=== PATIENT | male | born 1975 | race Caucasian/White ===

== ENCOUNTER → 2022-02-22 | Outpatient (CLI) | payer MEDICARE, MEDICAID, SELFPAY ==
--- NOTE | 2022-02-22 13:41 | CT_ITS ---
STUDY: CT RIGHT ANKLE WITHOUT CONTRAST REASON FOR EXAM: Male, 46 years old. SPRAIN OF OTHER LIGAMENT OF RIGHT ANKLE, INITIAL ENCOUNTER RADIATION DOSAGE (If Supplied By Facility): CTDIvol = ( 15.35 ) mGy, DLP = ( 561.00 ) mGycm TECHNIQUE: Thin section transaxial imaging of the ankle was obtained, with sagittal and coronal reconstructed images. Individualized dose optimization techniques were used for this CT. COMPARISON: None. FINDINGS: Normal visualized distal tibia and fibula. Normal tibiotalar articulation and talar dome. Normal talus, navicular and cuboid tarsal bones. Normal subtalar, talonavicular and calcaneocuboid articulations. A spur is seen at the insertion of the Achilles tendon. Normal navicular-cuneiform, cuneiform tarsal bones and intercuneiform articulations. Normal tarsometatarsal articulations and visualized metatarsi. The soft tissue structures are grossly normal. CT/Extremity Lower without Contra IMPRESSION: Normal CT examination of the ankle. Electronically Signed: Ric Reid MD at 14:27 EDT ,
== END | disposition home or self-care (01) ==
LOC: CT 13:40
PROVIDERS: PCP Family Medicine; Visit Provider Physician Assistant
DX: S93.491A Sprain of other ligament of right ankle, initial encounter (principal)
CPT/HCPCS: 73700

== ENCOUNTER → 2024-01-18 | Outpatient (CLI) | payer MEDICARE, MEDICAID, SELFPAY ==
[2024-01-18 11:03] LABS: Absolute Neutrophil Count 2.6 X10^3/uL (2.0-7.7); Basophil# 0.03 X10^3/uL; Basophil% 0.6 % (0-1); Eosinophil# 0.09 X10^3/uL; Eosinophils% 1.9 % (0-5); Hematocrit 45.6 % (40-54); Hemoglobin 14.9 g/dL (13.0-16.5); Lymphocyte % 35.6 % (19-41); Mean Corp Hgb Conc 32.7 g/dL (32-36); Mean Corpuscular Volume 91.9 fL (80-94); Mean Platelet Vol. 9.9 fl (6.2-12.0); Monocyte% 6.3 % (0-10); NRBC Flagged by Analyzer 0 % (0-5); Neutrophil # 2.64 X10^3/uL (2.7-7.7); Neutrophil % 55.4 % (47-70); Platelet Count 286 K/mm3 (150-450); RBC Distribution Width SD 43.8 fl (35.1-43.9); Red Blood Count 4.96 M/mm3 (4.6-6.2); White Blood Count 4.8 K/mm3 (4.4-11.0)
[2024-01-18 11:39] LABS: Hemoglobin A1c 5.3 % (3.8-5.6)
[2024-01-18 11:59] LABS: ALB/GLOB Ratio 0.9 RATIO (0.9-2.4); AST(SGOT) 15 U/L (15-37); Alanine Aminotransfer ALT/SGPT 23 U/L (16-61); Albumin, Serum 3.7 g/dL (3.2-5.0); Alkaline Phosphatase 65 U/L (45-117); Anion Gap 5 (5-15); BUN 5 mg/dL (7-18); BUN/Creat Ratio 7.1 RATIO (10-20); Calcium,Total 8.7 mg/dL (8.5-10.1); Chloride 103 mmol/L (98-107); Creatinine, Serum 0.71 mg/dL (0.70-1.30); EST Glomerular Filtration Rate 127 mL/min (>60); Est Glom Filt Rate - Afr Amer 154 mL/min (>60); Glucose 97 mg/dL (74-106); Potassium 4.4 mmol/L (3.5-5.1); Protein, Total 7.7 g/dL (6.4-8.2); Sodium Level 137 mmol/L (136-145); T4 Free Direct 0.55 ng/dL (0.76-1.46); Thyroid Stim Hormone (TSH) 1.19 uIU/mL (0.358-3.74)
== END | disposition home or self-care (01) ==
LOC: LAB 10:12
PROVIDERS: PCP Family Medicine; Referring Provider Student in an Organized Health Care Education/Training Program; Visit Provider Student in an Organized Health Care Education/Training Program
DX: R47.81 Slurred speech (principal); F42.9 Obsessive-compulsive disorder, unspecified; F79 Unspecified intellectual disabilities; Z51.81 Encounter for therapeutic drug level monitoring
CPT/HCPCS: 36415; 80053; 83036; 84439; 84443; 85025

== ENCOUNTER 2024-08-10 19:56 | Outpatient (CLI) | payer MEDICARE, MEDICAID, SELFPAY | END 2024-08-10 23:59 | disposition home or self-care (01) | LOC: SL 19:56 | PROVIDERS: PCP Family Medicine; Referring Provider Nurse Practitioner Family; Visit Provider Nurse Practitioner Family | DX: R06.83 Snoring (principal); Z92.89 Personal history of other medical treatment; R40.0 Somnolence | CPT/HCPCS: 95810 ==

== ENCOUNTER → 2024-08-15 | Outpatient (CLI) | payer MEDICARE, MEDICAID, SELFPAY | END | disposition home or self-care (01) | PROVIDERS: PCP Family Medicine; Referring Provider Student in an Organized Health Care Education/Training Program; Visit Provider Student in an Organized Health Care Education/Training Program | DX: F42.9 Obsessive-compulsive disorder, unspecified (principal); F79 Unspecified intellectual disabilities; Z51.81 Encounter for therapeutic drug level monitoring | CPT/HCPCS: 36415; 82140 ==

== ENCOUNTER 2025-05-13 20:20 | Inpatient (IN) | payer MEDICARE, MEDICAID, SELFPAY ==
[2025-05-13 20:21] VITALS: BP 98/64; PULSE 94; RESP 16; TEMP 37; O2SAT 97
[2025-05-13 20:44] VITALS: BMI 25.2
--- OUTSIDE RECORDS SUMMARY | 2025-05-13 21:08 | XMS RPT_ITS | CCD ---
Author Organization [facility]iniSynd Care Team Providers Care Server Software Engineer Name Role Phone Becca Draper MD Primary Care Provider ROSANA RODNEY Referring Unavailable BECCA DRAPER Primary Care Unavailable Becca Draper MD Primary Care Provider Becca Draper MD Primary Care Provider Rashaun PROCESS DESCRIPTION WRITER.Rosana GARRIDO Unavailable Cole PROCESS DESCRIPTION WRITER.Mac GARRIDO Unavailable BECCA DRAPER Primary Care Unavailable JENISE HOLT Referring Unavailable BECCA DRAPER Primary Care Unavailable JENISE HOLT Referring Unavailable MAYRA GERARDO Attending Unavailable BECCA DRAPER Primary Care Unavailable MAYRA GERARDO Referring Unavailable BECCA DRAPER Primary Care Unavailable MAYRA GERARDO Referring Unavailable BECCA DRAPER Primary Care Unavailable SALIMA PARDO Attending Unavailable BECCA DRAPER Primary Care Unavailable FROYLAN ERWIN Attending Unavailable BECCA DRAPER Primary Care Unavailable ROSANA RODNEY Attending Unavailabl e SELF Referring Unavailable BECCA DRAPER Primary Care Unavailable ROSANA RODNEY Referring Unavailabl BECCA Johnson Primary Care Unavailable ROSANA RODNEY Referring Unavailabl e BECCA DRAPER Primary Care Unavailable ROSANA RODNEY Attending Unavailabl e BECCA DRAPER Referring Unavailable BECCA DRAPER Primary Care Unavailable COLEDAGOE Referring Unavailable BECCA DRAPER Primary Care Unavailable ARABELLA SLAUGHTER Attending Unavailable BECCA DRAPER Primary Care Unavailable JENISE HOLT Attending Unavailable BECCA DRAPER Primary Care Unavailable BETHANIE HOLTANDA LATRICIA Referring Unavailable BECCA DRAPER Primary Care Unavailable Reji George Referring Unavailable Becca Draper Primary Care Unavailable Reji George Attending Unavailable Becca Draper Primary Care Unavailable Reji George Attending Unavailable Becca Draper Primary Care Unavailable SeeReji villeda Attending Unavailable Becca Draper Primary Care Unavailable Reji George Attending Unavailable Reji George Attending Unavailable Becca Draper [facility] Rosana Rodney Attending Unavailable Rosana Rodney Referring Unavailable Allergies Allergy Classification Reported Allergen(s) Allergy Type Date of Onset Reaction(s) Facility (20 sources) OLANZapine; Translations: [OLANZAPINE] Drug Allergy 08-11-2007 Intolerance [facility] Work Phone: (20 sources) PARoxetine; Translations: [PAROXETINE HCL] Drug Allergy 08-11-2007 Intolerance [facility] Work Phone: (20 sources) venlafaxine; Translations: [VENLAFAXINE HCL] Drug Allergy 08-11-2007 Intolerance [facility] Work Phone: (1 source) venlafaxine Drug Allergy 05-02-2025 [facility] Repository Medications Current Medications Medication Drug Class(es) Dates Sig (Normalized) Sig (Original) [id number] 200 actuat albuterol 0.09 mg/actuat metered dose inhaler (20 sources) beta2-Adrenergic Agonist Start: 02-06-2025 take 2 puff(s) by inhalation every four hours as needed for cough albuterol HFA (PROVENTIL HFA, VENTOLIN HFA) 90 mcg/actuation inhaler Inhale 2 puffs as instructed every 4 hours as needed for wheezing/shortnes s of breath (cough). 1 each 1 02/06/2025 Active Start: 10-25-2023 take 2 puff(s) by in halation every four hours as needed for wheezing albuterol HFA (PROVENTIL HFA, VENTOLIN HFA) 90 mcg/actuation inhaler Indications: Rhonchi at both lung bases , URI, acute , Subacute cough Inhale 2 Puffs as instructed every 4 hours as needed for wheezing/shortness of breath. 1 Each 10/25/2023 Active Comment on above: Inhale 2 Puffs as in structed every 4 hours as needed for wheezing/shortness of breath. amoxicillin 875 mg / clavulanate 125 mg oral tablet (6 sources) Penicillin-class Antibacterial Start: 02-07-20 End: 02-12-20 take 1 tablet by mouth twice daily amoxicillin-clavu lanate potassium (AUGMENTIN) 875-125 mg per tablet Indications: Bacterial pneumonia Take 1 tablet by mouth two times a day for 5 days. 10 tablet 02/06/2025 02/11/2025 Active Start: 01-21-2025 End: 01-31-2025 take 1 tablet by mouth every twelve hours amoxicillin-clavulanate potassium (AUGMENTIN) 875-125 mg per tablet Take 1 tablet by mouth every 12 hours for 10 days. 20 tablet 01/21/2025 01/31/2025 Active Start: 04-08-2024 End: 04-15-2024 take 1 tablet by mouth twice daily amoxicillin-clavulanate potassium (AUGMENTIN) 875-125 mg per tablet Take 1 tablet by mouth two times a day for 7 days. 14 tablet 0 04/08/2024 04/15/2024 Active benzonatate 100 mg oral capsule (20 sources) Non-narcotic Antitussive Start: 02-06-2025 take 1 capsule by mouth three times daily as needed benzonatate (TESSALON PERLE) 100 mg capsule Indications: Acute cough , Bronchitis Take 1-2 capsules by mouth three times a day as needed. 40 capsule 1 02/06/2025 Active Start: 12-15-2023 take 1 capsule by mo uth three times daily as needed for cough benzonatate (TESSALON PERLE) 100 mg capsule Indications: Acute cough , Hx of viral pneumonia Take 1 capsule by mouth three times a day as needed for cough. 30 capsule 12/15/2023 Active Comment on above: Take 1 capsule by mo uth three times a day as needed for cough. carBAMazepine 200 mg oral tablet (20 sources) Mood Stabilizer Start: 06-10-20 End: 06-06-20 take 2 tablets by mouth twice daily carBAMazepine (EPITOL) 200 mg tablet Indications: Nonintractable epilepsy without status epilepticus, unspecified epilepsy type (HCC) Take 2 tablets by mouth two times a day. 120 tablet 11 06/07/2024 Active Start: 03-22-2015 take 400 mg by mouth twice daily at mealtime Carbamazepine Active 400 MG PO TWICE DAILY WITH MEALS March 22, 2015 7:39am Comment on above: Take [address] [facility] twice daily. Take [address] [facility] twice daily Take [address] [facility] two times a day. cetirizine hydrochloride 10 mg oral tablet (20 sources) Histamine-1 Receptor Antagonist Start: End: 5 take 1 tablet by mouth once daily cetirizine (ZYRTEC) 10 mg tablet Take 1 tablet by mouth once daily. 30 tablet 11 09/27/2024 Active Start: 12-17-2021 End: 07-02-2022 take 1 tablet by mouth once daily cetirizine (ZYRTEC) 10 mg tablet Take 1 tablet by mouth once daily. 30 tablet 5 12/17/2021 07/02/2022 Discontinued Comment on above: Take 1 tablet by [facility] once daily. doxycycline hyclate 100 mg oral tablet (7 sources) Tetracycline-cla ss Drug Start: 02-06-2025 End: 02-16-2025 take 1 tablet by mouth twice daily doxycycline (VIBRA-TABS) 100 mg tablet Indications: Acute cough Take 1 tablet by mouth two times a day for 10 days. 20 tablet 02/06/2025 02/16/2025 Active Start: 12-12-2023 End: 12-17-2023 take 1 capsule by mouth twice daily doxycycline monohydrate (MONODOX) 100 mg capsule Indications: Bacterial pneumonia Take 1 capsule by mouth two times a day for 5 days. 10 capsule 0 12/12/2023 12/17/2023 Active Comment on above: Take [address] [facility] two times a day for 5 days. Food Supplemt, Lactose-Reduced (Boost High Protein) 237 ML Liquid (1 source) Start: 03-25-20 15 take 1 mL by mouth four times daily as needed Food Supplemt, Lactose-Reduced (Boost High Protein) 237 ML Liquid Active 237 ML PO 4 TIMES DAILY NEEDED 72 March 25, 2015 5:37pm ketoconazole 20 mg/ml medicated shampoo (20 sources) Azole Antifungal Start: 08-13-20 14 ketoconazole (NIZORAL) 2 % shampoo Lather into hair, leave 5 minutes, then rinse out. Use on face, ears, chest, and back as body wash. Repeat 3 times per week or as directed. 125 mL 6 08/13/2014 Active Comment on above: Lather into hair, le ave 5 minutes, then rinse out. Use on face, ears, chest, and back as body wash. Repeat 3 times per week or as directed. metoclopramide 5 mg oral tablet (1 source) Dopamine-2 Receptor Antagonist Start: 03-25-20 15 take 1 tablet by mouth three times daily Metoclopramide Hcl (Reglan) 5 MG tablet Active 5 MG PO THREE TIMES A DAY March 25, 2015 5:25pm omeprazole 20 mg delayed release oral capsule (5 sources) Proton Pump Inhibitor Start: 02-27-20 25 take 1 capsule by mouth once daily omeprazole (PRILOSEC) 20 mg capsule Take 1 capsule by mouth once daily. 30 capsule 2 02/26/2025 Active 24 hr oxybutynin chloride 5 mg extended release oral tablet (20 sources) Cholinergic Muscarinic Antagonist Start: 12-21-19 take 1 tablet by mouth every twenty-four hours at bedtime oxybutynin XL (DITROPAN XL) 5 mg 24 hr tablet Indications: Urinary urgency TAKE 1 TABLET BY MOUTH AT BEDTIME 28 tablet 11 12/20/2024 Active Start: 02-14-2024 End: 12-20-2024 take 1 tablet by mouth once daily at bedtime oxybutynin XL (DITROPAN XL) 5 mg 24 hr tablet Indications: Urinary urgency Take 1 tablet by mouth daily at bedtime. 28 tablet 11 02/14/2024 12/20/2024 Discontinued Start: 11-24-2023 End: 02-14-2024 take 1 tablet by mouth every twenty-four hours at bedtime oxybutynin XL (DITROPAN XL) 5 mg 24 hr tablet Indications: Urinary urgency take 1 tablet by mouth at bedtime 28 tablet 11/24/2023 01/24/2024 Discontinued Start: 01-04-2023 End: 11-24-2023 take 1 tablet by mouth once daily oxybutynin XL (DITROPAN XL) 5 mg 24 hr tablet Indications: Urinary urgency Take 1 tablet by mouth once daily. 90 tablet 3 01/04/2023 11/24/2023 Discontinued Start: 12-17-2022 take 1 tablet by isabela th once daily at bedtime oxybutynin (DITROPAN) 5 mg tablet Indications: Urinary frequency , Urinary urgency Take 1 tablet by mouth daily at bedtime. 90 tablet 3 12/17/2022 Active Start: 10-01-2022 End: 12-16-2022 take 1 tablet by mouth three times daily oxybutynin (DITROPAN) 5 mg tablet Take 1 tablet by mouth three times daily. 90 tablet 3 10/01/2022 12/16/2022 Discontinued (Dosage adjustment) Comment on above: Take 1 tablet by isabela th three times daily. Take 1 tablet by isabela th daily at bedtime. Take 1 tablet by isabela th once daily. take 1 tablet by isabela th at bedtime polymyxin b [id number] unt/ml / trimethoprim 1 mg/ml ophthalmic solution (1 source) Dihydrofolate Reductase Inhibitor Antibacterial, Polymyxin-class Antibacterial Start: 11-04-19 End: 11-11-19 take 1 drop(s) into the eye(s) four times daily trimethoprim-polymyxi n (POLYTRIM) 10,000 unit- 1 mg/mL ophthalmic solution Use 1 Drop in the left eye four times daily for 7 days. 10 mL 0 11/04/2023 11/11/2023 Active Comment on above: Use 1 Drop in the le ft eye four times daily for 7 days. predniSONE 10 mg oral tablet (8 sources) Start: 01-29-20 End: 02-10-20 take 4 tablets by mouth once daily, then take 3 tablets by mouth once daily, then take 2 tablets by mouth once daily, then take 1 tablet by mouth once daily predniSONE (DELTASONE) 10 mg tablet Indications: Acute cough , Oropharyngeal dysphagia Take 4 tablets by mouth once daily for 3 days, THEN 3 tablets once daily for 3 days, THEN 2 tablets once daily for 3 days, THEN 1 tablet once daily for 3 days. 30 tablet 01/28/2025 02/09/2025 Active Start: 12-15-2023 End: 12-24-2023 predniSONE (DELTASONE) 10 mg tablet Take 4 tabs daily for 3 days, then 2 tabs daily for 3 days, then 1 tab daily for 3 days with food. 21 tablet 0 12/15/2023 12/24/2023 Active Comment on above: Take 4 tabs daily fo r 3 days, then 2 tabs daily for 3 days, then 1 tab daily for 3 days with food. Proteins (1 source) Start: 03-25-2015 take 454 g by mouth four times daily as needed Protein Active 454 GM PO 4 TIMES DAILY NEEDED March 25, 2015 5:35pm divalproex sodium 500 mg delayed release oral tablet (20 sources) Mood Stabilizer, Anti-epileptic Agent Start: 07-05-2022 End: 07-06-2024 take 1 tablet by mouth twice daily divalproex DR (DEPAKOTE) 500 mg EC tablet Indications: Nonintractable epilepsy without status epilepticus, unspecified epilepsy type (HCC) Take 1 tablet by mouth two times a day. 60 tablet 11 07/06/2024 Active Start: 03-22-2015 End: 07-03-2022 take 1 tablet by mouth twice daily divalproex DR (DEPAKOTE) 500 mg EC tablet Take 1 tablet by mouth twice daily. 60 tablet 11 06/10/2021 06/08/2022 Discontinued Comment on above: Take 1 tablet by isabela th twice daily. Take 1 tablet by isabela th twice daily Take 1 tablet by isabela th two times a day. Completed/Discontinued Medications Medication Drug Class(es) Dates Sig (Normalized) Sig (Original) busPIRone hydrochloride 10 mg oral tablet (18 sources) Start: 12-17-2021 End: 09-14-2022 take 1 tablet by mouth twice daily busPIRone (BUSPAR) 10 mg tablet Take 1 tablet by mouth twice daily. 60 tablet 2 12/17/2021 09/14/2022 Discontinued (Course of therapy completed) Comment on above: Take 1 tablet by isabela th twice daily. cholecalciferol 1.25 mg oral capsule (9 sources) Vitamin D Start: 07-06-2024 End: 07-06-2025 take 1 capsule by mouth every week cholecalciferol, Vitamin D3, (VITAMIN D3) 1,250 mcg (50,000 unit) cap capsule Indications: Vitamin D deficiency Take 1 capsule by mouth one time a week. 12 capsule 3 07/06/2024 01/28/2025 Discontinued (Discontinued by Patient) clomiPRAMINE hydrochloride 25 mg oral capsule (20 sources) Tricyclic Antidepressant Start: 07-29-2023 End: 01-28-2025 take 1 capsule by mouth once daily clomiPRAMINE (ANAFRANIL) 25 mg capsule Take 1 capsule by mouth once daily. 07/29/2023 01/28/2025 Discontinued (Discontinued by Patient) Comment on above: Take 1 capsule by mo [facility] once daily. FLUoxetine 10 mg oral capsule (18 sources) Serotonin Reuptake Inhibitor Start: 10-28-2021 End: 09-14-2022 take 1 capsule by mouth once daily FLUoxetine (PROZAC) 10 mg capsule Take 1 capsule by mouth once daily. 30 capsule 5 10/28/2021 09/14/2022 Discontinued (Course of therapy completed) Comment on above: Take 1 capsule by mo [facility] once daily. hydrocortisone 10 mg/ml topical cream (20 sources) Corticosteroid Start: 08-14-2021 End: 01-28-2025 hydrocortisone (ALA-EFREN) 1 % cream Indications: Eczema Apply 1 application to affected area twice daily. 30 g 3 08/14/2021 01/28/2025 Discontinued (Course of therapy completed) Comment on above: Apply 1 application to affected area twice daily. Inhalational Spacing Device (1 source) Start: 10-25-2023 End: 10-25-2023 Inhalational Spacing Device 1 Device one time only for 1 dose. 1 Each 0 10/25/2023 10/25/2023 Comment on above: 1 Device one time on ly for 1 dose. sertraline 25 mg oral tablet (20 sources) Serotonin Reuptake Inhibitor Start: 09-29-2022 End: 01-28-2025 sertraline (ZOLOFT) 25 mg tablet once daily. 09/29/2022 01/28/2025 Discontinued Comment on above: once daily. Problems Active Problems Problem Classification Problem Date Documented Da te Episodic/Chronic Anxiety disorders (20 sources) Generalized anxiety disorder; Translations: [Generalized anxiety disorder] Onset: 07-27-2005 Chronic Chronic obstructive pulmonary disease and bronchiectasis (3 sources) Bronchitis; Translations: [Bronchitis, not specified as acute or chronic] Onset: 02-06-2025 02-06-2025 Episodic Developmental disorders (20 sources) Intellectual disability; Translations: [Unspecified intellectual disabilities] Onset: 07-27-2005 Chronic Epilepsy; convulsions (20 sources) Epilepsy; Translations: [Epilepsy, unspecified, not intractable, without status epilepticus] Onset: 09-01-2006 07-11-2017 Chronic Fracture of lower limb (1 source) Closed fracture of calcaneus; Translations: [Nondisplaced fracture of anterior process of right calcaneus, initial encounter for closed fracture] Episodic Genitourinary symptoms and ill-defined conditions (15 sources) Increased frequency of urination; Translations: [Frequency of micturition] Onset: 04-30-2025 Episodic Inflammation; infection of eye (except that caused by tuberculosis or sexually transmitteddisease) (1 source) Acute conjunctivitis of left eye; Translations: [Unspecified acute conjunctivitis, left eye] 11-04-2023 Episodic Noninfectious gastroenteritis (3 sources) Chronic diarrhea; Translations: [Noninfective gastroenteritis and colitis, unspecified] Onset: 04-29-2025 04-29-2025 Episodic Nutritional deficiencies (3 sources) Vitamin D deficiency; Translations: [Vitamin D deficiency, unspecified] Onset: 08-24-2024 07-06-2024 Chronic Other circulatory disease (1 source) Wheeze - rhonchi; Translations: [Other specified symptoms and signs involving the circulatory and respiratory systems] 10-25-2023 Episodic Other ear and sense organ disorders (1 source) Impacted cerumen in left ear; Translations: [Impacted cerumen, left ear] Episodic Other ear and sense organ disorders (1 source) Impacted cerumen of bilateral ears; Translations: [Impacted cerumen, bilateral] 01-28-2025 Episodic Other gastrointestinal disorders (7 sources) Oropharyngeal dysphagia; Translations: [Dysphagia, oropharyngeal phase] 01-28-2025 Episodic Other gastrointestinal disorders (3 sources) Dysphagia; Translations: [Other dysphagia] 02-08-2025 Episodic Other gastrointestinal disorders (1 source) Oral phase dysphagia; Translations: [Dysphagia, oral phase] 02-08-2025 Episodic Other gastrointestinal disorders (1 source) Dysphagia, unspecified; Translations: [Dysphagia, unspecified type] Onset: 04-29-2025 Episodic Other lower respiratory disease (2 sources) Chronic cough; Translations: [Chronic cough] 12-12-2023 Episodic Other lower respiratory disease (1 source) H/O: pneumonia; Translations: [Personal history of pneumonia (recurrent)] 12-15-2023 Episodic Other lower respiratory disease (4 sources) Snoring; Translations: [Snoring] 07-04-2024 Episodic Other lower respiratory disease (5 sources) Cough; Translations: [Acute cough] 01-28-2025 Episodic Other nervous system disorders (1 source) Slurred speech; Translations: [Slurred speech] Episodic Other non-traumatic joint disorders (2 sources) Acute ankle pain; Translations: [Pain in right ankle and joints of right foot] Episodic Other screening for suspected conditions (not mental disorders or infectious disease) (9 sources) Patient encounter status; Translations: [Encounter for screening for malignant neoplasm of colon] Onset: 08-24-2024 Episodic Other upper respiratory disease (4 sources) Seasonal allergy; Translations: [Other seasonal allergic rhinitis] Chronic Other upper respiratory disease (1 source) Other seasonal allergic rhinitis; Translations: [Seasonal allergies] Onset: 07-04-2024 Chronic Other upper respiratory disease (1 source) Nasal discharge; Translations: [Other specified disorders of nose and nasal sinuses] Episodic Other upper respiratory infections (1 source) Bacterial sinusitis; Translations: [Chronic sinusitis, unspecified] 04-08-2024 Chronic Other upper respiratory infections (2 sources) Sore throat symptom; Translations: [Acute pharyngitis, unspecified] Episodic Pneumonia (except that caused by tuberculosis or sexually transmitted disease) (4 sources) Bacterial pneumonia; Translations: [Unspecified bacterial pneumonia] Onset: 02-28-2025 12-12-2023 Episodic Residual codes; unclassified (2 sources) Past history of procedure; Translations: [Personal history of other medical treatment] 07-20-2024 Episodic Residual codes; unclassified (2 sources) Family history of cancer of colon; Translations: [Family history of malignant neoplasm of digestive organs] 04-29-2025 Episodic Residual codes; unclassified (1 source) Family history of malignant neoplasm of digestive organs; Translations: [Family history of colon cancer] Onset: 04-29-2025 Episodic Unclassified (1 source) Poor oral intake Unclassified (2 sources) Acute cough; Translations: [Acute cough] Onset: 02-06-2025 Unclassified (1 source) Other cough; Translations: [Other cough] Onset: 04-29-2025 Past or Other Problems Problem Classification Problem Date Documented Da te Episodic/Chronic Biliary tract disease (20 sources) Calculus of gallbladder with acute cholecystitis; Translations: [Calculus of gallbladder with acute cholecystitis] Onset: 08-20-2005 Resolved: 09-01-2006 09-01-2006 Episodic Coma; stupor; and brain damage (5 sources) Daytime somnolence; Translations: [Somnolence] Onset: 07-04-2024 07-04-2024 Episodic Immunizations and screening for infectious disease (1 source) Encounter for immunization; Translations: [Encounter for immunization] Onset: 07-04-2024 Episodic Malaise and fatigue (3 sources) Fatigue; Translations: [Other fatigue] Onset: 07-04-2024 07-04-2024 Episodic Other aftercare (1 source) Encounter for therapeutic drug level monitoring; Translations: [Encounter for therapeutic drug level monitoring] Onset: 07-31-2024 Episodic Other ear and sense organ disorders (1 source) Impacted cerumen, bilateral; Translations: [Bilateral impacted cerumen] Onset: 01-28-2025 Episodic Other gastrointestinal disorders (2 sources) Dysphagia, oropharyngeal phase; Translations: [Oropharyngeal dysphagia] Onset: 01-28-2025 Episodic Other lower respiratory disease (7 sources) Cough; Translations: [Subacute cough] Onset: 01-21-2025 10-25-2023 Episodic Other lower respiratory disease (2 sources) Snoring; Translations: [Snoring] Onset: 07-04-2024 Episodic Other nutritional; endocrine; and metabolic disorders (20 sources) Abnormal weight loss; Translations: [Abnormal weight loss] Onset: 04-03-2015 04-03-2015 Episodic Residual codes; unclassified (1 source) Personal history of other medical treatment; Translations: [History of sleep study] Onset: 08-24-2024 Episodic Screening and history of mental health and substance abuse codes (1 source) Encounter for screening for depression; Translations: [Screening for depression] Onset: 07-04-2024 Episodic Unclassified (2 sources) Acute cough 01-28-2025 Results Test Name Value Interpretation Reference Range Facility [facility] 05-02-2025 MR/[facility]MS.[facility] [address], [address] [place] [address] OFFICE VISIT Date of Service: 05/02/25 MR#: [id number] Acct: [id number] Name: OCTAVIANO QUINN Rep #: [id number] : 1975 Provider: Dr. Reji Zepeda se, DO Age/Sex: 49/M Location: [facility] [place] Status: Signed Intake Vital Signs 01/30/25 10:08 05/02/25 10:36 Height 5 ft 11 in 5 ft 11 in Weight: 203 lb 198 lb BMI 28.3 27.6 BP 109/74 118/78 Blood Pressure Location Lt brachial Rt brachial Position Sitting Sitting Respiration 16 16 Pulse 68 64 Pulse Source Monitor Monitor BP Intake Visit Reasons: 3 M FU Accompanied by: family Allergies venlafaxine HCl (From Effexor) Adverse Reaction (Verified 05/02/25 10:38) AGITATION AND SLEEPY Medications ???Medication ???Instructions ???Recorded ???Confirmed ???Type carbamazepine 200 mg tablet 400 mg PO BIDCM 03/22/15 05/02/25 History cetirizine 10 mg tablet 10 mg PO DAILY 09/29/22 05/02/25 H istory divalproex 500 mg tablet,delayed 500 mg PO BID #30 tabs 11/11/22 Rx release (Depakote) oxybutynin chloride 5 mg tablet tablet PO 11/11/22 05/02/25 Histor y hydroxyzine HCl 10 mg tablet 5 - 10 mg (0.5 - 1 x 10 mg) PO BID 05/02/25 05/02/25 Rx PRN anxiety #60 tabs omeprazole 20 mg capsule,delayed 20 mg PO QDAY 05/02/25 05/02/25 Hi story release PFSH Medical History (Updated 07/31/24 @ 10:[address] Reji George DO) Medication monitoring encounter OCD (obsessive compulsive disorder) Intellectual disability Cholecystectomy planned Seizures Irritable bowel syndrome Gallstones Allergies Family History Other Anxiety Asthma Depression Diabetes Hypertension Parkinson disease Seizures Social History Smoking Status: Never smoker alcohol intake: never substance use type: does not use HPI History of Present Illness History provided by: patient HPI: Octaviano Quinn is a 49 year old male who presents today for follow up evaluation. Presents today with his sister. Patient reports to doing good. Did go to [facility] in March. Did have another bout of pneumonia in the Spring. Did have a swallow study and they thought it was acid reflux. Since being on an acid reflux med feels like things are marginally better. Will be having an EGD and colonoscopy. Played the first [employer] in [employer] last night. Has been in good moods, but has been somewhat more active when experiencing change. Has been much more motivated in recent past. Denies SI/HI or AVH. Review of Systems Constitutional Denies: fever(s), chills, change in weight or fatigue Eyes Denies: change in vision or blurry vision Ears, Nose, Mouth, Throat Denies: throat pain, neck pain or change in hearing Cardiovascular Denies: chest pain, palpitations or dyspnea Respiratory Denies: dyspnea, cough or wheezing Gastrointestinal Denies: abdominal pain, nausea, vomiting, diarrhea or constipation Genitourinary Denies: dysuria or urinary frequency Musculoskeletal Denies: back pain, neck pain, joint pain or muscle weakness Integumentary/Breast Denies: rash or new lesions Neurological Denies: headache(s), dizziness or confusion Endocrine Denies: fatigue or excessive sweating Hematologic/Lymphatic Denies: easy bruising or easy bleeding Allergic/Immunologic Denies: wheezing Exam Mental Status Exam - Psych Appearance casually dressed and no apparent distress Attitude calm Activity/Motor Behavior intense eye contact Speech regular rate and loud Mood OK Affect full range Thought Process other (difficult to assess) Thought Content no delusions and no hallucinations Suicidal Ideation none Homicidal Ideation none Attention intact (fair) Concentration intact Sensorium/Orientation awake, alert and oriented x3 Memory/Cognition impaired (below expected for age) Insight limited Judgement questionable Assessment Plan Assessment Plan (1) OCD (obsessive compulsive disorder): Qualifiers: Obsessive-compulsive disorder type: unspecified Qualified Code(s): F42.9 - Obsessive- compulsive disorder, unspecified Plan: - Sister (guardian) voices that patient has been doing largely well off of medication at this time -Will trial hydroxyzine as needed for anxiety but could consider something like lorazepam if needed in the future Longitudinal care of this patient requires consistent and continuous treatment over an extended period of time. (2) Intellectual disability: Plan: - Likely underlying autism spectrum disorder, stable Medications: New hydroxyzine HCl 5 - 10 mg (0.5 - 1 x 10 mg) PO BID PRN 60 tabs 2RF anxiety F42.9 - Obsessive- compulsive disorder, unspecified (more content not included)... Normal [facility] CNOVon 04-30-2025 CNOV Office Visit (UROLWS ) OCTAVIANO QUINN ([id number]) 1975 M Date Time Provider Department 04/30/25 2:15 PM FROYLAN ERWIN UROLWS During your visit today, we recorded the following information about you: Temperature 98.2 degrees Vero RasconOBI 04/30/2025 2:47 PM Signed Verified name and date of . CC Post Void Residual HPI: Octaviano Quinn is a 49 year old male. The patient is here now for an appointment with SARA Alatorre MT, PA-COV. Procedure: Explained procedure to patient and verbalizes understanding. Performed a PVR. Patient urinated and instructed to empty bladder as much as possible just prior to having PVR done using bladder ultrasound scanner. Results of scan: 0 mL The patient tolerated the procedure well. Plan: Appointment with Froylan Villar PA-C 04/30/2025 2:47 PM Signed [facility] PATIENT CLINIC NOTE (M) Some elements copied from his previous note, which have been updated where appropriate, and all reflect current medical decision making from date of this visit. Note was generated by [employer] and edited as appropriate SERVICE DATE: April 30, 2025 NAME: Octaviano Quinn GENDER: male CHIEF COMPLAINT: The patient is a 49-year-old male with a history of neurogenic bladder, accompanied by his caregiver, presenting for a follow-up visit. HISTORY OF PRESENT ILLNESS: The patient is a 49-year-old male with a history of neurogenic bladder, accompanied by his caregiver, presenting for a follow-up visit. Neurogenic Bladder: - Managed with Ditropan. - Medication refills are current through December of next year. - Recent urinalysis showed trace protein and elevated specific gravity. > We discussed the common causes of urinary frequency and urgency, and restricting water intake In hopes to mitigate the need to urinate, we discussed how this behavior more often worsen the problem not improving it, > We discussed increasing daily water intake to 64-84 oz 7a -7p and try to reduce bladder irritants, caffeine, alcohol and acid foods and drink. > Bladder irritants handout available to patient. LABS: No results found for: PSA Creatinine Date Value Ref Range Status 07/04/2024 0.74 0.73 - 1.22 mg/dL Final 08/16/2023 0.73 0.73 - 1.22 mg/dL Final 08/16/2022 0.88 0.73 - 1.22 mg/dL Final No results found for: TESTOST Hematocrit (%) Date Value 07/04/2024 47.8 08/16/2023 49.1 08/16/2022 46.7 08/14/2021 48.2 07/09/2020 46.6 07/04/2019 48.0 No results found for: PSA MEDICATIONS: omeprazole (PRILOSEC) 20 mg capsule Take 1 capsule by mouth once daily. albuterol HFA (PROVENTIL HFA, VENTOLIN HFA) 90 mcg/actuation inhaler Inhale 2 puffs as instructed every 4 hours as needed for wheezing/shortness of breath (cough). oxybutynin XL (DITROPAN XL) 5 mg 24 hr tablet TAKE 1 TABLET BY MOUTH AT BEDTIME cetirizine (ZYRTEC) 10 mg tablet Take 1 tablet by mouth once daily. divalproex DR (DEPAKOTE) 500 mg EC tablet Take 1 tablet by mouth two times a day. carBAMazepine (EPITOL) 200 mg tablet Take 2 tablets by mouth two times a day. ketoconazole (NIZORAL) 2 % shampoo Lather into hair, leave 5 minutes, then rinse out. Use on face, ears, chest, and back as body wash. Repeat 3 times per week or as directed. benzonatate (TESSALON PERLE) 100 mg capsule Take 1-2 capsules by mouth three times a day as needed. PAST MEDICAL HISTORY: PAST MEDICAL HISTORY Diagnosis Date Unspecified epilepsy without mention of intractable epilepsy (HCC) Unspecified intellectual disabilities REVIEW OF SYSTEMS: PHYSICAL EXAMINATION: General: Alert AND oriented, no acute distress Skin: Normal HEENT: Pupils equal, round. Oral cavity, oropharynx clear Neck: Supple, no mass Breast: Deferred Respiratory: Clear to auscultation, bilaterally Cardiovascular: Regular rate and rhythm, no murmurs, rubs, or gallops Abdomen: Soft, non-tender, non-distended, no masses palpable, no hepatosplenomegaly, normal bowel sounds Genitourinary: Deferred MSK: Back is non-tender Extremities: No clubbing, cyanosis, or edema PROBLEM LIST REVIEW: Yes LABS: Results for orders placed or performed in visit on 04/30/25 UA DIP, URINE (POC) Result Value Ref Range GLUCOSE UA (POCT) Negative Negative mg/dL BILIRUBIN UA (POCT) Negative Negative KETONE UA (POCT) Negative Negative mg/dL SPECIFIC GRAVITY UA (POCT) 1.025 1.005 - 1.030 HEMOGLOBIN/BLOOD UA (POCT) Negative Negative PH UA (POCT) 6.5 4.5 - 8.0 PROTEIN UA (POCT) Trace (A) Negative mg/dL UROBILINOGEN UA (POCT) 0.2 Normal E.U./dL NITRITE UA (POCT) Negative Negative LEUKOCYTES UA (POCT) Negative Negative COLOR UA (POCT) Dark yellow CLARITY UA (POCT) Clear PROCEDURES: PVR - 0 ml ASSESSMENT/PLAN: 1. Urinary frequency (R35. (more content not included)... Normal [facility] UA DIP, URINE (POC)on 2024 BILIRUBIN UA (POCT) Negative Negative [facility] CLARITY UA (POCT) Clear [facility] COLOR UA (POCT) Dark yellow [facility] GLUCOSE UA (POCT) Negative Negative mg/dL [facility] Hemoglobin Ql (U) Negative Negative [facility] Interpretation and review of laboratory results Abnormal [facility] KETONE UA (POCT) Negative Negative mg/dL [facility] LEUKOCYTES UA (POCT) Negative Negative [facility] NITRITE UA (POCT) Negative Negative [facility] PH UA (POCT) 6.5 4.5 - 8.0 [facility] Protein Ql (U) Trace Abnormal Negative mg/dL [facility] SPECIFIC GRAVITY UA (POCT) 1.025 1.005 - 1.030 [facility] UROBILINOGEN UA (POCT) 0.2 Maggi l E.U./dL [facility] Location:[facility], [address], [place], [address] [facility] POINT OF CARE [facility] CNOVon 04-29-2025 CNOV Office Visit (GSTNOR ) KRISHNAOCTAVIANO Lovelace ([id number]) 1975 M Date Time Provider Department 04/29/25 10:30 AM SALIMA PARDO GSTNOR During your visit today, we recorded the following information about you: Pulse Blood pressure Weight Height 70/minute 122/70 87.5 kg 1.88 m Salima Pardo PA-C 04/29/2025 10:41 AM Signed CHIEF COMPLAINT: Patient presents with: Dysphagia: Barium swallow 06/11/25 This consult was requested by No ref. provider found for an opinion regarding dysphagia. My final recommendations will be communicated to the requesting health care provider by way of the shared medical record for internal providers or letter via the [employer] Postal Service for external providers. HPI: Octaviano Quinn is a 49 year old male who presents for Dysphagia (Barium swallow 06/11/25). PMHx of epilepsy, intellectual disability Patient with dysphagia to solids, liquids. Notes that he is coughing with eating/drinking. This has decreased since starting Omeprazole 20 mg daily. Patient does feel like things are sticking in his throat. There is a concern for reflux symptoms. Does have chronic diarrhea, suspect IBS. Does seem to be affected increased sugar intake. No rectal bleeding or black stools. Brother passed from colon cancer. MBSS 02/08/2025: Impression: Patient presents with mild pharyngeal dysphagia and high concern for esophageal dysphagia, likely chronic in the setting of observed esophageal retention and retro-flow and impulsivity with intake. Patient appears safe to continue an oral diet at this time. Patient appears to be at an increased risk for developing pulmonary complications related to the following factors: increased dependence on caregivers for oral hygiene and feeding, reduced cognitive status, impaired pulmonary status, and silent aspiration. Sister's concern are that patient was noted to have increased coughing episodes and persistent pneumonia (1.5-2months). Silent aspiration was observed in trace amount on one occasion. Throughout MBSS patient had coughing spells, during which fluoroscopy was turned on. There were occasions of retroflow below and at times through PES; however there was never aspiration observed during these occasions. 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 It does not appear to affect bolus flow through PES. Due to significant coughing episodes and observed esophageal dysphagia, recommend consult to exhibit builder for further workup. 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 Compensatory strategies attempted, patient unable to complete. No further BLUEPRINT DUPLICATOR services are indicated. Literature provided to caregiver and patient for compensatory strategies to assist with reflux. Caregiver verbalizes understanding. Record Review: [facility] / Outside records reviewed. PAST MEDICAL HISTORY Diagnosis Date Unspecified epilepsy without mention of intractable epilepsy (HCC) Unspecified intellectual disabilities PAST SURGICAL HISTORY Procedure Laterality Date CHOLECYSTECTOMY 2009? Cholecystectomy EGD TRANSORAL BIOPSY SINGLE/MULTIPLE 03/24/15 dysphagia, normal Allergies: ALLERGIES Allergen Reactions Effexor [Venlafaxin* Intolerance aggressive behavior Paxil [Paroxetine H* Intolerance Weight gain Zyprexa [Olanzapine] Intolerance sedation Medications: omeprazole (PRILOSEC) 20 mg capsule Take 1 capsule by mouth once daily. benzonatate (TESSALON PERLE) 100 mg capsule Take 1-2 capsules by mouth three times a day as needed. albuterol HFA (PROVENTIL HFA, VENTOLIN HFA) 90 mcg/actuation inhaler Inhale 2 puffs as instructed every 4 hours as needed for wheezing/shortness of breath (cough). oxybutynin XL (DITROPAN XL) 5 mg 24 hr tablet TAKE 1 TABLET BY MOUTH AT BEDTIME cetirizine (ZYRTEC) 10 mg tablet Take 1 tablet by mouth once daily. divalproex DR (DEPAKOTE) 500 mg EC tablet Take 1 tablet by mouth two times a day. carBAMazepine (EPITOL) 200 mg tablet Take 2 tablets by mouth two times a day. ketoconazole (NIZORAL) 2 % shampoo Lather into hair, leave 5 minutes, then rinse out. Use on face, ears, chest, and back as body wash. Repeat 3 times per week or as directed. FAMILY HISTORY Problem Relation Age of Onset Colon Cancer Brother 42 Cancer Maternal Grandmother Coronary Artery Disease Maternal Grandfather Cancer Paternal Grandfather Melanoma to Lung Employer And Job Title: None on file Years Of Education Completed: Not specified Marital Status: Single with no children SOCIAL HISTORY[1] Review of Systems: Review of Systems Constitutional: Positive for fatigue. Respiratory: Positive for cough and choking. Gastrointestinal: Positive for diarrhea. Heartburn All other systems reviewed a (more content not included)... Normal [facility] XR CHEST 2V FRONTAL/LATon XR CHEST 2V FRONTAL/LAT * * *Final Report* * * DATE OF EXAM: Feb 28 2025 9:39AM WOX [id number] - XR CHEST 2V FRONTAL/LAT / PROCEDURE REASON: Bacterial pneumonia * * * * Physician Interpretation * * * * EXAMINATION: CHEST RADIOGRAPH (2 VIEW FRONTAL and LATERAL) CLINICAL HISTORY: Bacterial pneumonia MQ: XC2_6 EXAM DATE/TIME: 02/28/2025 9:39 AM COMPARISON: Chest x-ray on 02/06/2025 RESULT: Lines, tubes, and devices: None. Lungs and pleura: No consolidation. No lung mass. No pleural effusion. No pneumothorax. Cardiomediastinal silhouette: Normal cardiomediastinal silhouette. Bones and soft tissues: Unremarkable. IMPRESSION: No acute radiographic abnormality. Wardrobe Specialty Worker: CRUZ Transcribe Date/Time: Feb 28 2025 3:32P Dictated by : ARIANA TIJERINA MD This examination was interpreted and the report reviewed and electronically signed by: ARIANA TIJERINA MD on Feb 28 2025 3:32PM EST [id number] Normal [facility] XR Chest PA and Lateralon IMPRESSION: No acute radiographic abnormality. Wardrobe Specialty Worker: CRUZ Transcribe Date/Time: Feb 28 2025 3:32P Dictated by : ARIANA TIJERINA MD This examination was interpreted and the report reviewed and electronically signed by: ARIANA TIJERINA MD on Feb 28 2025 3:32PM EST DIVISION OF RADIOLOGY * * *Final Report* * * DATE OF EXAM: Feb 28 2025 9:39AM WOX [id number] - XR CHEST 2V FRONTAL/LAT / PROCEDURE REASON: Bacterial pneumonia * * * * Physician Interpretation * * * * EXAMINATION: CHEST RADIOGRAPH (2 VIEW FRONTAL & LATERAL) CLINICAL HISTORY: Bacterial pneumonia MQ: XC2_6 EXAM DATE/TIME: 02/28/2025 9:39 AM COMPARISON: Chest x-ray on 02/06/2025 RESULT: Lines, tubes, and devices: None. Lungs and pleura: No consolidation. No lung mass. No pleural effusion. No pneumothorax. Cardiomediastinal silhouette: Normal cardiomediastinal silhouette. Bones and soft tissues: Unremarkable. DIVISION OF RADIOLOGY Provider, [facility] - 02/28/2025 * * *Final Report* * * DATE OF EXAM: Feb 28 2025 9:39AM WOX 5291 - XR CHEST 2V FRONTAL/LAT / PROCEDURE REASON: Bacterial pneumonia * * * * Physician Interpretation * * * * EXAMINATION: CHEST RADIOGRAPH (2 VIEW FRONTAL & LATERAL) CLINICAL HISTORY: Bacterial pneumonia MQ: XC2_6 EXAM DATE/TIME: 02/28/2025 9:39 AM COMPARISON: Chest x-ray on 02/06/2025 RESULT: Lines, tubes, and devices: None. Lungs and pleura: No consolidation. No lung mass. No pleural effusion. No pneumothorax. Cardiomediastinal silhouette: Normal cardiomediastinal silhouette. Bones and soft tissues: Unremarkable. IMPRESSION IMPRESSION: No acute radiographic abnormality. Wardrobe Specialty Worker: PSCB Transcribe Date/Time: Feb 28 2025 3:32P Dictated by : ARIANA TIJERINA MD This examination was interpreted and the report reviewed and electronically signed by: ARIANA TIJERINA MD on Feb 28 2025 3:32PM EST [facility] Radiology Study observation (narrative) [facility] XR Chest PA and LateralOrder ed By: [facility] Provider on 02-28-2025 [facility] 02-25-2025 CNPN Telephone (FAMPWS) OCTAVIANO QUINN ([id number]) 1975 M Date Time Provider Department 02/25/25 BECCA DRAPER During your visit today, we recorded the following information about you: Forrest Chappell RN 02/25/2025 12:39 PM Signed Sister AND guardian, Renee, reports the ST informed her that pt has acid reflux and also 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 Reports pt's appt with GI is not until April 29 in [place]. Asking if provider can order a medication for pt's acid reflux. [facility]. Please advise and phone Renee with reply. Mayra Gerardo APRN.TEXTILE 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 02/25/2025 8:19 PM Signed (Sent a message to GI that he is scheduled with -- awaiting response). Mayra Gerardo APRN.Mayra Patel APRN.TEXTILE 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 02/26/2025 8:51 AM Signed Yes, I went ahead and sent a prescription to omeprazole to the pharmacy. This should be taken on an empty stomach 30-60 minutes prior to eating to be most effective. Please let us know if there are any questions. Thanks, Forrest Albarran RN 02/26/2025 9:16 AM Signed Left vm for Renee to return call to nurse for provider's message. Salima Monterroso RN 02/26/2025 9:38 AM Signed Patient's sister notified of providers message. Voices understanding. Salima Monterroso RN Allergies As of Date: 02/25/2025 Noted Allergy Reaction EFFEXOR (VENLAFAXINE HCL) 08/11/2007 5 - Intolerance Comments: aggressive behavior PAXIL (PAROXETINE HCL) 08/11/2007 5 - Intolerance Comments: Weight gain ZYPREXA (OLANZAPINE) 08/11/2007 5 - Intolerance Comments: sedation Date Reviewed: 02/06/2025 Reviewed by: Mowrer, Paul, HOUSEKEEPING AIDE - Fully Assessed Reason for Visit: Patient Question [8567] Order(s):omeprazole (PRILOSEC) 20 mg capsuleTake 1 capsule by mouth once daily.Disp: 30 capsuleRfl: 2 Prescriptions as of 02/26/2025 - omeprazole (PRILOSEC) 20 mg capsule Take 1 capsule by mouth once daily. - benzonatate (TESSALON PERLE) 100 mg capsule Take 1-2 capsules by mouth three times a day as needed. - albuterol HFA (PROVENTIL HFA, VENTOLIN HFA) 90 mcg/actuation inhaler Inhale 2 puffs as instructed every 4 hours as needed for wheezing/shortness of breath (cough). - oxybutynin XL (DITROPAN XL) 5 mg 24 hr tablet TAKE 1 TABLET BY MOUTH AT BEDTIME - cetirizine (ZYRTEC) 10 mg tablet Take 1 tablet by mouth once daily. - divalproex DR (DEPAKOTE) 500 mg EC tablet Take 1 tablet by mouth two times a day. - carBAMazepine (EPITOL) 200 mg tablet Take 2 tablets by mouth two times a day. - ketoconazole (NIZORAL) 2 % shampoo Lather into hair, leave 5 minutes, then rinse out. Use on face, ears, chest, and back as body wash. Repeat 3 times per week or as directed. Problem List As Of Date 02/25/2025 Noted Resolved Anxiety state [F41.1] 07/27/2005 Intellectual disability [F79] 07/27/2005 CHOLELITH W ACUTE GB DIS [574.0] 08/20/2005 09/01/2006 Epilepsy (HCC) [G40.909] 09/01/2006 Abnormal weight loss [R63.4] 04/03/2015 Prescriptions ordered this encounter Disp Refills Start End OMEPRAZOLE 20 MG CAPSULE,DELAYED REL* 30 c* 2 02/26/2025 Route: PO Sig: Take 1 capsule by mouth once daily. Encounter Status:Closed by SALIMA MONTERROSO on 02/26/25 [facility] CNTHERAPYon 02-08-2025 CNTHERAPY OT/PT/Speech Visit (SPMBFV) OCTAVIANO QUINN ([id number]) 1975 M Date Time Provider Department 02/08/25 9:10 AM VIOLET ARROYO [facility] Date Time Provider Department Center 02/08/2025 9:10 AM [id number], KELLY [facility] Reason for Visit: Speech Instrumental Swallow Eval [3660] Speech Discharge [3488] Primary Visit Diagnosis:Other dysphagia [R13.19] Other Visit Diagnosis:Oral phase dysphagia [R13.11] Allergies As of Date: 02/08/2025 Noted Allergy Reaction EFFEXOR (VENLAFAXINE HCL) 08/11/2007 5 - Intolerance Comments: aggressive behavior PAXIL (PAROXETINE HCL) 08/11/2007 5 - Intolerance Comments: Weight gain ZYPREXA (OLANZAPINE) 08/11/2007 5 - Intolerance Comments: sedation Date Reviewed: 02/06/2025 Reviewed by: Paul Parker LPN - Fully Assessed Prescriptions as of 02/08/2025 - doxycycline (VIBRA-TABS) 100 mg tablet Take 1 tablet by mouth two times a day for 10 days. - benzonatate (TESSALON PERLE) 100 mg capsule Take 1-2 capsules by mouth three times a day as needed. - albuterol HFA (PROVENTIL HFA, VENTOLIN HFA) 90 mcg/actuation inhaler Inhale 2 puffs as instructed every 4 hours as needed for wheezing/shortness of breath (cough). - amoxicillin-clavulanat e potassium (AUGMENTIN) 875-125 mg per tablet Take 1 tablet by mouth two times a day for 5 days. - predniSONE (DELTASONE) 10 mg tablet Take 4 tablets by mouth once daily for 3 days, THEN 3 tablets once daily for 3 days, THEN 2 tablets once daily for 3 days, THEN 1 tablet once daily for 3 days. - oxybutynin XL (DITROPAN XL) 5 mg 24 hr tablet TAKE 1 TABLET BY MOUTH AT BEDTIME - cetirizine (ZYRTEC) 10 mg tablet Take 1 tablet by mouth once daily. - divalproex DR (DEPAKOTE) 500 mg EC tablet Take 1 tablet by mouth two times a day. - carBAMazepine (EPITOL) 200 mg tablet Take 2 tablets by mouth two times a day. - ketoconazole (NIZORAL) 2 % shampoo Lather into hair, leave 5 minutes, then rinse out. Use on face, ears, chest, and back as body wash. Repeat 3 times per week or as directed. Normal [facility] RF videography Hypopharynx a nd Esophagus Views W liquid and paste contrast PO during swallowingon 02-08-2025 * * *Final Report* * * DATE OF EXAM: Feb 08 2025 9:59AM FVX [id number] - XR MOD BARIUM SWALLOW W SPEECH / PROCEDURE REASON: multiple diagnoses * * * * Physician Interpretation * * * * MODIFIED BARIUM SWALLOW CLINICAL DATA: Pneumonia. Dysphagia. TECHNIQUE: The examination was performed by the speech pathologist. Fluoroscopic guidance was provided. Fluoroscopic Radiation Summary: Plane A, Air Kerma: 175.8 mGy Plane B, Air Kerma: Dose Area Product (DAP): Fluoro time: 4:09 min:sec RESULT: ... (See speech pathologist's report.) Wardrobe Specialty Worker: CRUZ Transcribe Date/Time: Feb 08 2025 11:29A Dictated by : FRANCISCO DAVIS MD This examination was interpreted and the report reviewed and electronically signed by: FRANCISCO DAVIS MD on Feb 08 2025 11:30AM [facility] RADIOLOGY Provider, [facility] - 02/08/2025 * * *Final Report* * * DATE OF EXAM: Feb 08 2025 9:59AM FVX [id number] - XR MOD BARIUM SWALLOW W SPEECH / PROCEDURE REASON: multiple diagnoses * * * * Physician Interpretation * * * * MODIFIED BARIUM SWALLOW CLINICAL DATA: Pneumonia. Dysphagia. TECHNIQUE: The examination was performed by the speech pathologist. Fluoroscopic guidance was provided. Fluoroscopic Radiation Summary: Plane A, Air Kerma: 175.8 mGy Plane B, Air Kerma: Dose Area Product (DAP): Fluoro time: 4:09 min:sec RESULT: ... (See speech pathologist's report.) Wardrobe Specialty Worker: CRUZ Transcribe Date/Time: Feb 08 2025 11:29A Dictated by : FRANCISCO DAVIS MD This examination was interpreted and the report reviewed and electronically signed by: FRANCISCO DAVIS MD on Feb 08 2025 11:30AM EST [facility] Radiology Study observation (narrative) [facility] RF videography Hypopharynx a nd Esophagus Views W liquid and paste contrast PO during swallowingOrdered By: [facility] Provider on 02-08-2025 [facility] XR MOD BARIUM SWALLOW W SPEE Annamarie 02-08-2025 XR MOD BARIUM SWALLOW W SPEECH * * *Final Report* * * DATE OF EXAM: Feb 08 2025 9:59AM FVX [id number] - XR MOD BARIUM SWALLOW W SPEECH / PROCEDURE REASON: multiple diagnoses * * * * Physician Interpretation * * * * MODIFIED BARIUM SWALLOW CLINICAL DATA: Pneumonia. Dysphagia. TECHNIQUE: The examination was performed by the speech pathologist. Fluoroscopic guidance was provided. Fluoroscopic Radiation Summary: Plane A, Air Kerma: 175.8 mGy Plane B, Air Kerma: Dose Area Product (DAP): Fluoro time: 4:09 min:sec RESULT: ... (See speech pathologist's report.) Wardrobe Specialty Worker: CRUZ Transcribe Date/Time: Feb 08 2025 11:29A Dictated by : FRANCISCO DAVIS MD This examination was interpreted and the report reviewed and electronically signed by: FRANCISCO DAVIS MD on Feb 08 2025 11:30AM EST [id number] [facility] CNOVon 02-06-2025 CNOV Office Visit (FAMPWS ) OCTAVIANO QUINN ([id number]) 1975 M Date Time Provider Department 02/06/25 10:00 AM [facility] During your visit today, we recorded the following information about you: Pulse Respiration Blood pressure Weight 92/minute 16/minute 108/76 91.2 kg Mayra Gerardo APRN.RADHIKA 02/06/2025 10:39 AM Signed - Take doxycycline 1 tablet by mouth twice daily for 10 days; prescription sent to [facility]. - Use Tessalon Perles cough suppressant: start with 1 capsule by mouth; if needed, you may increase to 2 capsules. Prescription sent to [facility]. 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 - Continue daily vitamin D and vitamin C, but separate these from your antibiotic doses to ensure proper absorption. - A stat chest x-ray was ordered; results should be available in about an hour. Check MyChart for a negative report. If it shows pneumonia, we will call you to add a second antibiotic. - If no better/worsening, let us know. Mayra Gerardo APRN.CNP 02/06/2025 5:26 PM Signed This is a 49 year old male who presents today with: Octaviano is a 49-year-old male with a history of autism, accompanied by his sister who is providing history on his behalf, presenting for evaluation of a persistent cough and congestion. HISTORY OF PRESENT ILLNESS: Cough and Congestion: - Persistent cough and congestion x1.5-2 months. - Initially attributed to allergies; treated with antibiotics and a 10-12 day prednisone taper with no improvement. - Cough is non-productive; denies hemoptysis. - Associated with nasal congestion and rhinorrhea - Denies odynophagia, otalgia, or cephalgia. - Nocturnal cough; sleep quality unknown. - Denies known GERD. - Recent weight loss from 204 lbs to 197 lbs; decreased appetite. - Denies fevers, chills, nausea, emesis, or diarrhea. - Family history of asthma; Octaviano has not been diagnosed. - History of allergies; taking Zyrtec daily. - History of two previous episodes of pneumonia; currently using an inhaler with spacer. - Recent antibiotic use led to diarrhea for 2 days, now resolved. - Taking vitamin C and vitamin D supplements. - Scheduled for a swallow study on Tuesday. - Cough impacting social activities and attendance at the workshop. PAST MEDICAL HISTORY: PAST MEDICAL HISTORY Diagnosis Date Unspecified epilepsy without mention of intractable epilepsy (HCC) Unspecified intellectual disabilities PAST SURGICAL HISTORY Procedure Laterality Date CHOLECYSTECTOMY 2009? Cholecystectomy EGD TRANSORAL BIOPSY SINGLE/MULTIPLE 03/24/15 dysphagia, normal ALLERGIES Effexor [Venlafaxine Hcl], Paxil [Paroxetine Hcl], and Zyprexa [Olanzapine] MEDICATIONS Current Outpatient Medications Medication Sig doxycycline (VIBRA-TABS) 100 mg tablet Take 1 tablet by mouth two times a day for 10 days. benzonatate (TESSALON PERLE) 100 mg capsule Take 1-2 capsules by mouth three times a day as needed. albuterol HFA (PROVENTIL HFA, VENTOLIN HFA) 90 mcg/actuation inhaler Inhale 2 puffs as instructed every 4 hours as needed for wheezing/shortness of breath (cough). amoxicillin-clavulanat e potassium (AUGMENTIN) 875-125 mg per tablet Take 1 tablet by mouth two times a day for 5 days. predniSONE (DELTASONE) 10 mg tablet Take 4 tablets by mouth once daily for 3 days, THEN 3 tablets once daily for 3 days, THEN 2 tablets once daily for 3 days, THEN 1 tablet once daily for 3 days. oxybutynin XL (DITROPAN XL) 5 mg 24 hr tablet TAKE 1 TABLET BY MOUTH AT BEDTIME cetirizine (ZYRTEC) 10 mg tablet Take 1 tablet by mouth once daily. divalproex DR (DEPAKOTE) 500 mg EC tablet Take 1 tablet by mouth two times a day. carBAMazepine (EPITOL) 200 mg tablet Take 2 tablets by mouth two times a day. ketoconazole (NIZORAL) 2 % shampoo Lather into hair, leave 5 minutes, then rinse out. Use on face, ears, chest, and back as body wash. Repeat 3 times per week or as directed. No current facility-administered medications for this visit. FAMILY HISTORY Problem Relation Age of Onset Colon Cancer Brother 42 Cancer Maternal Grandmother Coronary Artery Disease Maternal Grandfather Cancer Paternal Grandfather Melanoma to Lung Social History Tobacco Use Smoking status: Never Smokeless tobacco: Never Vaping Use Vaping status: Never Used Substance Use Topics Alcohol use: No Drug use: No REVIEW OF SYSTEMS Constitutional: (-) fever, (-) chills, (+) sleep disturbance (sleeping more), (+) decreased appetite, (+) weight loss Head: (-) head pain Ears/Nose/Mouth/Throat : (+) nasal congestion, (+) epistaxis, (-) ear pain, (-) sore throat Neck: (-) neck pain Respiratory: (+) cough Gastrointestinal: (-) nausea, (-) vomiting, (-) diarrhea, (+) decreased appetite EXAM: BP 108/76 Pulse 92 Resp 16 Wt 91.2 kg (201 lb) SpO2 99% BMI 25.81 kg/m? PHYSICAL EXAM: Gener (more content not included)... Normal [facility] XR CHEST 2V FRONTAL/LATon XR CHEST 2V FRONTAL/LAT * * *Final Report* * * DATE OF EXAM: Feb 06 2025 10:51AM [id number] - XR CHEST 2V FRONTAL/LAT / PROCEDURE REASON: multiple diagnoses * * * * Physician Interpretation * * * * EXAMINATION: CHEST RADIOGRAPH (2 VIEW FRONTAL and LATERAL) CLINICAL HISTORY: Acute cough Bronchitis MQ: XC2_6 EXAM DATE/TIME: 02/06/2025 10:51 AM COMPARISON: 01/28/2025 RESULT: Lines, tubes, and devices: None. Lungs and pleura: Haziness in the basal left lower lobe could be mild or early infiltrate due to pneumonitis. Cardiomediastinal silhouette: Normal cardiomediastinal silhouette. Bones and soft tissues: Unremarkable. IMPRESSION: Suspect left lower lobe infiltrate Wardrobe Specialty Worker: CRUZ Transcribe Date/Time: Feb 06 2025 10:53A Dictated by : HOLLEY PADILLA MD This examination was interpreted and the report reviewed and electronically signed by: HOLLEY PADILLA MD on Feb 06 2025 10:54AM EST [id number] Normal [facility] XR Chest PA and Lateralon IMPRESSION: Suspect left lower lobe infiltrate Wardrobe Specialty Worker: PSCB Transcribe Date/Time: Feb 06 2025 10:53A Dictated by : HOLLEY PADILLA MD This examination was interpreted and the report reviewed and electronically signed by: HOLLEY PADILLA MD on Feb 06 2025 10:54AM EST DIVISION OF RADIOLOGY * * *Final Report* * * DATE OF EXAM: Feb 06 2025 10:51AM [id number] - XR CHEST 2V FRONTAL/LAT / PROCEDURE REASON: multiple diagnoses * * * * Physician Interpretation * * * * EXAMINATION: CHEST RADIOGRAPH (2 VIEW FRONTAL & LATERAL) CLINICAL HISTORY: Acute cough Bronchitis MQ: XC2_6 EXAM DATE/TIME: 02/06/2025 10:51 AM COMPARISON: 01/28/2025 RESULT: Lines, tubes, and devices: None. Lungs and pleura: Haziness in the basal left lower lobe could be mild or early infiltrate due to pneumonitis. Cardiomediastinal silhouette: Normal cardiomediastinal silhouette. Bones and soft tissues: Unremarkable. DIVISION OF RADIOLOGY Provider, [facility] - 02/06/2025 * * *Final Report* * * DATE OF EXAM: Feb 06 2025 10:51AM WOX [id number] - XR CHEST 2V FRONTAL/LAT / PROCEDURE REASON: multiple diagnoses * * * * Physician Interpretation * * * * EXAMINATION: CHEST RADIOGRAPH (2 VIEW FRONTAL & LATERAL) CLINICAL HISTORY: Acute cough Bronchitis MQ: XC2_6 EXAM DATE/TIME: 02/06/2025 10:51 AM COMPARISON: 01/28/2025 RESULT: Lines, tubes, and devices: None. Lungs and pleura: Haziness in the basal left lower lobe could be mild or early infiltrate due to pneumonitis. Cardiomediastinal silhouette: Normal cardiomediastinal silhouette. Bones and soft tissues: Unremarkable. IMPRESSION IMPRESSION: Suspect left lower lobe infiltrate Wardrobe Specialty Worker: CRUZ Transcribe Date/Time: Feb 06 2025 10:53A Dictated by : HOLLEY PADILLA MD This examination was interpreted and the report reviewed and electronically signed by: HOLLEY PADILLA MD on Feb 06 2025 10:54AM EST [facility] Radiology Study observation (narrative) [facility] XR Chest PA and LateralOrder ed By: [facility] Provider on 02-06-2025 [facility] MR/BMS.BPon 01-30-2025 MR/BMS.BP [address], [address] [place] [address] OFFICE VISIT Date of Service: 01/30/25 MR#: [id number] Acct: [id number] Name: OCTAVIANO QUINN Rep #: [id number] : 1975 Provider: Dr. Reji Zepeda se, DO Age/Sex: 49/M Location: [facility] Status: Signed Intake Vital Signs 10/31/24 10:14 01/30/25 10:08 Height 5 ft 11 in 5 ft 11 in Weight: 203 lb BMI 28.3 BP 125/81 H 109/74 Blood Pressure Location Lt brachial Lt brachial Position Sitting Sitting Respiration 16 16 Pulse 76 68 Pulse Source Monitor Monitor BP Intake Visit Reasons: 3 M FU Accompanied by: family Allergies venlafaxine HCl (From Effexor) Adverse Reaction (Verified 01/30/25 10:10) AGITATION AND SLEEPY Medications ???Medication ???Instructions ???Recorded ???Confirmed ???Type carbamazepine 200 mg tablet 400 mg PO BIDCM 03/22/15 01/30/25 History cetirizine 10 mg tablet 10 mg PO DAILY 09/29/22 01/30/25 H istory divalproex 500 mg tablet,delayed 500 mg PO BID #30 tabs 11/11/22 Rx release (Depakote) oxybutynin chloride 5 mg tablet tablet PO 11/11/22 01/30/25 Histor y [facility] Medical History (Updated 07/31/24 @ 10:[address] Reji George, DO) Medication monitoring encounter OCD (obsessive compulsive disorder) Intellectual disability Cholecystectomy planned Seizures Irritable bowel syndrome Gallstones Allergies Family History Other Anxiety Asthma Depression Diabetes Hypertension Parkinson disease Seizures Social History Smoking Status: Never smoker alcohol intake: never substance use type: does not use HPI History of Present Illness History provided by: patient HPI: Octaviano Quinn is a 49 year old male who presents today for follow up evaluation. Patient reports that he has been good. Sister states that he has been sick for nearly the last week and has been having difficulty eating and losing weight. Will be going back to work today after having taken some time off. Will be doing swallow study in near future. Feels like he has calmed back down since stopping fluvoxamine. Had been frequently asking questions and overly aggressive/defiant. Sleep has been fair. Has not had follow up sleep study. Patient's brother a few months ago from colon cancer. Patient will be having colonoscopy in the near future because of this. Denies SI/HI or AVH. Review of Systems Constitutional Denies: fever(s), chills, change in weight or fatigue Eyes Denies: change in vision or blurry vision Ears, Nose, Mouth, Throat Denies: throat pain, neck pain or change in hearing Cardiovascular Denies: chest pain, palpitations or dyspnea Respiratory Denies: dyspnea, cough or wheezing Gastrointestinal Denies: abdominal pain, nausea, vomiting, diarrhea or constipation Genitourinary Denies: dysuria or urinary frequency Musculoskeletal Denies: back pain, neck pain, joint pain or muscle weakness Integumentary/Breast Denies: rash or new lesions Neurological Denies: headache(s), dizziness or confusion Endocrine Denies: fatigue or excessive sweating Hematologic/Lymphatic Denies: easy bruising or easy bleeding Allergic/Immunologic Denies: wheezing Exam Mental Status Exam - Psych Appearance casually dressed and no apparent distress Attitude calm Activity/Motor Behavior intense eye contact Speech regular rate Mood euythmic Affect full range Thought Process other (difficult to assess) Thought Content no delusions and no hallucinations Suicidal Ideation none Homicidal Ideation none Attention intact (fair) Concentration intact Sensorium/Orientation awake, alert and oriented x3 Memory/Cognition impaired (below expected for age) Insight limited Judgement questionable Exam Constitutional Documenting provider has reviewed patient's vital signs: yes Common normals: no acute distress, patient oriented x3 and alert General appearance: well developed Neuro Common normals: patient oriented x3 Sensorium/orientation: alert Gait (neuro): normal gait Assessment Plan Assessment Plan (1) OCD (obsessive compulsive disorder): Qualifiers: Obsessive-compulsive disorder type: unspecified Qualified Code(s): F42.9 - Obsessive- compulsive disorder, unspecified Plan: - Has discontinued Luvox secondary to worsening irritability. Discussed with guardian will continue off of medication at this time and could consider alternatives in the future Longitudinal care of this patient requires consistent and continuous treatment over an extended period of time. (2) Intellectual disability: Plan: - Likely underlying autism spectrum disorder, stable Medications: Discontinued (more content not included)... [facility] ) OCTAVIANO QUINN ([id number]) 1975 M Date Time Provider Department 01/28/25 10:00 AM JENISE HOLT During your visit today, we recorded the following information about you: Temperature Pulse Respiration Blood pressure 97.5 degrees 69/minute 14/minute 120/82 Weight 89.4 kg Jenise Holt APRN.TEXTILE 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 01/28/2025 4:52 PM Signed This is a 49 year old male who presents today with: Octaviano is a 49-year-old male with a history of recurrent pneumonia, accompanied by his sister who is providing history on his behalf, presenting for evaluation of a persistent cough. HISTORY OF PRESENT ILLNESS: Last seen on 01/21 for cough and congestion, harsh cough. History of pneumonia twice last year. Was started on Augmentin for sinusitis at that time. - Harsh, deep cough, exacerbated by eating and drinking. - Coughing episodes are infrequent but severe when they occur. - Nocturnal cough noted, particularly when falling asleep and upon waking. - No associated fevers or sputum production. - delsym , minimal relief - History of recurrent pneumonia, with two episodes approximately one year ago. - Family history of asthma; mother is affected. They ordered an inhaler for him a while ago and they've used it but hasn't improved the cough - Sister reports decreased appetite and weight loss over the past week. (Down 7# since 01/21 visit) - Currently on Augmentin, almost complete, but has caused diarrhea - Taking Zyrtec daily. - History of swallowing difficulties PAST MEDICAL HISTORY: PAST MEDICAL HISTORY Diagnosis Date Unspecified epilepsy without mention of intractable epilepsy (HCC) Unspecified intellectual disabilities PAST SURGICAL HISTORY Procedure Laterality Date CHOLECYSTECTOMY 2009? Cholecystectomy EGD TRANSORAL BIOPSY SINGLE/MULTIPLE 03/24/15 dysphagia, normal ALLERGIES Effexor [Venlafaxine Hcl], Paxil [Paroxetine Hcl], and Zyprexa [Olanzapine] MEDICATIONS Current Outpatient Medications Medication Sig amoxicillin-clavulanat e potassium (AUGMENTIN) 875-125 mg per tablet Take 1 tablet by mouth every 12 hours for 10 days. oxybutynin XL (DITROPAN XL) 5 mg 24 hr tablet TAKE 1 TABLET BY MOUTH AT BEDTIME cetirizine (ZYRTEC) 10 mg tablet Take 1 tablet by mouth once daily. divalproex DR (DEPAKOTE) 500 mg EC tablet Take 1 tablet by mouth two times a day. carBAMazepine (EPITOL) 200 mg tablet Take 2 tablets by mouth two times a day. ketoconazole (NIZORAL) 2 % shampoo Lather into hair, leave 5 minutes, then rinse out. Use on face, ears, chest, and back as body wash. Repeat 3 times per week or as directed. cholecalciferol, Vitamin D3, (VITAMIN D3) 1,250 mcg (50,000 unit) cap capsule Take 1 capsule by mouth one time a week. (Patient not taking: Reported on 01/28/2025) No current facility-administered medications for this visit. FAMILY HISTORY Problem Relation Age of Onset Colon Cancer Brother 42 Cancer Maternal Grandmother Coronary Artery Disease Maternal Grandfather Cancer Paternal Grandfather Melanoma to Lung Social History Tobacco Use Smoking status: Never Smokeless tobacco: Never Vaping Use Vaping status: Never Used Substance Use Topics Alcohol use: No Drug use: No REVIEW OF SYSTEMS See HPI EXAM: BP 120/82 Pulse 69 Temp 36.4 ?C (97.5 ?F) Resp 14 Wt 89.4 kg (197 lb 3.2 oz) SpO2 97% BMI 25.32 kg/m? PHYSICAL EXAM: General Appearance: Well appearing, alert, in no acute distress, well-hydrated, well nourished.. Eyes: anicteric, no signs of conjuctivitis . Ears: Positive findings: cerumen bilaterally, amount Moderate. Rechecked post-cerumen removal and no erythema or effusion Oropharynx: Lips, mucosa normal, tongue is dry with light white coating, teeth and gums normal, oropharynx normal. Neck: Supple, no adenopathy; thyroid symmetric, normal size, no bruits. Lungs: Lungs clear to auscultation. No wheezing, rhonchi, rales.. Heart: RRR without murmur, gallop, or rubs. No ectopy. ASSESSMENT/PLAN 1. Acute cough (R05.1) - Persistent, harsh cough, exacerbated by eating and drinking; no fevers reported. - Lungs auscultated clear, no crackles or signs of fluid accumulation. - Ordered chest X-ray to rule out pneumonia. - Initiated prednisone taper: 40 mg for 3 days, 30 mg for 3 days, 20 mg for 3 days, 10 mg for 3 days. Advised to take early in the day with food to minimize gastrointestinal upset and potential insomnia. - Continue current antibiotic regimen; no changes made. - Continue using inhaler as previously prescribed. 2. Oropharyngeal dysphagia (R13.12) - History of swallowing difficulties and previous swallow studies. - Ordered updated swallow study to assess current swallowing function and rule out aspiration as a cause of cough. 3. Bilateral impacted cerumen (H61.23) - Noted significant cerumen impaction b (more content not included)... Normal [facility] XR CHEST 2V FRONTAL/LATon XR CHEST 2V FRONTAL/LAT * * *Final Report* * * DATE OF EXAM: Jan 28 2025 11:21AM WOX [id number] - XR CHEST 2V FRONTAL/LAT / PROCEDURE REASON: multiple diagnoses * * * * Physician Interpretation * * * * EXAMINATION: CHEST RADIOGRAPH (2 VIEW FRONTAL and LATERAL) CLINICAL HISTORY: Acute cough Oropharyngeal dysphagia MQ: XC2_6 EXAM DATE/TIME: 01/28/2025 11:21 AM COMPARISON: Chest x-ray dated 12/12/2023 RESULT: Lines, tubes, and devices: None. Lungs and pleura: No consolidation. No lung mass. No pleural effusion. No pneumothorax. Cardiomediastinal silhouette: Normal cardiomediastinal silhouette. Bones and soft tissues: Dextrocurvature. IMPRESSION: No acute radiographic abnormality. Wardrobe Specialty Worker: CRUZ Transcribe Date/Time: Jan 28 2025 2:20P Dictated by : CECILIA DAMIAN MD This examination was interpreted and the report reviewed and electronically signed by: CECILIA DAMIAN MD on Jan 28 2025 2:21PM EST [id number] Normal [facility] XR Chest PA and Lateralon IMPRESSION: No acute radiographic abnormality. Wardrobe Specialty Worker: CRUZ Transcribe Date/Time: Jan 28 2025 2:20P Dictated by : CECILIA DAMIAN MD This examination was interpreted and the report reviewed and electronically signed by: CECILIA DAMIAN MD on Jan 28 2025 2:21PM [facility] DIVISION OF RADIOLOGY * * *Final Report* * * DATE OF EXAM: Jan 28 2025 11:21AM WOX [id number] - XR CHEST 2V FRONTAL/LAT / PROCEDURE REASON: multiple diagnoses * * * * Physician Interpretation * * * * EXAMINATION: CHEST RADIOGRAPH (2 VIEW FRONTAL & LATERAL) CLINICAL HISTORY: Acute cough Oropharyngeal dysphagia MQ: XC2_6 EXAM DATE/TIME: 01/28/2025 11:21 AM COMPARISON: Chest x-ray dated 12/12/2023 RESULT: Lines, tubes, and devices: None. Lungs and pleura: No consolidation. No lung mass. No pleural effusion. No pneumothorax. Cardiomediastinal silhouette: Normal cardiomediastinal silhouette. Bones and soft tissues: Dextrocurvature. DIVISION OF RADIOLOGY Provider, [facility] - 01/28/2025 * * *Final Report* * * DATE OF EXAM: Jan 28 2025 11:21AM WOX [id number] - XR CHEST 2V FRONTAL/LAT / PROCEDURE REASON: multiple diagnoses * * * * Physician Interpretation * * * * EXAMINATION: CHEST RADIOGRAPH (2 VIEW FRONTAL & LATERAL) CLINICAL HISTORY: Acute cough Oropharyngeal dysphagia MQ: XC2_6 EXAM DATE/TIME: 01/28/2025 11:21 AM COMPARISON: Chest x-ray dated 12/12/2023 RESULT: Lines, tubes, and devices: None. Lungs and pleura: No consolidation. No lung mass. No pleural effusion. No pneumothorax. Cardiomediastinal silhouette: Normal cardiomediastinal silhouette. Bones and soft tissues: Dextrocurvature. IMPRESSION IMPRESSION: No acute radiographic abnormality. Wardrobe Specialty Worker: PSCB Transcribe Date/Time: Jan 28 2025 2:20P Dictated by : CECILIA DAMIAN MD This examination was interpreted and the report reviewed and electronically signed by: CECILIA DAMIAN MD on Jan 28 2025 2:21PM [facility] Radiology Study observation (narrative) [facility] XR Chest PA and LateralOrder ed By: [facility] Provider on 01-28-2025 [facility] CNOVon 01-21-2025 CNOV Office Visit (FAMPWS ) OCTAVIANO QUINN ([id number]) 1975 M Date Time Provider Department 01/21/25 9:40 AM ARABELLA SLAUGHTER During your visit today, we recorded the following information about you: Temperature Pulse Respiration Blood pressure 97.1 degrees 77/minute 18/minute 110/80 Weight 92.5 kg Arabella Slaughter PA-C 01/21/2025 10:07 AM Signed Chief Complaint Patient presents with: Cough: And nasal congestion x 2 weeks HPI Octaviano Quinn is a 49 year old male who presents here today for Above Complaints.. Cough and Congestion: - Cough and congestion x2 weeks. - Initially thought to be allergies, but cough has become more progressive and deep. - Mother reports cough is infrequent but sounds horrible when it occurs. - Denies fever, otalgia, or recent exposure to illness. - Mild sore throat. - History of pneumonia twice last year. Past medical history, appointments, medications, allergies reviewed. Previous Medical History PAST MEDICAL HISTORY Diagnosis Date Unspecified epilepsy without mention of intractable epilepsy (HCC) Unspecified intellectual disabilities Previous Surgical History PAST SURGICAL HISTORY Procedure Laterality Date CHOLECYSTECTOMY 2009? Cholecystectomy EGD TRANSORAL BIOPSY SINGLE/MULTIPLE 03/24/15 dysphagia, normal Family History FAMILY HISTORY Problem Relation Age of Onset Colon Cancer Brother 42 Cancer Maternal Grandmother Coronary Artery Disease Maternal Grandfather Cancer Paternal Grandfather Melanoma to Lung Patient Allergies ALLERGIES Allergen Reactions Effexor [Venlafaxin* Intolerance aggressive behavior Paxil [Paroxetine H* Intolerance Weight gain Zyprexa [Olanzapine] Intolerance sedation Current Medications Current Outpatient Medications on File Prior to Visit Medication Sig oxybutynin XL (DITROPAN XL) 5 mg 24 hr tablet TAKE 1 TABLET BY MOUTH AT BEDTIME cetirizine (ZYRTEC) 10 mg tablet Take 1 tablet by mouth once daily. cholecalciferol, Vitamin D3, (VITAMIN D3) 1,250 mcg (50,000 unit) cap capsule Take 1 capsule by mouth one time a week. divalproex DR (DEPAKOTE) 500 mg EC tablet Take 1 tablet by mouth two times a day. carBAMazepine (EPITOL) 200 mg tablet Take 2 tablets by mouth two times a day. ketoconazole (NIZORAL) 2 % shampoo Lather into hair, leave 5 minutes, then rinse out. Use on face, ears, chest, and back as body wash. Repeat 3 times per week or as directed. benzonatate (TESSALON PERLE) 100 mg capsule Take 1 capsule by mouth three times a day as needed for cough. (Patient not taking: Reported on 02/14/2024) albuterol HFA (PROVENTIL HFA, VENTOLIN HFA) 90 mcg/actuation inhaler Inhale 2 Puffs as instructed every 4 hours as needed for wheezing/shortness of breath. (Patient not taking: Reported on 02/14/2024) clomiPRAMINE (ANAFRANIL) 25 mg capsule Take 1 capsule by mouth once daily. (Patient not taking: Reported on 01/21/2025) sertraline (ZOLOFT) 25 mg tablet once daily. (Patient not taking: Reported on 02/14/2024) hydrocortisone (ALA-EFREN) 1 % cream Apply 1 application to affected area twice daily. (Patient not taking: Reported on 01/21/2025) No current facility-administered medications on file prior to visit. Social History Social History Tobacco Use Smoking status: Never Smokeless tobacco: Never Vaping Use Vaping status: Never Used Substance Use Topics Alcohol use: No Drug use: No Review of Symptoms REVIEW OF SYSTEMS SEE HPI EXAM: BP 110/80 (BP Site: Right Arm, BP Position: Sitting, BP Cuff Size: Large Adult) Pulse 77 Temp 36.2 ?C (97.1 ?F) Resp 18 Wt 92.5 kg (204 lb) SpO2 96% BMI 26.19 kg/m? GENERAL: NAD, alert and oriented SKIN: unremarkable, no rash or skin lesions. HEAD: normocephalic EYES: PERRLA, EOMI, conjunctiva clear EARS: external ears normal, canals clear, TM's normal. NOSE/SINUSES: Nares normal. Septum midline. OROPHARYNX: lips, mucosa, and tongue normal, good dentition. No oral lesions noted. Pharyngeal erythema noted. NECK: Supple, no lymphadenopathy, normal thyroid, no carotid bruits. LUNGS: Clear to auscultation bilaterally, no wheezes/rhonchi/rales. HEART: Regular rate and rhythm, no murmurs. No ectopy. EXTREMITIES: Normal, No deformities, No skin discoloration, No edema. NEURO: Awake, alert and oriented x3, cranial nerves II-XII grossly intact, normal gait, no involuntary motions Health Maintenance List Hepatitis B Vaccine(1 of 3 - 19+ 3-dose series) Never done Hepatitis C Screening due on 07/04/2025 HIV Screening due on 07/04/2025 Covid-19 Vaccine( season) due on 08/24/2025 Depression Screening due on 07/04/2025 Colorectal Cancer Screening due on 08/27/2025 Diabetes Screening due on 07/04/2027 Lipid Screening due on 08/16/2028 DTaP,Tdap,Td Vaccine(3 - Td or Tdap) due on 08/24/2034 Influenza Vaccine Completed (more content not included)... Normal [facility] MR/BMS.BPon 10-31-2024 MR/BMS.BP [address], [address] [place] [address] OFFICE VISIT Date of Service: 10/31/24 MR#: [id number] Acct: [id number] Name: OCTAVIANO QUINN Rep #: [id number] : 1975 Provider: Dr. Reji Zepeda se, DO Age/Sex: 49/M Location: [facility] Status: Signed Intake Vital Signs 07/31/24 10:07 10/31/24 10:14 Height 5 ft 11 in 5 ft 11 in Weight: 206 lb BMI 28.7 BP 123/83 H 125/81 H Blood Pressure Location Rt brachial Lt brachial Position Sitting Sitting Respiration 18 16 Pulse 67 76 Pulse Source Monitor Monitor BP Intake Visit Reasons: 3 M FU Accompanied by: family Allergies venlafaxine HCl (From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 today, we recorded the following information about you: Rosana Rodney APRN.[facility] 07/06/2024 12:15 PM Signed Can you please call the patient's Sister Renee, please let her know that I reviewed Octaviano's lab results. Thyroid and B12 were normal. No signs of anemia. Carbamazepine and Depakote levels were normal. Vitamin D was low. This could be causing his fatigue. I would recommend starting a once weekly supplement. We can recheck labs in 3 months. I still would recommend that he complete the sleep study. If they are agreeable to start the vitamin D, please verify pharmacy. Prescription and lab order are pended. TOMAS Lainez Rilee, [place] 07/06/2024 1:25 PM Signed Call to Sister, Renee. Notified her of results and recommendations below from Provider. Agreeable to start medication, requesting Rx to go to [place]. Agreeable to sleep study. TEETEE Noguera Jesse, APRN.CNP 07/06/2024 1:30 PM Signed Vitamin D sent. Sleep study ordered. TOMAS [place] R[place], [place] 07/06/2024 1:59 PM Signed Mac a Sleep Study was already ordered by Rosana, can you remove yours please. Can close encounter once removed. TEETEE Noguera Jesse, APRN.CNP 07/06/2024 2:08 PM Signed Mattie Galvan APRN.CNP Allergies As of Date: 07/06/2024 Noted Allergy Reaction EFFEXOR (VENLAFAXINE HCL) 08/11/2007 5 - Intolerance Comments: aggressive behavior PAXIL (PAROXETINE HCL) 08/11/2007 5 - Intolerance Comments: Weight gain ZYPREXA (OLANZAPINE) 08/11/2007 5 - Intolerance Comments: sedation Date Reviewed: 07/04/2024 Reviewed by: Mane Lucas LPN - Fully Assessed Reason for Visit: Results [95] Cmt: Labs. Primary Visit Diagnosis:Vitamin D deficiency [E55.9] Other Visit Diagnoses:Fatigue, unspecified type [R53.83] Snoring [R06.83] Daytime sleepiness [R40.0] Order(s):cholecalcifer ol, Vitamin D3, (VITAMIN D3) 1,250 mcg (50,000 unit) cap capsuleTake 1 capsule by mouth one time a week.Disp: 12 capsuleRfl: 3 VITAMIN D 25 HYDROXY [SQVITD] Order #: [id number] FUTURE Prescriptions as of 07/06/2024 - cholecalciferol, Vitamin D3, (VITAMIN D3) 1,250 mcg (50,000 unit) cap capsule Take 1 capsule by mouth one time a week. - carBAMazepine (EPITOL) 200 mg tablet Take 2 tablets by mouth two times a day. - oxybutynin XL (DITROPAN XL) 5 mg 24 hr tablet Take 1 tablet by mouth daily at bedtime. - benzonatate (TESSALON PERLE) 100 mg capsule Take 1 capsule by mouth three times a day as needed for cough. - cetirizine (ZYRTEC) 10 mg tablet Take 1 tablet by mouth once daily. - albuterol HFA (PROVENTIL HFA, VENTOLIN HFA) 90 mcg/actuation inhaler Inhale 2 Puffs as instructed every 4 hours as needed for wheezing/shortness of breath. - clomiPRAMINE (ANAFRANIL) 25 mg capsule Take 1 capsule by mouth once daily. - divalproex DR (DEPAKOTE) 500 mg EC tablet Take 1 tablet by mouth two times a day. - sertraline (ZOLOFT) 25 mg tablet once daily. - hydrocortisone (ALA-EFREN) 1 % cream Apply 1 application to affected area twice daily. - ketoconazole (NIZORAL) 2 % shampoo Lather into hair, leave 5 minutes, then rinse out. Use on face, ears, chest, and back as body wash. Repeat 3 times per week or as directed. Problem List As Of Date 07/06/2024 Noted Resolved Anxiety state [F41.1] 07/27/2005 Intellectual disability [F79] 07/27/2005 CHOLELITH W ACUTE GB DIS [574.0] 08/20/2005 09/01/2006 Epilepsy (HCC) [G40.909] 09/01/2006 Abnormal weight loss [R63.4] 04/03/2015 Prescriptions ordered this encounter Disp Refills Start End CHOLECALCIFEROL (VITAMIN D3) 1,250 M* 12 c* 3 07/06/2024 07/06/2025 Route: ORAL Sig: Take 1 capsule by mouth one time a week. Encounter Status:Closed by MAC GALVAN on 07/06/24 [facility] 25([facility])D3 [facility] 25-hydroxyvitamin D3 [Mass/Vol] 19.0 ng/mL Low 31.0-80.0 [facility] Comment on above: Order Comment: Speci men Type: BLOOD SPECIMENOrdering Facility: [facility] Address: [address] [place] [address] Result Comment: Clas sification of 25 [place] Vitamin D status: Deficiency/Insufficiency: < or = 30 ng/ml. Sufficiency/Optimal Levels: 31-80 ng/mL Toxicity: > 100 ng/mL. Test performed by chemiluminescent immunoassay. Performed By: #### 1 989-3 ####[facility] LABCLIA [id number] [place] [address] [place] 25-hydroxyvitamin D3 [Mass/V ol]on 07-04-2024 Interpretation and review of laboratory results Abnormal [facility] The reference range interval was based on an analysis of samples from healthy adults and may not pertain to children from 0-18 years old. [facility] CARBAMAZEPINE/TEGRETOLon carBAMazepine [Mass/Vol] 8.4 ug/mL 4.0 - 12.0 ug/mL [facility] Comment on above: Reference ranges and high/low indicator flags are provided as general guidelines only. The treating physician must determine appropriate target levels/dosing based on the specific clinical situation. CBC W Auto Differential pane l (Bld)on 07-04-2024 Basophils (Bld) [#/Vol] 0.05 10*3/uL [facility] Basophils/100 WBC (Bld) 0.9 % [facility] Differential cell count method Nom (Bld) Auto [facility] Eosinophils (Bld) [#/Vol] 0.15 10*3/uL [facility] Eosinophils/100 WBC (Bld) 2.8 % [facility] Erythrocyte distribution width (RBC) [Ratio] 12.8 % 11.5 - 15.0 % [facility] Hematocrit (Bld) [Volume fraction] 47.8 % 39.0 - 51.0 % [facility] Hemoglobin (Bld) [Mass/Vol] 15.8 g/dL 13.0 - 17.0 g/dL [facility] Immature granulocytes (Bld) [#/Vol] 0.03 10*3/uL [facility] Immature granulocytes/100 WBC (Bld) 0.6 % [facility] Lymphocytes (Bld) [#/Vol] 2.10 10*3/uL [facility] Lymphocytes/100 WBC (Bld) 39.0 % [facility] MCH (RBC) [Entitic mass] 30.4 pg 26.0 - 34.0 pg [facility] MCHC (RBC) [Mass/Vol] 33.1 g/dL 30.5 - 36.0 g/dL [facility] MCV (RBC) [Entitic vol] 92.1 fL 80.0 - 100.0 fL [facility] Monocytes (Bld) [#/Vol] 0.37 10*3/uL [facility] Monocytes/100 WBC (Bld) 6.9 % [facility] Neutrophils (Bld) [#/Vol] 2.68 10*3/uL [facility] Neutrophils/100 WBC (Bld) 49.8 % [facility] Nucleated RBC (Bld) [#/Vol] [facility] Nucleated RBC/100 WBC (Bld) [Ratio] 0.0 % /100 WBC [facility] Platelet mean volume (Bld) [Entitic vol] 10.2 fL 9.0 - 12.7 fL [facility] Platelets (Bld) [#/Vol] 315 10*3/uL [facility] RBC (Bld) [#/Vol] 5.19 10*6/uL 4.20 - 6.0 0 m/uL [facility] WBC (Bld) [#/Vol] 5.38 10*3/uL [facility] Basophils (Bld) [#/Vol] 0.05 10*3/uL Normal <0.11 [facility] Comment on above: Order Comment: Speci men Type: BLOOD SPECIMENOrdering Facility: [facility] Address: [address] [place] [address] Performed By: #### 5 7021-8 ####[facility] LABCLIA [id number] [place] [address] [place] Basophils/100 WBC (Bld) 0.9 % Normal [facility] Comment on above: Order Comment: Speci men Type: BLOOD SPECIMENOrdering Facility: [facility] Address: [address] [place] [address] Performed By: #### 5 7021-8 ####[facility] LABCLIA [id number] [place] [address] [place] Differential cell count method Nom (Bld) Auto Normal [facility] Comment on above: Order Comment: Speci men Type: BLOOD SPECIMENOrdering Facility: [facility] Address: [address] [place] [address] Performed By: #### 5 7021-8 ####[facility] LABCLIA [id number] [place] [address] [place] Eosinophils (Bld) [#/Vol] 0.15 10*3/uL Normal <0.46 [facility] Comment on above: Order Comment: Speci men Type: BLOOD SPECIMENOrdering Facility: [facility] Address: [address] [place] [address] Performed By: #### 5 7021-8 ####[facility] LABCLIA [id number] [place] [address] [place] Eosinophils/100 WBC (Bld) 2.8 % Normal [facility] Comment on above: Order Comment: Speci men Type: BLOOD SPECIMENOrdering Facility: [facility] Address: [address] [place] [address] Performed By: #### 5 7021-8 ####[facility] LABCLIA [id number] [place] [address] [place] Erythrocyte distribution width (RBC) [Ratio] 12.8 % Normal 11.5-15.0 [facility] Comment on above: Order Comment: Speci men Type: BLOOD SPECIMENOrdering Facility: [facility] Address: [address] [place] [address] Performed By: #### 5 7021-8 ####[facility] LABCLIA [id number] [place] [address] [place] Hematocrit (Bld) [Volume fraction] 47.8 % Normal 39.0-51.0 [facility] Comment on above: Order Comment: Speci men Type: BLOOD SPECIMENOrdering Facility: [facility] Address: [address] [place] [address] Performed By: #### 5 7021-8 ####[facility] LABCLIA [id number] [place] [address] [place] Hemoglobin (Bld) [Mass/Vol] 15.8 g/dL Normal 13.0-17.0 [facility] Comment on above: Order Comment: Speci men Type: BLOOD SPECIMENOrdering Facility: [facility] Address: [address] [place] [address] Performed By: #### 5 7021-8 ####[facility] LABCLIA [id number] [place] [address] [place] Immature granulocytes (Bld) [#/Vol] 0.03 10*3/uL Normal <0.10 [facility] Comment on above: Order Comment: Speci men Type: BLOOD SPECIMENOrdering Facility: [facility] Address: [address] [place] [address] Performed By: #### 5 7021-8 ####[facility] LABCLIA [id number] [place] [address] [place] Immature granulocytes/100 WBC (Bld) 0.6 % Normal [facility] Comment on above: Order Comment: Speci men Type: BLOOD SPECIMENOrdering Facility: [facility] Address: [address] [place] [address] Performed By: #### 5 7021-8 ####[facility] LABCLIA [id number] [place] [address] [place] Lymphocytes (Bld) [#/Vol] 2.10 10*3/uL Normal 1.00-4.00 [facility] Comment on above: Order Comment: Speci men Type: BLOOD SPECIMENOrdering Facility: [facility] Address: [address] [place] [address] Performed By: #### 5 7021-8 ####[facility] LABIA [id number] [place] [address] [place] Lymphocytes/100 WBC (Bld) 39.0 % Normal [facility] Comment on above: Order Comment: Speci men Type: BLOOD SPECIMENOrdering Facility: [facility] Address: [address] [place] [address] Performed By: #### 5 7021-8 ####[facility] [id number] [place] [address] [place] MCH (RBC) [Entitic mass] 30.4 pg Normal 26.0-34.0 [facility] Comment on above: Order Comment: Speci men Type: BLOOD SPECIMENOrdering Facility: [facility] Address: [address] [place] [address] Performed By: #### 5 7021-8 ####[facility] LABIA [id number] [place] [address] [place] MCHC (RBC) [Mass/Vol] 33.1 g/dL Normal 30.5-36.0 [facility] Comment on above: Order Comment: Speci men Type: BLOOD SPECIMENOrdering Facility: [facility] Address: [address] [place] [address] Performed By: #### 5 7021-8 ####[facility] LABIA [id number] [place] [address] [place] MCV (RBC) [Entitic vol] 92.1 fL Normal 80.0-100.0 [facility] Comment on above: Order Comment: Speci men Type: BLOOD SPECIMENOrdering Facility: [facility] Address: [address] [place] [address] Performed By: #### 5 7021-8 ####[facility] LABCLIA [id number] [place] [address] [place] Monocytes (Bld) [#/Vol] 0.37 10*3/uL Normal <0.87 [facility] Comment on above: Order Comment: Speci men Type: BLOOD SPECIMENOrdering Facility: [facility] Address: [address] [place] [address] Performed By: #### 5 7021-8 ####[facility] LABCLIA [id number] [place] [address] [place] Monocytes/100 WBC (Bld) 6.9 % Normal [facility] Comment on above: Order Comment: Speci men Type: BLOOD SPECIMENOrdering Facility: [facility] Address: [address] [place] [address] Performed By: #### 5 7021-8 ####[facility] LABCLIA [id number] [place] [address] [place] Neutrophils (Bld) [#/Vol] 2.68 10*3/uL Normal 1.45-7.50 [facility] Comment on above: Order Comment: Speci men Type: BLOOD SPECIMENOrdering Facility: [facility] Address: [address] [place] [address] Performed By: #### 5 7021-8 ####[facility] LABCLIA [id number] [place] [address] [place] Neutrophils/100 WBC (Bld) 49.8 % Normal [facility] Comment on above: Order Comment: Speci men Type: BLOOD SPECIMENOrdering Facility: [facility] Address: [address] [place] [address] Performed By: #### 5 7021-8 ####[facility] LABCLIA [id number] [place] [address] [place] Nucleated RBC (Bld) [#/Vol] 10*3/uL Normal <0.01 [facility] Comment on above: Order Comment: Speci men Type: BLOOD SPECIMENOrdering Facility: [facility] Address: [address] [place] [address] Performed By: #### 5 7021-8 ####[facility] LABIA [id number] [place] [address] [place] Nucleated RBC/100 WBC (Bld) [Ratio] 0.0 /100 WBC Normal [facility] Comment on above: Order Comment: Speci men Type: BLOOD SPECIMENOrdering Facility: [facility] Address: [address] [place] [address] Performed By: #### 5 7021-8 ####[facility] LABIA [id number] [place] [address] [place] Platelet mean volume (Bld) [Entitic vol] 10.2 fL Normal 9.0-12.7 [facility] Comment on above: Order Comment: Speci men Type: BLOOD SPECIMENOrdering Facility: [facility] Address: [address] [place] [address] Performed By: #### 5 7021-8 ####[facility] LABIA [id number] [place] [address] [place] Platelets (Bld) [#/Vol] 315 10*3/uL Normal 150-400 [facility] Comment on above: Order Comment: Speci men Type: BLOOD SPECIMENOrdering Facility: [facility] Address: [address] [place] [address] Performed By: #### 5 7021-8 ####[facility] LABIA [id number] [place] [address] [place] RBC (Bld) [#/Vol] 5.19 10*6/uL Normal 4.20-6.00 [facility] Comment on above: Order Comment: Speci men Type: BLOOD SPECIMENOrdering Facility: [facility] Address: [address] [place] [address] Performed By: #### 5 7021-8 ####[facility] LABCLIA [id number] [address] [address] [place] WBC (Bld) [#/Vol] 5.38 10*3/uL Normal 3.70-11.00 [facility] Comment on above: Order Comment: Speci men Type: BLOOD SPECIMENOrdering Facility: [facility] Address: [address] [place] [id number] Performed By: #### 5 7021-8 ####[facility] LABCLIA [id number] [place] [id number] [place] CNOVon 07-04-2024 CNOV Office Visit (FAMWS ) KRISHNAOCTAVIANO Lovelace Francisco ([id number]) 1975 M Date Time Provider Department 07/04/24 9:40 AM ROSANA RODNEY During your visit today, we recorded the following information about you: Pulse Respiration Blood pressure Weight 92/minute 16/minute 120/88 94.8 kg Rosana Rodney APRN.CNP 07/04/2024 3:36 PM Signed This is a 48 year old male who presents today with: Patient presents with: Acute Visit: Fatigue, irritable HISTORY OF PRESENT ILLNESS: Octaviano Quinn is a 48 year old male. Patient presents with: Acute Visit: Fatigue, irritable Sister here in the office with patient. Has intellectual disabilities, works at [employer]. Here in the office for fatigue and irritability. Psychiatry recommended a work up. Increased sleepiness. Wanting to nap after work and falling asleep during the day. Some snoring. Younger brother dx with Colon cancer at age 42. Was started on Ditropan XL 5 mg once daily for urinary urgency. Also referred to Urology, BASHIR Nieto. Epilepsy - Stable on current regimen of Depakote 500 mg 1 tab po bid and Tegretol 200 mg 2 tabs po bid. No longer following with Neurology, managed through Primary Care. Allergies - Season, stable with use of Zyrtec 10 mg once daily. Anxiety/OCD - Hx of anxiety, has previously used Prozac 10 mg and Zoloft, but no longer taking. Following with Dr. Cueto every 3 months Vaccines: Would like flu vaccine today. PAST MEDICAL HISTORY: PAST MEDICAL HISTORY Diagnosis Date Unspecified epilepsy without mention of intractable epilepsy (HCC) Unspecified intellectual disabilities PAST SURGICAL HISTORY Procedure Laterality Date CHOLECYSTECTOMY 2009? Cholecystectomy EGD TRANSORAL BIOPSY SINGLE/MULTIPLE 03/24/15 dysphagia, normal ALLERGIES Effexor [Venlafaxine Hcl], Paxil [Paroxetine Hcl], and Zyprexa [Olanzapine] MEDICATIONS Current Outpatient Medications Medication Sig carBAMazepine (EPITOL) 200 mg tablet Take 2 tablets by mouth two times a day. oxybutynin XL (DITROPAN XL) 5 mg 24 hr tablet Take 1 tablet by mouth daily at bedtime. benzonatate (TESSALON PERLE) 100 mg capsule Take 1 capsule by mouth three times a day as needed for cough. (Patient not taking: Reported on 02/14/2024) cetirizine (ZYRTEC) 10 mg tablet Take 1 tablet by mouth once daily. albuterol HFA (PROVENTIL HFA, VENTOLIN HFA) 90 mcg/actuation inhaler Inhale 2 Puffs as instructed every 4 hours as needed for wheezing/shortness of breath. (Patient not taking: Reported on 02/14/2024) clomiPRAMINE (ANAFRANIL) 25 mg capsule Take 1 capsule by mouth once daily. divalproex DR (DEPAKOTE) 500 mg EC tablet Take 1 tablet by mouth two times a day. sertraline (ZOLOFT) 25 mg tablet once daily. (Patient not taking: Reported on 02/14/2024) hydrocortisone (ALA-EFREN) 1 % cream Apply 1 application to affected area twice daily. ketoconazole (NIZORAL) 2 % shampoo Lather into hair, leave 5 minutes, then rinse out. Use on face, ears, chest, and back as body wash. Repeat 3 times per week or as directed. No current facility-administered medications for this visit. FAMILY HISTORY Problem Relation Age of Onset Colon Cancer Brother 42 Cancer Maternal Grandmother Coronary Artery Disease Maternal Grandfather Cancer Paternal Grandfather Melanoma to Lung Social History Tobacco Use Smoking status: Never Smokeless tobacco: Never Vaping Use Vaping status: Never Used Substance Use Topics Alcohol use: No Drug use: No REVIEW OF SYSTEMS GENERAL: + Fatigue, snoring HEENT: Negative for frequent or significant headaches, No changes in hearing or vision. NECK: Negative for lumps, goiter, pain and significant neck swelling RESPIRATORY: Negative for cough, hemoptysis, wheezing, dyspnea or shortness of breath CARDIOVASCULAR: Negative for chest pain, leg swelling, orthopnea, or palpitations GI: No nausea, vomiting, or diarrhea/constipation. No hematochezia/melena. No heartburn or reflux symptoms. : No history of dysuria, frequency or incontinence MUSCULOSKELETAL: Negative for joint pain or swelling. SKIN: Negative for lesions, rash, and itching ENDOCRINE: Negative for cold or heat intolerance, polyuria, polydipsia and goiter NEURO: No history of headaches, syncope, paralysis, seizures or tremors MOOD: + Irritable EXAM: BP 120/88 Pulse 92 Resp 16 Wt 94.8 kg (209 lb) SpO2 99% BMI 28.35 kg/m? PHYSICAL EXAM: General Appearance: Well appearing, alert, in no acute distress, well-hydrated, well nourished. Skin: Skin color, texture, turgor normal, no suspicious rashes or lesions. Head: Normocephalic, no masses, lesions, tenderness or abnormalities. Eyes: Anicteric sclera. Extraocular movements are intact. Neck: Supple, no adenopathy; thyroid symmetric, normal size, no bruits. Lungs: Lungs clear to auscultation. No wheezing, rhonchi (more content not included)... Normal [facility] Comprehensive metabolic 2000 panelon 07-04-2024 Albumin [Mass/Vol] 4.6 g/dL 3.9 - 4.9 g/dL [facility] ALP [Catalytic activity/Vol] 69 U/L 38 - 113 U/L [facility] ALT [Catalytic activity/Vol] 23 U/L 10 - 54 U/L [facility] Anion gap [Moles/Vol] 11 mmol/L 8 - 15 mmol/L [facility] AST [Catalytic activity/Vol] 26 U/L 14 - 40 U/L [facility] Bilirubin [Mass/Vol] 0.3 mg/dL 0.2 - 1 .3 mg/dL [facility] Calcium [Mass/Vol] 9.1 mg/dL 8.5 - 10. 2 mg/dL [facility] Chloride [Moles/Vol] 101 mmol/L 98 - 10 7 mmol/L [facility] CO2 [Moles/Vol] 28 mmol/L 22 - 30 mmol/L [facility] Creatinine [Mass/Vol] 0.74 mg/dL 0.73 - 1.22 mg/dL [facility] GFR/1.73 sq M.predicted among non-blacks MDRD (S/P/Bld) [Vol rate/Area] 113 mL/min/{1.73_m2} - PINF [facility] Comment on above: Estimated Glomerular Filtration Rate (eGFR) is calculated using the 2020 CKD-EPI creatinine equation. This equation utilizes serum creatinine, sex, and age as parameters. The creatinine assay has traceable calibration to isotope dilution-mass spectrometry. Refer to KDIGO guidelines for clinical interpretation. In patients with unstable renal function, e.g. those with acute kidney injury, the eGFR may not accurately reflect actual GFR. Glucose [Mass/Vol] 117 mg/dL High 74 - 99 mg/dL [facility] Comment on above: The [place] [employer] Association (ADA) provides guidance for cutoff values for fasting glucose and random glucose. The ADA defines fasting as no caloric intake for at least 8 hours. Fasting plasma glucose results between 100 to 125 mg/dL indicate increased risk for diabetes (prediabetes). Fasting plasma glucose results greater than or equal to 126 mg/dL meet the criteria for diagnosis of diabetes. In the absence of unequivocal hyperglycemia, results should be confirmed by repeat testing. In a patient with classic symptoms of hyperglycemia or hyperglycemic crisis, random plasma glucose results greater than or equal to 200 mg/dL meet the criteria for diagnosis of diabetes. Reference: Standards of Medical Care in Diabetes 2016, [employer]. Diabetes Care. 2016.39(Suppl 1). Interpretation and review of laboratory results Abnormal [facility] Potassium [Moles/Vol] 4.5 mmol/L 3.7 - 5.1 mmol/L [facility] Protein [Mass/Vol] 7.6 g/dL 6.3 - 8.0 g/dL [facility] Sodium [Moles/Vol] 140 mmol/L 136 - 144 mmol/L [facility] Urea nitrogen [Mass/Vol] 5 mg/dL Low 9 - 24 mg/dL [facility] Albumin [Mass/Vol] 4.6 g/dL Normal 3.9-4.9 [facility] Comment on above: Order Comment: Speci men Type: BLOOD SPECIMENOrdering Facility: [facility] Address: [address] [place] [address] Performed By: #### 3 016-3, 06916-6, 2132-05, 7 ####[facility] [id number] [place] [address] [place] ALP [Catalytic activity/Vol] 69 U/L Normal 38-113 [facility] Comment on above: Order Comment: Speci men Type: BLOOD SPECIMENOrdering Facility: [facility] Address: [address] [place] [address] Performed By: #### 3 016-3, 79265-3, 2132-05, 7 ####[facility] [id number] [place] [address] [place] ALT [Catalytic activity/Vol] 23 U/L Normal 10-54 [facility] Comment on above: Order Comment: Speci men Type: BLOOD SPECIMENOrdering Facility: [facility] Address: [address] [place] [address] Performed By: #### 3 016-3, 19762-7, 2132-05, 7 ####[facility] [id number] [address] [address] [place] Anion gap [Moles/Vol] 11 mmol/L Normal 8-15 [facility] Comment on above: Order Comment: Speci men Type: BLOOD SPECIMENOrdering Facility: [facility] Address: [address] [place] [address] Performed By: #### 3 016-3, 84672-2, 2132-05, 3023-7 ####[facility] [id number] [address] [address] [place] AST [Catalytic activity/Vol] 26 U/L Normal 14-40 [facility] Comment on above: Order Comment: Speci men Type: BLOOD SPECIMENOrdering Facility: [facility] Address: [address] [place] [address] Performed By: #### 3 016-3, 12566-9, 2132-05, 7 ####[facility] [id number] [address] [address] [place] Bilirubin [Mass/Vol] 0.3 mg/dL Normal 0.2-1.3 [facility] Comment on above: Order Comment: Speci men Type: BLOOD SPECIMENOrdering Facility: [facility] Address: [address] [place] [address] Performed By: #### 3 016-3, 62688-0, 2132-05, 7 ####[facility] [id number] [address] [address] [place] Calcium [Mass/Vol] 9.1 mg/dL Normal 8.5-10.2 [facility] Comment on above: Order Comment: Speci men Type: BLOOD SPECIMENOrdering Facility: [facility] Address: [address] [place] [address] Performed By: #### 3 016-3, 73028-3, 2132-05, 7 ####[facility] [id number] [address] [address] [place] Chloride [Moles/Vol] 101 mmol/L Normal 98-107 [facility] Comment on above: Order Comment: Speci men Type: BLOOD SPECIMENOrdering Facility: [facility] Address: [address] [place] [address] Performed By: #### 3 016-3, 93695-3, 2132-05, 7 ####[facility] [id number] [address] [address] [place] CO2 [Moles/Vol] 28 mmol/L Normal 22-30 [facility] Comment on above: Order Comment: Speci men Type: BLOOD SPECIMENOrdering Facility: [facility] Address: [address] [place] [address] Performed By: #### 3 016-3, 89455-9, 2132-05, 3024-03 ####[facility] [id number] [address] [address] [place] Creatinine [Mass/Vol] 0.74 mg/dL Normal 0.73-1.22 [facility] Comment on above: Order Comment: Speci men Type: BLOOD SPECIMENOrdering Facility: [facility] Address: [address] [place] [address] Performed By: #### 3 016-3, 56287-3, 2132-05, 3024-03 ####[facility] [id number] [place] [address] [place] [facility] Creatinine and Glomerular filtration rate.predicted panel (S/P/Bld) 113 mL/min/1.73m??? Normal >=60 [facility] Comment on above: Order Comment: Speci men Type: BLOOD SPECIMENOrdering Facility: [facility] Address: [address] [place] [address] Result Comment: Marce mated Glomerular Filtration Rate (eGFR) is calculated using the 2020 CKD-EPI creatinine equation. This equation utilizes serum creatinine, sex, and age as parameters. The creatinine assay has traceable calibration to isotope dilution-mass spectrometry. Refer to KDIGO guidelines for clinical interpretation. In patients with unstable renal function, e.g. those with acute kidney injury, the eGFR may not accurately reflect actual GFR. Performed By: #### 3 016-3, 01221-0, 9, 3024-03 ####[facility] [id number] [address] [address] [place] Glucose [Mass/Vol] 117 mg/dL High 74-99 [facility] Comment on above: Order Comment: Speci men Type: BLOOD SPECIMENOrdering Facility: [facility] Address: [address] [place] [address] Result Comment: The [place] Diabetes Association (ADA) provides guidance for cutoff values for fasting glucose and random glucose. The ADA defines fasting as no caloric intake for at least 8 hours. Fasting plasma glucose results between 100 to 125 mg/dL indicate increased risk for diabetes (prediabetes). Fasting plasma glucose results greater than or equal to 126 mg/dL meet the criteria for diagnosis of diabetes. In the absence of unequivocal hyperglycemia, results should be confirmed by repeat testing. In a patient with classic symptoms of hyperglycemia or hyperglycemic crisis, random plasma glucose results greater than or equal to 200 mg/dL meet the criteria for diagnosis of diabetes. Reference: Standards of Medical Care in Diabetes 2016, [employer]. Diabetes Care. 2016.39(Suppl 1). Performed By: #### 3 016-3, 10116-0, 2132-05, 3024-03 ####[facility] [id number] [place] [address] [place] Potassium [Moles/Vol] 4.5 mmol/L Normal 3.7-5.1 [facility] Comment on above: Order Comment: Speci men Type: BLOOD SPECIMENOrdering Facility: [facility] Address: [address] [place] [address] Performed By: #### 3 016-3, 09026-4, 2132-05, 3024-03 ####[facility] [id number] [place] [address] [place] Protein [Mass/Vol] 7.6 g/dL Normal 6.3-8.0 [facility] Comment on above: Order Comment: Speci men Type: BLOOD SPECIMENOrdering Facility: [facility] Address: [address] [place] [address] Performed By: #### 3 016-3, 50605-7, 2132-05, 7 ####[facility] [id number] [address] [address] [place] Sodium [Moles/Vol] 140 mmol/L Normal 136-144 [facility] Comment on above: Order Comment: Speci men Type: BLOOD SPECIMENOrdering Facility: [facility] Address: [address] [place] [address] Performed By: #### 3 016-3, 05691-0, 2132-05, 3024-03 ####[facility] [id number] [address] [address] [place] Urea nitrogen [Mass/Vol] 5 mg/dL Low 9-24 [facility] Comment on above: Order Comment: Speci men Type: BLOOD SPECIMENOrdering Facility: [facility] Address: [address] [place] [address] Performed By: #### 3 016-3, 15289-6, 2132-05, 3024-03 ####[facility] [id number] [place] [id number] [place] Free T4 [Mass/Vol]on Interpretation and review of laboratory results Abnormal [facility] No Panel Informationon 07-04 Interpretation and review of laboratory results Normal [facility] Interpretation and review of laboratory results Normal [facility] T4 FREE/FREE THYROXINEon Free T4 [Mass/Vol] 0.8 ng/dL Low 0.9 - 1.7 ng/dL [facility] T4 Free SerPl-mCncon Free T4 [Mass/Vol] 0.8 ng/dL Low 0.9-1.7 [facility] Comment on above: Order Comment: Speci men Type: BLOOD SPECIMENOrdering Facility: [facility] Address: [address] [place], [place] [address] Performed By: #### 3 016-3, 94151-9, 2132-05, 3024-03 ####[facility] [id number] [place] [id number] [place] THYROID STIMULATING HORMONEo n 07-04-2024 TSH Qn 0.755 m[IU]/L [facility] TSH SerPl-aCncon 07-04-2024 TSH Qn 0.755 m[IU]/L Normal 0.270-4.200 [facility] Comment on above: Order Comment: Speci men Type: BLOOD SPECIMENOrdering Facility: [facility] Address: [address] [place] [address] Performed By: #### 3 016-3, 35225-3, 2132-9, 3024-7 ####[facility] [id number] [place] [address] [place] VALPROIC ACID / DEPAKENEon 1 Valproate [Mass/Vol] 67.2 ug/mL 50.0 - 100.0 ug/mL [facility] Comment on above: Reference ranges and high/low indicator flags are provided as general guidelines only. The treating physician must determine appropriate target levels/dosing based on the specific clinical situation. VITAMIN B12on 07-04-2024 Cobalamin (Vitamin B12) [Mass/Vol] 410 pg/mL 232 - 1245 pg/mL [facility] VITAMIN D 25 HYDROXYon 07-04 25-hydroxyvitamin D3 [Mass/Vol] 19.0 ng/mL Low 31.0 - 80.0 ng/mL [facility] Comment on above: Classification of 25 [place] Vitamin D status: Deficiency/Insufficiency: < or = 30 ng/ml. Sufficiency/Optimal Levels: 31-80 ng/mL Toxicity: > 100 ng/mL. Test performed by chemiluminescent immunoassay. Valproate SerPl-mCncon 07-04 Valproate [Mass/Vol] 67.2 ug/mL Normal 50.0-100.0 [facility] Comment on above: Order Comment: Speci men Type: BLOOD SPECIMENOrdering Facility: [facility] Address: [address] [place] [address] Result Comment: Refe rence ranges and high/low indicator flags are provided as general guidelines only. The treating physician must determine appropriate target levels/dosing based on the specific clinical situation. Performed By: #### 4 086-5 ####[facility] [id number] [place] [address] [place] Vit B12 SerPl-mCncon 07-04-2 024 Cobalamin (Vitamin B12) [Mass/Vol] 410 pg/mL Normal 232-1245 [facility] Comment on above: Order Comment: Speci men Type: BLOOD SPECIMENOrdering Facility: [facility] Address: [address] [place] [address] Performed By: #### 3 016-3, 97391-1, 2132-9, 3024-7 ####[facility] [id number] [place] [address] [place] [facility]AMazepine [facility] carBAMazepine [Mass/Vol] 8.4 ug/mL Normal 4.0-12.0 [facility] Comment on above: Order Comment: Speci men Type: BLOOD SPECIMENOrdering Facility: [facility] Address: [address] [place] [address] Result Comment: Refe rence ranges and high/low indicator flags are provided as general guidelines only. The treating physician must determine appropriate target levels/dosing based on the specific clinical situation. Performed By: #### 3 432-2 ####[facility] [id number] [place] [address] [place] UA DIP, URINE (POC)on 2023 BILIRUBIN UA (POCT) Negative Negative [facility] CLARITY UA (POCT) Slightly Cloudy Cl [facility] COLOR UA (POCT) Light yellow [facility] GLUCOSE UA (POCT) Negative Negative mg/dL [facility] Hemoglobin Ql (U) Negative Negative [facility] Interpretation and review of laboratory results Abnormal [facility] KETONE UA (POCT) Negative Negative mg/dL [facility] LEUKOCYTES UA (POCT) Negative Negative [facility] NIT[facility] ([facility]CT) Negative Negative [facility] PH UA (POCT) 8.5 Abnormal 4.5 - 8.0 [facility] Protein Ql (U) Negative Negative mg/dL [facility] SPECIFIC GRAVITY UA (POCT) 1.020 1.005 - 1.030 [facility] UROBILINOGEN UA (POCT) 0.2 Maggi l E.U./dL [facility] Location:[facility], [address] , [place], [address] [facility] POINT OF CARE [facility] XR Chest PA and Lateralon IMPRESSION: Lung volumes mildly diminished. Mild bibasilar opacities, atelectasis and/or pneumonia in the appropriate clinical setting. Wardrobe Specialty Worker: PSCB Transcribe Date/Time: Dec 12 2023 11:01A Dictated by : CECILIA DAMIAN MD This examination was interpreted and the report reviewed and electronically signed by: CECILIA DAMIAN MD on Dec 12 2023 11:02AM [facility] DIVISION OF RADIOLOGY * * *Final Report* * * DATE OF EXAM: Dec 12 2023 10:56AM WOX [id number] - XR CHEST 2V FRONTAL/LAT / PROCEDURE REASON: Chronic cough * * * * Physician Interpretation * * * * EXAMINATION: CHEST RADIOGRAPH (2 VIEW FRONTAL & LATERAL) CLINICAL HISTORY: Chronic cough MQ: XC2_6 EXAM DATE/TIME: 12/12/2023 10:56 AM COMPARISON: Chest x-ray dated October 25, 2023 RESULT: Lines, tubes, and devices: None. Lungs and pleura: Lung volumes slightly diminished. Mild bibasilar opacities. No pleural effusion or pneumothorax. Cardiomediastinal silhouette: Normal cardiomediastinal silhouette. Bones and soft tissues: Unremarkable. DIVISION OF RADIOLOGY Provider, [facility] - 12/12/2023 * * *Final Report* * * DATE OF EXAM: Dec 12 2023 10:56AM WOX [id number] - XR CHEST 2V FRONTAL/LAT / PROCEDURE REASON: Chronic cough * * * * Physician Interpretation * * * * EXAMINATION: CHEST RADIOGRAPH (2 VIEW FRONTAL & LATERAL) CLINICAL HISTORY: Chronic cough MQ: XC2_6 EXAM DATE/TIME: 12/12/2023 10:56 AM COMPARISON: Chest x-ray dated October 25, 2023 RESULT: Lines, tubes, and devices: None. Lungs and pleura: Lung volumes slightly diminished. Mild bibasilar opacities. No pleural effusion or pneumothorax. Cardiomediastinal silhouette: Normal cardiomediastinal silhouette. Bones and soft tissues: Unremarkable. IMPRESSION IMPRESSION: Lung volumes mildly diminished. Mild bibasilar opacities, atelectasis and/or pneumonia in the appropriate clinical setting. Wardrobe Specialty Worker: CRUZ Transcribe Date/Time: Dec 12 2023 11:01A Dictated by : CECILIA DAMIAN MD This examination was interpreted and the report reviewed and electronically signed by: CECILIA DAMIAN MD on Dec 12 2023 11:02AM EST [facility] Radiology Study observation (narrative) [facility] XR Chest PA and LateralOrder ed By: Ccf Provider on 12-12-2023 [facility] XR Chest 2 Viewson [facility] XR Chest PA and Lateralon IMPRESSION: No acute findings radiographically [facility] Specialty [facility] Transcribe Date/Time: Oct 25 2023 7:45P Dictated by : DON FUNG MD This examination was interpreted and the report reviewed and electronically signed by: DON FUNG MD on Oct 25 2023 7:47PM [facility] DIVISION OF RADIOLOGY * * *Final Report* * * DATE OF EXAM: Oct 25 2023 7:28PM WOX [id number] - XR CHEST 2V FRONTAL/LAT / PROCEDURE REASON: Rhonchi at both lung bases * * * * Physician Interpretation * * * * EXAMINATION: CHEST RADIOGRAPH (2 VIEW FRONTAL & LATERAL) CLINICAL HISTORY: Rhonchi at both lung bases MQ: XC2_6 EXAM DATE/TIME: 10/25/2023 7:28 PM COMPARISON: 09/26/2023 RESULT: Lines, tubes, and devices: None. Lungs and pleura: No confluent infiltrate, pneumothorax, or pleural effusion. Cardiomediastinal silhouette: Normal cardiomediastinal silhouette. Bones and soft tissues: Unremarkable. DIVISION OF RADIOLOGY Provider, Eliazar Portillo [facility] - 10/25/2023 * * *Final Report* * * DATE OF EXAM: Oct 25 2023 7:28PM WOX 5291 - XR CHEST 2V FRONTAL/LAT / PROCEDURE REASON: Rhonchi at both lung bases * * * * Physician Interpretation * * * * EXAMINATION: CHEST RADIOGRAPH (2 VIEW FRONTAL & LATERAL) CLINICAL HISTORY: Rhonchi at both lung bases MQ: XC2_6 EXAM DATE/TIME: 10/25/2023 7:28 PM COMPARISON: 09/26/2023 RESULT: Lines, tubes, and devices: None. Lungs and pleura: No confluent infiltrate, pneumothorax, or pleural effusion. Cardiomediastinal silhouette: Normal cardiomediastinal silhouette. Bones and soft tissues: Unremarkable. IMPRESSION IMPRESSION: No acute findings radiographically Wardrobe Specialty Worker: [facility] Transcribe Date/Time: Oct 25 2023 7:45P Dictated by : DON FUNG MD This examination was interpreted and the report reviewed and electronically signed by: DON FUNG MD on Oct 25 2023 7:47PM EST [facility] Radiology Study observation (narrative) [facility] XR Chest PA and LateralOrder ed By: Ccf Provider on 10-25-2023 [facility] XR Chest PA and Lateralon IMPRESSION: Possible left lower lobe pneumonia Wardrobe Specialty Worker: PSC Transcribe Date/Time: Sep 26 2023 7:33P Dictated by : EZRA DAWKINS MD This examination was interpreted and the report reviewed and electronically signed by: EZRA DAWKINS MD on Sep 26 2023 7:34PM EST DIVISION OF RADIOLOGY * * *Final Report* * * DATE OF EXAM: Sep 26 2023 7:32PM WOX 5291 - XR CHEST 2V FRONTAL/LAT / PROCEDURE REASON: Acute cough * * * * Physician Interpretation * * * * EXAMINATION: CHEST RADIOGRAPH (2 VIEW FRONTAL & LATERAL) CLINICAL HISTORY: Acute cough MQ: XC2_6 EXAM DATE/TIME: 09/26/2023 7:32 PM COMPARISON: No relevant prior studies available. RESULT: Lines, tubes, and devices: None. Lungs and pleura: Mild increased attenuation left lower lobe, possibly infectious or inflammatory. No pleural effusion or pneumothorax. Cardiomediastinal silhouette: Normal cardiomediastinal silhouette. Bones and soft tissues: Unremarkable. DIVISION OF RADIOLOGY Provider, Eliazar [facility] - 09/26/2023 * * *Final Report* * * DATE OF EXAM: Sep 26 2023 7:32PM WOX 5291 - XR CHEST 2V FRONTAL/LAT / PROCEDURE REASON: Acute cough * * * * Physician Interpretation * * * * EXAMINATION: CHEST RADIOGRAPH (2 VIEW FRONTAL & LATERAL) CLINICAL HISTORY: Acute cough MQ: XC2_6 EXAM DATE/TIME: 09/26/2023 7:32 PM COMPARISON: No relevant prior studies available. RESULT: Lines, tubes, and devices: None. Lungs and pleura: Mild increased attenuation left lower lobe, possibly infectious or inflammatory. No pleural effusion or pneumothorax. Cardiomediastinal silhouette: Normal cardiomediastinal silhouette. Bones and soft tissues: Unremarkable. IMPRESSION IMPRESSION: Possible left lower lobe pneumonia Wardrobe Specialty Worker: CRUZ Transcribe Date/Time: Sep 26 2023 7:33P Dictated by : EZRA DAWKINS MD This examination was interpreted and the report reviewed and electronically signed by: EZRA DAWKINS MD on Sep 26 2023 7:34PM EST [facility] Radiology Study observation (narrative) [facility] XR Chest PA and LateralOrder ed By: Ccf Provider on 09-26-2023 [facility] UA DIP, URINE (POC)on 2022 BILIRUBIN UA (POCT) Negative Negative [facility] CLARITY UA (POCT) Clear [facility] COLOR UA (POCT) Yellow [facility] GLUCOSE UA (POCT) Negative Negative mg/dL [facility] HEMOGLOBIN/BLOOD UA (POCT) Negative Negative [facility] KETONE UA (POCT) Negative Negative mg/dL [facility] LEUKOCYTES UA (POCT) Negative Negative [facility] NITRITE UA (POCT) Negative Negative [facility] PH UA (POCT) 6.0 4.5 - 8.0 [facility] Protein Ql (U) Negative Negative mg/dL [facility] SPECIFIC GRAVITY UA (POCT) 1.020 1.005 - 1.030 [facility] UROBILINOGEN UA (POCT) 0.2 E.U./dL Maggi l E.U./dL [facility] carBAMazepine SerPl-mCncon 1 10-29-2021 carBAMazepine [Mass/Vol] 7.7 ug/mL Normal 4.0-12.0 [facility] Comment on above: Order Comment: Speci men Type: BLOOD SPECIMEN Ordering Facility: [facility] Address: [address] [place] [address] Result Comment: Refe rence ranges and high/low indicator flags are provided as general guidelines only. The treating physician must determine appropriate target levels/dosing based on the specific clinical situation. Performed By: #### [phone] #### [facility] CLIA [id number] [facility] DESK [id number] [place] CARBAM/TEGRETOL Js 08-16-20 carBAMazepine free [Mass/Vol] 2.5 ug/mL High 0.8 - 2.4 ug/mL [facility] CBC W Auto Differential pane l (Bld)on 08-16-2022 Basophils (Bld) [#/Vol] 0.05 10*3/uL <0.11 k/uL [facility] Basophils/100 WBC (Bld) 0.9 % [facility] Differential cell count method Nom (Bld) Auto [facility] Eosinophils (Bld) [#/Vol] 0.12 10*3/uL <0.46 k/uL [facility] Eosinophils/100 WBC (Bld) 2.3 % [facility] Erythrocyte distribution width (RBC) [Ratio] 12.8 % 11.5 - 15.0 % [facility] Hematocrit (Bld) [Volume fraction] 46.7 % 39.0 - 51.0 % [facility] Hemoglobin (Bld) [Mass/Vol] 15.5 g/dL 13.0 - 17.0 g/dL [facility] Immature granulocytes (Bld) [#/Vol] <0.10 k/uL [facility] Immature granulocytes/100 WBC (Bld) 0.4 % [facility] Lymphocytes (Bld) [#/Vol] 2.14 10*3/uL 1.00 - 4.00 k/uL [facility] Lymphocytes/100 WBC (Bld) 40.4 % [facility] MCH (RBC) [Entitic mass] 30.1 pg 26.0 - 34.0 pg [facility] MCHC (RBC) [Mass/Vol] 33.2 g/dL 30.5 - 36.0 g/dL [facility] MCV (RBC) [Entitic vol] 90.7 fL 80.0 - 100.0 fL [facility] Monocytes (Bld) [#/Vol] 0.35 10*3/uL <0.87 k/uL [facility] Monocytes/100 WBC (Bld) 6.6 % [facility] Neutrophils (Bld) [#/Vol] 2.62 10*3/uL 1.45 - 7.50 k/uL [facility] Neutrophils/100 WBC (Bld) 49.4 % [facility] Nucleated RBC (Bld) [#/Vol] <0.01 k/uL [facility] Nucleated RBC/100 WBC (Bld) [Ratio] 0.0 /100 WBC [facility] Platelet mean volume (Bld) [Entitic vol] 10.8 fL 9.0 - 12.7 fL [facility] Platelets (Bld) [#/Vol] 257 10*3/uL 150 - 400 k/uL [facility] RBC (Bld) [#/Vol] 5.15 10*6/uL 4.20 - 6.0 0 m/uL [facility] WBC (Bld) [#/Vol] 5.30 10*3/uL 3.70 - 11. 00 k/uL [facility] VALPROIC A/DEPAKENEon 2021 Valproate [Mass/Vol] 74.3 ug/mL 50.0 - 100.0 ug/mL [facility] XR ANKLE GENERAL 3V AP/LAT/O BL RIGHTon 02-01-2022 [facility] XR Ankle - right AP and Late ral and obliqueon 02-01-2022 IMPRESSION: Possible anterior calcaneal process fracture Wardrobe Specialty Worker: [facility] Transcribe Date/Time: Feb 01 2022 10:33A Dictated by : EZRA DAWKINS MD This examination was interpreted and the report reviewed and electronically signed by: EZRA DAWKINS MD on Feb 01 2022 10:34AM EST [facility]_DO_NOT_US E_DIVISION OF RADIOLOGY * * *Final Report* * * DATE OF EXAM: Feb 01 2022 10:31AM WOX [id number] - XR ANKLE 3V AP/LAT/OBL RT / PROCEDURE REASON: Acute right ankle pain * * * * Physician Interpretation * * * * PROCEDURE: Right ankle INDICATION: Acute right ankle pain .stepped in hole couple of days ago pain lateral right ankle TECHNIQUE: XR ANKLE 3V AP/LAT/OBL RT COMPARISON: None FINDINGS: Questionable fracture of the anterior calcaneal process. Ankle mortise is symmetric. Mild diffuse soft tissue swelling. Achilles enthesophyte. [facility]_DO_NOT_US E_DIVISION OF RADIOLOGY Provider, Eliazar beaulieu [place] - 02/01/2022 * * *Final Report* * * DATE OF EXAM: Feb 01 2022 10:31AM WOX [id number] - XR ANKLE 3V AP/LAT/OBL RT / PROCEDURE REASON: Acute right ankle pain * * * * Physician Interpretation * * * * PROCEDURE: Right ankle INDICATION: Acute right ankle pain .stepped in hole couple of days ago pain lateral right ankle TECHNIQUE: XR ANKLE 3V AP/LAT/OBL RT COMPARISON: None FINDINGS: Questionable fracture of the anterior calcaneal process. Ankle mortise is symmetric. Mild diffuse soft tissue swelling. Achilles enthesophyte. IMPRESSION IMPRESSION: Possible anterior calcaneal process fracture Wardrobe Specialty Worker: [facility] Transcribe Date/Time: Feb 01 2022 10:33A Dictated by : EZRA DAWKINS MD This examination was interpreted and the report reviewed and electronically signed by: EZRA DAWKINS MD on Feb 01 2022 10:34AM EST [facility] Radiology Study observation (narrative) [facility] XR Ankle - right AP and Late ral and obliqueOrdered By: [facility] Provider on 02-01-2022 [facility] Vital Signs Date Time Vital Sign Value Performing Clinician Elle berkowitz 04-30-2025 14:16-0400 Body temperature 98.2 [degF] Froylan CAMEJO-C Work Phone: [facility] 04-29-2025 10:040 Body height 188 cm Salima Pardo PA-C Work Phone: [facility] 04-29-2025 10:21040 Body mass index (BMI) [Ratio] 24.78 kg/m2 Salima Pardo PA-C Work Phone: [facility] 04-29-2025 10:21040 Body weight 87.54 kg Salima Pardo PA-C Work Phone: [facility] 04-29-2025 10:21-0400 Diastolic blood pressure 70 mm[Hg] Salima Pardo PA-C Work Phone: [facility] 04-29-2025 10:21-0400 Heart rate 70 /min Salima Pardo PA-C Work Phone: [facility] 04-29-2025 10:21-0400 SaO2% (BldA) [Mass fraction] 97 % Salima Pardo PA-C Work Phone: [facility] 04-29-2025 10:21-0400 Systolic blood pressure 122 mm[Hg] Salima Pardo PA-C Work Phone: [facility] 02-06-2025 10:04-0400 Body mass index (BMI) [Ratio] 25.81 kg/m2 Mayra Haedin PROCESS DESCRIPTION WRITER.TEXTILE 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 Work Phone: [facility] 02-06-2025 10:04-0400 Body weight 91.17 kg Mayra Haedin PROCESS DESCRIPTION WRITER.TEXTILE 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 Work Phone: [facility] 02-06-2025 10:04-0400 Diastolic blood pressure 76 mm[Hg] Myara Haagen PROCESS DESCRIPTION WRITER.TEXTILE 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 Work Phone: [facility] 02-06-2025 10:04-0400 Heart rate 92 /min Mayra Haagen PROCESS DESCRIPTION WRITER.TEXTILE 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 Work Phone: [facility] 02-06-2025 10:04-0400 Respiratory rate 16 /min Mayra Haagen PROCESS DESCRIPTION WRITER.TEXTILE 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 Work Phone: [facility] 02-06-2025 10:04-0400 SaO2% (BldA) [Mass fraction] 99 % Mayra Gerardo PROCESS DESCRIPTION WRITER.TEXTILE 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 Work Phone: [facility] 02-06-2025 10:04-0400 Systolic blood pressure 108 mm[Hg] Mayra Haagen PROCESS DESCRIPTION WRITER.TEXTILE 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 Work Phone: [facility] 01-28-2025 10:12-0400 Body mass index (BMI) [Ratio] 25.32 kg/m2 Jenise Samantha PROCESS DESCRIPTION WRITER.TEXTILE 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 Work Phone: [facility] 01-28-2025 10:12-0400 Body temperature 97.5 [degF] Jenise Samantha PROCESS DESCRIPTION WRITER.TEXTILE 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 Work Phone: [facility] 01-28-2025 10:12-0400 Body weight 89.45 kg Jenise Samantha PROCESS DESCRIPTION WRITER.TEXTILE 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 Work Phone: [facility] 01-28-2025 10:12-0400 Diastolic blood pressure 82 mm[Hg] Jenise Samantha PROCESS DESCRIPTION WRITER.TEXTILE 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 Work Phone: [facility] 01-28-2025 10:12-0400 Heart rate 69 /min Jenise Samantha PROCESS DESCRIPTION WRITER.TEXTILE 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 Work Phone: [facility] 01-28-2025 10:12-0400 Respiratory rate 14 /min Jenise Smaantha PROCESS DESCRIPTION WRITER.TEXTILE 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 Work Phone: [facility] 01-28-2025 10:12-0400 SaO2% (BldA) [Mass fraction] 97 % Jenise Samantha PROCESS DESCRIPTION WRITER.TEXTILE 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 Work Phone: [facility] 01-28-2025 10:12-0400 Systolic blood pressure 120 mm[Hg] Jenise Samantha PROCESS DESCRIPTION WRITER.TEXTILE 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 Work Phone: [facility] 08-24-2024 09:33-0500 Body height 188 cm Rosana Rodney PROCESS DESCRIPTION WRITER.TEXTILE 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 Work Phone: [facility] 08-24-2024 09:33-0500 Body mass index (BMI) [Ratio] 25.87 kg/m2 Rosana Rodney PROCESS DESCRIPTION WRITER.TEXTILE 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 Work Phone: [facility] 08-24-2024 09:33-0500 Body weight 91.4 kg Rosana Rodney PROCESS DESCRIPTION WRITER.TEXTILE 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 Work Phone: [facility] 08-24-2024 09:33-0500 Diastolic blood pressure 86 mm[Hg] Rosana Rodney PROCESS DESCRIPTION WRITER.TEXTILE 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 Work Phone: [facility] 08-24-2024 09:33-0500 Heart rate 84 /min Rosana Tannhof PROCESS DESCRIPTION WRITER.TEXTILE 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 Work Phone: [facility] 08-24-2024 09:33-0500 Respiratory rate 16 /min Rosana Tannhof PROCESS DESCRIPTION WRITER.TEXTILE 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 Work Phone: [facility] 08-24-2024 09:33-0500 SaO2% (BldA) [Mass fraction] 98 % Rosana Tannhof PROCESS DESCRIPTION WRITER.TEXTILE 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 Work Phone: [facility] 08-24-2024 09:33-0500 Systolic blood pressure 110 mm[Hg] Rosana Tannhof PROCESS DESCRIPTION WRITER.TEXTILE 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 Work Phone: [facility] 07-04-2024 09:30-0400 Body mass index (BMI) [Ratio] 28.35 kg/m2 Rosana Tannhof PROCESS DESCRIPTION WRITER.TEXTILE 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 Work Phone: [facility] 07-04-2024 09:30-0400 Body weight 94.8 kg Rosana Tannhof PROCESS DESCRIPTION WRITER.TEXTILE 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 Work Phone: [facility] 07-04-2024 09:30-0400 Diastolic blood pressure 88 mm[Hg] Rosana Tannhof PROCESS DESCRIPTION WRITER.TEXTILE 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 Work Phone: [facility] 07-04-2024 09:30-0400 Heart rate 92 /min Rosaan Tannhof PROCESS DESCRIPTION WRITER.TEXTILE 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 Work Phone: [facility] 07-04-2024 09:30-0400 Respiratory rate 16 /min Rosana Tannhof PROCESS DESCRIPTION WRITER.TEXTILE 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 Work Phone: [facility] 07-04-2024 09:30-0400 SaO2% (BldA) [Mass fraction] 99 % Rosana Tannhof PROCESS DESCRIPTION WRITER.TEXTILE 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 Work Phone: [facility] 07-04-2024 09:30-0400 Systolic blood pressure 120 mm[Hg] Rosana Tannhof PROCESS DESCRIPTION WRITER.TEXTILE 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 Work Phone: [facility] 04-08-2024 12:23-0400 Body mass index (BMI) [Ratio] 27.6 kg/m2 Mamie Aberegg PA Work Phone: [facility] 04-08-2024 12:23-0400 Body temperature 97.3 [degF] Krislyn Aberegg PA Work Phone: [facility] 04-08-2024 12:23-0400 Body weight 92.3 kg Krislyn Aberegg PA Work Phone: [facility] 04-08-2024 12:23-0400 Diastolic blood pressure 82 mm[Hg] Krislyn Aberegg PA Work Phone: [facility] 04-08-2024 12:23-0400 Heart rate 86 /min Krislyn Aberegg PA Work Phone: [facility] 04-08-2024 12:23-0400 Respiratory rate 18 /min Krislyn Aberegg PA Work Phone: [facility] 04-08-2024 12:23-0400 SaO2% (BldA) [Mass fraction] 100 % Krislyn Aberegg PA Work Phone: [facility] 04-08-2024 12:23-0400 Systolic blood pressure 128 mm[Hg] Krislyn Aberegg PA Work Phone: [facility] 02-14-2024 09:44-0400 Body height 182.9 cm Froylan Erwin PA-C Work Phone: [facility] 02-14-2024 09:44-0400 Body mass index (BMI) [Ratio] 27.53 kg/m2 Froylan Erwin PA-C Work Phone: [facility] 02-14-2024 09:44-0400 Body weight 92.08 kg Froylan Erwin PA-C Work Phone: [facility] 02-14-2024 09:44-0400 Heart rate 88 /min Froylan Erwin PA-C Work Phone: [facility] 02-14-2024 09:44-0400 SaO2% (BldA) [Mass fraction] 100 % Froylan Erwin PA-C Work Phone: [facility] 12-15-2023 10:17-0400 Body height 182.9 cm Becca Draper MD Work Phone: [facility] 12-15-2023 10:17-0400 Body temperature 97 [degF] Becca Draper MD Work Phone: [facility] 12-15-2023 10:17-0400 Body weight 91.63 kg Becca Draper MD Work Phone: [facility] 12-15-2023 10:17-0400 Diastolic blood pressure 80 mm[Hg] Becca Draper MD Work Phone: [facility] 12-15-2023 10:17-0400 Heart rate 89 /min Becca Draper MD Work Phone: [facility] 12-15-2023 10:17-0400 SaO2% (BldA) [Mass fraction] 98 % Becca Draper MD Work Phone: [facility] 12-15-2023 10:17-0400 Systolic blood pressure 118 mm[Hg] Becca Draper MD Work Phone: [facility] 12-12-2023 09:54-0400 Body temperature 97.2 [degF] Avtar Moomaw PROCESS DESCRIPTION WRITER.TEXTILE 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 Work Phone: [facility] 12-12-2023 09:54-0400 Body weight 89.7 kg Avtar Moomaw PROCESS DESCRIPTION WRITER.TEXTILE 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 Work Phone: [facility] 12-12-2023 09:54-0400 Diastolic blood pressure 74 mm[Hg] Avtar Moomaw PROCESS DESCRIPTION WRITER.TEXTILE 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 Work Phone: [facility] 12-12-2023 09:54-0400 Heart rate 94 /min Avtar Moomaw PROCESS DESCRIPTION WRITER.TEXTILE 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 Work Phone: [facility] 12-12-2023 09:54-0400 Respiratory rate 21 /min Avtar Moomaw PROCESS DESCRIPTION WRITER.TEXTILE 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 Work Phone: [facility] 12-12-2023 09:54-0400 SaO2% (BldA) [Mass fraction] 98 % Avtar Nateomazaki PROCESS DESCRIPTION WRITER.TEXTILE 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 Work Phone: [facility] 12-12-2023 09:54-0400 Systolic blood pressure 114 mm[Hg] Avtar Brooks PROCESS DESCRIPTION WRITER.TEXTILE 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 Work Phone: [facility] 11-04-2023 09:19-0500 Body temperature 96.91 [degF] Krislyn Aberegg PA Work Phone: [facility] 11-04-2023 09:19-0500 Body weight 90.72 kg Krislyn Aberegg PA Work Phone: [facility] 11-04-2023 09:19-0500 Diastolic blood pressure 86 mm[Hg] Krislyn Aberegg PA Work Phone: [facility] 11-04-2023 09:19-0500 Heart rate 96 /min Krislyn Aberegg PA Work Phone: [facility] 11-04-2023 09:19-0500 Respiratory rate 16 /min Krislyn Aberegg PA Work Phone: [facility] 11-04-2023 09:19-0500 SaO2% (BldA) [Mass fraction] 97 % Krislyn Aberegg PA Work Phone: [facility] 11-04-2023 09:19-0500 Systolic blood pressure 128 mm[Hg] Krislyn Aberegg PA Work Phone: [facility] 10-29-2023 09:22-0500 Body weight 92.08 kg Becca Draper MD Work Phone: [facility] 10-29-2023 09:22-0500 Diastolic blood pressure 80 mm[Hg] Becca Darper MD Work Phone: [facility] 10-29-2023 09:22-0500 Heart rate 87 /min Becca Draper MD Work Phone: [facility] 10-29-2023 09:22-0500 Respiratory rate 16 /min Becca Draper MD Work Phone: [facility] 10-29-2023 09:22-0500 SaO2% (BldA) [Mass fraction] 97 % Becca Draper MD Work Phone: [facility] 10-29-2023 09:22-0500 Systolic blood pressure 122 mm[Hg] Becca Draper MD Work Phone: [facility] 10-25-2023 19:07-0500 Body temperature 97 [degF] Galileo Jonny PROCESS DESCRIPTION WRITER.TEXTILE 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 Work Phone: [facility] 10-25-2023 19:07-0500 Body weight 92.9 kg Galileo Jonny PROCESS DESCRIPTION WRITER.TEXTILE 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 Work Phone: [facility] 10-25-2023 19:07-0500 Diastolic blood pressure 82 mm[Hg] Galileo Jonny PROCESS DESCRIPTION WRITER.TEXTILE 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 Work Phone: [facility] 10-25-2023 19:07-0500 Heart rate 81 /min Galileo Jonny PROCESS DESCRIPTION WRITER.TEXTILE 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 Work Phone: [facility] 10-25-2023 19:07-0500 Respiratory rate 16 /min Galileo Jonny PROCESS DESCRIPTION WRITER.TEXTILE 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 Work Phone: [facility] 10-25-2023 19:07-0500 SaO2% (BldA) [Mass fraction] 100 % Galileo Jonny PROCESS DESCRIPTION WRITER.TEXTILE 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 Work Phone: [facility] 10-25-2023 19:07-0500 Systolic blood pressure 130 mm[Hg] Galileo Jonny PROCESS DESCRIPTION WRITER.TEXTILE 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 Work Phone: [facility] 10-01-2022 14:20-0500 Body weight 92.53 kg Froylan Erwin PA-C Work Phone: [facility] 10-01-2022 14:20-0500 Diastolic blood pressure 86 mm[Hg] Froylan Erwin PA-C Work Phone: [facility] 10-01-2022 14:20-0500 Heart rate 87 /min Froylan Erwin PA-C Work Phone: [facility] 10-01-2022 14:20-0500 SaO2% (BldA) [Mass fraction] 100 % Froylan Erwin PA-C Work Phone: [facility] 10-01-2022 14:20-0500 Systolic blood pressure 158 mm[Hg] Froylan Erwin PA-C Work Phone: [facility] 08-16-2022 10:04-0500 Body height 178 cm Rosana Tannhof PROCESS DESCRIPTION WRITER.TEXTILE 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 Work Phone: [facility] 08-16-2022 10:04-0500 Body weight 91.63 kg Rosana Tannhof PROCESS DESCRIPTION WRITER.TEXTILE 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 Work Phone: [facility] 08-16-2022 10:04-0500 Diastolic blood pressure 82 mm[Hg] Rosana Tannhof PROCESS DESCRIPTION WRITER.TEXTILE 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 Work Phone: [facility] 08-16-2022 10:04-0500 Heart rate 77 /min Rsoana Tannhof PROCESS DESCRIPTION WRITER.TEXTILE 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 Work Phone: [facility] 08-16-2022 10:04-0500 Respiratory rate 16 /min Rosana Tannhof PROCESS DESCRIPTION WRITER.TEXTILE 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 Work Phone: [facility] 08-16-2022 10:04-0500 SaO2% (BldA) [Mass fraction] 99 % Rosana Tannhof PROCESS DESCRIPTION WRITER.TEXTILE 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 Work Phone: [facility] 08-16-2022 10:04-0500 Systolic blood pressure 120 mm[Hg] Rosana Tannhof PROCESS DESCRIPTION WRITER.TEXTILE 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 Work Phone: [facility] 04-05-2022 19:05-0400 Body temperature 96.69 [degF] Teresa Praful PROCESS DESCRIPTION WRITER.TEXTILE 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 Work Phone: [facility] 04-05-2022 19:05-0400 Body weight 94.8 kg Teresa Praful PROCESS DESCRIPTION WRITER.TEXTILE 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 Work Phone: [facility] 04-05-2022 19:05-0400 Diastolic blood pressure 80 mm[Hg] Teresa Praful PROCESS DESCRIPTION WRITER.TEXTILE 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 Work Phone: [facility] 04-05-2022 19:05-0400 Heart rate 81 /min Teresa Praful PROCESS DESCRIPTION WRITER.TEXTILE 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 Work Phone: [facility] 04-05-2022 19:05-0400 Respiratory rate 20 /min Teresa Praful PROCESS DESCRIPTION WRITER.TEXTILE 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 Work Phone: [facility] 04-05-2022 19:05-0400 SaO2% (BldA) [Mass fraction] 98 % Teresa Praful PROCESS DESCRIPTION WRITER.TEXTILE 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 Work Phone: [facility] 04-05-2022 19:05-0400 Systolic blood pressure 124 mm[Hg] Teresa Praful PROCESS DESCRIPTION WRITER.TEXTILE 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 Work Phone: [facility] 02-01-2022 09:40-0400 Body temperature 97.81 [degF] Adithya Camacho MD Work Phone: [facility] 02-01-2022 09:40-0400 Body weight 94.89 kg Adithya Camacho MD Work Phone: [facility] 02-01-2022 09:40-0400 Diastolic blood pressure 94 mm[Hg] Adithya Camacho MD Work Phone: [facility] 02-01-2022 09:40-0400 Heart rate 86 /min Adithya Camacho MD Work Phone: [facility] 02-01-2022 09:40-0400 Respiratory rate 20 /min Adithya Camacho MD Work Phone: [facility] 02-01-2022 09:40-0400 SaO2% (BldA) [Mass fraction] 98 % Adithya Camacho MD Work Phone: [facility] 02-01-2022 09:40-0400 Systolic blood pressure 122 mm[Hg] Adithya Camacho MD Work Phone: [facility] 12-17-2021 15:31-0400 Body weight 92.26 kg Becca Draper MD Work Phone: [facility] 12-17-2021 15:31-0400 Diastolic blood pressure 80 mm[Hg] Becca Draper MD Work Phone: [facility] [place] 12-17-2021 15:31-0400 Heart rate 80 /min Becca Draper MD Work Phone: [facility] [place] 12-17-2021 15:31-0400 Respiratory rate 16 /min Becca Draper MD Work Phone: [facility] [place] 12-17-2021 15:31-0400 Systolic blood pressure 118 mm[Hg] Becca Draper MD Work Phone: [facility] [place] Encounters Encounter Date Encounter Type Care Provider Facility Start: 05-02-2025 End: 05-02-2025 ambulatory Becca Draper Facility:[facility] Start: 04-30-2025 End: 04-30-2025 Patient encounter procedure Froylan Erwin PA-C Work Phone: Urology Comment on above: Urinary frequency (P rimary Dx); Urinary urgency; Screening for genitourinary condition Start: 04-30-2025 End: 04-30-2025 ambulatory FROYLAN ERWIN Facility:[facility] Start: 04-29-2025 End: 04-29-2025 Patient encounter procedure Salima Pardo PA-C Work Phone: [facility] [place] Comment on above: Dysphagia, unspecifi ed type (Primary Dx); Other cough; Chronic diarrhea; Family history of colon cancer Start: 04-29-2025 End: 04-29-2025 ambulatory SALIMA PARDO Facility:[facility] Start: 02-28-2025 End: 04-30-2025 Follow-up encounter Grant Clayton MD Work Phone: [facility] [place] Start: 02-28-2025 ambulatory MAYRA GERARDO Facility :[facility] Start: 02-28-2025 End: 02-28-2025 Subsequent hospital visit by physician Xr [facility] [place] Work Phone: Radiology Comment on above: Bacterial pneumonia [J15.9] Start: 02-25-2025 End: 02-26-2025 Telephone encounter Becca Draper MD Work Phone: [facility] [place] Comment on above: Patient Question Start: 02-08-2025 End: 02-08-2025 ambulatory Violet Arroyo CCC-BLUEPRINT DUPLICATOR Work Phone: [facility] Start: 02-08-2025 End: 02-08-2025 Patient encounter procedure Violet Arroyo CCC-BLUEPRINT DUPLICATOR Work Phone: [facility] Comment on above: Other dysphagia (Aaliyah mariaa Dx); Oral phase dysphagia Start: 02-08-2025 End: 02-08-2025 Subsequent hospital visit by physician Gi/Gu 2 [facility] Work Phone: Radiology Comment on above: Acute cough [R05.1] Start: 02-06-2025 End: 02-06-2025 Follow-up encounter Mayra Gerardo APRN.TEXTILE 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 Work Phone: [facility] [place] Start: 02-06-2025 End: 02-06-2025 Subsequent hospital visit by physician Xr [facility] [place] Work Phone: Radiology Comment on above: Acute cough [R05.1] Start: 02-06-2025 End: 02-06-2025 Office outpatient visit 25 minutes Mayra Gerardo APRN.TEXTILE 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 Work Phone: [facility] [place] Comment on above: Bronchitis (Primary Dx); Acute cough Start: 02-06-2025 End: 02-06-2025 ambulatory MAYRA GERARDO Facility:[facility] Start: 01-30-2025 End: 01-30-2025 ambulatory Becca Draper Facility:[facility] Start: 01-28-2025 End: 02-11-2025 Follow-up encounter Jenise Holt APRN.TEXTILE 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 Work Phone: [facility] [place] Start: 01-28-2025 End: 01-28-2025 Subsequent hospital visit by physician Xr [facility] [place] Work Phone: Radiology Comment on above: Acute cough [R05.1] Start: 01-28-2025 End: 01-28-2025 ambulatory JENISE HOLT Facility:[facility] Start: 01-28-2025 End: 01-28-2025 Office outpatient visit 25 minutes Jenise Holt APRN.CNP Work Phone: [facility] [place] Comment on above: Acute cough (Primary Dx); Oropharyngeal dysphagia; Bilateral impacted cerumen Start: 01-21-2025 End: 01-21-2025 ambulatory ARABELLA SLAUGHTER Facility:[facility] Start: 12-20-2024 End: 12-20-2024 Refill Froylan Erwin PA-C Work Phone: Urology Comment on above: Refill Request Start: 10-31-2024 End: 10-31-2024 ambulatory Becca Draper Facility:[facility] Start: 10-15-2024 End: 10-15-2024 Telephone encounter Mac Galvan APRN.TEXTILE 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 Work Phone: [facility] [place] Comment on above: Results Start: 10-13-2024 End: 10-13-2024 ambulatory MAC GALVAN Facility:[facility] Start: 09-26-2024 End: 09-27-2024 Refill Becca Draper MD Work Phone: [facility] [place] Comment on above: Refill Request Start: 08-24-2024 End: 08-24-2024 Patient encounter procedure Rosana Rodney APRN.CNP Work Phone: [facility] [place] Comment on above: Wellness examination (Primary Dx); Intellectual disability; Urinary frequency; Nonintractable epilepsy without status epilepticus, unspecified epilepsy type (HCC); CAROL (generalized anxiety disorder); Obsessive-compulsive disorder, unspecified type; Seasonal allergies; Vitamin D deficiency; History of sleep study; Snoring; Daytime sleepiness; Encounter for immunization; Screening for colon cancer Start: 08-24-2024 End: 08-24-2024 Patient encounter status Rosana Rodney APRN.CNP Work Phone: [facility] Work Phone: Start: 08-24-2024 End: 08-24-2024 ambulatory ROSANA RODNEY Facility:[facility] Start: 08-24-2024 Encounter for genera l adult medical examination without abnormal findings ROSANA SANTANAWILD [facility] Start: 08-15-2024 End: 08-15-2024 ambulatory Reji George Facility:[facility] Start: 08-10-2024 End: 08-10-2024 [facility] Start: 07-31-2024 End: 07-31-2024 ambulatory Reji George Facility:[facility] Start: 07-19-2024 End: 07-24-2024 Telephone encounter Rosana Rodney APRN.TEXTILE 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 Work Phone: [facility] [place] Comment on above: Results (Sleep Study ) Start: 07-10-2024 End: 07-11-2024 ambulatory [facility] Facility:[facility] Start: 07-06-2024 End: 07-06-2024 Refill Becca Draper MD Work Phone: [facility] [place] Comment on above: Refill Request Results (Labs.) Start: 07-05-2024 End: 07-13-2024 Chart [facility] Work Phone: Neurology Start: 07-04-2024 End: 07-04-2024 Patient encounter procedure Rosana Rodney APRN.TEXTILE 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 Work Phone: [facility] [place] Comment on above: Fatigue, unspecified type (Primary Dx); Snoring; Daytime sleepiness; Nonintractable epilepsy without status epilepticus, unspecified epilepsy type (HCC); Seasonal allergies; Urinary frequency; CAROL (generalized anxiety disorder); Intellectual disability; Encounter for immunization; Screening for depression Start: 07-04-2024 End: 07-04-2024 ambulatory [facility] Facility:[facility] Start: 06-06-2024 End: 06-07-2024 Refill Becca Draper MD Work Phone: [facility] [place] Comment on above: Refill Request Start: 04-08-2024 End: 04-08-2024 Patient encounter procedure Mamie CAMEJO Work Phone: [facility] Comment on above: Bacterial sinusitis (Primary Dx) Start: 02-14-2024 End: 02-14-2024 Orders Only Froylanlibby Erwin PA-C Work Phone: Urology Comment on above: Urinary urgency (Aaliyah mariaa Dx) Urinary urgency (Aaliyah mariaa Dx); Urinary frequency Start: 01-19-2024 Refill Froylanlibby Erwin PA-C Work Phone: Urology Comment on above: Refill Request Start: 12-15-2023 End: 12-15-2023 Patient encounter procedure Becca Draper MD Work Phone: [facility] Comment on above: Acute cough (Primary Dx); Hx of viral pneumonia Start: 12-12-2023 End: 12-12-2023 Subsequent hospital visit by physician Stacia [facility] [place] Work Phone: Radiology Comment on above: Chronic cough [R05.3 ] Start: 12-12-2023 End: 12-12-2023 Patient encounter procedure Avtar Brooks APRN.CNP Work Phone: [facility] Comment on above: Chronic cough (Prima ry Dx); Bacterial pneumonia Start: 11-04-2023 End: 11-04-2023 Patient encounter procedure Mamie CAMEJO Work Phone: [facility] Comment on above: Acute conjunctivitis of left eye, unspecified acute conjunctivitis type (Primary Dx) Start: 11-02-2023 Refill Becca powell MD Work Phone: [facility] Comment on above: Refill Request Start: 10-29-2023 End: 10-29-2023 Patient encounter procedure Becca Draper MD Work Phone: [facility] Comment on above: Acute cough (Primary Dx) Start: 10-26-2023 Telephone encounter Mamie CAMEJO Work Phone: [facility] Comment on above: Results Start: 10-25-2023 End: 10-25-2023 Subsequent hospital visit by physician Stacia [facility] [place] Work Phone: Radiology Comment on above: Rhonchi at both lung bases [R09.89] Start: 10-25-2023 End: 10-25-2023 Patient encounter procedure Galileo Fuller GIANCARLO.TEXTILE 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 Work Phone: [facility] Comment on above: URI, acute (Primary Dx); Rhonchi at both lung bases; Subacute cough Start: 09-26-2023 End: 09-26-2023 Subsequent hospital visit by physician Stacia [facility] [place] Work Phone: Radiology Comment on above: Acute cough [R05.1] Start: 08-22-2023 Telephone encounter Becca avila MD Work Phone: [facility] [place] Comment on above: Results Start: 08-02-2023 Telephone encounter Becca avila MD Work Phone: [facility] [place] Comment on above: Forms (Guardianship paperwork for [address]) Start: 07-16-2023 End: 07-16-2023 ambulatory [facility] [place] Work Phone: [facility] [place] Comment on above: Arrived Start: 07-07-2023 Refill Becca powell MD Work Phone: [facility] [place] Comment on above: Refill Request Start: 12-16-2022 Refill Becca powell MD Work Phone: [facility] Comment on above: Refill Request Patient Update Start: 10-01-2022 End: 10-01-2022 Patient encounter procedure Froylan Erwin PA-C Work Phone: Urology Comment on above: Urinary frequency; Urinary urgency Start: 09-15-2022 Telephone encounter Maryellen seo APRN.TEXTILE 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 Work Phone: [facility] [place] Comment on above: Results (Urine cultu re/) Start: 09-02-2022 Telephone encounter Rosana maldonado PROCESS DESCRIPTION WRITER.TEXTILE 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 Work Phone: Family [facility] [place] Comment on above: Results Start: 08-28-2022 End: 08-29-2022 ambulatory [facility] Facility[facility] Start: 08-19-2022 Telephone encounter Rosana maldonado PROCESS DESCRIPTION WRITER.TEXTILE 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 Work Phone: [facility] Comment on above: Results (Labs ) Start: 08-16-2022 End: 08-16-2022 Patient encounter procedure Rosana Rodney PROCESS DESCRIPTION WRITER.TEXTILE 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 Work Phone: [facility] Comment on above: Wellness examination (Primary Dx); Intellectual disability; Nonintractable epilepsy without status epilepticus, unspecified epilepsy type (HCC); Seasonal allergies; Impacted cerumen of left ear; Screening for colon cancer; Screening cholesterol level Start: 08-16-2022 End: 08-16-2022 Patient encounter status Rosana Rodney PROCESS DESCRIPTION WRITER.TEXTILE 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 Work Phone: [facility] Start: 08-10-2022 Refill Mac HUIZAR RN.TEXTILE 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 Work Phone: [facility] Comment on above: Refill Request Start: 07-04-2022 Nurse Triage Vivian Florez RN NURSE EDUCATION AND TRAINING MANAGER Comment on above: Refill Request Start: 07-02-2022 Refill Mac HUIZAR RN.TEXTILE 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 Work Phone: [facility] Comment on above: Refill Request Start: 06-28-2022 Telephone encounter Becca avila MD Work Phone: [facility] Comment on above: Forms Start: 06-07-2022 Refill Rosana Rodney PROCESS DESCRIPTION WRITER.TEXTILE 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 Work Phone: [facility] Comment on above: Refill Request Start: 04-06-2022 Telephone encounter Julieth lovelace PA-C Work Phone: [facility] Comment on above: Results Start: 04-05-2022 End: 04-05-2022 Patient encounter procedure Teresa Basilio PROCESS DESCRIPTION WRITER.TEXTILE 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 Work Phone: [facility] Comment on above: Rhinorrhea (Primary Dx); Sore throat Start: 02-22-2022 End: 02-22-2022 Patient encounter procedure [facility] Start: 02-05-2022 Telephone encounter Adithya Sam MD Work Phone: [facility] Comment on above: Question Start: 02-01-2022 End: 02-01-2022 Patient encounter procedure Adithya Camacho MD Work Phone: [facility] Comment on above: Closed nondisplaced fracture of anterior process of right calcaneus, initial encounter (Primary Dx); Acute right ankle pain Start: 02-01-2022 End: 02-01-2022 Subsequent hospital visit by physician Xr [facility] [place] Work Phone: Radiology Comment on above: Acute right ankle pa in [M25.571] Start: 12-22-2021 Telephone encounter Yadira meyers [employer] Work Phone: Psychology Comment on above: Patient Outreach ([facility]) Medication Problem Start: 12-18-2021 Telephone encounter Yadira Meyers luigi [employer] Work Phone: Psychology Comment on above: Abstract Start: 12-17-2021 End: 12-17-2021 Patient encounter procedure Becca Draper MD Work Phone: Family [facility] Comment on above: CAROL (generalized anx iety disorder) (Primary Dx); Intellectual disability; Seasonal allergies Procedures Date Procedure Procedure Detail Performing Clinician Start: 04-30-2025 Urnls dip stick/tabl et rgnt auto w/o microscopy Froylan Erwin PA-C Work Phone: Start: 02-28-2025 Radiologic exam ches t 2 views Mayra Gerardo APRN.TEXTILE 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 Work Phone: Start: 02-08-2025 Radiologic exam swal low function contrast study Jenise Holt PROCESS DESCRIPTION WRITER.TEXTILE 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 Work Phone: Start: 02-06-2025 Radiologic exam ches t 2 views Mayar Gerardo APRN.TEXTILE 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 Work Phone: Start: 01-28-2025 Radiologic exam ches t 2 views Jenise Holt PROCESS DESCRIPTION WRITER.TEXTILE 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 Work Phone: Start: 07-04-2024 Adult depression scr eening assessment Rosana Rodney PROCESS DESCRIPTION WRITER.TEXTILE 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 Work Phone: Start: 02-14-2024 Urnls dip stick/tabl et rgnt auto w/o microscopy Froylan Erwin PA-C Work Phone: Start: 12-12-2023 Radiologic exam ches t 2 views Avtar Brooks PROCESS DESCRIPTION WRITER.TEXTILE 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 Work Phone: Start: 10-25-2023 Radiologic exam ches t 2 views Galileo Fuller PROCESS DESCRIPTION WRITER.TEXTILE 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 Work Phone: Start: 09-26-2023 Radiologic exam ches t 2 views Mamie Shane PA Work Phone: Start: 08-16-2023 Lipid 1996 panel - S coco or Plasma Becca Draper MD Work Phone: Start: 07-16-2023 INFLUENZA VACCINE, A GE 6 MO - 64 YR, QUADRIVALENT (AFLURIA, FLULAVAL, FLUZONE) Israel Norton MD Work Phone: Start: 10-01-2022 Urnls dip stick/tabl et rgnt auto w/o microscopy Froylan Erwin PA-C Work Phone: Start: 08-16-2022 Lipid 1996 panel - S coco or Plasma Becca Draper MD Work Phone: Start: 02-22-2022 MRI of lower extremity Start: 02-01-2022 Radex ankle complete minimum 3 views Adithya Camacho MD Work Phone: Start: 10-28-2021 Adult depression scr eening assessment Becca Draper MD Work Phone: Plan of Treatment Date Care Activity Detail Author Start: 08-24-2034 Urine microalbumin profile DTaP,Tdap,Td Vaccine (3 - Td or Tdap) [facility] Start: 08-16-2028 Lipid panel Lipid Screening [facility] Start: 08-16-2027 Lipid 1996 panel - Serum or Plasma Lipid Screening [facility] Start: 08-16-2027 LIPID SCREEN LIPID SCREEN [facility] Start: 07-04-2027 Diabetes Screening Diabetes Screening [facility] Start: 08-16-2026 Diabetes Screening Diabetes Screening [facility] Start: 04-29-2026 End: 04-29-2026 Patient encounter procedure 04/29/2026 2:15 PM EDT Office Visit Urology [address] [place] [address] Froylan Erwin PA-C [address] [place] [address] 3 yr Urology Comment on above: 3 yr Start: 09-14-2025 DIABETES SCREEN DIABETES SCREEN [facility] Start: 09-14-2025 Diabetes Screening Diabetes Screening [facility] Start: 08-27-2025 COLOGUARD (FIT-DNA) COLOGUARD (FIT-DNA) [facility] Start: 08-27-2025 COLORECTAL CANCER SCREENING COLORECTAL CANCER SCREENING [facility] Start: 08-27-2025 Screening for malignant neoplasm of colon [facility] Start: 08-24-2025 Covid-19 Vaccine () Covid-19 Vaccine () [facility] Comment on above: Postponed from 05/13/2024 (Declined at t his time) Start: 08-16-2025 DIABETES SCREEN DIABETES SCREEN [facility] Start: 07-04-2025 Depression Screening Depression Screening [facility] Start: 07-04-2025 Hepatitis C screening Hepatitis C Screening [facility] Comment on above: Postponed from 1995 (Declined at t his time) Start: 07-04-2025 HIV screening HIV Screening [facility] Comment on above: Postponed from 1995 (Declined at t his time) Start: 06-26-2025 End: 06-26-2025 Patient encounter procedure 06/26/2025 10:00 AM EDT Appointment Ambulatory Surgery [address] [address] Chapo Brady MD [address] [place], [place] [phone] Dx: Dysphagia, unspecified type [R13.10]; Other cough [R05.8] Ambulatory Surgery Comment on above: Dx: Dysphagia, unspecified type [R13.10] ; Other cough [R05.8] Start: 05-13-2025 Influenza vaccination Influenza Vaccine (#1) [facility] S[facility]i [facility] Start: 04-30-2025 End: 04-30-2025 Patient encounter procedure 04/30/2025 2:15 PM EDT Office Visit Urology [address] [place] [address] Froylan Erwin PA-C [address] [place], [place] [phone] YEARLY: Urinary urgency Urology Comment on above: YEARLY: Urinary urgency Start: 04-29-2025 End: 04-29-2025 Patient encounter procedure 04/29/2025 10:30 AM EDT Office Visit [facility] [place] [address] [place] [id number] Salima Pardo PA-C [address] [place] [address] New patient [facility] [place] Comment on above: New patient Start: 03-12-2025 End: 03-12-2025 Patient encounter procedure 03/12/2025 11:30 AM EDT Office Visit Urology [address] [place] [address] Froylan Erwin PA-C [address] [place], [place] [phone] 1 year f/u Urology Comment on above: 1 year f/u Start: 02-20-2025 End: 03-08-2026 XR Chest PA and Lateral XR CHEST 2V FRONTAL/LAT Radiology Routine Bacterial pneumonia Expected: 02/20/2025, Expires: 03/08/2026 [facility] Work Phone: Comment on above: Expected: 02/20/2025, Expires: Start: 02-19-2025 End: 02-19-2025 Patient encounter procedure 02/19/2025 9:30 AM EDT Office Visit Urology [address] [place] [address] Froylan Erwin PA-C [address] [place] [address] 1 year f/u Urology Comment on above: 1 year f/u Start: 02-08-2025 End: 02-08-2025 ambulatory 02/08/2025 9:10 AM EDT OT/PT/Speech Visit [facility] [address] [place] [address] Hosp, Speech [facility] [address] [place] [address] Acute cough [R05.1]; Oropharyngeal dysphagia [R13.12] [facility] Comment on above: Acute cough [R05.1]; Oropharyngeal dysph agia [R13.12] Start: 02-08-2025 End: 02-08-2025 Patient encounter procedure 02/08/2025 9:10 AM EDT Appointment Radiology [address] [place] [address] Acute cough [R05.1]; Oropharyngeal dysphagia [R13.12] Radiology Comment on above: Acute cough [R05.1]; Oropharyngeal dysph agia [R13.12] Start: 10-06-2024 End: 01-05-2025 25-hydroxyvitamin D3 [Mass/volume] in Serum or Plasma VITAMIN D 25 HYDROXY Lab Routine Vitamin D deficiency Expected: 10/06/2024, Expires: 01/05/2025 [facility] Work Phone: Comment on above: Expected: 10/06/2024, Expires: Start: 09-12-2024 Medicare Advantage Annual Wellness Visit Medicare Advantage Annual Wellness Visit [facility] Start: 08-16-2024 Covid-19 Vaccine () Covid-19 Vaccine () [facility] Comment on above: Postponed from 05/13/2023 (Declined at t his time) Start: 08-16-2024 End: 08-16-2024 Patient encounter procedure 08/16/2024 9:20 AM EST Office Visit [facility] [place] [address] [place] [address] Becca Draper MD [address] [place] [address] annual exam [facility] [place] Comment on above: annual exam Start: 08-14-2024 DIABETES SCREEN DIABETES SCREEN [facility] Start: 07-25-2024 Urine microalbumin profile [facility] Comment on above: Postponed from 07/26/2014 (Postponed To Appropriate Date) Start: 07-11-2024 End: 07-11-2024 Patient encounter procedure 07/11/2024 10:00 AM EDT Office Visit Neurology [address] [place] [address] hsat Neurology Comment on above: hsat Start: 07-04-2024 LIPID SCREEN LIPID SCREEN [facility] Start: 05-13-2024 Covid-19 Vaccine ( season) Covid-19 Vaccine ( season) [facility] Start: 05-13-2024 Covid-19 Vaccine ( season) Covid-19 Vaccine ( season) [facility] Start: 05-13-2024 Influenza vaccination Influenza Vaccine (#1) [facility] Start: 01-31-2024 End: 01-31-2024 Patient encounter procedure 01/31/2024 4:30 PM EDT Office Visit Urology [address] [place] [address] Froylan Erwin PA-C [address] [place] [address] 1 yr follow up Urology Comment on above: 1 yr follow up Start: 09-12-2023 Behavioral Health Screening Behavioral Health Screening [facility] Start: 09-12-2023 Depression Assessment Depression Assessment [facility] Start: 08-16-2023 HEPATITIS B (1 of 3 - 3-dose series) HEPATITIS B (1 of 3 - 3-dose series) [facility] Comment on above: Postponed from 1977 (Declined at t his time) Start: 08-16-2023 Hepatitis B Vaccine (1 of 3 - 3-dose series) Hepatitis B Vaccine (1 of 3 - 3-dose series) [facility] Comment on above: Postponed from 1977 (Declined at t his time) Start: 08-16-2023 HEPATITIS C SCREENING HEPATITIS C SCREENING [facility] Comment on above: Postponed from 1995 (Declined at t his time) Start: 08-16-2023 HIV SCREENING HIV SCREENING [facility] Comment on above: Postponed from 1995 (Declined at t his time) Start: 05-13-2023 Covid-19 Vaccine () Covid-19 Vaccine () [facility] Start: 05-13-2023 Influenza vaccination Influenza Vaccine (#1) [facility] Start: 10-28-2022 Adult depression screening assessment DEPRESSION SCREENING [facility] Start: 09-12-2022 DEPRESSION ASSESSMENT DEPRESSION ASSESSMENT [facility] Start: 09-02-2022 End: 11-02-2022 carBAMazepine [Mass/volume] in Serum or Plasma CARBAMAZEPI/TEGRETOL Lab Routine Nonintractable epilepsy without status epilepticus, unspecified epilepsy type (HCC) Expected: 09/02/2022, Expires: 11/02/2022 [facility] Work Phone: Comment on above: Expected: 09/02/2022, Expires: 3 Start: 08-16-2022 End: 10-16-2022 Comprehensive metabolic 2000 panel - Serum or Plasma [facility] Work Phone: Comment on above: Expected: 08/16/2022, Expires: 3 Start: 08-16-2022 End: 10-16-2022 LIPID PANEL, NONFASTING [facility] Work Phone: Comment on above: Expected: 08/16/2022, Expires: 3 Start: 08-14-2022 HEPATITIS C SCREENING HEPATITIS C SCREENING [facility] Comment on above: Postponed from 1995 (Declined at t his time) Start: 08-14-2022 HIV SCREENING HIV SCREENING [facility] Comment on above: Postponed from 1995 (Declined at t his time) Start: 2022 COLOGUARD (FIT-DNA) COLOGUARD (FIT-DNA) [facility] Start: 2022 Colonoscopy COLONOSCOPY [facility] Start: 2022 COLORECTAL CANCER SCREENING COLORECTAL CANCER SCREENING [facility] Start: [address] COLONOGRAPHY [facility] Start: 2022 FECAL OCCULT BLOOD FECAL OCCULT BLOOD [facility] Start: 2022 Screening for malignant neoplasm of colon [facility] Start: 2022 SIGMOIDOSCOPY SIGMOIDOSCOPY [facility] Start: 05-13-2022 Influenza vaccination INFLUENZA (#1) [facility] Start: 04-05-2022 End: 04-19-2022 SARS-CoV-2 (COVID-19) RNA [Presence] in Respiratory specimen by VIDHYA with probe detection 2019 CORONAVIRUS Microbiology Routine Rhinorrhea Sore throat Expected: 04/05/2022, Expires: 04/19/2022 [facility] Work Phone: Comment on above: Expected: 04/05/2022, Expires: Start: 12-12-2021 COVID-19 VACCINE (4 - Booster for Moderna series) COVID-19 VACCINE (4 - Booster for Moderna series) [facility] Start: 09-12-2021 DEPRESSION ASSESSMENT DEPRESSION ASSESSMENT [facility] Start: 1996 Hepatitis B Vaccine (1 of 3 - 19+ 3-dose series) Hepatitis B Vaccine (1 of 3 - 19+ 3-dose series) [facility] Start: 1995 Depression Screening Depression Screening [facility] Start: 1995 Hepatitis C screening Hepatitis C Screening [facility] Start: 1995 HIV screening HIV Screening [facility] Start: 1977 HEPATITIS B (1 of 3 - 3-dose series) HEPATITIS B (1 of 3 - 3-dose series) [facility] Start: 1977 Hepatitis B Vaccine (1 of 3 - 3-dose series) Hepatitis B Vaccine (1 of 3 - 3-dose series) [facility] COLOGUARD COLOGUARD Lab Ro utine Screening for colon cancer Ordered: 08/16/2022 [facility] Work Phone: Comment on above: Ordered: 08/16/2022 COVID & INFLUENZA A/ B & RSV NAAT, ROUTINE COVID & INFLUENZA A/B & RSV NAAT, ROUTINE Microbiology Routine URI, acute Ordered: 10/25/2023 [facility] Work Phone: Comment on above: Ordered: 10/25/2023 End: 04-29-2026 EGD DIAGNOSTIC EGD DIAGNOSTIC Endoscopy Routine Dysphagia, unspecified type Other cough 1 Occurrences starting 04/29/2025 until 04/29/2026 [facility] Work Phone: Comment on above: 1 Occurrences starting 04/29/2025 until 04/29/2026 End: 04-29-2026 Flexible sigmoidoscopy study COLONOSCOPY DIAGNOSTIC Endoscopy Routine Chronic diarrhea Family history of colon cancer 1 Occurrences starting 04/29/2025 until 04/29/2026 [facility] Comment on above: 1 Occurrences starting 04/29/2025 until 04/29/2026 End: 07-04-2025 HOME SLEEP APNEA TEST (HSAT) HOME SLEEP APNEA TEST (HSAT) Procedures Routine Snoring Daytime sleepiness 1 Occurrences starting 07/04/2024 until 07/04/2025 [facility] Work Phone: Comment on above: 1 Occurrences starting 07/04/2024 until 07/04/2025 Sophia post-voiding residual urine&/bladder cap US MSR POST-VOID RESID URINE Procedures Routine Urinary frequency Urinary urgency Ordered: 10/01/2022 [facility] Work Phone: Comment on above: Ordered: 10/01/2022 End: 07-20-2025 Polysomnogram POLYSOMNOGRAM (PSG) Procedures Routine History of sleep study Snoring Daytime sleepiness 1 Occurrences starting 07/20/2024 until 07/20/2025 [facility] Work Phone: Comment on above: 1 Occurrences starting 07/20/2024 until 07/20/2025 POST VOID RESIDUAL POST VOID RES IDUAL Procedures Routine Urinary frequency Screening for genitourinary condition Ordered: 04/30/2025 [facility] Work Phone: Comment on above: Ordered: 04/30/2025 Removal impacted cerumen irrigation/lvg unilat AMBULATORY EAR LAVAGE/IRRIGATION Procedures Routine Bilateral impacted cerumen Ordered: 01/28/2025 [facility] Work Phone: Comment on above: Ordered: 01/28/2025 End: 02-27-2026 RF videography Hypopharynx and Esophagus Views W liquid and paste contrast PO during swallowing XR MODIFIED BARIUM SWALLOW W SPEECH THERAPY Radiology Routine Acute cough Oropharyngeal dysphagia 1 Occurrences starting 01/28/2025 until 02/27/2026 [facility] Comment on above: 1 Occurrences starting 01/28/2025 until 02/27/2026 UA DIP, URINE (POC) UA DIP, URIN E (POC) Lab Routine Urinary urgency Ordered: 02/14/2024 [facility] Work Phone: Comment on above: Ordered: 02/14/2024 [facility] Immunizations Immunization Date Immunization Notes Care Provider [facility] 08-24-2024 tetanus toxoid, reduced diphtheria toxoid, and acellular pertussis vaccine, adsorbed Rosana Tannhof PROCESS DESCRIPTION 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.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 Work Phone: [facility] 07-04-2024 influenza, seasonal, injectable Rosana Tannhof PROCESS DESCRIPTION WRITER.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 Work Phone: [facility] 07-04-2024 influenza virus vaccine, unspecified formulation Salima Pardo PA-C Work Phone: [facility] 07-16-2023 influenza, injectabl e, quadrivalent, contains preservative Immunization [place] Work Phone: [facility] 07-16-2023 influenza virus vaccine, unspecified formulation Immunization [place] Work Phone: [facility] 07-09-2022 influenza, injectabl e, quadrivalent, contains preservative Mac Cole PROCESS DESCRIPTION WRITER.TEXTILE 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 Work Phone: [facility] Work Phone: 07-09-2022 influenza virus vaccine, unspecified formulation Becca Draper MD Work Phone: [facility] 08-14-2021 influenza, injectabl e, quadrivalent, contains preservative Becca Draper MD Work Phone: [facility] 07-05-2020 influenza, injectabl e, quadrivalent, contains preservative Becca Draper MD Work Phone: [facility] 07-04-2019 influenza, injectabl e, quadrivalent, contains preservative Becca Draper MD Work Phone: [facility] 07-15-2018 influenza, injectabl e, quadrivalent, contains preservative Becca Draper MD Work Phone: [facility] 07-11-2017 influenza, injectabl e, quadrivalent, contains preservative Becca Draper MD Work Phone: [facility] 05-31-2016 influenza, injectabl e, quadrivalent, contains preservative Becca Draper MD Work Phone: [facility] 07-17-2015 influenza, injectabl e, quadrivalent, contains preservative Becca Draper MD Work Phone: [facility] Work Phone: 08-05-2014 Influenza virus vaccine [facility] Work Phone: 07-25-2014 tetanus and diphther ia toxoids, adsorbed, preservative free, for adult use (5 Lf of tetanus toxoid and 2 Lf of diphtheria toxoid) Becca Draper MD Work Phone: [facility] Work Phone: 07-25-2014 tetanus toxoid, reduced diphtheria toxoid, and acellular pertussis vaccine, adsorbed Becca Draper MD Work Phone: [facility] 07-10-2014 influenza, seasonal, injectable Becca Draper MD Work Phone: [facility] 08-15-2013 influenza virus vaccine, unspecified formulation Becca Draper MD Work Phone: [facility] Work Phone: 06-03-2012 influenza virus vaccine, unspecified formulation Becca Draper MD Work Phone: [facility] Work Phone: 07-03-2011 influenza virus vaccine, unspecified formulation Becca Draper MD Work Phone: [facility] Work Phone: 07-16-2010 influenza virus vaccine, unspecified formulation Becca Draper MD Work Phone: [facility] Work Phone: 08-19-2009 influenza virus vaccine, unspecified formulation Becca Draper MD Work Phone: [facility] 08-11-2007 influenza virus vaccine, unspecified formulation Becca Draper MD Work Phone: [facility] Work Phone: 09-01-2006 influenza virus vaccine, unspecified formulation Becca Draper MD Work Phone: [facility] Work Phone: 07-27-2005 influenza virus vaccine, whole virus Becca Draper MD Work Phone: [facility] Work Phone: 07-13-2004 tetanus and diphther ia toxoids, adsorbed, preservative free, for adult use (2 Lf of tetanus toxoid and 2 Lf of diphtheria toxoid) Becca Draper MD Work Phone: [facility] Work Phone: Payers Date Payer Category Payer Self-pay [id number] 2023 Medicare (Managed Care) [id number] 2018 Medicare UHC MEDICARE [facility] DUAL COMPLETE HMO SNP [id number] 2018-Present [phone] [address] [place] [address] Medicare [id number] 2018 Medicare [id number] 2018 Unknown [id number] 2016 Medicaid MEDICAID [facility] MEDICAID [id number] 2016-Present [phone] [address] [place] [address] Medicaid [id number] 2016 Medicaid [id number] 2014 Medicaid [id number] Medicare UHC MCRDUAL COMP HMO [id number] Unknown [id number] 62 Unknown [id number] 62 Unknown [id number] 62 Unknown [id number] 62 Unknown [id number] 62 Unknown [id number] 62 Social History Date Type Detail Facility Start: 05-31-2016 Tobacco smoking stat us [facility] Never smoked tobacco [facility] Start: 12-17-2021 End: 02-06-2025 Alcohol intake Current non-drinker of alcohol (finding) [facility] Start: 1975 Sex Assigned At Not on file [facility] Start: 12-07-2021 End: 08-16-2022 Exposure to SARS-CoV-2 (event) Not sure [facility] Start: 03-22-2015 [facility] Work Phone: Start: 03-22-2015 [facility] Start: 03-22-2015 With Family [facility] Work Phone: Start: 03-22-2015 Non-smoker [facility] Work Phone: Start: 1975 Sex Assigned At Male [facility] Work Phone: Start: 05-31-2016 Tobacco use and exposure Smokeless tobacco non-user [facility] Start: 01-04-2023 End: 07-16-2023 History of Social function [facility] Work Phone: Start: 01-04-2023 End: 07-16-2023 Tobacco use panel [facility] Work Phone: Start: 08-13-2012 Adult Depression Screening Assessment 0 [facility] Work Phone: Start: 04-29-2025 End: 04-30-2025 Alcoholic beverage intake Lifetime non-drinker (finding) [facility] How often to you hav e a drink containing alcohol? Never [facility] Functional Status Date Assessment Result Facility 04-02-2015 Are you deaf, or do you have serious difficulty hearing No 04/02/2015 9:15 AM Salima SainzRn)(Hist), RN No [facility] 04-02-2015 Are you blind, or do you have serious difficulty seeing, even when wearing glasses No 04/02/2015 9:15 AM Salima SainzRn)(Hist), RN No [facility] 04-02-2015 Do you have serious difficulty walking or climbing stairs No 04/02/2015 9:15 AM Salima SainzRn)(Hist), RN No [facility] 04-02-2015 Do you have difficul ty dressing or bathing Yes 04/02/2015 9:15 AM Salima SainzRn)(Hist), RN Yes [facility] 04-02-2015 Because of a physica l, mental, or emotional condition, do you have difficulty doing errands alone such as visiting a physician's office or shopping Yes 04/02/2015 9:15 AM EDT Salima Wesley (Rn)(Hist), RN Yes [facility] Mental Status Date Assessment Result Facility 04-02-2015 Because of a physica l, mental, or emotional condition, do you have serious difficulty concentrating, remembering, or making decisions Yes 04/02/2015 9:15 AM EDT Salima WesleyRn)(Hist), RN Yes [facility] Clinical Notes 08-20-2005 to 04-30-2025 Patient InstructionsFroylan Erwin PA-C - 04/30/2025 2:40 PM EDTCVero kerr LPN - 04/30/2025 2:09 PM EDSalima Robles PA-C - 04/29/2025 10:20 AM EDTPatient InstructionsPatient Instructions Note Date & Type Note Facility 04-30-2025 Instructions Froylan Erwin PA-C - 04/30/2025 2:45 PM EDT - Continue taking Ditropim as prescribed; your refills cover you through December next year. - Continue taking Gentamone as prescribed; your refills cover you through December next year. - Your urinalysis showed a trace of protein and elevated specific gravity, likely from mild dehydration; no further action is needed at this time. - Bladder emptying remains normal. - Let us know in December (four months before your annual visit) so we can arrange any needed refills and plan your next check-in. - Schedule your next annual follow-up in one year. documented in this encounter [facility] 04-30-2025 Note HNO ID: [id number] Author: FROYLAN ERWIN PA-C Service: ? Author Type: Physician Rotary Swaging Machine Operator Type: Progress Notes Filed: 04/30/2025 14:47 Note Text: [facility] EST PATIENT CLINIC NOTE (M) Some elements copied from his previous note, which have been updated where appropriate, and all reflect current medical decision making from date of this visit. Note was generated by [employer] and edited as appropriate SERVICE DATE: April 30, 2025 NAME: Octaviano Quinn GENDER: male CHIEF COMPLAINT: The patient is a 49-year-old male with a history of neurogenic bladder, accompanied by his caregiver, presenting for a follow-up visit. HISTORY OF PRESENT ILLNESS: The patient is a 49-year-old male with a history of neurogenic bladder, accompanied by his caregiver, presenting for a follow-up visit. Neurogenic Bladder: - Managed with Ditropan. - Medication refills are current through December of next year. - Recent urinalysis showed trace protein and elevated specific gravity. > We discussed the common causes of urinary frequency and urgency, and restricting water intake In hopes to mitigate the need to urinate, we discussed how this behavior more often worsen the problem not improving it, > We discussed increasing daily water intake to 64-84 oz 7a -7p and try to reduce bladder irritants, caffeine, alcohol and acid foods and drink. > Bladder irritants handout available to patient. LABS: No results found for: PSA Creatinine Date Value Ref Range Status 07/04/2024 0.74 0.73 - 1.22 mg/dL Final 08/16/2023 0.73 0.73 - 1.22 mg/dL Final 08/16/2022 0.88 0.73 - 1.22 mg/dL Final No results found for: TESTOST Hematocrit (%) Date Value 07/04/2024 47.8 08/16/2023 49.1 08/16/2022 46.7 08/14/2021 48.2 07/09/2020 46.6 07/04/2019 48.0 No results found for: PSA MEDICATIONS: omeprazole (PRILOSEC) 20 mg capsule Take 1 capsule by mouth once daily. albuterol HFA (PROVENTIL HFA, VENTOLIN HFA) 90 mcg/actuation inhaler Inhale 2 puffs as instructed every 4 hours as needed for wheezing/shortness of breath (cough). oxybutynin XL (DITROPAN XL) 5 mg 24 hr tablet TAKE 1 TABLET BY MOUTH AT BEDTIME cetirizine (ZYRTEC) 10 mg tablet Take 1 tablet by mouth once daily. divalproex DR (DEPAKOTE) 500 mg EC tablet Take 1 tablet by mouth two times a day. carBAMazepine (EPITOL) 200 mg tablet Take 2 tablets by mouth two times a day. ketoconazole (NIZORAL) 2 % shampoo Lather into hair, leave 5 minutes, then rinse out. Use on face, ears, chest, and back as body wash. Repeat 3 times per week or as directed. benzonatate (TESSALON PERLE) 100 mg capsule Take 1-2 capsules by mouth three times a day as needed. PAST MEDICAL HISTORY: PAST MEDICAL HISTORY Diagnosis Date Unspecified epilepsy without mention of intractable epilepsy (HCC) Unspecified intellectual disabilities REVIEW OF SYSTEMS: PHYSICAL EXAMINATION: General: Alert AND oriented, no acute distress Skin: Normal HEENT: Pupils equal, round. Oral cavity, oropharynx clear Neck: Supple, no mass Breast: Deferred Respiratory: Clear to auscultation, bilaterally Cardiovascular: Regular rate and rhythm, no murmurs, rubs, or gallops Abdomen: Soft, non-tender, non-distended, no masses palpable, no hepatosplenomegaly, normal bowel sounds Genitourinary: Deferred MSK: Back is non-tender Extremities: No clubbing, cyanosis, or edema PROBLEM LIST REVIEW: Yes LABS: Results for orders placed or performed in visit on 04/30/25 UA DIP, URINE (POC) Result Value Ref Range GLUCOSE UA (POCT) Negative Negative mg/dL BILIRUBIN UA (POCT) Negative Negative KETONE UA (POCT) Negative Negative mg/dL SPECIFIC GRAVITY UA (POCT) 1.025 1.005 - 1.030 HEMOGLOBIN/BLOOD UA (POCT) Negative Negative PH UA (POCT) 6.5 4.5 - 8.0 PROTEIN UA (POCT) Trace (A) Negative mg/dL UROBILINOGEN UA (POCT) 0.2 Normal E.U./dL NITRITE UA (POCT) Negative Negative LEUKOCYTES UA (POCT) Negative Negative COLOR UA (POCT) Dark yellow CLARITY UA (POCT) Clear PROCEDURES: PVR - 0 ml ASSESSMENT/PLAN: 1. Urinary frequency (R35.0) 2. Urinary urgency (R39.15) - Stable on Ditropan; refills available through December of next year. Urinalysis shows trace proteinuria and elevated specific gravity, likely due to mild dehydration. No concerns with bladder emptying. 3. Screening for genitourinary condition (Z13.89) - Urinalysis performed; results indicate trace proteinuria and elevated specific gravity, consistent with mild dehydration. No further abnormalities detected. New Diagnosis of unknown prognosis testing to follow > 1 year Appt w/ B. SARA Erwin, ALICIA, PAChau for annual follow-up and refills. Patient Instructions (AVS) - printed for patient - Continue taking Ditropim as prescribed; your refills cover you through December year. - Continue taking Gentamone as prescribed; your refills (more content not included)... [facility] 04-30-2025 History of Present illness Narrative Images from the original note were not included. [facility] PATIENT CLINIC NOTE (M) Some elements copied from his previous note, which have been updated where appropriate, and all reflect current medical decision making from date of this visit. Note was generated by [employer] and edited as appropriate SERVICE DATE: April 30, 2025 NAME: Octaviano Quinn GENDER: male CHIEF COMPLAINT: The patient is a 49-year-old male with a history of neurogenic bladder, accompanied by his caregiver, presenting for a follow-up visit. HISTORY OF PRESENT ILLNESS: The patient is a 49-year-old male with a history of neurogenic bladder, accompanied by his caregiver, presenting for a follow-up visit. Neurogenic Bladder: - Managed with Ditropan. - Medication refills are current through December of next year. - Recent urinalysis showed trace protein and elevated specific gravity. > We discussed the common causes of urinary frequency and urgency, and restricting water intake In hopes to mitigate the need to urinate, we discussed how this behavior more often worsen the problem not improving it, > We discussed increasing daily water intake to 64-84 oz 7a -7p and try to reduce bladder irritants, caffeine, alcohol and acid foods and drink. > Bladder irritants handout available to patient. LABS: No results found for: PSA Creatinine Date Value Ref Range Status 07/04/2024 0.74 0.73 - 1.22 mg/dL Final 08/16/2023 0.73 0.73 - 1.22 mg/dL Final 08/16/2022 0.88 0.73 - 1.22 mg/dL Final No results found for: TESTOST Hematocrit (%) Date Value 07/04/2024 47.8 08/16/2023 49.1 08/16/2022 46.7 08/14/2021 48.2 07/09/2020 46.6 07/04/2019 48.0 No results found for: PSA MEDICATIONS: omeprazole (PRILOSEC) 20 mg capsule Take 1 capsule by mouth once daily. albuterol HFA (PROVENTIL HFA, VENTOLIN HFA) 90 mcg/actuation inhaler Inhale 2 puffs as instructed every 4 hours as needed for wheezing/shortness of breath (cough). oxybutynin XL (DITROPAN XL) 5 mg 24 hr tablet TAKE 1 TABLET BY MOUTH AT BEDTIME cetirizine (ZYRTEC) 10 mg tablet Take 1 tablet by mouth once daily. divalproex DR (DEPAKOTE) 500 mg EC tablet Take 1 tablet by mouth two times a day. carBAMazepine (EPITOL) 200 mg tablet Take 2 tablets by mouth two times a day. ketoconazole (NIZORAL) 2 % shampoo Lather into hair, leave 5 minutes, then rinse out. Use on face, ears, chest, and back as body wash. Repeat 3 times per week or as directed. benzonatate (TESSALON PERLE) 100 mg capsule Take 1-2 capsules by mouth three times a day as needed. PAST MEDICAL HISTORY: PAST MEDICAL HISTORY Diagnosis Date Unspecified epilepsy without mention of intractable epilepsy (HCC) Unspecified intellectual disabilities REVIEW OF SYSTEMS: PHYSICAL EXAMINATION: General: Alert & oriented, no acute distress Skin: Normal HEENT: Pupils equal, round. Oral cavity, oropharynx clear Neck: Supple, no mass Breast: Deferred Respiratory: Clear to auscultation, bilaterally Cardiovascular: Regular rate and rhythm, no murmurs, rubs, or gallops Abdomen: Soft, non-tender, non-distended, no masses palpable, no hepatosplenomegaly, normal bowel sounds Genitourinary: Deferred MSK: Back is non-tender Extremities: No clubbing, cyanosis, or edema PROBLEM LIST REVIEW: Yes LABS: Results for orders placed or performed in visit on 04/30/25 UA DIP, URINE (POC) Result Value Ref Range GLUCOSE UA (POCT) Negative Negative mg/dL BILIRUBIN UA (POCT) Negative Negative KETONE UA (POCT) Negative Negative mg/dL SPECIFIC GRAVITY UA (POCT) 1.025 1.005 - 1.030 HEMOGLOBIN/BLOOD UA (POCT) Negative Negative PH UA (POCT) 6.5 4.5 - 8.0 PROTEIN UA (POCT) Trace (A) Negative mg/dL UROBILINOGEN UA (POCT) 0.2 Normal E.U./dL NITRITE UA (POCT) Negative Negative LEUKOCYTES UA (POCT) Negative Negative COLOR UA (POCT) Dark yellow CLARITY UA (POCT) Clear PROCEDURES: PVR - 0 ml ASSESSMENT/PLAN: 1. Urinary frequency (R35.0) 2. Urinary urgency (R39.15) - Stable on Ditropan; refills available through December of next year. Urinalysis shows trace proteinuria and elevated specific gravity, likely due to mild dehydration. No concerns with bladder emptying. 3. Screening for genitourinary condition (Z13.89) - Urinalysis performed; results indicate trace proteinuria and elevated specific gravity, consistent with mild dehydration. No further abnormalities detected. New Diagnosis of unknown prognosis testing to follow > 1 year Appt w/ B. SARA Erwin MT, PA-C for annual follow-up and refills. Patient Instructions (AVS) - printed for patient - Continue taking Ditropim as prescribed; your refills cover you through December next year. - Continue taking Gentamone as prescribed; your refills cover you through December next year. - Your urinalysis showed a trace of protein and elevated specific gravity, likely from mild dehydration; no further action is needed at this time. - Bladder emptying remains normal. - Let us know in December (four months before your annual visit) so we can arrange any needed refills and plan your next check-in. - Schedule your next annual follow-up in one year. SARA Alatorre MT, PA-C Verified name and date of . CC Post Void Residual HPI: Octaviano Quinn is a 49 year old male. The patient is here now for an appointment with SARA Alatorre MT, ROBERTO. Procedure: Explained procedure to patient and verbalizes understanding. Performed a PVR. Patient urinated and instructed to empty bladder as much as possible just prior to having PVR done using bladder ultrasound scanner. Results of scan: 0 mL The patient tolerated the procedure well. Plan: Appointment with Froylan. documented in this encounter [facility] 04-30-2025 Note HNO ID: [id number] Author: VERO RASCON LPN Service: ? Author Type: Licensed Nurse Type: Progress Notes Filed: 04/30/2025 14:47 Note Text: Verified name and date of . CC Post Void Residual HPI: Octaviano Quinn is a 49 year old male. The patient is here now for an appointment with SARA Alatorre MT, ROBERTO. Procedure: Explained procedure to patient and verbalizes understanding. Performed a PVR. Patient urinated and instructed to empty bladder as much as possible just prior to having PVR done using bladder ultrasound scanner. Results of scan: 0 mL The patient tolerated the procedure well. Plan: Appointment with Froylan. [facility] 04-29-2025 Note HNO ID: [id number] Author: SALIMA PARDO PA-C Service: ? Author Type: Physician Rotary Swaging Machine Operator Type: Progress Notes Filed: 04/29/2025 10:41 Note Text: CHIEF COMPLAINT: Patient presents with: Dysphagia: Barium swallow 06/11/25 This consult was requested by No ref. provider found for an opinion regarding dysphagia. My final recommendations will be communicated to the requesting health care provider by way of the shared medical record for internal providers or letter via the [employer] Postal Service for external providers. HPI: Octaviano Quinn is a 49 year old male who presents for Dysphagia (Barium swallow 06/11/25). PMHx of epilepsy, intellectual disability Patient with dysphagia to solids, liquids. Notes that he is coughing with eating/drinking. This has decreased since starting Omeprazole 20 mg daily. Patient does feel like things are sticking in his throat. There is a concern for reflux symptoms. Does have chronic diarrhea, suspect IBS. Does seem to be affected increased sugar intake. No rectal bleeding or black stools. Brother passed from colon cancer. MBSS 02/08/2025: Impression: Patient presents with mild pharyngeal dysphagia and high concern for esophageal dysphagia, likely chronic in the setting of observed esophageal retention and retro-flow and impulsivity with intake. Patient appears safe to continue an oral diet at this time. Patient appears to be at an increased risk for developing pulmonary complications related to the following factors: increased dependence on caregivers for oral hygiene and feeding, reduced cognitive status, impaired pulmonary status, and silent aspiration. Sister's concern are that patient was noted to have increased coughing episodes and persistent pneumonia (1.5-2months). Silent aspiration was observed in trace amount on one occasion. Throughout MBSS patient had coughing spells, during which fluoroscopy was turned on. There were occasions of retroflow below and at times through PES; however there was never aspiration observed during these occasions. 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 It does not appear to affect bolus flow through PES. Due to significant coughing episodes and observed esophageal dysphagia, recommend consult to exhibit builder for further workup. 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 Compensatory strategies attempted, patient unable to complete. No further BLUEPRINT DUPLICATOR services are indicated. Literature provided to caregiver and patient for compensatory strategies to assist with reflux. Caregiver verbalizes understanding. Record Review: [facility] / Outside records reviewed. PAST MEDICAL HISTORY Diagnosis Date Unspecified epilepsy without mention of intractable epilepsy (HCC) Unspecified intellectual disabilities PAST SURGICAL HISTORY Procedure Laterality Date CHOLECYSTECTOMY 2009? Cholecystectomy EGD TRANSORAL BIOPSY SINGLE/MULTIPLE 03/24/15 dysphagia, normal Allergies: ALLERGIES Allergen Reactions Effexor [Venlafaxin* Intolerance aggressive behavior Paxil [Paroxetine H* Intolerance Weight gain Zyprexa [Olanzapine] Intolerance sedation Medications: omeprazole (PRILOSEC) 20 mg capsule Take 1 capsule by mouth once daily. benzonatate (TESSALON PERLE) 100 mg capsule Take 1-2 capsules by mouth three times a day as needed. albuterol HFA (PROVENTIL HFA, VENTOLIN HFA) 90 mcg/actuation inhaler Inhale 2 puffs as instructed every 4 hours as needed for wheezing/shortness of breath (cough). oxybutynin XL (DITROPAN XL) 5 mg 24 hr tablet TAKE 1 TABLET BY MOUTH AT BEDTIME cetirizine (ZYRTEC) 10 mg tablet Take 1 tablet by mouth once daily. divalproex DR (DEPAKOTE) 500 mg EC tablet Take 1 tablet by mouth two times a day. carBAMazepine (EPITOL) 200 mg tablet Take 2 tablets by mouth two times a day. ketoconazole (NIZORAL) 2 % shampoo Lather into hair, leave 5 minutes, then rinse out. Use on face, ears, chest, and back as body wash. Repeat 3 times per week or as directed. FAMILY HISTORY Problem Relation Age of Onset Colon Cancer Brother 42 Cancer Maternal Grandmother Coronary Artery Disease Maternal Grandfather Cancer Paternal Grandfather Melanoma to Lung Employer And Job Title: None on file Years Of Education Completed: Not specified Marital Status: Single with no children SOCIAL HISTORY[1] Review of Systems: Review of Systems Constitutional: Positive for fatigue. Respiratory: Positive for cough and choking. Gastrointestinal: Positive for diarrhea. Heartburn All other systems reviewed and are negative. Are you taking any blood thinners? No Physical Examination: BP 122/70 Pulse 70 Ht 6' 2 (1.88m) Wt 193 lb (87.5kg) SpO2 97% BMI 24.77 kg/(m2). Physical Exam Constitutional: Appearance: Normal appearance. He is normal we (more content not included)... [facility] 04-29-2025 History of Present illness Narrative CHIEF COMPLAINT: Patient presents with: Dysphagia: Barium swallow 06/11/25 This consult was requested by No ref. provider found for an opinion regarding dysphagia. My final recommendations will be communicated to the requesting health care provider by way of the shared medical record for internal providers or letter via the [employer] Postal Service for external providers. HPI: Octaviano Quinn is a 49 year old male who presents for Dysphagia (Barium swallow 06/11/25). PMHx of epilepsy, intellectual disability Patient with dysphagia to solids, liquids. Notes that he is coughing with eating/drinking. This has decreased since starting Omeprazole 20 mg daily. Patient does feel like things are sticking in his throat. There is a concern for reflux symptoms. Does have chronic diarrhea, suspect IBS. Does seem to be affected increased sugar intake. No rectal bleeding or black stools. Brother passed from colon cancer. MBSS 02/08/2025: Impression: Patient presents with mild pharyngeal dysphagia and high concern for esophageal dysphagia, likely chronic in the setting of observed esophageal retention and retro-flow and impulsivity with intake. Patient appears safe to continue an oral diet at this time. Patient appears to be at an increased risk for developing pulmonary complications related to the following factors: increased dependence on caregivers for oral hygiene and feeding, reduced cognitive status, impaired pulmonary status, and silent aspiration. Sister's concern are that patient was noted to have increased coughing episodes and persistent pneumonia (1.5-2months). Silent aspiration was observed in trace amount on one occasion. Throughout MBSS patient had coughing spells, during which fluoroscopy was turned on. There were occasions of retroflow below and at times through PES; however there was never aspiration observed during these occasions. 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 It does not appear to affect bolus flow through PES. Due to significant coughing episodes and observed esophageal dysphagia, recommend consult to exhibit builder for further workup. 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 Compensatory strategies attempted, patient unable to complete. No further BLUEPRINT DUPLICATOR services are indicated. Literature provided to caregiver and patient for compensatory strategies to assist with reflux. Caregiver verbalizes understanding. Record Review: [facility] / Outside records reviewed. PAST MEDICAL HISTORY Diagnosis Date Unspecified epilepsy without mention of intractable epilepsy (HCC) Unspecified intellectual disabilities PAST SURGICAL HISTORY Procedure Laterality Date CHOLECYSTECTOMY 2009? Cholecystectomy EGD TRANSORAL BIOPSY SINGLE/MULTIPLE 03/24/15 dysphagia, normal Allergies: ALLERGIES Allergen Reactions Effexor [Venlafaxin* Intolerance aggressive behavior Paxil [Paroxetine H* Intolerance Weight gain Zyprexa [Olanzapine] Intolerance sedation Medications: omeprazole (PRILOSEC) 20 mg capsule Take 1 capsule by mouth once daily. benzonatate (TESSALON PERLE) 100 mg capsule Take 1-2 capsules by mouth three times a day as needed. albuterol HFA (PROVENTIL HFA, VENTOLIN HFA) 90 mcg/actuation inhaler Inhale 2 puffs as instructed every 4 hours as needed for wheezing/shortness of breath (cough). oxybutynin XL (DITROPAN XL) 5 mg 24 hr tablet TAKE 1 TABLET BY MOUTH AT BEDTIME cetirizine (ZYRTEC) 10 mg tablet Take 1 tablet by mouth once daily. divalproex DR (DEPAKOTE) 500 mg EC tablet Take 1 tablet by mouth two times a day. carBAMazepine (EPITOL) 200 mg tablet Take 2 tablets by mouth two times a day. ketoconazole (NIZORAL) 2 % shampoo Lather into hair, leave 5 minutes, then rinse out. Use on face, ears, chest, and back as body wash. Repeat 3 times per week or as directed. FAMILY HISTORY Problem Relation Age of Onset Colon Cancer Brother 42 Cancer Maternal Grandmother Coronary Artery Disease Maternal Grandfather Cancer Paternal Grandfather Melanoma to Lung Employer And Job Title: None on file Years Of Education Completed: Not specified Marital Status: Single with no children SOCIAL HISTORY[1] Review of Systems: Review of Systems Constitutional: Positive for fatigue. Respiratory: Positive for cough and choking. Gastrointestinal: Positive for diarrhea. Heartburn All other systems reviewed and are negative. Are you taking any blood thinners? No Physical Examination: BP 122/70 Pulse 70 Ht 6' 2 (1.88m) Wt 193 lb (87.5kg) SpO2 97% BMI 24.77 kg/(m^2). Physical Exam Constitutional: Appearance: Normal appearance. He is normal weight. HENT: Head: Normocephalic and atraumatic. Eyes: General: No scleral icterus. Extraocular Movements: Extraocular movements intact. Conjunctiva/sclera: Conjunctivae normal. Pupils: Pupils are equal, round, and reactive to light. Cardiovascular: Rate and Rhythm: Normal rate and regular rhythm. Pulses: Normal pulses. Heart sounds: Normal heart sounds. Pulmonary: Effort: Pulmonary effort is normal. Breath sounds: Normal breath sounds. Abdominal: General: Abdomen is flat. Bowel sounds are normal. Palpations: Abdomen is soft. Tenderness: There is no abdominal tenderness. Musculoskeletal: General: Normal range of motion. Cervical back: Normal range of motion and neck supple. Skin: General: Skin is warm and dry. Coloration: Skin is not jaundiced. Neurological: General: No focal deficit present. Mental Status: He is alert and oriented to person, place, and time. Psychiatric: Mood and Affect: Mood normal. Behavior: Behavior normal. Thought Content: Thought content normal. Judgment: Judgment normal. Assessment/Plan (R13.10) Dysphagia, unspecified type (primary encounter diagnosis) (R05.8) Other cough (K52.9) Chronic diarrhea (Z80.0) Family history of colon cancer 1. Dysphagia, unspecified type (Primary) -- Patient with dysphagia to solids/liquids with coughing with eating. Seeing mild improvement with starting Omeprazole 20 mg daily. -- Had MBS that was unremarkable, concern for esophageal impairment -- Plan for EGD for further evaluation - EGD DIAGNOSTIC; Future 2. Other cough -- Patient with dysphagia to solids/liquids with coughing with eating. Seeing mild improvement with starting Omeprazole 20 mg daily. -- Had MBS that was unremarkable, concern for esophageal impairment -- Plan for EGD for further evaluation - EGD DIAGNOSTIC; Future 3. Chronic diarrhea -- Patient with chronic diarrhea, moving bowels 1-2x per day. Worse with over consumption of sugar -- Plan for colonoscopy for further evaluation - COLONOSCOPY DIAGNOSTIC; Future - [facility] AND [facility]ATOR[facility] INSTRUCTIONS 4. Family history of colon cancer -- Brother passed from colon cancer - COLONOSCOPY DIAGNOSTIC; Future - [facility] AND [employer]ATOR[employer] INSTRUCTIONS Follow up in office PRN. Recommended to please call office/go to ER if fever, chills, chest pain, SOB, diarrhea, nausea, emesis, worsening abdominal pain, dehydration occurs I spent a total of 20 minutes on the date of the service which included preparing to see the patient, [id number] patient care, completing clinical documentation, obtaining and/or reviewing separately obtained history, performing a medically appropriate examination, counseling and educating the patient/family/caregiver, and ordering medications, tests, or procedures. Salima Pardo PA-C April 29, 2025 10:37 AM [1] Social History Tobacco Use Smoking status: Never Smokeless tobacco: Never Vaping Use Vaping status: Never Used Substance Use Topics Alcohol use: Never Drug use: No documented in this encounter [facility] 02-28-2025 History of Present illness Narrative Radiology Service Progress Note PATIENT NAME: Octaviano Quinn DATE OF SERVICE: February 28, 2025 TIME: 9:32 AM PATIENT IDENTITY VERIFICATION COMPLETED USING TWO (2) IDENTIFIERS: Name and Date of confirmed by patient verbally. FALL SCREENING: Has the patient had 2 falls in the last year or 1 fall with injury or currently using an Ambulatory Assistive Device (Walker, Cane, Wheelchair, Crutches, etc.)? No PATIENT GENDER DATA: Assigned male at PATIENT RELEVANT IMPLANT DATA REVIEWED: Not Applicable PATIENT PRESENTS WITH AN IMPLANTABLE OR ATTACHED FLOOR FRAMER: No RADIOLOGY DEPARTMENT: General X-ray: Exam(s) Completed: Chest X-Ray PERIPHERAL IV DATA: Not applicable SIGNED BY: RT Sanford(R) February 28, 2025 9:32 AM documented in this encounter [facility] 02-28-2025 Note HNO ID: [id number] Author: AMALIA ZAMUDIO RT(R) Service: Radiology Author Type: Technologist Type: Progress Notes Filed: 02/28/2025 09:39 Note Text: Radiology Service Progress Note PATIENT NAME: Octaviano Quinn DATE OF SERVICE: February 28, 2025 TIME: 9:32 AM PATIENT IDENTITY VERIFICATION COMPLETED USING TWO (2) IDENTIFIERS: Name and Date of confirmed by patient verbally. FALL SCREENING: Has the patient had 2 falls in the last year or 1 fall with injury or currently using an Ambulatory Assistive Device (Walker, Cane, Wheelchair, Crutches, etc.)? No PATIENT GENDER DATA: Assigned male at PATIENT RELEVANT IMPLANT DATA REVIEWED: Not Applicable PATIENT PRESENTS WITH AN IMPLANTABLE OR ATTACHED FLOOR FRAMER: No RADIOLOGY DEPARTMENT: General X-ray: Exam(s) Completed: Chest X-Ray PERIPHERAL IV DATA: Not applicable SIGNED BY: RT Sanford(R) February 28, 2025 9:32 AM [facility] 02-26-2025 Telephone encounter Note Patient's sister notified of providers message. Voices understanding. Salima Monterroso RN [facility] 02-26-2025 Miscellaneous Notes Patient's sister notified of providers message. Voices understanding. Salima Monterroso RN Left vm for Renee to return call to nurse for provider's message. Yes, I went ahead and sent a prescription to omeprazole to the pharmacy. This should be taken on an empty stomach 30-60 minutes prior to eating to be most effective. Please let us know if there are any questions. Mayra Zelaya (Sent a message to GI that he is scheduled with -- awaiting response). 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 Reports pt's appt with GI is not until April 29 in [place]. Asking if provider can order a medication for pt's acid reflux. [facility]. Please advise and phone Renee with reply. documented in this encounter [facility] 02-26-2025 Telephone encounter Note Left vm for Renee to return call to nurse for provider's message. [facility] 02-26-2025 Telephone encounter Note Yes, I went ahead and sent a prescription to omeprazole to the pharmacy. This should be taken on an empty stomach 30-60 minutes prior to eating to be most effective. Please let us know if there are any questions. Mayra Zelaya [facility] 02-25-2025 Telephone encounter Note (Sent a message to GI that he is scheduled with -- awaiting response). 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 Reports pt's appt with GI is not until April 29 in [place]. Asking if provider can order a medication for pt's acid reflux. [facility]. Please advise and phone Renee with reply. [facility] 02-08-2025 Note HNO ID: [id number] Author: VIOLET ARROYO CCC-BLUEPRINT DUPLICATOR Service: ? Author Type: Speech Language Pathologist Type: Progress Notes Filed: 02/08/2025 16:11 Note Text: Summary: MBSS Start of Care Date: 02/08/25 Onset Date: 02/03/25 Patient Identified by Name and Date of : Yes [facility] MODIFIED BARIUM SWALLOW PLAN OF CARE: Impression: Patient presents with mild pharyngeal dysphagia and high concern for esophageal dysphagia, likely chronic in the setting of observed esophageal retention and retro-flow and impulsivity with intake. Patient appears safe to continue an oral diet at this time. Patient appears to be at an increased risk for developing pulmonary complications related to the following factors: increased dependence on caregivers for oral hygiene and feeding, reduced cognitive status, impaired pulmonary status, and silent aspiration. Sister's concern are that patient was noted to have increased coughing episodes and persistent pneumonia (1.5-2months). Silent aspiration was observed in trace amount on one occasion. Throughout MBSS patient had coughing spells, during which fluoroscopy was turned on. There were occasions of retroflow below and at times through PES; however there was never aspiration observed during these occasions. 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 It does not appear to affect bolus flow through PES. Due to significant coughing episodes and observed esophageal dysphagia, recommend consult to exhibit builder for further workup. 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 Compensatory strategies attempted, patient unable to complete. No further BLUEPRINT DUPLICATOR services are indicated. Literature provided to caregiver and patient for compensatory strategies to assist with reflux. Caregiver verbalizes understanding. Evidence of: Functional oropharyngeal phases of swallow, without identified risk for aspiration, Concern for possible esophageal impairment An elevated risk for aspiration: No Swallow Efficiency: Preserved RECOMMENDATION: Diet Recommendations: Regular Consistency, Thin Liquids IDDSI Level 0 Swallowing Precautions Recommendations: Anti-Reflux precautions, Sit upright 90 degrees for all PO, Maintain an upright position 20-30 minutes following all oral intake, Small Bite/Sip, Rigid Oral Hygiene BLUEPRINT DUPLICATOR Recommendations: Diet, Swallowing Precautions Recommended Consults: GI Results and Recommendations Discussed With: Patient, Family, Physician Goals for Modified Barium Swallow: created for 02/08/2025 only. The patient and caregiver will be able to demonstrate adequate return of knowledge of today's fluoroscopic assessment and recommendations to maximize overall safety with oral intake. (baseline = no knowledge). GOAL MET SUBJECTIVE: Octaviano Quinn is a 49 year old male seen today for a Modified Barium Swallow (MBS) Study. Patient ambulated into fluoroscopy room. Stated, I'm going to do my best. Past Relevant Medical Conditions: (Autism, pneumonia) Patient Goals: To complete MBSS Prior Functional Level: Required Assistance Assistance Required With: Communication, Finances, Laundry, Meals, Medication Management, Safety, Self Care, Transportation, Shopping Assistance Available: Unable to determine at this time OBJECTIVE: MEASURES WITH LEVEL OF FUNCTION: Swallow Position Of Patient During Assessment: Upright In Chair Feeding Method: BLUEPRINT DUPLICATOR Fed Patient, Patient Self-Fed Instrumental Swallow Assessment Type: Modified Barium Swallow Study Modified Barium Swallow Views: Lateral position, Anterior-posterior position Barium Consistencies Provided: Thin Liquids IDDSI Level 0, Mildly Thick Liquids IDDSI Level 2 ([place] Thick), Pureed Solids IDDSI Level 4, Solid, 13mm Barium Tablet Oral Phase: As Follows Lip Closure: No labial escape/anterior loss of bolus Tongue Control During Bolus Hold: (unable to complete bolus hold) Bolus Preparation/Mastication: Minimal mastication noted with majority of bolus left unchewed Majority Of Bolus Left Unchewed With: Solid Bolus Transport/Lingual Motion: Brisk tongue motion for A-P movement of the bolus Oral Residue: Trace residue lining oral structures Initiation Of Pharyngeal Swallow: Bolus head at posterior angle of ramus Pharyngeal Phase: As Follows Soft Palate Elevation: No bolus between soft palate/pharyngeal wall Laryngeal Elevation: Complete superior movement of thyroid cartilage with contact of arytenoids to epiglottic petiole Anterior Hyoid Excursion: Complete anterior movement Epiglottic Movement: Complete inversion Laryngeal Vestibular (more content not included)... [facility] 02-08-2025 History of Present illness Narrative Summary: MBSS Images from the original note were not included. Start of Care Date: 02/08/25 Onset Date: 02/03/25 Patient Identified by Name and Date of : Yes [facility] MODIFIED BARIUM SWALLOW PLAN OF CARE: Impression: Patient presents with mild pharyngeal dysphagia and high concern for esophageal dysphagia, likely chronic in the setting of observed esophageal retention and retro-flow and impulsivity with intake. Patient appears safe to continue an oral diet at this time. Patient appears to be at an increased risk for developing pulmonary complications related to the following factors: increased dependence on caregivers for oral hygiene and feeding, reduced cognitive status, impaired pulmonary status, and silent aspiration. Sister's concern are that patient was noted to have increased coughing episodes and persistent pneumonia (1.5-2months). Silent aspiration was observed in trace amount on one occasion. Throughout MBSS patient had coughing spells, during which fluoroscopy was turned on. There were occasions of retroflow below and at times through PES; however there was never aspiration observed during these occasions. 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 It does not appear to affect bolus flow through PES. Due to significant coughing episodes and observed esophageal dysphagia, recommend consult to exhibit builder for further workup. 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 Compensatory strategies attempted, patient unable to complete. No further BLUEPRINT DUPLICATOR services are indicated. Literature provided to caregiver and patient for compensatory strategies to assist with reflux. Caregiver verbalizes understanding. Evidence of: Functional oropharyngeal phases of swallow, without identified risk for aspiration, Concern for possible esophageal impairment An elevated risk for aspiration: No Swallow Efficiency: Preserved RECOMMENDATION: Diet Recommendations: Regular Consistency, Thin Liquids IDDSI Level 0 Swallowing Precautions Recommendations: Anti-Reflux precautions, Sit upright 90 degrees for all PO, Maintain an upright position 20-30 minutes following all oral intake, Small Bite/Sip, Rigid Oral Hygiene BLUEPRINT DUPLICATOR Recommendations: Diet, Swallowing Precautions Recommended Consults: GI Results and Recommendations Discussed With: Patient, Family, Physician Goals for Modified Barium Swallow: created for 02/08/2025 only. The patient and caregiver will be able to demonstrate adequate return of knowledge of today's fluoroscopic assessment and recommendations to maximize overall safety with oral intake. (baseline = no knowledge). GOAL MET SUBJECTIVE: Octaviano Quinn is a 49 year old male seen today for a Modified Barium Swallow (MBS) Study. Patient ambulated into fluoroscopy room. Stated, I'm going to do my best. Past Relevant Medical Conditions: (Autism, pneumonia) Patient Goals: To complete MBSS Prior Functional Level: Required Assistance Assistance Required With: Communication, Finances, Laundry, Meals, Medication Management, Safety, Self Care, Transportation, Shopping Assistance Available: Unable to determine at this time OBJECTIVE: MEASURES WITH LEVEL OF FUNCTION: Swallow Position Of Patient During Assessment: Upright In Chair Feeding Method: BLUEPRINT DUPLICATOR Fed Patient, Patient Self-Fed Instrumental Swallow Assessment Type: Modified Barium Swallow Study Modified Barium Swallow Views: Lateral position, Anterior-posterior position Barium Consistencies Provided: Thin Liquids IDDSI Level 0, Mildly Thick Liquids IDDSI Level 2 ([place] Thick), Pureed Solids IDDSI Level 4, Solid, 13mm Barium Tablet Oral Phase: As Follows Lip Closure: No labial escape/anterior loss of bolus Tongue Control During Bolus Hold: (unable to complete bolus hold) Bolus Preparation/Mastication: Minimal mastication noted with majority of bolus left unchewed Majority Of Bolus Left Unchewed With: Solid Bolus Transport/Lingual Motion: Brisk tongue motion for A-P movement of the bolus Oral Residue: Trace residue lining oral structures Initiation Of Pharyngeal Swallow: Bolus head at posterior angle of ramus Pharyngeal Phase: As Follows Soft Palate Elevation: No bolus between soft palate/pharyngeal wall Laryngeal Elevation: Complete superior movement of thyroid cartilage with contact of arytenoids to epiglottic petiole Anterior Hyoid Excursion: Complete anterior movement Epiglottic Movement: Complete inversion Laryngeal Vestibular Closure/Height of the Swallow: Incomplete - narrow column of air/contrast in laryngeal vestibule (1 occasion during aspiration event) Pharyngeal Stripping Wave: Present, however, diminished Pharyngeal Contraction (A/P View Only): Incomplete Pharyngoesophageal Segment Opening: Complete distension and complete duration/no obstruction of flow of bolus Tongue Base Retraction: Trace column of contrast or air between tongue base and pharyngeal wall Pharyngeal Residue: Trace residue within or on the pharyngeal structures Esophageal Clearance In An Upright Position: Esophageal retention with retrograde flow below the pharyngoesophageal segment Aspiration: During the swallow Aspiration With: Thin Liquids IDDSI Level 0 (1 occasion, trace) Penetration-Aspiration Scale Level 1-Material does not enter airway : Thin Liquids IDDSI Level 0, Mildly Thick Liquids IDDSI Level 2 ([place] Thick), Pureed IDDSI Level 4, Regular Consistency Level 8-Material enters the airway, passes below the vocal folds, and no effort is made to eject : Thin Liquids IDDSI Level 0 Education: Education Learning Preferences: Printed Materials Barriers: Cognitive Limitations Learning/Educational Needs: Compensatory Strategies, Family Education/Training, Swallowing Skills, MBSs results Education Provided: Yes, see treatment interventions for education provided Education Provided To: Family (sister, who is legal guardian) Education Mode/Type: Explanation/Discussion, Literature/Printed Materials Response to Education/Teach Back: States/Identifies TREATMENT: Performed Modified Barium Swallowing Study (76941). Evaluation: Modified Barium Swallow Evaluation (63173) Swallow / Dysphagia (41292): Skilled Intervention: Provided education related to a typical swallowing mechanism in a compare and contrast manner compared to this patient's current skill set. , Educated and advised patient / caregiver on texture and liquid consistency recommendations., Instructed patient / caregiver on recommended compensatory strategies to maximize safety with oral intake while maintaining nutrition, hydration and medication stability. Education regarding findings from today's Modified Barium Swallowing study (fluoroscopic study) and suggested plans for treatment were provided to the patient and caregiver through verbal and written instruction. Caregiver was able to demonstrate understanding of education provided this date. Billing: Modified Barium Swallow (28459) and Dysphagia Treatment (14511) Total time: 44 minutes Session Start Time : 927 Session Stop Time : 1011 Voilet Arroyo CCC-BLUEPRINT DUPLICATOR documented in this encounter [facility] 02-08-2025 History of Present illness Narrative Radiology Service Progress Note PATIENT NAME: Octaviano Quinn DATE OF SERVICE: February 08, 2025 TIME: 9:43 AM PATIENT IDENTITY VERIFICATION COMPLETED USING TWO (2) IDENTIFIERS: Name and Date of confirmed by identification band and Name and Date of obtained from a relative, guardian or prior caregiver.. FALL SCREENING: Has the patient had 2 falls in the last year or 1 fall with injury or currently using an Ambulatory Assistive Device (Walker, Cane, Wheelchair, Crutches, etc.)? No PATIENT GENDER DATA: Assigned male at PATIENT RELEVANT IMPLANT DATA REVIEWED: Not Applicable PATIENT PRESENTS WITH AN IMPLANTABLE OR ATTACHED FLOOR FRAMER: No RADIOLOGY DEPARTMENT: General X-ray: Exam(s) Completed: GI/ Procedure(s): Modified barium swallow with barium contrast PERIPHERAL IV DATA: Not applicable SIGNED BY: RT Lexx(R) February 08, 2025 9:43 AM documented in this encounter [facility] 02-08-2025 Note HNO ID: [id number] Author: RUBEN HEDRICK RT(R) Service: ? Author Type: Technologist Type: Progress Notes Filed: 02/08/2025 09:43 Note Text: Radiology Service Progress Note PATIENT NAME: Octaviano Quinn DATE OF SERVICE: February 08, 2025 TIME: 9:43 AM PATIENT IDENTITY VERIFICATION COMPLETED USING TWO (2) IDENTIFIERS: Name and Date of confirmed by identification band and Name and Date of obtained from a relative, guardian or prior caregiver.. FALL SCREENING: Has the patient had 2 falls in the last year or 1 fall with injury or currently using an Ambulatory Assistive Device (Walker, Cane, Wheelchair, Crutches, etc.)? No PATIENT GENDER DATA: Assigned male at PATIENT RELEVANT IMPLANT DATA REVIEWED: Not Applicable PATIENT PRESENTS WITH AN IMPLANTABLE OR ATTACHED FLOOR FRAMER: No RADIOLOGY DEPARTMENT: General X-ray: Exam(s) Completed: GI/ Procedure(s): Modified barium swallow with barium contrast PERIPHERAL IV DATA: Not applicable SIGNED BY: RT Lexx(Dioni) February 08, 2025 9:43 AM [facility] 02-06-2025 Note HNO ID: [id number] Author: MAYRA GERARDO APRN.TEXTILE 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 Service: ? Author Type: Nurse Practitioner Type: Progress Notes Filed: 02/06/2025 17:26 Note Text: This is a 49 year old male who presents today with: Octaviano is a 49-year-old male with a history of autism, accompanied by his sister who is providing history on his behalf, presenting for evaluation of a persistent cough and congestion. HISTORY OF PRESENT ILLNESS: Cough and Congestion: - Persistent cough and congestion x1.5-2 months. - Initially attributed to allergies; treated with antibiotics and a 10-12 day prednisone taper with no improvement. - Cough is non-productive; denies hemoptysis. - Associated with nasal congestion and rhinorrhea - Denies odynophagia, otalgia, or cephalgia. - Nocturnal cough; sleep quality unknown. - Denies known GERD. - Recent weight loss from 204 lbs to 197 lbs; decreased appetite. - Denies fevers, chills, nausea, emesis, or diarrhea. - Family history of asthma; Octaviano has not been diagnosed. - History of allergies; taking Zyrtec daily. - History of two previous episodes of pneumonia; currently using an inhaler with spacer. - Recent antibiotic use led to diarrhea for 2 days, now resolved. - Taking vitamin C and vitamin D supplements. - Scheduled for a swallow study on Tuesday. - Cough impacting social activities and attendance at the workshop. PAST MEDICAL HISTORY: PAST MEDICAL HISTORY Diagnosis Date Unspecified epilepsy without mention of intractable epilepsy (HCC) Unspecified intellectual disabilities PAST SURGICAL HISTORY Procedure Laterality Date CHOLECYSTECTOMY 2009? Cholecystectomy EGD TRANSORAL BIOPSY SINGLE/MULTIPLE 03/24/15 dysphagia, normal ALLERGIES Effexor [Venlafaxine Hcl], Paxil [Paroxetine Hcl], and Zyprexa [Olanzapine] MEDICATIONS Current Outpatient Medications Medication Sig doxycycline (VIBRA-TABS) 100 mg tablet Take 1 tablet by mouth two times a day for 10 days. benzonatate (TESSALON PERLE) 100 mg capsule Take 1-2 capsules by mouth three times a day as needed. albuterol HFA (PROVENTIL HFA, VENTOLIN HFA) 90 mcg/actuation inhaler Inhale 2 puffs as instructed every 4 hours as needed for wheezing/shortness of breath (cough). amoxicillin-clavulanate potassium (AUGMENTIN) 875-125 mg per tablet Take 1 tablet by mouth two times a day for 5 days. predniSONE (DELTASONE) 10 mg tablet Take 4 tablets by mouth once daily for 3 days, THEN 3 tablets once daily for 3 days, THEN 2 tablets once daily for 3 days, THEN 1 tablet once daily for 3 days. oxybutynin XL (DITROPAN XL) 5 mg 24 hr tablet TAKE 1 TABLET BY MOUTH AT BEDTIME cetirizine (ZYRTEC) 10 mg tablet Take 1 tablet by mouth once daily. divalproex DR (DEPAKOTE) 500 mg EC tablet Take 1 tablet by mouth two times a day. carBAMazepine (EPITOL) 200 mg tablet Take 2 tablets by mouth two times a day. ketoconazole (NIZORAL) 2 % shampoo Lather into hair, leave 5 minutes, then rinse out. Use on face, ears, chest, and back as body wash. Repeat 3 times per week or as directed. No current facility-administered medications for this visit. FAMILY HISTORY Problem Relation Age of Onset Colon Cancer Brother 42 Cancer Maternal Grandmother Coronary Artery Disease Maternal Grandfather Cancer Paternal Grandfather Melanoma to Lung Social History Tobacco Use Smoking status: Never Smokeless tobacco: Never Vaping Use Vaping status: Never Used Substance Use Topics Alcohol use: No Drug use: No REVIEW OF SYSTEMS Constitutional: (-) fever, (-) chills, (+) sleep disturbance (sleeping more), (+) decreased appetite, (+) weight loss Head: (-) head pain Ears/Nose/Mouth/Throat: (+) nasal congestion, (+) epistaxis, (-) ear pain, (-) sore throat Neck: (-) neck pain Respiratory: (+) cough Gastrointestinal: (-) nausea, (-) vomiting, (-) diarrhea, (+) decreased appetite EXAM: BP 108/76 Pulse 92 Resp 16 Wt 91.2 kg (201 lb) SpO2 99% BMI 25.81 kg/m? PHYSICAL EXAM: General Appearance: Well appearing, alert, in no acute distress, well-hydrated, well nourished.. Skin: Skin color, texture, turgor normal, no suspicious rashes or lesions. Head: Normocephalic, no masses, lesions, tenderness or abnormalities. Eyes: Anicteric sclera. Extraocular movements are intact. . Ears: External ears normal, canals clear. Normal TMs bilaterally. Oropharynx: Lips, mucosa, and tongue normal, teeth and gums normal, oropharynx normal. Neck: Supple, no adenopathy Lungs: Lungs clear to auscultation; however difficult to auscultate as patient unable to understand taking deep breaths. Heart: RRR without murmur, gallop, or rubs. No ectopy. Neurologic: Gait normal. ASSESSMENT/PLAN 1. Bronchitis (J40) 2. Acute cough (R05.1) - Persistent cough and congestion for approximately 1.5 to 2 months; previous antibiotic and steroid treatments provided minimal relief. - Ordered doxycycline 100 mg BID for 10 days; advis (more content not included)... [facility] 02-06-2025 History of Present illness Narrative This is a 49 year old male who presents today with: Octaviano is a 49-year-old male with a history of autism, accompanied by his sister who is providing history on his behalf, presenting for evaluation of a persistent cough and congestion. HISTORY OF PRESENT ILLNESS: Cough and Congestion: - Persistent cough and congestion x1.5-2 months. - Initially attributed to allergies; treated with antibiotics and a 10-12 day prednisone taper with no improvement. - Cough is non-productive; denies hemoptysis. - Associated with nasal congestion and rhinorrhea - Denies odynophagia, otalgia, or cephalgia. - Nocturnal cough; sleep quality unknown. - Denies known GERD. - Recent weight loss from 204 lbs to 197 lbs; decreased appetite. - Denies fevers, chills, nausea, emesis, or diarrhea. - Family history of asthma; Octaviano has not been diagnosed. - History of allergies; taking Zyrtec daily. - History of two previous episodes of pneumonia; currently using an inhaler with spacer. - Recent antibiotic use led to diarrhea for 2 days, now resolved. - Taking vitamin C and vitamin D supplements. - Scheduled for a swallow study on Tuesday. - Cough impacting social activities and attendance at the workshop. PAST MEDICAL HISTORY: PAST MEDICAL HISTORY Diagnosis Date Unspecified epilepsy without mention of intractable epilepsy (HCC) Unspecified intellectual disabilities PAST SURGICAL HISTORY Procedure Laterality Date CHOLECYSTECTOMY 2009? Cholecystectomy EGD TRANSORAL BIOPSY SINGLE/MULTIPLE 03/24/15 dysphagia, normal ALLERGIES Effexor [Venlafaxine Hcl], Paxil [Paroxetine Hcl], and Zyprexa [Olanzapine] MEDICATIONS Current Outpatient Medications Medication Sig doxycycline (VIBRA-TABS) 100 mg tablet Take 1 tablet by mouth two times a day for 10 days. benzonatate (TESSALON PERLE) 100 mg capsule Take 1-2 capsules by mouth three times a day as needed. albuterol HFA (PROVENTIL HFA, VENTOLIN HFA) 90 mcg/actuation inhaler Inhale 2 puffs as instructed every 4 hours as needed for wheezing/shortness of breath (cough). amoxicillin-clavulanate potassium (AUGMENTIN) 875-125 mg per tablet Take 1 tablet by mouth two times a day for 5 days. predniSONE (DELTASONE) 10 mg tablet Take 4 tablets by mouth once daily for 3 days, THEN 3 tablets once daily for 3 days, THEN 2 tablets once daily for 3 days, THEN 1 tablet once daily for 3 days. oxybutynin XL (DITROPAN XL) 5 mg 24 hr tablet TAKE 1 TABLET BY MOUTH AT BEDTIME cetirizine (ZYRTEC) 10 mg tablet Take 1 tablet by mouth once daily. divalproex DR (DEPAKOTE) 500 mg EC tablet Take 1 tablet by mouth two times a day. carBAMazepine (EPITOL) 200 mg tablet Take 2 tablets by mouth two times a day. ketoconazole (NIZORAL) 2 % shampoo Lather into hair, leave 5 minutes, then rinse out. Use on face, ears, chest, and back as body wash. Repeat 3 times per week or as directed. No current facility-administered medications for this visit. FAMILY HISTORY Problem Relation Age of Onset Colon Cancer Brother 42 Cancer Maternal Grandmother Coronary Artery Disease Maternal Grandfather Cancer Paternal Grandfather Melanoma to Lung Social History Tobacco Use Smoking status: Never Smokeless tobacco: Never Vaping Use Vaping status: Never Used Substance Use Topics Alcohol use: No Drug use: No REVIEW OF SYSTEMS Constitutional: (-) fever, (-) chills, (+) sleep disturbance (sleeping more), (+) decreased appetite, (+) weight loss Head: (-) head pain Ears/Nose/Mouth/Throat: (+) nasal congestion, (+) epistaxis, (-) ear pain, (-) sore throat Neck: (-) neck pain Respiratory: (+) cough Gastrointestinal: (-) nausea, (-) vomiting, (-) diarrhea, (+) decreased appetite EXAM: BP 108/76 Pulse 92 Resp 16 Wt 91.2 kg (201 lb) SpO2 99% BMI 25.81 kg/m PHYSICAL EXAM: General Appearance: Well appearing, alert, in no acute distress, well-hydrated, well nourished.. Skin: Skin color, texture, turgor normal, no suspicious rashes or lesions. Head: Normocephalic, no masses, lesions, tenderness or abnormalities. Eyes: Anicteric sclera. Extraocular movements are intact. . Ears: External ears normal, canals clear. Normal TMs bilaterally. Oropharynx: Lips, mucosa, and tongue normal, teeth and gums normal, oropharynx normal. Neck: Supple, no adenopathy Lungs: Lungs clear to auscultation; however difficult to auscultate as patient unable to understand taking deep breaths. Heart: RRR without murmur, gallop, or rubs. No ectopy. Neurologic: Gait normal. ASSESSMENT/PLAN 1. Bronchitis (J40) 2. Acute cough (R05.1) - Persistent cough and congestion for approximately 1.5 to 2 months; previous antibiotic and steroid treatments provided minimal relief. - Ordered doxycycline 100 mg BID for 10 days; advised to separate administration from vitamin intake to enhance absorption. - Prescribed Tessalon Perles 100 mg, 1-2 capsules TID prn for cough suppression. - Ordered a STAT chest X-ray to rule out pneumonia; results expected within an hour. If pneumonia is detected, will initiate additional antibiotic therapy such as Augmentin or amoxicillin. - Provided a new prescription for an inhaler. - Discussed potential for asthma testing once acute symptoms resolve. - Patient's guardian understands and agrees with the treatment plan. Discussed treatment plan and patient voices understanding. Patient's questions answered appropriately. Medications and potential side effects were discussed and patient voices understanding. Return to the office as scheduled or as needed for worsening/no improvement. Mayra Gerardo APRN.TEXTILE 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 Recording using Student Designed software for draft documentation of the visit was discussed with the patient/authorized bilingual inside sales representative; all questions welcomed and answered. Patient/authorized bilingual inside sales representative agreed to proceed documented in this encounter [facility] 02-06-2025 Telephone encounter Note Pt sisterRenee, notified of results/provider instructions. She verbalized understanding. Paul Parker LPN [facility] 02-06-2025 Miscellaneous Notes Pt sisterRenee, notified of results/provider instructions. She verbalized understanding. Paul Parker LPN Can we please let patient/sister know that I received the chest xray results, and it is suspicious for pneumonia. I went ahead and sent another 5 day course of the augmentin to the pharmacy to take with the doxycycline. I would also like to repeat the chest xray in 3-4 weeks to ensure that it has resolved (the order is in). Please let us know if he is not improving or if there is any worsening. If there are any severe symptoms, then please proceed to the ER. Mayra Gerardo APRN.CNP documented in this encounter [facility] 02-06-2025 Telephone encounter Note Can we please let patient/sister know that I received the chest xray results, and it is suspicious for pneumonia. I went ahead and sent another 5 day course of the augmentin to the pharmacy to take with the doxycycline. I would also like to repeat the chest xray in 3-4 weeks to ensure that it has resolved (the order is in). Please let us know if he is not improving or if there is any worsening. If there are any severe symptoms, then please proceed to the ER. Mayra Gerardo APRN.CNP [facility] 02-06-2025 History of Present illness Narrative Radiology Service Progress Note PATIENT NAME: Octaviano Quinn DATE OF SERVICE: February 06, 2025 TIME: 10:45 AM PATIENT IDENTITY VERIFICATION COMPLETED USING TWO (2) IDENTIFIERS: Name and Date of confirmed by patient verbally. FALL SCREENING: Has the patient had 2 falls in the last year or 1 fall with injury or currently using an Ambulatory Assistive Device (Walker, Cane, Wheelchair, Crutches, etc.)? No PATIENT GENDER DATA: Assigned male at PATIENT RELEVANT IMPLANT DATA REVIEWED: Not Applicable PATIENT PRESENTS WITH AN IMPLANTABLE OR ATTACHED FLOOR FRAMER: No RADIOLOGY DEPARTMENT: General X-ray: Exam(s) Completed: Chest X-Ray PERIPHERAL IV DATA: Not applicable SIGNED BY: RT Sanford(R) February 06, 2025 10:45 AM documented in this encounter [facility] 02-06-2025 Note HNO ID: [id number] Author: AMALIA ZAMUDIO RT(R) Service: Radiology Author Type: Technologist Type: Progress Notes Filed: 02/06/2025 10:51 Note Text: Radiology Service Progress Note PATIENT NAME: Octaviano Quinn DATE OF SERVICE: February 06, 2025 TIME: 10:45 AM PATIENT IDENTITY VERIFICATION COMPLETED USING TWO (2) IDENTIFIERS: Name and Date of confirmed by patient verbally. FALL SCREENING: Has the patient had 2 falls in the last year or 1 fall with injury or currently using an Ambulatory Assistive Device (Walker, Cane, Wheelchair, Crutches, etc.)? No PATIENT GENDER DATA: Assigned male at PATIENT RELEVANT IMPLANT DATA REVIEWED: Not Applicable PATIENT PRESENTS WITH AN IMPLANTABLE OR ATTACHED FLOOR FRAMER: No RADIOLOGY DEPARTMENT: General X-ray: Exam(s) Completed: Chest X-Ray PERIPHERAL IV DATA: Not applicable SIGNED BY: RT Sanford(R) February 06, 2025 10:45 AM [facility] 02-06-2025 Instructions Mayra Gerardo APRN.TEXTILE 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 - 02/06/2025 10:39 AM EDT - Take doxycycline 1 tablet by mouth twice daily for 10 days; prescription sent to [facility]. - Use Tessalon Perles cough suppressant: start with 1 capsule by mouth; if needed, you may increase to 2 capsules. Prescription sent to [facility]. 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 - Continue daily vitamin D and vitamin C, but separate these from your antibiotic doses to ensure proper absorption. - A stat chest x-ray was ordered; results should be available in about an hour. Check MyChart for a negative report. If it shows pneumonia, we will call you to add a second antibiotic. - If no better/worsening, let us know. documented in this encounter [facility] 01-28-2025 History of Present illness Narrative Radiology Service Progress Note PATIENT NAME: Octaviano Quinn DATE OF SERVICE: January 28, 2025 TIME: 11:21 AM PATIENT IDENTITY VERIFICATION COMPLETED USING TWO (2) IDENTIFIERS: Name and Date of confirmed by patient verbally. FALL SCREENING: Has the patient had 2 falls in the last year or 1 fall with injury or currently using an Ambulatory Assistive Device (Walker, Cane, Wheelchair, Crutches, etc.)? No PATIENT GENDER DATA: Assigned male at PATIENT RELEVANT IMPLANT DATA REVIEWED: Not Applicable PATIENT PRESENTS WITH AN IMPLANTABLE OR ATTACHED FLOOR FRAMER: No RADIOLOGY DEPARTMENT: General X-ray: Exam(s) Completed: Chest X-Ray PERIPHERAL IV DATA: Not applicable SIGNED BY: Mara Kramer January 28, 2025 11:21 AM documented in this encounter [facility] 01-28-2025 Note HNO ID: [id number] Author: ALBERTINA MORENO Tech Service: ? Author Type: Technologist Type: Progress Notes Filed: 01/28/2025 11:21 Note Text: Radiology Service Progress Note PATIENT NAME: Octaviano Quinn DATE OF SERVICE: January 28, 2025 TIME: 11:21 AM PATIENT IDENTITY VERIFICATION COMPLETED USING TWO (2) IDENTIFIERS: Name and Date of confirmed by patient verbally. FALL SCREENING: Has the patient had 2 falls in the last year or 1 fall with injury or currently using an Ambulatory Assistive Device (Walker, Cane, Wheelchair, Crutches, etc.)? No PATIENT GENDER DATA: Assigned male at PATIENT RELEVANT IMPLANT DATA REVIEWED: Not Applicable PATIENT PRESENTS WITH AN IMPLANTABLE OR ATTACHED FLOOR FRAMER: No RADIOLOGY DEPARTMENT: General X-ray: Exam(s) Completed: Chest X-Ray PERIPHERAL IV DATA: Not applicable SIGNED BY: Mara Kramer January 28, 2025 11:21 AM [facility] 01-28-2025 Note HNO ID: [id number] Author: LUCIA GALAVIZ LPN Service: ? Author Type: LICENSED NURSE Type: Progress Notes Filed: 01/28/2025 16:52 Note Text: Ambulatory Ear Lavage Pre-treatment: Warm water Treatment: Both ears Equipment and Irrigation solution and Volume used: Single use syringe with single use irrigation tip Water Return flow appearance: Brown Patient tolerated procedure: yes Tympanic membrane assessment: Tympanic membrane assessed by LIP pre and post procedure [facility] 01-28-2025 History of Present illness Narrative Ambulatory Ear Lavage Pre-treatment: Warm water Treatment: Both ears Equipment and Irrigation solution and Volume used: Single use syringe with single use irrigation tip Water Return flow appearance: Brown Patient tolerated procedure: yes Tympanic membrane assessment: Tympanic membrane assessed by LIP pre and post procedure This is a 49 year old male who presents today with: Octaviano is a 49-year-old male with a history of recurrent pneumonia, accompanied by his sister who is providing history on his behalf, presenting for evaluation of a persistent cough. HISTORY OF PRESENT ILLNESS: Last seen on 01/21 for cough and congestion, harsh cough. History of pneumonia twice last year. Was started on Augmentin for sinusitis at that time. - Harsh, deep cough, exacerbated by eating and drinking. - Coughing episodes are infrequent but severe when they occur. - Nocturnal cough noted, particularly when falling asleep and upon waking. - No associated fevers or sputum production. - delsym , minimal relief - History of recurrent pneumonia, with two episodes approximately one year ago. - Family history of asthma; mother is affected. They ordered an inhaler for him a while ago and they've used it but hasn't improved the cough - Sister reports decreased appetite and weight loss over the past week. (Down 7# since 01/21 visit) - Currently on Augmentin, almost complete, but has caused diarrhea - Taking Zyrtec daily. - History of swallowing difficulties PAST MEDICAL HISTORY: PAST MEDICAL HISTORY Diagnosis Date Unspecified epilepsy without mention of intractable epilepsy (HCC) Unspecified intellectual disabilities PAST SURGICAL HISTORY Procedure Laterality Date CHOLECYSTECTOMY 2009? Cholecystectomy EGD TRANSORAL BIOPSY SINGLE/MULTIPLE 03/24/15 dysphagia, normal ALLERGIES Effexor [Venlafaxine Hcl], Paxil [Paroxetine Hcl], and Zyprexa [Olanzapine] MEDICATIONS Current Outpatient Medications Medication Sig amoxicillin-clavulanate potassium (AUGMENTIN) 875-125 mg per tablet Take 1 tablet by mouth every 12 hours for 10 days. oxybutynin XL (DITROPAN XL) 5 mg 24 hr tablet TAKE 1 TABLET BY MOUTH AT BEDTIME cetirizine (ZYRTEC) 10 mg tablet Take 1 tablet by mouth once daily. divalproex DR (DEPAKOTE) 500 mg EC tablet Take 1 tablet by mouth two times a day. carBAMazepine (EPITOL) 200 mg tablet Take 2 tablets by mouth two times a day. ketoconazole (NIZORAL) 2 % shampoo Lather into hair, leave 5 minutes, then rinse out. Use on face, ears, chest, and back as body wash. Repeat 3 times per week or as directed. cholecalciferol, Vitamin D3, (VITAMIN D3) 1,250 mcg (50,000 unit) cap capsule Take 1 capsule by mouth one time a week. (Patient not taking: Reported on 01/28/2025) No current facility-administered medications for this visit. FAMILY HISTORY Problem Relation Age of Onset Colon Cancer Brother 42 Cancer Maternal Grandmother Coronary Artery Disease Maternal Grandfather Cancer Paternal Grandfather Melanoma to Lung Social History Tobacco Use Smoking status: Never Smokeless tobacco: Never Vaping Use Vaping status: Never Used Substance Use Topics Alcohol use: No Drug use: No REVIEW OF SYSTEMS See HPI EXAM: BP 120/82 Pulse 69 Temp 36.4 C (97.5 F) Resp 14 Wt 89.4 kg (197 lb 3.2 oz) SpO2 97% BMI 25.32 kg/m PHYSICAL EXAM: General Appearance: Well appearing, alert, in no acute distress, well-hydrated, well nourished.. Eyes: anicteric, no signs of conjuctivitis . Ears: Positive findings: cerumen bilaterally, amount Moderate. Rechecked post-cerumen removal and no erythema or effusion Oropharynx: Lips, mucosa normal, tongue is dry with light white coating, teeth and gums normal, oropharynx normal. Neck: Supple, no adenopathy; thyroid symmetric, normal size, no bruits. Lungs: Lungs clear to auscultation. No wheezing, rhonchi, rales.. Heart: RRR without murmur, gallop, or rubs. No ectopy. ASSESSMENT/PLAN 1. Acute cough (R05.1) - Persistent, harsh cough, exacerbated by eating and drinking; no fevers reported. - Lungs auscultated clear, no crackles or signs of fluid accumulation. - Ordered chest X-ray to rule out pneumonia. - Initiated prednisone taper: 40 mg for 3 days, 30 mg for 3 days, 20 mg for 3 days, 10 mg for 3 days. Advised to take early in the day with food to minimize gastrointestinal upset and potential insomnia. - Continue current antibiotic regimen; no changes made. - Continue using inhaler as previously prescribed. 2. Oropharyngeal dysphagia (R13.12) - History of swallowing difficulties and previous swallow studies. - Ordered updated swallow study to assess current swallowing function and rule out aspiration as a cause of cough. 3. Bilateral impacted cerumen (H61.23) - Noted significant cerumen impaction bilaterally on otoscopic examination. - Ordered cerumen removal to be performed by nursing staff. Discussed treatment plan and patient/sister voices understanding. Patient's questions answered appropriately. Medications and potential side effects were discussed and patient voices understanding. Return to the office as scheduled or as needed for worsening/no improvement. Jenise Holt APRN.RADHIKA Recording using Student Designed software for draft documentation of the visit was discussed with the patient/authorized bilingual inside sales representative; all questions welcomed and answered. Patient/authorized bilingual inside sales representative agreed to proceed documented in this encounter [facility] 01-28-2025 Instructions Jenise Holt APRN.CNP - 01/28/2025 10:32 AM EDT Begin the prednisone taper as prescribed - you will take a higher dose for the first three days followed by gradually lower doses (40, 30, 20, then 10 mg) over a 12-day period. Take the prednisone early in the day with food to help prevent stomach upset and sleep difficulties. Complete your chest x-ray on the way out as ordered. A modified barium swallow has been ordered, we will see what those results are as far as referral to speech therapy or gastroenterology documented in this encounter [facility] 01-28-2025 Note HNO ID: [id number] Author: JENISE HOLT APRN.CNP Service: ? Author Type: Nurse Practitioner Type: Progress Notes Filed: 01/28/2025 16:52 Note Text: This is a 49 year old male who presents today with: Octaviano is a 49-year-old male with a history of recurrent pneumonia, accompanied by his sister who is providing history on his behalf, presenting for evaluation of a persistent cough. HISTORY OF PRESENT ILLNESS: Last seen on 01/21 for cough and congestion, harsh cough. History of pneumonia twice last year. Was started on Augmentin for sinusitis at that time. - Harsh, deep cough, exacerbated by eating and drinking. - Coughing episodes are infrequent but severe when they occur. - Nocturnal cough noted, particularly when falling asleep and upon waking. - No associated fevers or sputum production. - delsym , minimal relief - History of recurrent pneumonia, with two episodes approximately one year ago. - Family history of asthma; mother is affected. They ordered an inhaler for him a while ago and they've used it but hasn't improved the cough - Sister reports decreased appetite and weight loss over the past week. (Down 7# since 01/21 visit) - Currently on Augmentin, almost complete, but has caused diarrhea - Taking Zyrtec daily. - History of swallowing difficulties PAST MEDICAL HISTORY: PAST MEDICAL HISTORY Diagnosis Date Unspecified epilepsy without mention of intractable epilepsy (HCC) Unspecified intellectual disabilities PAST SURGICAL HISTORY Procedure Laterality Date CHOLECYSTECTOMY 2009? Cholecystectomy EGD TRANSORAL BIOPSY SINGLE/MULTIPLE 03/24/15 dysphagia, normal ALLERGIES Effexor [Venlafaxine Hcl], Paxil [Paroxetine Hcl], and Zyprexa [Olanzapine] MEDICATIONS Current Outpatient Medications Medication Sig amoxicillin-clavulanate potassium (AUGMENTIN) 875-125 mg per tablet Take 1 tablet by mouth every 12 hours for 10 days. oxybutynin XL (DITROPAN XL) 5 mg 24 hr tablet TAKE 1 TABLET BY MOUTH AT BEDTIME cetirizine (ZYRTEC) 10 mg tablet Take 1 tablet by mouth once daily. divalproex DR (DEPAKOTE) 500 mg EC tablet Take 1 tablet by mouth two times a day. carBAMazepine (EPITOL) 200 mg tablet Take 2 tablets by mouth two times a day. ketoconazole (NIZORAL) 2 % shampoo Lather into hair, leave 5 minutes, then rinse out. Use on face, ears, chest, and back as body wash. Repeat 3 times per week or as directed. cholecalciferol, Vitamin D3, (VITAMIN D3) 1,250 mcg (50,000 unit) cap capsule Take 1 capsule by mouth one time a week. (Patient not taking: Reported on 01/28/2025) No current facility-administered medications for this visit. FAMILY HISTORY Problem Relation Age of Onset Colon Cancer Brother 42 Cancer Maternal Grandmother Coronary Artery Disease Maternal Grandfather Cancer Paternal Grandfather Melanoma to Lung Social History Tobacco Use Smoking status: Never Smokeless tobacco: Never Vaping Use Vaping status: Never Used Substance Use Topics Alcohol use: No Drug use: No REVIEW OF SYSTEMS See HPI EXAM: BP 120/82 Pulse 69 Temp 36.4 ?C (97.5 ?F) Resp 14 Wt 89.4 kg (197 lb 3.2 oz) SpO2 97% BMI 25.32 kg/m? PHYSICAL EXAM: General Appearance: Well appearing, alert, in no acute distress, well-hydrated, well nourished.. Eyes: anicteric, no signs of conjuctivitis . Ears: Positive findings: cerumen bilaterally, amount Moderate. Rechecked post-cerumen removal and no erythema or effusion Oropharynx: Lips, mucosa normal, tongue is dry with light white coating, teeth and gums normal, oropharynx normal. Neck: Supple, no adenopathy; thyroid symmetric, normal size, no bruits. Lungs: Lungs clear to auscultation. No wheezing, rhonchi, rales.. Heart: RRR without murmur, gallop, or rubs. No ectopy. ASSESSMENT/PLAN 1. Acute cough (R05.1) - Persistent, harsh cough, exacerbated by eating and drinking; no fevers reported. - Lungs auscultated clear, no crackles or signs of fluid accumulation. - Ordered chest X-ray to rule out pneumonia. - Initiated prednisone taper: 40 mg for 3 days, 30 mg for 3 days, 20 mg for 3 days, 10 mg for 3 days. Advised to take early in the day with food to minimize gastrointestinal upset and potential insomnia. - Continue current antibiotic regimen; no changes made. - Continue using inhaler as previously prescribed. 2. Oropharyngeal dysphagia (R13.12) - History of swallowing difficulties and previous swallow studies. - Ordered updated swallow study to assess current swallowing function and rule out aspiration as a cause of cough. 3. Bilateral impacted cerumen (H61.23) - Noted significant cerumen impaction bilaterally on otoscopic examination. - Ordered cerumen removal to be performed by nursing staff. Discussed treatment plan and patient/sister voices understanding. Patient's questions answered appropriately. Medications and potential side effects were discussed and patient voices understanding. (more content not included)... [facility] 01-21-2025 Note HNO ID: [id number] Author: ARABELLA SLAUGHTER PA-C Service: ? Author Type: Physician Rotary Swaging Machine Operator Type: Progress Notes Filed: 01/21/2025 10:07 Note Text: Chief Complaint Patient presents with: Cough: And nasal congestion x 2 weeks HPI Octaviano Quinn is a 49 year old male who presents here today for Above Complaints.. Cough and Congestion: - Cough and congestion x2 weeks. - Initially thought to be allergies, but cough has become more progressive and deep. - Mother reports cough is infrequent but sounds horrible when it occurs. - Denies fever, otalgia, or recent exposure to illness. - Mild sore throat. - History of pneumonia twice last year. Past medical history, appointments, medications, allergies reviewed. Previous Medical History PAST MEDICAL HISTORY Diagnosis Date Unspecified epilepsy without mention of intractable epilepsy (HCC) Unspecified intellectual disabilities Previous Surgical History PAST SURGICAL HISTORY Procedure Laterality Date CHOLECYSTECTOMY 2009? Cholecystectomy EGD TRANSORAL BIOPSY SINGLE/MULTIPLE 03/24/15 dysphagia, normal Family History FAMILY HISTORY Problem Relation Age of Onset Colon Cancer Brother 42 Cancer Maternal Grandmother Coronary Artery Disease Maternal Grandfather Cancer Paternal Grandfather Melanoma to Lung Patient Allergies ALLERGIES Allergen Reactions Effexor [Venlafaxin* Intolerance aggressive behavior Paxil [Paroxetine H* Intolerance Weight gain Zyprexa [Olanzapine] Intolerance sedation Current Medications Current Outpatient Medications on File Prior to Visit Medication Sig oxybutynin XL (DITROPAN XL) 5 mg 24 hr tablet TAKE 1 TABLET BY MOUTH AT BEDTIME cetirizine (ZYRTEC) 10 mg tablet Take 1 tablet by mouth once daily. cholecalciferol, Vitamin D3, (VITAMIN D3) 1,250 mcg (50,000 unit) cap capsule Take 1 capsule by mouth one time a week. divalproex DR (DEPAKOTE) 500 mg EC tablet Take 1 tablet by mouth two times a day. carBAMazepine (EPITOL) 200 mg tablet Take 2 tablets by mouth two times a day. ketoconazole (NIZORAL) 2 % shampoo Lather into hair, leave 5 minutes, then rinse out. Use on face, ears, chest, and back as body wash. Repeat 3 times per week or as directed. benzonatate (TESSALON PERLE) 100 mg capsule Take 1 capsule by mouth three times a day as needed for cough. (Patient not taking: Reported on 02/14/2024) albuterol HFA (PROVENTIL HFA, VENTOLIN HFA) 90 mcg/actuation inhaler Inhale 2 Puffs as instructed every 4 hours as needed for wheezing/shortness of breath. (Patient not taking: Reported on 02/14/2024) clomiPRAMINE (ANAFRANIL) 25 mg capsule Take 1 capsule by mouth once daily. (Patient not taking: Reported on 01/21/2025) sertraline (ZOLOFT) 25 mg tablet once daily. (Patient not taking: Reported on 02/14/2024) hydrocortisone (ALA-EFREN) 1 % cream Apply 1 application to affected area twice daily. (Patient not taking: Reported on 01/21/2025) No current facility-administered medications on file prior to visit. Social History Social History Tobacco Use Smoking status: Never Smokeless tobacco: Never Vaping Use Vaping status: Never Used Substance Use Topics Alcohol use: No Drug use: No Review of Symptoms REVIEW OF SYSTEMS SEE HPI EXAM: BP 110/80 (BP Site: Right Arm, BP Position: Sitting, BP Cuff Size: Large Adult) Pulse 77 Temp 36.2 ?C (97.1 ?F) Resp 18 Wt 92.5 kg (204 lb) SpO2 96% BMI 26.19 kg/m? GENERAL: NAD, alert and oriented SKIN: unremarkable, no rash or skin lesions. HEAD: normocephalic EYES: PERRLA, EOMI, conjunctiva clear EARS: external ears normal, canals clear, TM's normal. NOSE/SINUSES: Nares normal. Septum midline. OROPHARYNX: lips, mucosa, and tongue normal, good dentition. No oral lesions noted. Pharyngeal erythema noted. NECK: Supple, no lymphadenopathy, normal thyroid, no carotid bruits. LUNGS: Clear to auscultation bilaterally, no wheezes/rhonchi/rales. HEART: Regular rate and rhythm, no murmurs. No ectopy. EXTREMITIES: Normal, No deformities, No skin discoloration, No edema. NEURO: Awake, alert and oriented x3, cranial nerves II-XII grossly intact, normal gait, no involuntary motions Health Maintenance List Hepatitis B Vaccine(1 of 3 - 19+ 3-dose series) Never done Hepatitis C Screening due on 07/04/2025 HIV Screening due on 07/04/2025 Covid-19 Vaccine( season) due on 08/24/2025 Depression Screening due on 07/04/2025 Colorectal Cancer Screening due on 08/27/2025 Diabetes Screening due on 07/04/2027 Lipid Screening due on 08/16/2028 DTaP,Tdap,Td Vaccine(3 - Td or Tdap) due on 08/24/2034 Influenza Vaccine Completed Data reviewed N/a Assessment and Plan 1. Acute non-recurrent sinusitis, unspecified location (J01.90) - Initiated Augmentin to cover potential sinusitis, streptococcal pharyngitis, and bronchitis. - Advised that patient can return to work tomorrow as he is not febrile and the conta (more content not included)... [facility] 12-20-2024 Telephone encounter Note [facility] 02/14/2024 with Froylan Erwin PA-C 02/19/2025 with Froylan Erwin PA-C Patient requesting refills as follows: Requested Prescriptions Pending Prescriptions Disp Refills oxybutynin XL (DITROPAN XL) 5 mg 24 hr tablet [Pharmacy Med Name: Oxybutynin Chloride ER 5MG TB24] 28 tablet 11 Sig: TAKE 1 TABLET BY MOUTH AT BEDTIME Please review and advise. Carol Martinez RN [facility] 12-20-2024 Miscellaneous Notes [facility] 02/14/2024 with Froylan Erwin PA-C 02/19/2025 with Froylan Erwin PA-C Patient requesting refills as follows: Requested Prescriptions Pending Prescriptions Disp Refills oxybutynin XL (DITROPAN XL) 5 mg 24 hr tablet [Pharmacy Med Name: Oxybutynin Chloride ER 5MG TB24] 28 tablet 11 Sig: TAKE 1 TABLET BY MOUTH AT BEDTIME Please review and advise. Carol Martinez RN documented in this encounter [facility] 10-15-2024 Telephone encounter Note Patient sister/guardian notified of results, verbalizes understanding of instructions. Mane Lucas LPN [facility] 10-15-2024 Miscellaneous Notes Patient sister/guardian notified of results, verbalizes understanding of instructions. Mane Lucas LPN Please let the patient know that his vitamin D level is back to normal. On the higher side of normal. I would like for him to discontinue his vitamin D 50,000 units weekly and replace with vitamin D3 2000 units daily. This can be purchased [id number]. Mac Galvan APRN.CNP documented in this encounter [facility] 10-15-2024 Telephone encounter Note Please let the patient know that his vitamin D level is back to normal. On the higher side of normal. I would like for him to discontinue his vitamin D 50,000 units weekly and replace with vitamin D3 2000 units daily. This can be purchased [id number]. Mac Galvan APRN.CNP [facility] 09-27-2024 Telephone encounter Note The following approved medication requests have been transmitted electronically. Requested Prescriptions Pending Prescriptions Disp Refills cetirizine (ZYRTEC) 10 mg tablet 30 tablet 11 Sig: Take 1 tablet by mouth once daily. Mac Galvan APRN.CNP [facility] 09-27-2024 Miscellaneous Notes The following approved medication requests have been transmitted electronically. Requested Prescriptions Pending Prescriptions Disp Refills cetirizine (ZYRTEC) 10 mg tablet 30 tablet 11 Sig: Take 1 tablet by mouth once daily. Mac Galvan APRN.CNP The patient has been identified by name and date of : Yes Caregiver verified no other encounters exist for this prescription request: Yes Caregiver confirmed with patient/requestor that no other refills are due, in the near future, with this provider at this time: Yes The last office visit in the department: 08/24/2024 Does the patient have a future office visit with this provider/department: No Requested Prescriptions Pending Prescriptions Disp Refills cetirizine (ZYRTEC) 10 mg tablet 30 tablet 11 Sig: Take 1 tablet by mouth once daily. Yajaira Hinojosa RN September 26, 2024 2:52 PM documented in this encounter [facility] 09-26-2024 Telephone encounter Note The patient has been identified by name and date of : Yes Caregiver verified no other encounters exist for this prescription request: Yes Caregiver confirmed with patient/requestor that no other refills are due, in the near future, with this provider at this time: Yes The last office visit in the department: 08/24/2024 Does the patient have a future office visit with this provider/department: No Requested Prescriptions Pending Prescriptions Disp Refills cetirizine (ZYRTEC) 10 mg tablet 30 tablet 11 Sig: Take 1 tablet by mouth once daily. Yajaira Hinojosa RN September 26, 2024 2:52 PM [facility] 08-24-2024 Instructions Rosana Rodney APRN.CNP - 08/24/2024 9:44 AM EST Continue to take all medication as prescribed Consult placed for sleep medicine Consult placed for general surgery to discuss Coloscopy Keep scheduled appointments with psychiatry Dtap booster given Follow up in 1 year or sooner as needed. Health Promotion: - Eat healthy -- go to [email or web address] to get started - Have a yearly physical - Get at least 30 minutes of physical activity daily - Get at least 7 to 8 hours of sleep each night - Reach and maintain a healthy weight - Get help to quit or don't start smoking - Limit alcohol use to one drink or less - Do not use illegal drugs or misuse prescription drugs - Wear a helmet when riding a bike and wear protective gear for sports - Wear a seatbelt in cars and not text and drive - Wear sunscreen documented in this encounter [facility] 08-24-2024 History of Present illness Narrative This is a 49 year old male who presents today with: Patient presents with: Physical HISTORY OF PRESENT ILLNESS: Octaviano Quinn is a 49 year old male. Patient presents with: Physical Pt here today with his sister, Renee for his annual Wellness visit. Fatigue: Completed in lab sleep study. No sleep apnea noted however there was a reduced total sleep time noted. Psychiatry took him off the zoloft. Reduced work shop to 3 days weekly instead of daily. Taking Vitamin D. Repeat labs in September. GI/Uro - Denies any stomach issues. Hx of loose bowels. Does have FHx of colon cancer, younger brother dx at age 42. Has urinary urgency, taking Ditropan XL 5 mg once daily. Following with BASHIR Nieto. Due for colon screening in 2024 Cardio - Denies any chest pain, sob or dizziness. 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 Diet/Exercise - Eats a well balanced diet, Plays basketball. Epilepsy - Managed through Primary Care, does not see Neurology. Taking Depakote 500 mg 1 tab po bid and Tegretol 200 mg 2 tabs po bid. Has routine labs completed to monitor medication. Allergies - Seasonal, stable with use of Zyrtec 10 mg. Anxiety/OCD - Follows with Dr. George. Stable on current regimen of Clomipramine 25 mg once daily Vaccines: Due for Dtap PAST MEDICAL HISTORY: PAST MEDICAL HISTORY Diagnosis Date Unspecified epilepsy without mention of intractable epilepsy (HCC) Unspecified intellectual disabilities PAST SURGICAL HISTORY Procedure Laterality Date CHOLECYSTECTOMY 2009? Cholecystectomy EGD TRANSORAL BIOPSY SINGLE/MULTIPLE 03/24/15 dysphagia, normal ALLERGIES Effexor [Venlafaxine Hcl], Paxil [Paroxetine Hcl], and Zyprexa [Olanzapine] MEDICATIONS Current Outpatient Medications Medication Sig cholecalciferol, Vitamin D3, (VITAMIN D3) 1,250 mcg (50,000 unit) cap capsule Take 1 capsule by mouth one time a week. divalproex DR (DEPAKOTE) 500 mg EC tablet Take 1 tablet by mouth two times a day. carBAMazepine (EPITOL) 200 mg tablet Take 2 tablets by mouth two times a day. oxybutynin XL (DITROPAN XL) 5 mg 24 hr tablet Take 1 tablet by mouth daily at bedtime. benzonatate (TESSALON PERLE) 100 mg capsule Take 1 capsule by mouth three times a day as needed for cough. (Patient not taking: Reported on 02/14/2024) cetirizine (ZYRTEC) 10 mg tablet Take 1 tablet by mouth once daily. albuterol HFA (PROVENTIL HFA, VENTOLIN HFA) 90 mcg/actuation inhaler Inhale 2 Puffs as instructed every 4 hours as needed for wheezing/shortness of breath. (Patient not taking: Reported on 02/14/2024) clomiPRAMINE (ANAFRANIL) 25 mg capsule Take 1 capsule by mouth once daily. sertraline (ZOLOFT) 25 mg tablet once daily. (Patient not taking: Reported on 02/14/2024) hydrocortisone (ALA-EFREN) 1 % cream Apply 1 application to affected area twice daily. ketoconazole (NIZORAL) 2 % shampoo Lather into hair, leave 5 minutes, then rinse out. Use on face, ears, chest, and back as body wash. Repeat 3 times per week or as directed. No current facility-administered medications for this visit. FAMILY HISTORY Problem Relation Age of Onset Colon Cancer Brother 42 Cancer Maternal Grandmother Coronary Artery Disease Maternal Grandfather Cancer Paternal Grandfather Melanoma to Lung Social History Tobacco Use Smoking status: Never Smokeless tobacco: Never Vaping Use Vaping status: Never Used Substance Use Topics Alcohol use: No Drug use: No REVIEW OF SYSTEMS GENERAL: No weight loss, malaise or fevers/chills HEENT: Negative for frequent or significant headaches, No changes in hearing or vision. NECK: Negative for lumps, goiter, pain and significant neck swelling RESPIRATORY: Negative for cough, hemoptysis, wheezing, dyspnea or shortness of breath CARDIOVASCULAR: Negative for chest pain, leg swelling, orthopnea, or palpitations GI: No nausea, vomiting, or diarrhea/constipation. No hematochezia/melena. No heartburn or reflux symptoms. : No history of dysuria, frequency or incontinence MUSCULOSKELETAL: Negative for joint pain or swelling. SKIN: Negative for lesions, rash, and itching ENDOCRINE: Negative for cold or heat intolerance, polyuria, polydipsia and goiter NEURO: No history of headaches, syncope, paralysis, seizures or tremors MOOD: Negative for depression, anxiety, or suicidal ideation. EXAM: BP 110/86 Pulse 84 Resp 16 Ht 188 cm (6' 2) Wt 91.4 kg (201 lb 8 oz) SpO2 98% BMI 25.87 kg/m PHYSICAL EXAM: General Appearance: Well appearing, alert, in no acute distress, well-hydrated, well nourished. Skin: Skin color, texture, turgor normal, no suspicious rashes or lesions. Head: Normocephalic, no masses, lesions, tenderness or abnormalities. Eyes: Anicteric sclera. Pupils are equally round and reactive to light. Extraocular movements are intact. Ears: External ears normal, canals clear. TMs pearly eid Neck: Supple, no adenopathy; thyroid symmetric, normal size, no bruits. Lungs: Lungs clear to auscultation. No wheezing, rhonchi, rales. Heart: RRR without murmur, gallop, or rubs. No ectopy. Abdomen: Normal abdominal exam, Abdomen soft, non-tender. Bowel sounds normal. No masses, organomegaly. Extremities: No deformities, edema, skin discoloration, clubbing or cyanosis. Good capillary refill. . Musculoskeletal: No joint swelling, deformity, or tenderness. Peripheral Pulses: Normal, Capillary refill <2secs, strong peripheral pulses, Pulses palpable. Neurologic: Gait normal. Reflexes normal and symmetric. Sensation grossly intact.. Mood: Pleasant, engaged, good eye contact. ASSESSMENT/PLAN: 1. Wellness examination - ICD9: V70.0, ICD10: Z00.00 (primary diagnosis) - Counseled on healthy diet and regular exercise - Colorectal cancer screening - ordered colonoscopy - Patient counseled on and acknowledged vaccine benefits/risks/side effects; VIS provided: DTaP - Follow up for annual exam in one year 2. Intellectual disability - ICD9: 319, ICD10: F79 - Stable 3. Urinary frequency - ICD9: 788.41, ICD10: R35.0 - Stable, continue take current medication. - Keep scheduled appointments with neurology. 4. Nonintractable epilepsy without status epilepticus, unspecified epilepsy type (HCC) - ICD9: 345.90, ICD10: G40.909 - Stable, continue take current medication. 5. CAROL (generalized anxiety disorder) - ICD9: 300.02, ICD10: F41.1 - Stable, continue take current medication. - Keep scheduled appointments with psychiatry. 6. Obsessive-compulsive disorder, unspecified type - ICD9: 300.3, ICD10: F42.9 - Same plan as #5. 7. Seasonal allergies - ICD9: 477.9, ICD10: J30.2 - Stable, continue take current medication. 8. Vitamin D deficiency - ICD9: 268.9, ICD10: E55.9 - Stable, continue take current medication. - Get repeat labs in September. 9. History of sleep study - ICD9: V49.89, ICD10: Z92.89 - CONSULT TO SLEEP MEDICINE - ADULT 10. Snoring - ICD9: 786.09, ICD10: R06.83 - Same plan as #9. 11. Daytime sleepiness - ICD9: 780.54, ICD10: R40.0 - Same plan as #9. 12. Encounter for immunization - ICD9: V03.89, ICD10: Z23 - VIS provided. - TDAP VACCINE, AGE 7+ YR (ADACEL, BOOSTRIX) 13. Screening for colon cancer - ICD9: V76.51, ICD10: Z12.11 - CONSULT TO GENERAL SURGERY Follow-up in 1 year or sooner as needed. Discussed treatment plan and patient voices understanding. Patient's questions answered appropriately. Medications and potential side effects were discussed and patient voices understanding. Rosana Rodney APRN.RADHIKA This note was partially generated using wutabout voice recognition system. Note was reviewed for accuracy. There may be minor misspellings or grammar miscues with [employer] voice recognition. documented in this encounter [facility] 08-24-2024 Note HNO ID: [id number] Author: ROSANA RODNEY APRN.RADHIKA Service: ? Author Type: Nurse Practitioner Type: Progress Notes Filed: 08/24/2024 10:48 Note Text: This is a 49 year old male who presents today with: Patient presents with: Physical HISTORY OF PRESENT ILLNESS: Octaviano Quinn is a 49 year old male. Patient presents with: Physical Pt here today with his sister, Renee for his annual Wellness visit. Fatigue: Completed in lab sleep study. No sleep apnea noted however there was a reduced total sleep time noted. Psychiatry took him off the zoloft. Reduced work shop to 3 days weekly instead of daily. Taking Vitamin D. Repeat labs in September. GI/Uro - Denies any stomach issues. Hx of loose bowels. Does have FHx of colon cancer, younger brother dx at age 42. Has urinary urgency, taking Ditropan XL 5 mg once daily. Following with BASHIR Nieto. Due for colon screening in 2024 Cardio - Denies any chest pain, sob or dizziness. 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 Diet/Exercise - Eats a well balanced diet, Plays basketball. Epilepsy - Managed through Primary Care, does not see Neurology. Taking Depakote 500 mg 1 tab po bid and Tegretol 200 mg 2 tabs po bid. Has routine labs completed to monitor medication. Allergies - Seasonal, stable with use of Zyrtec 10 mg. Anxiety/OCD - Follows with Dr. George. Stable on current regimen of Clomipramine 25 mg once daily Vaccines: Due for Dtap PAST MEDICAL HISTORY: PAST MEDICAL HISTORY Diagnosis Date Unspecified epilepsy without mention of intractable epilepsy (HCC) Unspecified intellectual disabilities PAST SURGICAL HISTORY Procedure Laterality Date CHOLECYSTECTOMY 2009? Cholecystectomy EGD TRANSORAL BIOPSY SINGLE/MULTIPLE 03/24/15 dysphagia, normal ALLERGIES Effexor [Venlafaxine Hcl], Paxil [Paroxetine Hcl], and Zyprexa [Olanzapine] MEDICATIONS Current Outpatient Medications Medication Sig cholecalciferol, Vitamin D3, (VITAMIN D3) 1,250 mcg (50,000 unit) cap capsule Take 1 capsule by mouth one time a week. divalproex DR (DEPAKOTE) 500 mg EC tablet Take 1 tablet by mouth two times a day. carBAMazepine (EPITOL) 200 mg tablet Take 2 tablets by mouth two times a day. oxybutynin XL (DITROPAN XL) 5 mg 24 hr tablet Take 1 tablet by mouth daily at bedtime. benzonatate (TESSALON PERLE) 100 mg capsule Take 1 capsule by mouth three times a day as needed for cough. (Patient not taking: Reported on 02/14/2024) cetirizine (ZYRTEC) 10 mg tablet Take 1 tablet by mouth once daily. albuterol HFA (PROVENTIL HFA, VENTOLIN HFA) 90 mcg/actuation inhaler Inhale 2 Puffs as instructed every 4 hours as needed for wheezing/shortness of breath. (Patient not taking: Reported on 02/14/2024) clomiPRAMINE (ANAFRANIL) 25 mg capsule Take 1 capsule by mouth once daily. sertraline (ZOLOFT) 25 mg tablet once daily. (Patient not taking: Reported on 02/14/2024) hydrocortisone (ALA-EFREN) 1 % cream Apply 1 application to affected area twice daily. ketoconazole (NIZORAL) 2 % shampoo Lather into hair, leave 5 minutes, then rinse out. Use on face, ears, chest, and back as body wash. Repeat 3 times per week or as directed. No current facility-administered medications for this visit. FAMILY HISTORY Problem Relation Age of Onset Colon Cancer Brother 42 Cancer Maternal Grandmother Coronary Artery Disease Maternal Grandfather Cancer Paternal Grandfather Melanoma to Lung Social History Tobacco Use Smoking status: Never Smokeless tobacco: Never Vaping Use Vaping status: Never Used Substance Use Topics Alcohol use: No Drug use: No REVIEW OF SYSTEMS GENERAL: No weight loss, malaise or fevers/chills HEENT: Negative for frequent or significant headaches, No changes in hearing or vision. NECK: Negative for lumps, goiter, pain and significant neck swelling RESPIRATORY: Negative for cough, hemoptysis, wheezing, dyspnea or shortness of breath CARDIOVASCULAR: Negative for chest pain, leg swelling, orthopnea, or palpitations GI: No nausea, vomiting, or diarrhea/constipation. No hematochezia/melena. No heartburn or reflux symptoms. : No history of dysuria, frequency or incontinence MUSCULOSKELETAL: Negative for joint pain or swelling. SKIN: Negative for lesions, rash, and itching ENDOCRINE: Negative for cold or heat intolerance, polyuria, polydipsia and goiter NEURO: No history of headaches, syncope, paralysis, seizures or tremors MOOD: Negative for depression, anxiety, or suicidal ideation. EXAM: BP 110/86 Pulse 84 Resp 16 Ht 188 cm (6' 2) Wt 91.4 kg (201 lb 8 oz) SpO2 98% BMI 25.87 kg/m? PHYSICAL EXAM: General Appearance: Well appearing, alert, in no acute distress, well-hydrated, well nourished. Skin: Skin color, texture, turgor normal, no suspicious rashes or lesions. Head: Normocephalic, no masses, lesions, tenderness or abnormalities. Eyes: Anicteric sclera. Pupils are equally round and reactive to (more content not included)... [facility] 07-24-2024 Telephone encounter Note Renee notified. Елена Evans MA [facility] 07-24-2024 Miscellaneous Notes Renee notified. Елена Evans MA TC to pt. LM to call office, ask for triage nurse to get results. Mane Lucas LPN Can you please call patient's Sister Renee back and let her know that I have placed the order for in lab sleep study. Orders will be faxed over to [facility]. They should be in touch with her to schedule. Rosana Rodney APRN.CNP Pts sister Renee called and is notified of providers results and instructions. She voices understanding. She would like provider to order sleep study, she said she doesn't know what will happen if she doesn't try. She would like it to be sent to [facility] to be done. Vivian Hogan, RN Can you please call the patient's guardian Renee and let her know that I reviewed octaviano's sleep study. The at home sleep study was inconclusive. They are recommending an in lab study for further evaluation. If she thinks the patient can tolerate this testing I can place the order. [facility] has a very nice facility. Please let me know what she prefers. Thank you. Rosana Rodney APRN.CNP documented in this encounter [facility] 07-23-2024 Telephone encounter Note TC to pt. LM to call office, ask for triage nurse to get results. Mane Lucas LPN [facility] 07-20-2024 Telephone encounter Note Can you please call patient's Sister Renee back and let her know that I have placed the order for in lab sleep study. Orders will be faxed over to [facility]. They should be in touch with her to schedule. Rosana Rodney APRN.CNP [facility] 07-19-2024 Telephone encounter Note Pts sister Renee called and is notified of providers results and instructions. She voices understanding. She would like provider to order sleep study, she said she doesn't know what will happen if she doesn't try. She would like it to be sent to [facility] to be done. Vivian Hogan, RN [facility] 07-19-2024 Telephone encounter Note Can you please call the patient's guardian Renee and let her know that I reviewed octaviano's sleep study. The at home sleep study was inconclusive. They are recommending an in lab study for further evaluation. If she thinks the patient can tolerate this testing I can place the order. [facility] has a very nice facility. Please let me know what she prefers. Thank you. Rosana Rodney APRN.TEXTILE 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 [facility] 07-13-2024 Note HNO ID: [id number] Author: ?, ?, ? Service: ? Author Type: ? Type: Progress Notes Filed: 07/13/2024 10:06 Note Text: Sleep Study Check-In Documentation Date: July 13, 2024 Name: Octaviano Quinn Comments: HST was returned in working order with all sleep questionnaires Janee Weldon [facility] 07-13-2024 History of Present illness Narrative Sleep Study Check-In Documentation Date: July 13, 2024 Name: Octaviano Quinn Comments: HST was returned in working order with all sleep questionnaires Janee Weldon [facility] # [id number] , date shipped out 07-10-24 [employer] only Tracking mailout: [id number] Tracking return: [id number] July 09, 2024 Standing PSG Orders signed in the last 90 days None Future PSG Orders signed in the last 90 days Ordered Auth. provider HOME SLEEP APNEA TEST (HSAT) [[id number]] 07/04/24 Rosana Rodney APRN.TEXTILE 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 Assoc. diagnoses: Snoring [R06.83], Daytime sleepiness [R40.0] Q: Indications: A: Obstructive sleep apnea Q: STOP-BANG conditions - Select All That Apply: A: GENDER = male A2: SNORING that is loud or disruptive A3: TIREDNESS, fatigue or sleepiness during the day Q: Current use of supplemental oxygen during sleep period?: A: No All Prior Sleep Studies (past 365 days) 07/06/2024 13:30 Sleep Studies POLYSOMNOGRAM (PSG) POLYSOMNOGRAM (PSG) Order Status: Canceled, Future Expires: 07/06/25 BMI Readings from Last 2 Encounters: 07/04/24 : 28.35 kg/m 04/08/24 : 27.60 kg/m PAST MEDICAL HISTORY Diagnosis Date Unspecified epilepsy without mention of intractable epilepsy (HCC) Unspecified intellectual disabilities The medical record was reviewed to determine if the proposed sleep study conforms to the AASM Practice Parameters for the Indications for Polysomnography and Related Procedures, or if the sleep study is indicated for other reasons. Indications for study: BLAKE suspected without comorbid medical or sleep disorders Sleep study to be performed: Home Sleep Apnea Test (HSAT) Special instructions: None-follow laboratory protocol Viviane Rm Sleep Medicine Staff Note: I have read the above protocol, edited as needed, and agree to the plan. Farrah Daigle III, PhD 2:16 PM, 07/09/2024 July 05, 2024 An order has been received for Home Sleep Apnea Test (HSAT) from Rosana Mahan APRN.TEXTILE 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 kurtis. [facility] Staff. Visit prep complete. Comments :No The sleep study is scheduled for 07-11-24. Insurance: Payor: MEDICAID [place] / Plan: [place] MEDICAID / Product Type: Medicaid / Payer/Plan Subscr Sex Relation Sub. Ins. ID Effective Group Num 1. MEDICAID [place] -* OCTAVIANO QUINN 1975 Male Self [id number] [birth year] [address] Stacey Naqvi documented in this encounter [facility] 07-10-2024 Note HNO ID: [id number] Author: ?, ?, ? Service: ? Author Type: ? Type: Progress Notes Filed: 07/13/2024 10:06 Note Text: Nomad # [id number] , date shipped out 07-10-24 [employer] only Tracking mailout: [id number] Tracking return: [id number] [facility] 07-09-2024 Note HNO ID: [id number] Author: FARRAH DAIGLE III, PhD Service: ? Author Type: Physician Type: Progress Notes Filed: 07/13/2024 10:06 Note Text: July 09, 2024 Standing PSG Orders signed in the last 90 days None Future PSG Orders signed in the last 90 days Ordered Auth. provider HOME SLEEP APNEA TEST (HSAT) [[id number]] 07/04/24 Rosana Rodney APRN.TEXTILE 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 Assoc. diagnoses: Snoring [R06.83], Daytime sleepiness [R40.0] Q: Indications: A: Obstructive sleep apnea Q: STOP-BANG conditions - Select All That Apply: A: GENDER = male A2: SNORING that is loud or disruptive A3: TIREDNESS, fatigue or sleepiness during the day Q: Current use of supplemental oxygen during sleep period?: A: No All Prior Sleep Studies (past 365 days) 07/06/2024 13:30 Sleep Studies POLYSOMNOGRAM (PSG) POLYSOMNOGRAM (PSG) Order Status: Canceled, Future Expires: 07/06/25 BMI Readings from Last 2 Encounters: 07/04/24 : 28.35 kg/m? 04/08/24 : 27.60 kg/m? PAST MEDICAL HISTORY Diagnosis Date Unspecified epilepsy without mention of intractable epilepsy (HCC) Unspecified intellectual disabilities The medical record was reviewed to determine if the proposed sleep study conforms to the AASM Practice Parameters for the Indications for Polysomnography and Related Procedures, or if the sleep study is indicated for other reasons. Indications for study: BLAKE suspected without comorbid medical or sleep disorders Sleep study to be performed: Home Sleep Apnea Test (HSAT) Special instructions: None-follow laboratory protocol Viviane [facility] Sleep [facility] Staff Note: I have read the above protocol, edited as needed, and agree to the plan. Farrah Daigle III, PhD 2:16 PM, 07/09/2024 [facility] 07-06-2024 Telephone encounter Note The following approved medication requests have been transmitted electronically. Requested Prescriptions Pending Prescriptions Disp Refills divalproex DR (DEPAKOTE) 500 mg EC tablet 60 tablet 11 Sig: Take 1 tablet by mouth two times a day. Mac Galvan APRN.CNP [facility] 07-06-2024 Miscellaneous Notes The following approved medication requests have been transmitted electronically. Requested Prescriptions Pending Prescriptions Disp Refills divalproex DR (DEPAKOTE) 500 mg EC tablet 60 tablet 11 Sig: Take 1 tablet by mouth two times a day. Mac Galvan APRN.CNP The patient has been identified by name and date of : Yes Caregiver verified no other encounters exist for this prescription request: Yes Caregiver confirmed with patient/requestor that no other refills are due, in the near future, with this provider at this time: Yes The last office visit in the department: 07/04/2024 Does the patient have a future office visit with this provider/department: Yes 08/16/2024 Requested Prescriptions Pending Prescriptions Disp Refills divalproex DR (DEPAKOTE) 500 mg EC tablet 60 tablet 11 Sig: Take 1 tablet by mouth two times a day. Maria Chino RN documented in this encounter [facility] 07-06-2024 Telephone encounter Note The patient has been identified by name and date of : Yes Caregiver verified no other encounters exist for this prescription request: Yes Caregiver confirmed with patient/requestor that no other refills are due, in the near future, with this provider at this time: Yes The last office visit in the department: 07/04/2024 Does the patient have a future office visit with this provider/department: Yes 08/16/2024 Requested Prescriptions Pending Prescriptions Disp Refills divalproex DR (DEPAKOTE) 500 mg EC tablet 60 tablet 11 Sig: Take 1 tablet by mouth two times a day. Maria Chino RN [facility] 07-06-2024 Telephone encounter Note Removed Mac Galvan APRN.CNP [facility] 07-06-2024 Miscellaneous Notes Removed Mac Galvan APRN.CNP Mac a Sleep Study was already ordered by Rosana, can you remove yours please. Can close encounter once removed. Mary Lou Cortez MA Vitamin D sent. Sleep study ordered. Mac Galvan APRN.CNP Call to Renee Stern. Notified her of results and recommendations below from Provider. Agreeable to start medication, requesting Rx to go to [place]. Agreeable to sleep study. Mary Lou Cortez MA Can you please call the patient's Sister Renee, please let her know that I reviewed Octaviano's lab results. Thyroid and B12 were normal. No signs of anemia. Carbamazepine and Depakote levels were normal. Vitamin D was low. This could be causing his fatigue. I would recommend starting a once weekly supplement. We can recheck labs in 3 months. I still would recommend that he complete the sleep study. If they are agreeable to start the vitamin D, please verify pharmacy. Prescription and lab order are pended. Rosana Rodney APRN.RADHIKA documented in this encounter [facility] 07-06-2024 Telephone encounter Note Mac hull Sleep Study was already ordered by Rosana, can you remove yours please. Can close encounter once removed. Mary Lou Cortez MA [facility] 07-06-2024 Telephone encounter Note Vitamin D sent. Sleep study ordered. Mac Galvan APRN.CNP [facility] 07-06-2024 Telephone encounter Note Call to Renee Stern. Notified her of results and recommendations below from Provider. Agreeable to start medication, requesting Rx to go to [place]. Agreeable to sleep study. Mary Lou Cortez MA [facility] 07-06-2024 Telephone encounter Note Can you please call the patient's Sister Renee, please let her know that I reviewed Octaviano's lab results. Thyroid and B12 were normal. No signs of anemia. Carbamazepine and Depakote levels were normal. Vitamin D was low. This could be causing his fatigue. I would recommend starting a once weekly supplement. We can recheck labs in 3 months. I still would recommend that he complete the sleep study. If they are agreeable to start the vitamin D, please verify pharmacy. Prescription and lab order are pended. Rosana Rodney APRN.RADHIKA [facility] 07-05-2024 Note HNO ID: [id number] Author: ?, ?, ? Service: ? Author Type: ? Type: Progress Notes Filed: 07/13/2024 10:06 Note Text: July 05, 2024 An order has been received for Home Sleep Apnea Test (HSAT) from Rosana Mahan APRN.kurtis GARRIDO [facility] Staff. Visit prep complete. Comments :No The sleep study is scheduled for 07-11-24. Insurance: Payor: [place]ICAID [place] / Plan: [place] MED[place] / Product Type: Medicaid / Payer/Plan Subscr Sex Relation Sub. Ins. ID Effective Group Num 1. [place]ICAID [place] -* OCTAVIANO QUINN [place] 1975 Male Self [id number] [birth year]16 [address] Stacey Naqvi [facility] 07-04-2024 Instructions Rosana oRdney APRN.CNP - 07/04/2024 9:46 AM EDT Get labs completed today Complete at home sleep study Keep scheduled appointments with Psychiatrist. Continue supportive care at home. Follow up as scheduled or sooner pending test results. documented in this encounter [facility] 07-04-2024 History of Present illness Narrative This is a 48 year old male who presents today with: Patient presents with: Acute Visit: Fatigue, irritable HISTORY OF PRESENT ILLNESS: Octaviano Quinn is a 48 year old male. Patient presents with: Acute Visit: Fatigue, irritable Sister here in the office with patient. Has intellectual disabilities, works at [employer]. Here in the office for fatigue and irritability. Psychiatry recommended a work up. Increased sleepiness. Wanting to nap after work and falling asleep during the day. Some snoring. Younger brother dx with Colon cancer at age 42. Was started on Ditropan XL 5 mg once daily for urinary urgency. Also referred to Urology, BASHIR Nieto. Epilepsy - Stable on current regimen of Depakote 500 mg 1 tab po bid and Tegretol 200 mg 2 tabs po bid. No longer following with Neurology, managed through Primary Care. Allergies - Season, stable with use of Zyrtec 10 mg once daily. Anxiety/OCD - Hx of anxiety, has previously used Prozac 10 mg and Zoloft, but no longer taking. Following with Dr. Cueto every 3 months Vaccines: Would like flu vaccine today. PAST MEDICAL HISTORY: PAST MEDICAL HISTORY Diagnosis Date Unspecified epilepsy without mention of intractable epilepsy (HCC) Unspecified intellectual disabilities PAST SURGICAL HISTORY Procedure Laterality Date CHOLECYSTECTOMY 2009? Cholecystectomy EGD TRANSORAL BIOPSY SINGLE/MULTIPLE 03/24/15 dysphagia, normal ALLERGIES Effexor [Venlafaxine Hcl], Paxil [Paroxetine Hcl], and Zyprexa [Olanzapine] MEDICATIONS Current Outpatient Medications Medication Sig carBAMazepine (EPITOL) 200 mg tablet Take 2 tablets by mouth two times a day. oxybutynin XL (DITROPAN XL) 5 mg 24 hr tablet Take 1 tablet by mouth daily at bedtime. benzonatate (TESSALON PERLE) 100 mg capsule Take 1 capsule by mouth three times a day as needed for cough. (Patient not taking: Reported on 02/14/2024) cetirizine (ZYRTEC) 10 mg tablet Take 1 tablet by mouth once daily. albuterol HFA (PROVENTIL HFA, VENTOLIN HFA) 90 mcg/actuation inhaler Inhale 2 Puffs as instructed every 4 hours as needed for wheezing/shortness of breath. (Patient not taking: Reported on 02/14/2024) clomiPRAMINE (ANAFRANIL) 25 mg capsule Take 1 capsule by mouth once daily. divalproex DR (DEPAKOTE) 500 mg EC tablet Take 1 tablet by mouth two times a day. sertraline (ZOLOFT) 25 mg tablet once daily. (Patient not taking: Reported on 02/14/2024) hydrocortisone (ALA-EFREN) 1 % cream Apply 1 application to affected area twice daily. ketoconazole (NIZORAL) 2 % shampoo Lather into hair, leave 5 minutes, then rinse out. Use on face, ears, chest, and back as body wash. Repeat 3 times per week or as directed. No current facility-administered medications for this visit. FAMILY HISTORY Problem Relation Age of Onset Colon Cancer Brother 42 Cancer Maternal Grandmother Coronary Artery Disease Maternal Grandfather Cancer Paternal Grandfather Melanoma to Lung Social History Tobacco Use Smoking status: Never Smokeless tobacco: Never Vaping Use Vaping status: Never Used Substance Use Topics Alcohol use: No Drug use: No REVIEW OF SYSTEMS GENERAL: + Fatigue, snoring HEENT: Negative for frequent or significant headaches, No changes in hearing or vision. NECK: Negative for lumps, goiter, pain and significant neck swelling RESPIRATORY: Negative for cough, hemoptysis, wheezing, dyspnea or shortness of breath CARDIOVASCULAR: Negative for chest pain, leg swelling, orthopnea, or palpitations GI: No nausea, vomiting, or diarrhea/constipation. No hematochezia/melena. No heartburn or reflux symptoms. : No history of dysuria, frequency or incontinence MUSCULOSKELETAL: Negative for joint pain or swelling. SKIN: Negative for lesions, rash, and itching ENDOCRINE: Negative for cold or heat intolerance, polyuria, polydipsia and goiter NEURO: No history of headaches, syncope, paralysis, seizures or tremors MOOD: + Irritable EXAM: BP 120/88 Pulse 92 Resp 16 Wt 94.8 kg (209 lb) SpO2 99% BMI 28.35 kg/m PHYSICAL EXAM: General Appearance: Well appearing, alert, in no acute distress, well-hydrated, well nourished. Skin: Skin color, texture, turgor normal, no suspicious rashes or lesions. Head: Normocephalic, no masses, lesions, tenderness or abnormalities. Eyes: Anicteric sclera. Extraocular movements are intact. Neck: Supple, no adenopathy; thyroid symmetric, normal size, no bruits. Lungs: Lungs clear to auscultation. No wheezing, rhonchi, rales. Heart: RRR without murmur, gallop, or rubs. No ectopy. Extremities: No deformities, edema, skin discoloration, clubbing or cyanosis. Good capillary refill. Peripheral Pulses: Normal, Capillary refill <2secs, strong peripheral pulses, Pulses palpable. Neurologic: Gait normal. Sensation grossly intact.. Mood: Pleasant, engaged, good eye contact. ASSESSMENT/PLAN: 1. Fatigue, unspecified type - ICD9: 780.79, ICD10: R53.83 (primary diagnosis) - Get labs completed - COMPLETE BLOOD COUNT AND DIFFERENTIAL - COMPREHENSIVE METABOLIC PANEL - THYROID STIMULATING HORMONE - T4 FREE/FREE THYROXINE - VITAMIN B12 - VITAMIN D 25 HYDROXY 2. Snoring - ICD9: 786.09, ICD10: R06.83 - Complete sleep study - HOME SLEEP APNEA TEST (HSAT) 3. Daytime sleepiness - ICD9: 780.54, ICD10: R40.0 - Same plan as #2. 4. Nonintractable epilepsy without status epilepticus, unspecified epilepsy type (HCC) - ICD9: 345.90, ICD10: G40.909 - Continue to take current medication. - CARBAMAZEPINE/TEGRETOL - VALPROIC ACID / DEPAKENE 5. Seasonal allergies - ICD9: 477.9, ICD10: J30.2 - Continue to take current medication. 6. Urinary frequency - ICD9: 788.41, ICD10: R35.0 - Stable, continue to take current medication. 7. CAROL (generalized anxiety disorder) - ICD9: 300.02, ICD10: F41.1 - Stable, continue to take current medication. - Keep scheduled appointments with psychiatry. 8. Intellectual disability - ICD9: 319, ICD10: F79 - Stable 9. Encounter for immunization - ICD9: V03.89, ICD10: Z23 - VIS provided - INFLUENZA VACCINE, AGE 6MO-64YR, TRIVALENT (AFLURIA, FLULAVAL, FLUVIRIN, FLUZONE) 10. Screening for depression - ICD9: V79.0, ICD10: Z13.31 - DEPRESSION SCREENING Follow up as scheduled or sooner pending test results. Discussed treatment plan and patient voices understanding. Patient's questions answered appropriately. Medications and potential side effects were discussed and patient voices understanding. Rosana Rodney APRN.CNP This note was partially generated using wutabout voice recognition system. Note was reviewed for accuracy. There may be minor misspellings or grammar miscues with [employer]utabout voice recognition. documented in this encounter [facility] 07-04-2024 Note HNO ID: [id number] Author: ROSANA RODNEY APRN.CNP Service: ? Author Type: Nurse Practitioner Type: Progress Notes Filed: 07/04/2024 15:36 Note Text: This is a 48 year old male who presents today with: Patient presents with: Acute Visit: Fatigue, irritable HISTORY OF PRESENT ILLNESS: Octaviano Quinn is a 48 year old male. Patient presents with: Acute Visit: Fatigue, irritable Sister here in the office with patient. Has intellectual disabilities, works at [employer]. Here in the office for fatigue and irritability. Psychiatry recommended a work up. Increased sleepiness. Wanting to nap after work and falling asleep during the day. Some snoring. Younger brother dx with Colon cancer at age 42. Was started on Ditropan XL 5 mg once daily for urinary urgency. Also referred to Urology, BASHIR Nieto. Epilepsy - Stable on current regimen of Depakote 500 mg 1 tab po bid and Tegretol 200 mg 2 tabs po bid. No longer following with Neurology, managed through Primary Care. Allergies - Season, stable with use of Zyrtec 10 mg once daily. Anxiety/OCD - Hx of anxiety, has previously used Prozac 10 mg and Zoloft, but no longer taking. Following with Dr. Cueto every 3 months Vaccines: Would like flu vaccine today. PAST MEDICAL HISTORY: PAST MEDICAL HISTORY Diagnosis Date Unspecified epilepsy without mention of intractable epilepsy (HCC) Unspecified intellectual disabilities PAST SURGICAL HISTORY Procedure Laterality Date CHOLECYSTECTOMY 2009? Cholecystectomy EGD TRANSORAL BIOPSY SINGLE/MULTIPLE 03/24/15 dysphagia, normal ALLERGIES Effexor [Venlafaxine Hcl], Paxil [Paroxetine Hcl], and Zyprexa [Olanzapine] MEDICATIONS Current Outpatient Medications Medication Sig carBAMazepine (EPITOL) 200 mg tablet Take 2 tablets by mouth two times a day. oxybutynin XL (DITROPAN XL) 5 mg 24 hr tablet Take 1 tablet by mouth daily at bedtime. benzonatate (TESSALON PERLE) 100 mg capsule Take 1 capsule by mouth three times a day as needed for cough. (Patient not taking: Reported on 02/14/2024) cetirizine (ZYRTEC) 10 mg tablet Take 1 tablet by mouth once daily. albuterol HFA (PROVENTIL HFA, VENTOLIN HFA) 90 mcg/actuation inhaler Inhale 2 Puffs as instructed every 4 hours as needed for wheezing/shortness of breath. (Patient not taking: Reported on 02/14/2024) clomiPRAMINE (ANAFRANIL) 25 mg capsule Take 1 capsule by mouth once daily. divalproex DR (DEPAKOTE) 500 mg EC tablet Take 1 tablet by mouth two times a day. sertraline (ZOLOFT) 25 mg tablet once daily. (Patient not taking: Reported on 02/14/2024) hydrocortisone (ALA-EFREN) 1 % cream Apply 1 application to affected area twice daily. ketoconazole (NIZORAL) 2 % shampoo Lather into hair, leave 5 minutes, then rinse out. Use on face, ears, chest, and back as body wash. Repeat 3 times per week or as directed. No current facility-administered medications for this visit. FAMILY HISTORY Problem Relation Age of Onset Colon Cancer Brother 42 Cancer Maternal Grandmother Coronary Artery Disease Maternal Grandfather Cancer Paternal Grandfather Melanoma to Lung Social History Tobacco Use Smoking status: Never Smokeless tobacco: Never Vaping Use Vaping status: Never Used Substance Use Topics Alcohol use: No Drug use: No REVIEW OF SYSTEMS GENERAL: + Fatigue, snoring HEENT: Negative for frequent or significant headaches, No changes in hearing or vision. NECK: Negative for lumps, goiter, pain and significant neck swelling RESPIRATORY: Negative for cough, hemoptysis, wheezing, dyspnea or shortness of breath CARDIOVASCULAR: Negative for chest pain, leg swelling, orthopnea, or palpitations GI: No nausea, vomiting, or diarrhea/constipation. No hematochezia/melena. No heartburn or reflux symptoms. : No history of dysuria, frequency or incontinence MUSCULOSKELETAL: Negative for joint pain or swelling. SKIN: Negative for lesions, rash, and itching ENDOCRINE: Negative for cold or heat intolerance, polyuria, polydipsia and goiter NEURO: No history of headaches, syncope, paralysis, seizures or tremors MOOD: + Irritable EXAM: BP 120/88 Pulse 92 Resp 16 Wt 94.8 kg (209 lb) SpO2 99% BMI 28.35 kg/m? PHYSICAL EXAM: General Appearance: Well appearing, alert, in no acute distress, well-hydrated, well nourished. Skin: Skin color, texture, turgor normal, no suspicious rashes or lesions. Head: Normocephalic, no masses, lesions, tenderness or abnormalities. Eyes: Anicteric sclera. Extraocular movements are intact. Neck: Supple, no adenopathy; thyroid symmetric, normal size, no bruits. Lungs: Lungs clear to auscultation. No wheezing, rhonchi, rales. Heart: RRR without murmur, gallop, or rubs. No ectopy. Extremities: No deformities, edema, skin discoloration, clubbing or cyanosis. Good capillary refill. Peripheral Pulses: Normal, Capillary refill <2secs, strong peripheral pulses, Pulses palpabl (more content not included)... [facility] 06-06-2024 Telephone encounter Note Prescription Refill Information The patient has been identified by name and date of : Yes Caregiver verified no other encounters exist for this prescription request: Yes Caregiver confirmed with patient/requestor that no other refills are due, in the near future, with this provider at this time: Yes The last office visit in the department: 12/15/23 Does the patient have a future office visit with this provider/department: Yes Requested Prescriptions Pending Prescriptions Disp Refills carBAMazepine (EPITOL) 200 mg tablet 120 tablet 11 Sig: Take 2 tablets by mouth two times a day. Diane Campbell LPN June 06, 2024 3:43 PM [facility] 06-06-2024 Miscellaneous Notes Prescription Refill Information The patient has been identified by name and date of : Yes Caregiver verified no other encounters exist for this prescription request: Yes Caregiver confirmed with patient/requestor that no other refills are due, in the near future, with this provider at this time: Yes The last office visit in the department: 12/15/23 Does the patient have a future office visit with this provider/department: Yes Requested Prescriptions Pending Prescriptions Disp Refills carBAMazepine (EPITOL) 200 mg tablet 120 tablet 11 Sig: Take 2 tablets by mouth two times a day. Diane Campbell LPN June 06, 2024 3:43 PM documented in this encounter [facility] 04-08-2024 History of Present illness Narrative This note was created using [employer]. Subjective Octaviano Quinn is a 48 year old male. HPI 48-year-old male presents for sinus congestion, fatigue x 1 week. Patient presents with his sister who is his legal guardian. Sister states that patient has had nasal congestion for about 7 or 8 days. She states that he has been fatigued as well. She states that they were recently at the beach. Patient's nephew was recently sick with similar symptoms, but not as severe. Sister states that patient has had some nosebleeds and has dried blood in his nose due to so much congestion. She states that his nose is sore and he does not want to blow it. Patient has not been complaining of sore throat. No cough. No fevers. No other complaint. PAST MEDICAL HISTORY Diagnosis Date Unspecified epilepsy without mention of intractable epilepsy (HCC) Unspecified intellectual disabilities PAST SURGICAL HISTORY Procedure Laterality Date CHOLECYSTECTOMY 2009? Cholecystectomy EGD TRANSORAL BIOPSY SINGLE/MULTIPLE 03/24/15 dysphagia, normal ALLERGIES Effexor [Venlafaxine Hcl], Paxil [Paroxetine Hcl], and Zyprexa [Olanzapine] MEDICATIONS oxybutynin XL (DITROPAN XL) 5 mg 24 hr tablet Take 1 tablet by mouth daily at bedtime. cetirizine (ZYRTEC) 10 mg tablet Take 1 tablet by mouth once daily. clomiPRAMINE (ANAFRANIL) 25 mg capsule Take 1 capsule by mouth once daily. divalproex DR (DEPAKOTE) 500 mg EC tablet Take 1 tablet by mouth two times a day. carBAMazepine (EPITOL) 200 mg tablet Take 2 tablets by mouth two times a day. hydrocortisone (ALA-EFREN) 1 % cream Apply 1 application to affected area twice daily. ketoconazole (NIZORAL) 2 % shampoo Lather into hair, leave 5 minutes, then rinse out. Use on face, ears, chest, and back as body wash. Repeat 3 times per week or as directed. amoxicillin-clavulanate potassium (AUGMENTIN) 875-125 mg per tablet Take 1 tablet by mouth two times a day for 7 days. benzonatate (TESSALON PERLE) 100 mg capsule Take 1 capsule by mouth three times a day as needed for cough. (Patient not taking: Reported on 02/14/2024) albuterol HFA (PROVENTIL HFA, VENTOLIN HFA) 90 mcg/actuation inhaler Inhale 2 Puffs as instructed every 4 hours as needed for wheezing/shortness of breath. (Patient not taking: Reported on 02/14/2024) sertraline (ZOLOFT) 25 mg tablet once daily. (Patient not taking: Reported on 02/14/2024) FAMILY HISTORY Problem Relation Age of Onset Colon Cancer Brother 42 Cancer Maternal Grandmother Coronary Artery Disease Maternal Grandfather Cancer Paternal Grandfather Melanoma to Lung Social History Tobacco Use Smoking status: Never Smokeless tobacco: Never Vaping Use Vaping Use: Never used Substance Use Topics Alcohol use: No Drug use: No Review of Systems Constitutional: Positive for fatigue. Negative for chills and fever. HENT: Positive for congestion and nosebleeds. Negative for sore throat. Respiratory: Negative for cough and shortness of breath. Gastrointestinal: Negative for diarrhea and vomiting. Objective BP 128/82 Pulse 86 Temp 36.3 C (97.3 F) Resp 18 Wt 92.3 kg (203 lb 7.8 oz) SpO2 100% BMI 27.60 kg/m Physical Exam Vitals and nursing note reviewed. Constitutional: General: He is not in acute distress. Appearance: Normal appearance. He is not toxic-appearing. HENT: Right Ear: Tympanic membrane and ear canal normal. Left Ear: Tympanic membrane and ear canal normal. Nose: Mucosal edema and congestion present. Comments: Yellow/green nasal congestion with dried blood noted in bilateral nares. No active bleeding. No rash. Mouth/Throat: Mouth: Mucous membranes are moist. Eyes: Conjunctiva/sclera: Conjunctivae normal. Cardiovascular: Rate and Rhythm: Normal rate and regular rhythm. Pulmonary: Effort: Pulmonary effort is normal. Breath sounds: Normal breath sounds. No wheezing, rhonchi or rales. Skin: General: Skin is warm and dry. Neurological: Mental Status: He is alert. Assessment and Plan ASSESSMENT/PLAN: 1. Bacterial sinusitis - ICD9: 473.9, 041.9, ICD10: J32.9, B96.89 - Will begin treatment with Augmentin 875 mg PO BID for 7 days - Supportive care with plenty of fluids, rest, and analgesia prn. -Sister declines viral swab. -Recommend Aquaphor or Vaseline in the nares to help with the dryness. May also use some nasal saline mist. Diagnosis and treatment plan were discussed and questions were answered to the patient's satisfaction. Pt acknowledged understanding of concepts and follow up plan. Specific signs and symptoms that would indicate the need for higher level of care were discussed in detail warranting prompt ER evaluation. BASHIR Alvares documented in this encounter [facility] 02-14-2024 Instructions Froylan Erwin PA-C - 02/14/2024 10:02 AM EDT > 1 year Appt w/ B. SARA Erwin, ELLEN VARGAS for annual follow-up and refills. > Ditropan 5 mg refill for 1 year and sent to [place] documented in this encounter [facility] 02-14-2024 History of Present illness Narrative Images from the original note were not included. [facility] NEW PATIENT CLINIC NOTE SERVICE DATE: February 14, 2024 NAME: Octaviano Quinn CHIEF COMPLAINT: Urinary Urgency Annual Follow-up HISTORY OF PRESENT ILLNESS: Octaviano Quinn is a 48 year old male with Intellectual Disability and following up for Urinary Urgency Annual Follow-up The patient reports still doing very well on Ditropan 5 mg at bedtime. Refill given And unable to give urine sample today LUTS: Urgency on occasion but much improved with Ditropan 5mg LABS: No results found for: PSA No results found for: TESTOST Hematocrit (%) Date Value 08/16/2023 49.1 08/16/2022 46.7 08/14/2021 48.2 07/09/2020 46.6 07/04/2019 48.0 No results found for: PSA Creatinine Date Value Ref Range Status 08/16/2023 0.73 0.73 - 1.22 mg/dL Final 08/16/2022 0.88 0.73 - 1.22 mg/dL Final 08/14/2021 0.80 0.73 - 1.22 mg/dL Final MEDICATIONS: cetirizine (ZYRTEC) 10 mg tablet Take 1 tablet by mouth once daily. clomiPRAMINE (ANAFRANIL) 25 mg capsule Take 1 capsule by mouth once daily. divalproex DR (DEPAKOTE) 500 mg EC tablet Take 1 tablet by mouth two times a day. carBAMazepine (EPITOL) 200 mg tablet Take 2 tablets by mouth two times a day. hydrocortisone (ALA-EFREN) 1 % cream Apply 1 application to affected area twice daily. ketoconazole (NIZORAL) 2 % shampoo Lather into hair, leave 5 minutes, then rinse out. Use on face, ears, chest, and back as body wash. Repeat 3 times per week or as directed. oxybutynin XL (DITROPAN XL) 5 mg 24 hr tablet Take 1 tablet by mouth daily at bedtime. benzonatate (TESSALON PERLE) 100 mg capsule Take 1 capsule by mouth three times a day as needed for cough. (Patient not taking: Reported on 02/14/2024) albuterol HFA (PROVENTIL HFA, VENTOLIN HFA) 90 mcg/actuation inhaler Inhale 2 Puffs as instructed every 4 hours as needed for wheezing/shortness of breath. (Patient not taking: Reported on 02/14/2024) sertraline (ZOLOFT) 25 mg tablet once daily. (Patient not taking: Reported on 02/14/2024) PAST MEDICAL HISTORY: PAST MEDICAL HISTORY Diagnosis Date Unspecified epilepsy without mention of intractable epilepsy (HCC) Unspecified intellectual disabilities REVIEW OF SYSTEMS: GENERAL: No fever, chills, weight loss, or fatigue. Intellectual Disability PHYSICAL EXAMINATION: Pulse 88, height 182.9 cm (6'), weight 92.1 kg (203 lb), SpO2 100%. GENERAL: WNL nutrition, no deformities, healthy appearing PROBLEM LIST REVIEW: Yes LABS: ASSESSMENT/PLAN: 1. Urinary urgency - ICD9: 788.63, ICD10: R39.15 (primary diagnosis) > OXYBUTYNIN CHLORIDE ER 5 MG TABLET,EXTENDED RELEASE 24 HR 2. Urinary frequency - ICD9: 788.41, ICD10: R35.0 > Chronic Conditions: Stable, and Well Controlled and monitored with labs and follow-up visits > Medication: Renewed > 1 year Appt w/ B. SARA Erwin MT, PA-C for annual follow-up and refills. SARA Alatorre MT, PA-C documented in this encounter [facility] 01-24-2024 Telephone encounter Note Images from the original note were not included. Mark Chaudhary LPN to Octaviano Quinn RP 12/22/23 11:43 AM Brooklynn Joaquin, Your pharmacy has requested a refill of your oxybutynin. We are unable to process this request because your last appointment with Froylan Erwin was on 01/04/2023. You need to be seen by Froylan at least once per year for him to manage your medications. Please contact our schedulers at [phone] to make an appointment so refills can be issued. Cecil Stone LPN [facility] 01-24-2024 Miscellaneous Notes Images from the original note were not included. Mark Chaudhary LPN to Octaviano Quinn 12/22/23 11:43 AM Brooklynn Joqauin, Your pharmacy has requested a refill of your oxybutynin. We are unable to process this request because your last appointment with Froylan Erwin was on 01/04/2023. You need to be seen by Froylan at least once per year for him to manage your medications. Please contact our schedulers at [phone] to make an appointment so refills can be issued. Cecil Stone LPN [facility] 01/04/23 Patient phones requesting refills as follows: Requested Prescriptions Pending Prescriptions Disp Refills oxybutynin XL (DITROPAN XL) 5 mg 24 hr tablet [Pharmacy Med Name: Oxybutynin Chloride ER 5MG TB24] 28 tablet 0 Sig: take 1 tablet by mouth at bedtime Please review and advise. Hema May RN documented in this encounter [facility] 01-20-2024 Telephone encounter Note [facility] 01/04/23 Patient phones requesting refills as follows: Requested Prescriptions Pending Prescriptions Disp Refills oxybutynin XL (DITROPAN XL) 5 mg 24 hr tablet [Pharmacy Med Name: Oxybutynin Chloride ER 5MG TB24] 28 tablet 0 Sig: take 1 tablet by mouth at bedtime Please review and advise. Hema May RN [facility] 12-15-2023 History of Present illness Narrative Chief Complaint Patient presents with: Cough HPI Octaviano Quinn is a 48 year old male who presents here today for a same day visit. Pt here today with sister, Renee for increased coughing. Pt seen in on 12/12/23 for cough and clear drainage for 1 week. Renee states he's has an intermittent cough since he had pneumonia in September. Pt hx of pneumonia, with previous episode not always presenting with fever or fatigue. Has inhaler at home that he's been using prn with no real improvement. Chest XR completed at EC visit (see results below). Pt was treated with Doxycycline 100 mg 1 tab po bid for 10 days. Renee states that coughing has not improved since visit and may slightly becoming worse. Called in asking for a possible steroid, but was advised to come in and be seen. EC was not wanting to put him on one due to possible interaction with seizure medication. Pt denies feeling bad, but getting stir crazy at home, has been home for two weeks. 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 XR Results: IMPRESSION: Lung volumes mildly diminished. Mild bibasilar opacities, atelectasis and/or pneumonia in the appropriate clinical setting. Past medical history, appointments, medications, allergies reviewed. Previous Medical History PAST MEDICAL HISTORY Diagnosis Date Unspecified epilepsy without mention of intractable epilepsy (HCC) Unspecified intellectual disabilities Previous Surgical History PAST SURGICAL HISTORY Procedure Laterality Date CHOLECYSTECTOMY 2009? Cholecystectomy EGD TRANSORAL BIOPSY SINGLE/MULTIPLE 03/24/15 dysphagia, normal Family History FAMILY HISTORY Problem Relation Age of Onset Colon Cancer Brother 42 Cancer Maternal Grandmother Coronary Artery Disease Maternal Grandfather Cancer Paternal Grandfather Melanoma to Lung Patient Allergies ALLERGIES Allergen Reactions Effexor [Venlafaxin* Intolerance aggressive behavior Paxil [Paroxetine H* Intolerance Weight gain Zyprexa [Olanzapine] Intolerance sedation Current Medications Current Outpatient Medications on File Prior to Visit Medication Sig doxycycline monohydrate (MONODOX) 100 mg capsule Take 1 capsule by mouth two times a day for 5 days. oxybutynin XL (DITROPAN XL) 5 mg 24 hr tablet take 1 tablet by mouth at bedtime cetirizine (ZYRTEC) 10 mg tablet Take 1 tablet by mouth once daily. albuterol HFA (PROVENTIL HFA, VENTOLIN HFA) 90 mcg/actuation inhaler Inhale 2 Puffs as instructed every 4 hours as needed for wheezing/shortness of breath. clomiPRAMINE (ANAFRANIL) 25 mg capsule Take 1 capsule by mouth once daily. divalproex DR (DEPAKOTE) 500 mg EC tablet Take 1 tablet by mouth two times a day. carBAMazepine (EPITOL) 200 mg tablet Take 2 tablets by mouth two times a day. sertraline (ZOLOFT) 25 mg tablet once daily. hydrocortisone (ALA-EFREN) 1 % cream Apply 1 application to affected area twice daily. ketoconazole (NIZORAL) 2 % shampoo Lather into hair, leave 5 minutes, then rinse out. Use on face, ears, chest, and back as body wash. Repeat 3 times per week or as directed. No current facility-administered medications on file prior to visit. Social History Social History Tobacco Use Smoking status: Never Smokeless tobacco: Never Vaping Use Vaping Use: Never used Substance Use Topics Alcohol use: No Drug use: No EXAM: BP 118/80 Pulse 89 Temp 36.1 C (97 F) Ht 182.9 cm (6') Wt 91.6 kg (202 lb) SpO2 98% BMI 27.40 kg/m General Appearance: Well appearing, alert, in no acute distress, well-hydrated, well nourished.. Lungs: Lungs clear to auscultation. No wheezing, rhonchi, rales.. Heart: RRR without murmur, gallop, or rubs. No ectopy. Health Maintenance List Hepatitis C Screening Never done HIV Screening Never done Hepatitis B Vaccine(1 of 3 - 19+ 3-dose series) Never done Behavioral Health Screening Never done Covid-19 Vaccine( - 2022- season) due on 08/16/2024 DTaP,Tdap,Td Vaccine(2 - Td or Tdap) due on 07/25/2024 Colorectal Cancer Screening due on 08/27/2025 Diabetes Screening due on 08/16/2026 Lipid Screening due on 08/16/2028 Influenza Vaccine Completed HPV Vaccine Aged Out Data reviewed Epic ASSESSMENT/PLAN: 1. Acute cough - ICD9: 786.2, ICD10: R05.1 (primary diagnosis) - Cont abx - clear on exam today. - Rx for Tessalon Nichole - 9 day taper course of Prednisone 2. Hx of viral pneumonia - ICD9: V12.61, ICD10: Z87.01 - As noted above Follow up as needed. I agree with the Chief Complaint, ROS, and Past Histories independently gathered by the clinical presidential support specialist and the remaining scribed note accurately describes my personal service to the patient. Medical Decision Making: Problems: Low: Acute, uncomplicated illness or injury Data: Unique test result(s) reviewed: 1 Risk: Moderate: Drug management Medical Decision Making Level: 3 - Low Becca Draper MD The documentation for this note was completed by Mary Lou Cortez MA acting as scribe for Becca Draper MD. December 15, 2023 10:24 AM. Mary Lou Cortez MA documented in this encounter [facility] 12-12-2023 History of Present illness Narrative Radiology Service Progress Note PATIENT NAME: Octaviano Quinn DATE OF SERVICE: December 12, 2023 TIME: 10:48 AM PATIENT IDENTITY VERIFICATION COMPLETED USING TWO (2) IDENTIFIERS: Name and Date of confirmed by patient verbally. FALL SCREENING: Has the patient had 2 falls in the last year or 1 fall with injury or currently using an Ambulatory Assistive Device (Walker, Cane, Wheelchair, Crutches, etc.)? No PATIENT GENDER DATA: Male PATIENT RELEVANT IMPLANT DATA REVIEWED: Yes PATIENT PRESENTS WITH AN IMPLANTABLE OR ATTACHED FLOOR FRAMER: No RADIOLOGY DEPARTMENT: General X-ray: Exam(s) Completed: Chest X-Ray PERIPHERAL IV DATA: Not applicable SIGNED BY: RT Colten(R) December 12, 2023 10:48 AM documented in this encounter [facility] 12-12-2023 History of Present illness Narrative This note was created using [employer]. Subjective Octaviano Quinn is a 48 year old male. HPI Cough and clear drainage for about one week. Pt has had pneumonia in the past. She states that with previous episodes he does not always present with fever and fatigue. Pt has been using his inhaler with no improvement. His caregiver notes that he is his caregiver notes Review of Systems Constitutional: Negative. HENT: Negative. Respiratory: Positive for cough and shortness of breath. Neurological: Negative. Objective BP 114/74 Pulse 94 Temp 36.2 C (97.2 F) Resp 21 Wt 89.7 kg (197 lb 12 oz) SpO2 98% BMI 26.82 kg/m Physical Exam Vitals and nursing note reviewed. Constitutional: General: He is not in acute distress. Appearance: Normal appearance. He is not ill-appearing. HENT: Head: Normocephalic. Mouth/Throat: Mouth: Mucous membranes are moist. Eyes: Conjunctiva/sclera: Conjunctivae normal. Cardiovascular: Rate and Rhythm: Normal rate and regular rhythm. Pulmonary: Effort: Pulmonary effort is normal. Breath sounds: Normal breath sounds. Musculoskeletal: General: Normal range of motion. Cervical back: Normal range of motion. Skin: General: Skin is warm and dry. Neurological: General: No focal deficit present. Mental Status: He is alert. Mental status is at baseline. Psychiatric: Mood and Affect: Mood normal. Behavior: Behavior normal. Assessment and Plan ASSESSMENT/PLAN: 1. Chronic cough - ICD9: 786.2, ICD10: R05.3 (primary diagnosis) As below - XR CHEST 2V FRONTAL/LAT 2. Bacterial pneumonia - ICD9: 482.9, ICD10: J15.9 X-ray of the chest was somewhat nonspecific showing potential pneumonia in the right clinical setting. I reviewed these findings with patient's caregiver and after discussion she prefers a prescription for antibiotics. She denies needing any other prescriptions. Patient otherwise was nontoxic and will follow-up as needed. - DOXYCYCLINE MONOHYDRATE 100 MG CAPSULE Avtar Brooks APRN.RADHIKA documented in this encounter [facility] 11-04-2023 History of Present illness Narrative This note was created using [employer]. Subjective Octaviano Quinn is a 48 year old male. HPI 48-year-old male presents with his guardian and caregiver for left eye redness. Caregiver states that yesterday patient started getting left eye redness and it was draining some clear fluid. He has not been saying there is any pain in it. No vision changes. He does wear glasses. He does not recall getting anything in it. Caregiver states that the workshop called stating that it started then. He was shucking clams when it happened. She states that he was wearing his glasses at the time. Patient states it is a little bit itchy. He has not been sick recently. No cough, congestion. No other complaint. PAST MEDICAL HISTORY Diagnosis Date Unspecified epilepsy without mention of intractable epilepsy Unspecified intellectual disabilities PAST SURGICAL HISTORY Procedure Laterality Date CHOLECYSTECTOMY 2009? Cholecystectomy EGD TRANSORAL BIOPSY SINGLE/MULTIPLE 03/24/15 dysphagia, normal ALLERGIES Effexor [Venlafaxine Hcl], Paxil [Paroxetine Hcl], and Zyprexa [Olanzapine] MEDICATIONS cetirizine (ZYRTEC) 10 mg tablet Take 1 tablet by mouth once daily. albuterol HFA (PROVENTIL HFA, VENTOLIN HFA) 90 mcg/actuation inhaler Inhale 2 Puffs as instructed every 4 hours as needed for wheezing/shortness of breath. clomiPRAMINE (ANAFRANIL) 25 mg capsule Take 1 capsule by mouth once daily. divalproex DR (DEPAKOTE) 500 mg EC tablet Take 1 tablet by mouth two times a day. carBAMazepine (EPITOL) 200 mg tablet Take 2 tablets by mouth two times a day. oxybutynin XL (DITROPAN XL) 5 mg 24 hr tablet Take 1 tablet by mouth once daily. sertraline (ZOLOFT) 25 mg tablet once daily. hydrocortisone (ALA-EFREN) 1 % cream Apply 1 application to affected area twice daily. ketoconazole (NIZORAL) 2 % shampoo Lather into hair, leave 5 minutes, then rinse out. Use on face, ears, chest, and back as body wash. Repeat 3 times per week or as directed. trimethoprim-polymyxin (POLYTRIM) 10,000 unit- 1 mg/mL ophthalmic solution Use 1 Drop in the left eye four times daily for 7 days. FAMILY HISTORY Problem Relation Age of Onset Colon Cancer Brother 42 Cancer Maternal Grandmother Coronary Artery Disease Maternal Grandfather Cancer Paternal Grandfather Melanoma to Lung Social History Tobacco Use Smoking status: Never Smokeless tobacco: Never Vaping Use Vaping Use: Never used Substance Use Topics Alcohol use: No Drug use: No Review of Systems Constitutional: Negative for chills and fever. HENT: Negative for congestion and sore throat. Eyes: Positive for discharge, redness and itching. Negative for photophobia, pain and visual disturbance. Respiratory: Negative for cough and shortness of breath. Gastrointestinal: Negative for diarrhea and vomiting. Objective BP 128/86 Pulse 96 Temp 36.1 C (96.9 F) (Right Tympanic) Resp 16 Wt 90.7 kg (200 lb) SpO2 97% BMI 27.12 kg/m Physical Exam Vitals and nursing note reviewed. Constitutional: General: He is not in acute distress. Appearance: Normal appearance. He is not toxic-appearing. HENT: Nose: Nose normal. Mouth/Throat: Mouth: Mucous membranes are moist. Eyes: General: Vision grossly intact. Left eye: Discharge (Clear/tearing with some mucus-like discharge) present. Extraocular Movements: Extraocular movements intact. Conjunctiva/sclera: Left eye: Left conjunctiva is injected. Comments: Left conjunctive injected. He does have some stringy mucus-like discharge on the eye. He also has some tearing. No foreign body seen. PERRLA. EOMI. Vision grossly intact. No tenderness on palpation around the eye or of the globe. No periorbital edema. No pain with eye movement. Cardiovascular: Rate and Rhythm: Normal rate and regular rhythm. Pulmonary: Effort: Pulmonary effort is normal. Breath sounds: Normal breath sounds. Skin: General: Skin is warm and dry. Neurological: Mental Status: He is alert. Assessment and Plan ASSESSMENT/PLAN: 1. Acute conjunctivitis of left eye, unspecified acute conjunctivitis type - ICD9: 372.00, ICD10: H10.32 - see medication orders-Polytrim - course and contagiousness issues discussed, including hand washing. - Instructed to call if high fever, development of periorbital redness or swelling, eye pain, visual changes, concerns or if symptoms persist. -Advised caregiver if patient starts complaining of any pain in the eye, go to ER. Diagnosis and treatment plan were discussed and questions were answered to the patient's satisfaction. Pt acknowledged understanding of concepts and follow up plan. Specific signs and symptoms that would indicate the need for higher level of care were discussed in detail warranting prompt ER evaluation. BASHIR Alvares documented in this encounter [facility] 11-02-2023 Miscellaneous Notes The following approved medication requests have been transmitted electronically. Requested Prescriptions Pending Prescriptions Disp Refills cetirizine (ZYRTEC) 10 mg tablet 30 tablet 11 Sig: Take 1 tablet by mouth once daily. Mac Galvan APRN.CNP Patient has been identified by name and date of : Yes, Provider Dr Draper \ Pharmacy phones for refill(s): Requested Prescriptions Pending Prescriptions Disp Refills cetirizine (ZYRTEC) 10 mg tablet 30 tablet 11 Sig: Take 1 tablet by mouth once daily. Date of last office visit in primary care: 10/29/2023 Date of next office visit in primary care: 08/16/2024 Please advise. Thank you. Jayla Pimentel LPN. documented in this encounter [facility] 10-29-2023 History of Present illness Narrative Chief Complaint URI HPI Octaviano Quinn is a 48 year old male who presents here today for follow up. Pt here for UC follow up 10/25/23 for URI, congestion, cough that started around 10/22/23. Was advised to continue with symptomatic treatment and follow up in 3-5 days if not improving or sx worsened. XR chest was negative, negative for COVID, Flu, and RSV. Pt was seen in UC last month for Pneumonia. He was given albuterol inhaler in UC, and his cough has improved some. Past medical history, appointments, medications, allergies reviewed. Previous Medical History PAST MEDICAL HISTORY Diagnosis Date Unspecified epilepsy without mention of intractable epilepsy Unspecified intellectual disabilities Previous Surgical History PAST SURGICAL HISTORY Procedure Laterality Date CHOLECYSTECTOMY 2009? Cholecystectomy EGD TRANSORAL BIOPSY SINGLE/MULTIPLE 03/24/15 dysphagia, normal Family History FAMILY HISTORY Problem Relation Age of Onset Colon Cancer Brother 42 Cancer Maternal Grandmother Coronary Artery Disease Maternal Grandfather Cancer Paternal Grandfather Melanoma to Lung Patient Allergies ALLERGIES Allergen Reactions Effexor [Venlafaxin* Intolerance aggressive behavior Paxil [Paroxetine H* Intolerance Weight gain Zyprexa [Olanzapine] Intolerance sedation Current Medications Current Outpatient Medications on File Prior to Visit Medication Sig albuterol HFA (PROVENTIL HFA, VENTOLIN HFA) 90 mcg/actuation inhaler Inhale 2 Puffs as instructed every 4 hours as needed for wheezing/shortness of breath. clomiPRAMINE (ANAFRANIL) 25 mg capsule Take 1 capsule by mouth once daily. divalproex DR (DEPAKOTE) 500 mg EC tablet Take 1 tablet by mouth two times a day. carBAMazepine (EPITOL) 200 mg tablet Take 2 tablets by mouth two times a day. oxybutynin XL (DITROPAN XL) 5 mg 24 hr tablet Take 1 tablet by mouth once daily. cetirizine (ZYRTEC) 10 mg tablet Take 1 tablet by mouth once daily. sertraline (ZOLOFT) 25 mg tablet once daily. hydrocortisone (ALA-EFREN) 1 % cream Apply 1 application to affected area twice daily. ketoconazole (NIZORAL) 2 % shampoo Lather into hair, leave 5 minutes, then rinse out. Use on face, ears, chest, and back as body wash. Repeat 3 times per week or as directed. No current facility-administered medications on file prior to visit. Social History Social History Tobacco Use Smoking status: Never Smokeless tobacco: Never Vaping Use Vaping Use: Never used Substance Use Topics Alcohol use: No Drug use: No EXAM: There were no vitals taken for this visit. General Appearance: Well appearing, alert, in no acute distress, well-hydrated, well nourished.. Oropharynx: Lips, mucosa, and tongue normal, teeth and gums normal, oropharynx normal. Neck: Supple, no adenopathy; thyroid symmetric, normal size, no bruits. Lungs: Lungs clear to auscultation. No wheezing, rhonchi, rales.. Health Maintenance List Hepatitis B Vaccine(1 of 3 - 3-dose series) Never done Hepatitis C Screening Never done HIV Screening Never done Depression Assessment due on 09/12/2023 Covid-19 Vaccine( season) due on 08/16/2024 DTaP,Tdap,Td Vaccine(2 - Td or Tdap) due on 07/25/2024 Colorectal Cancer Screening due on 08/27/2025 Diabetes Screening due on 08/16/2026 Lipid Screening due on 08/16/2028 Influenza Vaccine Completed HPV Vaccine Aged Out Data reviewed none ASSESSMENT/PLAN: 1. Acute cough - ICD9: 786.2, ICD10: R05.1 Resolving from pneumonia last month; infection cleared. Continue with albuterol for another week or so, then may discontinue Follow up prn Medical Decision Making: Problems: Low: Acute, uncomplicated illness or injury Risk: Moderate: Drug management Medical Decision Making Level: 3 - Low Becca Draper MD documented in this encounter [facility] 10-26-2023 Miscellaneous Notes Pt's sister Renee Mas notified of results. Jayla Pimentel LPN Negative for COVID flu RSV documented in this encounter [facility] 10-25-2023 Miscellaneous Notes Addended by: GALILEO FULLER on: 10/25/2023 08:01 PM Modules accepted: Orders documented in this encounter [facility] 10-25-2023 History of Present illness Narrative Radiology Service Progress Note PATIENT NAME: Octaviano Quinn DATE OF SERVICE: October 25, 2023 TIME: 7:20 PM PATIENT IDENTITY VERIFICATION COMPLETED USING TWO (2) IDENTIFIERS: Name and Date of confirmed by patient verbally. FALL SCREENING: Has the patient had 2 falls in the last year or 1 fall with injury or currently using an Ambulatory Assistive Device (Walker, Cane, Wheelchair, Crutches, etc.)? No PATIENT GENDER DATA: Male PATIENT RELEVANT IMPLANT DATA REVIEWED: Yes PATIENT PRESENTS WITH AN IMPLANTABLE OR ATTACHED FLOOR FRAMER: No RADIOLOGY DEPARTMENT: General X-ray: Exam(s) Completed: Chest X-Ray PERIPHERAL IV DATA: Not applicable SIGNED BY: RT Colten(R) October 25, 2023 7:20 PM documented in this encounter [facility] 10-25-2023 History of Present illness Narrative Subjective HPI HPI Octaviano Quinn is a 48 year old male who presents today for CC of cough, congestion. This started 3 days ago, but never went away after doxy treatment for pneumonia in September. Nonsmoker. .Patient presents with: Cough: Cough and drainage x 3 days PAST MEDICAL HISTORY Diagnosis Date Unspecified epilepsy without mention of intractable epilepsy Unspecified intellectual disabilities PAST SURGICAL HISTORY Procedure Laterality Date CHOLECYSTECTOMY 2009? Cholecystectomy EGD TRANSORAL BIOPSY SINGLE/MULTIPLE 03/24/15 dysphagia, normal ALLERGIES Effexor [Venlafaxine Hcl], Paxil [Paroxetine Hcl], and Zyprexa [Olanzapine] MEDICATIONS clomiPRAMINE (ANAFRANIL) 25 mg capsule Take 1 capsule by mouth once daily. divalproex DR (DEPAKOTE) 500 mg EC tablet Take 1 tablet by mouth two times a day. carBAMazepine (EPITOL) 200 mg tablet Take 2 tablets by mouth two times a day. oxybutynin XL (DITROPAN XL) 5 mg 24 hr tablet Take 1 tablet by mouth once daily. cetirizine (ZYRTEC) 10 mg tablet Take 1 tablet by mouth once daily. sertraline (ZOLOFT) 25 mg tablet once daily. hydrocortisone (ALA-EFREN) 1 % cream Apply 1 application to affected area twice daily. ketoconazole (NIZORAL) 2 % shampoo Lather into hair, leave 5 minutes, then rinse out. Use on face, ears, chest, and back as body wash. Repeat 3 times per week or as directed. FAMILY HISTORY Problem Relation Age of Onset Colon Cancer Brother 42 Cancer Maternal Grandmother Coronary Artery Disease Maternal Grandfather Cancer Paternal Grandfather Melanoma to Lung Social History Tobacco Use Smoking status: Never Smokeless tobacco: Never Vaping Use Vaping Use: Never used Substance Use Topics Alcohol use: No Drug use: No Review of Systems Constitutional: Negative for fever. HENT: Positive for congestion. Negative for ear pain, nosebleeds and sore throat. Respiratory: Positive for cough. Negative for shortness of breath and wheezing. Musculoskeletal: Negative for neck pain. Objective Blood pressure 130/82, pulse 81, temperature 36.1 C (97 F), temperature source Tympanic, resp. rate 16, weight 92.9 kg (204 lb 12.8 oz), SpO2 100%. Physical Exam Constitutional: General: He is not in acute distress. Appearance: He is not toxic-appearing or diaphoretic. HENT: Head: Normocephalic and atraumatic. Cardiovascular: Rate and Rhythm: Normal rate and regular rhythm. Heart sounds: Normal heart sounds, S1 normal and S2 normal. Pulmonary: Effort: Pulmonary effort is normal. Breath sounds: Examination of the right-lower field reveals rhonchi. Examination of the left-lower field reveals rhonchi. Rhonchi present. No decreased breath sounds, wheezing or rales. Lymphadenopathy: Cervical: No cervical adenopathy. Right cervical: No superficial cervical adenopathy. Left cervical: No superficial cervical adenopathy. Neurological: Mental Status: He is alert and oriented to person, place, and time. Gait: Gait is intact. ASSESSMENT/PLAN: 1. URI, acute - ICD9: 465.9, ICD10: J06.9 (primary diagnosis) - Discussed viral etiology and rationale for treatment. - Symptomatic treatment with prn analgesia - Supportive care with fluids and rest - Follow up in 3-5 days if symptoms persist or sooner if worsening of symptoms 2. Rhonchi at both lung bases - ICD9: 786.7, ICD10: R09.89 Xray negative - XR CHEST 2V FRONTAL/LAT IMPRESSION: No acute findings radiographically Dictated by : DON FUNG MD 3. Subacute cough - ICD9: 786.2, ICD10: R05.2 Try inhaler Galileo Fuller APRN.TEXTILE 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 documented in this encounter [facility] 09-26-2023 History of Present illness Narrative Radiology Service Progress Note PATIENT NAME: Octaviano Quinn DATE OF SERVICE: September 26, 2023 TIME: 7:25 PM PATIENT IDENTITY VERIFICATION COMPLETED USING TWO (2) IDENTIFIERS: Name and Date of confirmed by patient verbally. FALL SCREENING: Has the patient had 2 falls in the last year or 1 fall with injury or currently using an Ambulatory Assistive Device (Walker, Cane, Wheelchair, Crutches, etc.)? No PATIENT GENDER DATA: Male PATIENT RELEVANT IMPLANT DATA REVIEWED: Not Applicable RADIOLOGY DEPARTMENT: General X-ray: Exam(s) Completed: Chest X-Ray PERIPHERAL IV DATA: Not applicable SIGNED BY: RT Sanford(R) September 26, 2023 7:25 PM documented in this encounter [facility] 08-23-2023 Miscellaneous Notes Pt guardian Renee notified. Елена Evans Ma Please notify patient's guardian that his lab results all look good; stay on the same medications Becca Draper MD documented in this encounter [facility] 08-09-2023 Miscellaneous Notes Copy made for records. [facility] Елена Evans Ma Form done Becca Draper MD Type of letter/form/fax request - Guardianship forms Form received from pt family on 1 floor and placed on desk () for completion. [facility] family provided addressed envelope to mail forms back in. MAKE COPY OF RECORDS. Route to [place] when form completed for processing documented in this encounter [facility] 07-07-2023 Miscellaneous Notes OK to refill as ordered Becca Draper MD Patient has been identified by name and date of : Yes, Provider Dr Draper Date 07/07/23 Time 1613. Pharmacy phones for refill(s): Requested Prescriptions Pending Prescriptions Disp Refills carBAMazepine (EPITOL) 200 mg tablet 120 tablet 11 Sig: Take 2 tablets by mouth two times a day. Date of last office visit in primary care: 09/14/2022 Date of next office visit in primary care: 08/16/2023 Last 2 Encounter Wt Readings: Date: Wt: 01/04/2023 91.6 kg (202 lb) 10/01/2022 92.5 kg (204 lb) Previous labs/tests for medication: Blood Pressure: BUN (mg/dL) Date Value 08/16/2022 8 08/14/2021 9 Sodium (mmol/L) Date Value 08/16/2022 142 08/14/2021 143 Last 1 Encounter BP Readings: Date: BP: 01/04/2023 130/90 Liver Function: ALT (U/L) Date Value 08/16/2022 17 08/14/2021 19 AST (U/L) Date Value 08/16/2022 17 08/14/2021 27 Please advise. Thank you. Vivian Hogan RN. documented in this encounter [facility] 12-16-2022 Miscellaneous Notes Please review and sign order. Vero Rascon LPN Octaviano's sister, Renee, called. When Octaviano was evaluated for his frequent urination in September, he was placed on oxybutynin and they were told that he should start with one tablet daily and could increase up to three tablet per day. They have found that if Octaviano takes one tablet at bedtime, he is well controlled. Renee states that they are changing Octaviano's pharmacy to [facility] and his medications will now come in bubble packs. Octaviano will need a new prescription for the oxybutynin 5 mg 1 tablet at bedtime sent to [facility]. If they fill the current prescription, [facility] will fill it as 1 tablet three times a day and they will have too much medication. Ángela Saucedo RN documented in this encounter [facility] 12-16-2022 Miscellaneous Notes The following approved medication requests have been transmitted electronically. Requested Prescriptions Pending Prescriptions Disp Refills cetirizine (ZYRTEC) 10 mg tablet 30 tablet 11 Sig: Take 1 tablet by mouth once daily. Rosana Rodney APRN.CNP Patient has been identified by name and date of : Yes Requested Prescriptions Pending Prescriptions Disp Refills cetirizine (ZYRTEC) 10 mg tablet 30 tablet 11 Sig: Take 1 tablet by mouth once daily. MILY-08/16/22 Labs-08/16/22 NOV-08/16/23 med filled 07/05/22 RX INSTRUCTIONS: Patient aware RX will be sent to pharmacy. No need to notify patient. Akanksha Kuo [employer] documented in this encounter [facility] 10-01-2022 History of Present illness Narrative Images from the original note were not included. [facility] NEW PATIENT CLINIC NOTE SERVICE DATE: 10/01/2022 SERVICE TIME: 5:28 PM NAME: Octaviano Quinn CHIEF COMPLAINT: Urgency and Frequency HISTORY OF PRESENT ILLNESS: Octaviano Quinn is a 47 year old male with PMH including Epilepsy presenting with Urgency and Frequency and now Nocturia The patient reports getting up a lot Trial of Ditropan since 0 ml on PVR Recheck in 3 months FLUIDS: Increase water intake LUTS: DYSURIA: no URGENCY: Yes FREQUENCY:7 per day NOCTURIA: 3 per night STRAINING TO VOID: No EMPTIES COMPLETELY: Yes UTI: No GROSS HEMATURIA: no UA DIPSTICK POSITIVE ONLY: no Other symptoms: LABS: No results found for: TESTOST No results found for: TESTFREE No results found for: PSA Hematocrit (%) Date Value 08/16/2022 46.7 08/14/2021 48.2 07/09/2020 46.6 07/04/2019 48.0 No results found for: PSA Creatinine Date Value Ref Range Status 08/16/2022 0.88 0.73 - 1.22 mg/dL Final 08/14/2021 0.80 0.73 - 1.22 mg/dL Final 07/09/2020 0.78 0.73 - 1.22 mg/dL Final 07/04/2019 0.79 0.73 - 1.22 mg/dL Final . MEDICATIONS: sertraline (ZOLOFT) 25 mg tablet once daily. divalproex DR (DEPAKOTE) 500 mg EC tablet Take 1 tablet by mouth twice daily. carBAMazepine (EPITOL) 200 mg tablet Take 2 tablets by mouth twice daily. cetirizine (ZYRTEC) 10 mg tablet Take 1 tablet by mouth once daily. hydrocortisone (ALA-EFREN) 1 % cream Apply 1 application to affected area twice daily. ketoconazole (NIZORAL) 2 % shampoo Lather into hair, leave 5 minutes, then rinse out. Use on face, ears, chest, and back as body wash. Repeat 3 times per week or as directed. oxybutynin (DITROPAN) 5 mg tablet Take 1 tablet by mouth three times daily. PAST MEDICAL HISTORY: PAST MEDICAL HISTORY Diagnosis Date Unspecified epilepsy without mention of intractable epilepsy Unspecified intellectual disabilities PAST SURGICAL HISTORY: PAST SURGICAL HISTORY Procedure Laterality Date CHOLECYSTECTOMY 2009? Cholecystectomy EGD TRANSORAL BIOPSY SINGLE/MULTIPLE 03/24/15 dysphagia, normal FAMILY HISTORY: FAMILY HISTORY Problem Relation Age of Onset Cancer Maternal Grandmother Coronary Artery Disease Maternal Grandfather Cancer Paternal Grandfather Melanoma to Lung SOCIAL HISTORY: Social Connections: Not on file REVIEW OF SYSTEMS: GENERAL: No fever, chills, weight loss, or fatigue. ENMT: Negative CARDIOVASCULAR:NO CHEST PAIN, PALPITATIONS, ANKLE EDEMA RESPIRATORY: No chronic cough, wheezing, dyspnea, hemoptysis. GENITOURINARY: SEE HPI MUSCULOSKELETAL:NO CHRONIC BACK PAIN, ARTHRITIS, CHRONIC NECK PAIN SKIN: NO VARICOSE VEINS, RASH, ABNORMAL ITCHING HEME/LYMPH/IMMUNE:Negative for prolonged bleeding, bruising easily or swollen nodes NEUROLOGICAL: NO HEADACHES, NUMBNESS, SEIZURES, STROKE DIABETES: none All other systems reviewed and are negative PHYSICAL EXAMINATION: Blood pressure 158/86, pulse 87, weight 92.5 kg (204 lb), SpO2 100 %. GENERAL: WNL nutrition, no deformities, healthy appearing NEURO: Awake, alert and oriented x 3 and Normal gait PSYCH: No signs of depression, anxiety, or agitation ENMT (Ear, Nose, Mouth, Throat): No masses, adenopathy, icterus. Thyroid nonpalpable RESP: NL effort, no retractions or purse-lip breathing. CV: No extremity swelling, varices, edema, pallor, erythema GASTROINTESTINAL: Soft, nontender, nondistended, no masses. HERNIAS: None SKIN: No rash, lesions No palpable lymphadenopathy MUSCULOSKELETAL: Extremities normal. No deformities, edema, clubbing or skin discoloration. PROBLEM LIST REVIEW: Yes LABS: Results for orders placed or performed in visit on 10/01/22 UA DIP, URINE (POC) Result Value Ref Range GLUCOSE UA (POCT) Negative Negative mg/dL BILIRUBIN UA (POCT) Negative Negative KETONE UA (POCT) Negative Negative mg/dL SPECIFIC GRAVITY UA (POCT) 1.020 1.005 - 1.030 HEMOGLOBIN/BLOOD UA (POCT) Negative Negative PH UA (POCT) 6.0 4.5 - 8.0 PROTEIN UA (POCT) Negative Negative mg/dL UROBILINOGEN UA (POCT) 0.2 Normal E.U./dL NITRITE UA (POCT) Negative Negative LEUKOCYTES UA (POCT) Negative Negative COLOR UA (POCT) Yellow CLARITY UA (POCT) Clear PROCEDURES: PVR: 0 ml IMAGING: IMPRESSION/PLAN: 47 year old male with 1. Urinary frequency - ICD9: 788.41, ICD10: R35.0 2. Urinary urgency - ICD9: 788.63, ICD10: R39.15 > Trial of Ditropan 5 mg sent > reviewed SE's > 3 mo. Appt w/ SARA Espinoza, MT, PA-C for new Rx Follow-up I spent a total of 3- minutes on the date of the service which included preparing to see the patient, face to face patient care, completing clinical documentation, obtaining and/or reviewing separately obtained history, performing a medically appropriate examination, counseling and educating the patient/family/caregiver, ordering medications, tests, or procedures, and care coordination. SARA Alatorre MT, PA-C Patient's post-void bladder scan: 29 ML. Berta Russell; documented in this encounter [facility] 10-01-2022 Instructions Froylan Erwin PA-C - 10/01/2022 3:04 PM EST > 3 mo. Appt w/ B. SARA Erwin MT, PA-C for new Rx Follow-up documented in this encounter [facility] 09-15-2022 Miscellaneous Notes Left message on sister phone Adilia Lopes Ma Please let patient know urine culture does not show any bacterial growth. Maryellen Bedoya APRN.RADHIKA documented in this encounter [facility] 09-02-2022 Miscellaneous Notes Patient sister notified of results, verbalizes understanding of instructions. She will tell Pt. Mane Lucas LPN Can you please call the patient/family and let them know that repeat Tegretol level was within normal limits. I sent a [employer] message, his Cologuard was negative. Repeat testing in 3 years. Please let me know if they have any questions. Thank you. Rosana Rodney APRN.CNP documented in this encounter [facility] 08-20-2022 Miscellaneous Notes Family called and results given below. Verbalizes understanding. Berta Duron LPN TC to pt. sister LM to call office, ask for triage nurse to get results. Mane Lucas LPN Can you please call the patient and family and let them know that I reviewed his lab results. Labs were all relatively normal however his carbamazepine level was just mildly elevated. I would like to repeat labs in the next 3 weeks to ensure that this level does not increase. I would encourage that Octaviano continue to eat a well-balanced diet, watch processed foods in the diet, and stay well-hydrated. Please let me know if they have any questions. Thank you. Rosana Rodney APRN.RADHIKA documented in this encounter [facility] 08-16-2022 Instructions Rosana Rodney APRN.RADHIKA - 08/16/2022 10:24 AM EST Get labs completed. Continue to take all medication as prescribed. May see psychiatry to discuss anxiety as planned. Continue to eat a well balanced diet and get some form of exercise. Cologuard stool testing will be mailed to home. Follow up in 1 year or sooner as needed. Health Promotion: - Eat healthy -- go to [employer].gov to get started - Have a yearly physical - Get at least 30 minutes of physical activity daily - Get at least 7 to 8 hours of sleep each night - Reach and maintain a healthy weight - Get help to quit or don't start smoking - Limit alcohol use to one drink or less - Do not use illegal drugs or misuse prescription drugs - Wear a helmet when riding a bike and wear protective gear for sports - Wear a seatbelt in cars and not text and drive - Wear sunscreen documented in this encounter [facility] 08-16-2022 History of Present illness Narrative This is a 47 year old male who presents today with: Patient presents with: Physical HISTORY OF PRESENT ILLNESS: Octaviano Quinn is a 47 year old male. Patient presents with: Physical Here in the office for wellness exam. Sister, Renee Mas present for this appointment. History of intellectual disabilities. Attending workshop. Diet: Eating a well balanced diet. Exercise: Staying active. Vision: Had exam, new glasses. Dental: Had exam, no difficulties. Sleep: 7-8 hours per night. Epilepsy: Not following with neurology. Taking Depakote 500 mg twice daily, Tegretol 200 mg, 2 tablets twice daily. Due for labs Seasonal allergies: Taking Zyrtec 10 mg daily. Anxiety: Was taking Prozac 10 mg daily. Stopped taking after 1 month. Had increased hunger. Denies any increased sadness, or SI/HI. Refers she is trying to get him in with psychiatry for anxiety. Will be anxious and worry. Colonoscopy: Has never had completed. Will to have stool testing completed. Vaccines: Denies wanting any vaccines at this time. PAST MEDICAL HISTORY: PAST MEDICAL HISTORY Diagnosis Date Unspecified epilepsy without mention of intractable epilepsy Unspecified intellectual disabilities PAST SURGICAL HISTORY Procedure Laterality Date CHOLECYSTECTOMY 2009? Cholecystectomy EGD TRANSORAL BIOPSY SINGLE/MULTIPLE 03/24/15 dysphagia, normal ALLERGIES Effexor [Venlafaxine Hcl], Paxil [Paroxetine Hcl], and Zyprexa [Olanzapine] MEDICATIONS Current Outpatient Medications Medication Sig divalproex DR (DEPAKOTE) 500 mg EC tablet Take 1 tablet by mouth twice daily EPITOL 200 mg tablet Take 2 tablets by mouth twice daily cetirizine (ZYRTEC) 10 mg tablet Take 1 tablet by mouth once daily. carBAMazepine (TEGRETOL) 200 mg tablet Take 2 tablets by mouth twice daily. busPIRone (BUSPAR) 10 mg tablet Take 1 tablet by mouth twice daily. FLUoxetine (PROZAC) 10 mg capsule Take 1 capsule by mouth once daily. hydrocortisone (ALA-EFREN) 1 % cream Apply 1 application to affected area twice daily. ketoconazole (NIZORAL) 2 % shampoo Lather into hair, leave 5 minutes, then rinse out. Use on face, ears, chest, and back as body wash. Repeat 3 times per week or as directed. No current facility-administered medications for this visit. FAMILY HISTORY Problem Relation Age of Onset Cancer Maternal Grandmother Coronary Artery Disease Maternal Grandfather Cancer Paternal Grandfather Melanoma to Lung Social History Tobacco Use Smoking status: Never Smokeless tobacco: Never Substance Use Topics Alcohol use: No Drug use: No REVIEW OF SYSTEMS GENERAL: No weight loss, malaise or fevers/chills HEENT: Negative for frequent or significant headaches, No changes in hearing or vision. NECK: Negative for lumps, goiter, pain and significant neck swelling RESPIRATORY: Negative for cough, hemoptysis, wheezing, dyspnea or shortness of breath CARDIOVASCULAR: Negative for chest pain, leg swelling, orthopnea, or palpitations GI: No nausea, vomiting, or diarrhea/constipation. No hematochezia/melena. No heartburn or reflux symptoms. : No history of dysuria, frequency or incontinence MUSCULOSKELETAL: Negative for joint pain or swelling. SKIN: Negative for lesions, rash, and itching ENDOCRINE: Negative for cold or heat intolerance, polyuria, polydipsia and goiter NEURO: No history of headaches, syncope, paralysis, seizures or tremors MOOD: Negative for depression, anxiety, or suicidal ideation. EXAM: BP 120/82 Pulse 77 Resp 16 Ht 178 cm (5' 10.08) Wt 91.6 kg (202 lb) SpO2 99% BMI 28.92 kg/m PHYSICAL EXAM: General Appearance: Well appearing, alert, in no acute distress, well-hydrated, well nourished. Skin: Skin color, texture, turgor normal, no suspicious rashes or lesions. Head: Normocephalic, no masses, lesions, tenderness or abnormalities. Eyes: Anicteric sclera. Pupils are equally round and reactive to light. Extraocular movements are intact. Ears: External ears normal, canals clear. Right Tm pearly eid. Left TM cerumen Impaction Neck: Supple, no adenopathy; thyroid symmetric, normal size, no bruits. Lungs: Lungs clear to auscultation. No wheezing, rhonchi, rales. Heart: RRR without murmur, gallop, or rubs. No ectopy. Abdomen: Normal abdominal exam, Abdomen soft, non-tender. Bowel sounds normal. No masses, organomegaly, Negative CVA tenderness. Extremities: No deformities, edema, skin discoloration, clubbing or cyanosis. Good capillary refill. Musculoskeletal: No joint swelling, deformity, or tenderness. Peripheral Pulses: Normal, Capillary refill <2secs, strong peripheral pulses, Pulses palpable. Neurologic: Gait normal. Reflexes normal and symmetric. Sensation grossly intact. Mood: Pleasant, good eye contact, engaged. ASSESSMENT/PLAN: 1. Wellness examination - ICD9: V70.0, ICD10: Z00.00 (primary diagnosis) - Counseled on healthy diet and regular exercise - Colorectal cancer screening recommended - agrees to Cologuard - Depression screening tool completed and reviewed with patient. Based on score and interview, patient is not at risk for depression and recommended no further intervention at this time. - Follow up for annual exam in one year - COMP METABOLIC PANEL 2. Intellectual disability - ICD9: 319, ICD10: F79 - Thriving, continue to attend workshop 3. Nonintractable epilepsy without status epilepticus, unspecified epilepsy type (HCC) - ICD9: 345.90, ICD10: G40.909 - Stable - Get labs completed. - Continue to take all medication as prescribed. - DIVALPROEX 500 MG TABLET,DELAYED RELEASE - CARBAMAZEPINE 200 MG TABLET - VALPROIC A/DEPAKENE - CARBAM/TEGRETOL F - CBC + DIFF 4. Seasonal allergies - ICD9: 477.9, ICD10: J30.2 - Continue to use Zyrtec. 5. Impacted cerumen of left ear - ICD9: 380.4, ICD10: H61.22 - Instructed to use OTC Debrox in the left ear. 6. Screening for colon cancer - ICD9: V76.51, ICD10: Z12.11 - COLOGUARD 7. Screening cholesterol level - ICD9: V77.91, ICD10: Z13.220 - LIPID PANEL, NONFASTING Follow up in 1 year or sooner as needed. Discussed treatment plan and patient voices understanding. Patient's questions answered appropriately. Medications and potential side effects were discussed and patient voices understanding. Rosana Rodney APRN.TEXTILE 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 This note was partially generated using [employer] recognition system. Note was reviewed for accuracy. There may be minor misspellings or grammar miscues with [employer]about voice recognition. documented in this encounter [facility] 08-11-2022 Miscellaneous Notes The following approved medication requests have been transmitted electronically. Requested Prescriptions Pending Prescriptions Disp Refills divalproex DR (DEPAKOTE) 500 mg EC tablet [Pharmacy Med Name: Divalproex Sodium 500 MG Oral Tablet Delayed Release] 60 tablet 0 Sig: Take 1 tablet by mouth twice daily Mac Galvan APRN.TEXTILE 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 Patient phones requesting refills as follows: Requested Prescriptions Pending Prescriptions Disp Refills divalproex DR (DEPAKOTE) 500 mg EC tablet [Pharmacy Med Name: Divalproex Sodium 500 MG Oral Tablet Delayed Release] 60 tablet 0 Sig: Take 1 tablet by mouth twice daily MILY-12/17/21 Labs-08/14/21 NOV-08/16/22 med filled 07/05/22 Please review and advise. Mane Lucas LPN Please see refill request as patient sister was calling requesting this. documented in this encounter [facility] 07-05-2022 Miscellaneous Notes Message left notifying pt mother that the rx were sent in. Apologized for the delay. Елена Evans Ma Please let the sister/patient know that I have sent the refill. The following approved medication requests have been transmitted electronically. Requested Prescriptions Pending Prescriptions Disp Refills EPITOL 200 mg tablet [Pharmacy Med Name: Epitol 200 MG Oral Tablet] 120 tablet 0 Sig: Take 2 tablets by mouth twice daily cetirizine (ZYRTEC) 10 mg tablet 30 tablet 5 Sig: Take 1 tablet by mouth once daily. divalproex DR (DEPAKOTE) 500 mg EC tablet 60 tablet 0 Sig: Take 1 tablet by mouth twice daily. Mac Galvan APRN.TEXTILE 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 Sister calls back and states that patient is completely out of medication. Please review and advise, Salima Monterroso RN Sister calling back stating patient leaves for camp [employer] and requesting same day refill. Sister calls and asks to add ceterizine to refill request. Added per request. Yajaira Hinojosa RN Patient phones requesting refills as follows: Requested Prescriptions Pending Prescriptions Disp Refills EPITOL 200 mg tablet [Pharmacy Med Name: Epitol 200 MG Oral Tablet] 120 tablet 0 Sig: Take 2 tablets by mouth twice daily MILY-12/17/21 Labs-08/14/21 NOV-none Please review and advise. Mane Lucas LPN documented in this encounter [facility] 07-04-2022 Miscellaneous Notes Allergies reviewed: Yes ALLERGIES Allergen Reactions Effexor [Venlafaxin* Intolerance aggressive behavior Paxil [Paroxetine H* Intolerance Weight gain Zyprexa [Olanzapine] Intolerance sedation The following medications were verbally ordered by and read back to Dr. Finley on 07/04/2022 at 11:47 AM by Shelley Pittman LPN. Requested Prescriptions Signed Prescriptions Disp Refills carBAMazepine (TEGRETOL) 200 mg tablet 120 tablet 0 Sig: Take 2 tablets by mouth twice daily. E scripted to [facility] pharmacy Patient/Family notified: Yes Shelley Pittman LPN Sibling calling with request for medication/refill: Patient/caregiver requesting refill of Carbamazepine be called to [facility] pharmacy at [phone]., Do you have enough medication to last until the office reopens? No. , and Have you contacted your pharmacy to ask for enough medication to get by until the office reopens? N/A. . Sibling denies any new or worsening symptoms of which a provider is not aware: Yes. Patient's sister states that patient has been out of medication since evening. He takes Carbamazepine 200 mg, 2 tablets bid. Sister Renee can be reached at [phone] once refill is complete. documented in this encounter [facility] 07-02-2022 Miscellaneous Notes Patient phones requesting refills as follows: Requested Prescriptions Pending Prescriptions Disp Refills divalproex DR (DEPAKOTE) 500 mg EC tablet [Pharmacy Med Name: Divalproex Sodium 500 MG Oral Tablet Delayed Release] 60 tablet 0 Sig: Take 1 tablet by mouth twice daily MILY-12/17/21 Labs-08/14/21 NOV-none med filled 06/08/22 Please review and advise. Mane Lucas LPN documented in this encounter [facility] 07-01-2022 Miscellaneous Notes Forms at [facility] rec to meat pickler. Pt mother Sarah notified. Copy made for records. Елена Evans Ma Form done Becca Draper MD Office received paperwork for [facility], Statement of Expert evaluation. Routed to PCP to review and complete. Once complete, make copy and notify either pt's Sister Renee or Mother, Sarah. Mary Lou Cortez Ma documented in this encounter [facility] 06-08-2022 Miscellaneous Notes The following approved medication requests have been transmitted electronically. Requested Prescriptions Pending Prescriptions Disp Refills divalproex DR (DEPAKOTE) 500 mg EC tablet [Pharmacy Med Name: Divalproex Sodium 500 MG Oral Tablet Delayed Release] 60 tablet 0 Sig: Take 1 tablet by mouth twice daily Mac Galvan APRN.RADHIKA Last Office Visit: 12/17/2021 Future Office Visit: None Last Medication Refill: divalproex DR 06/10/2021 60 tab 11 refill Date of Last Labs: 08/14/2021 documented in this encounter [facility] 04-06-2022 Miscellaneous Notes Patient given results and verbalized understanding of instructions given. Starr Granados Let patient know their covid19 test was negative. documented in this encounter [facility] 04-05-2022 Instructions Teresa Basilio APRN.RADHIKA - 04/05/2022 7:20 PM EDT covid test ordered You will be notified in 24 -48 hours, [facility] until covid results are back Rest, increase water intake Motrin or Tylenol as needed for fever or pain. Salt water gargles, chloraseptic spray or lozenges as needed for sore throat. Warm beverages, honey. Nasal saline spray as needed Cool mist humidifier at night Tylenol (generic acetaminophen) 500 mg-2 tabs every 8 hrs. as needed for fever and aches Ibuprofen 600 mg (3-200mg tablets) every 6 hours -Sudafed (generic is fine), behind the counter, 2x30 mg tabs twice daily as needed for congestion -Mucinex (generic is fine) Guaifenesin 1200 mg twice daily to help with cough and to thin out mucus * Seek medical care immediately, call 911, go to ER if you have chest pain, difficulty breathing, shortness of breath, inability to swallow. documented in this encounter [facility] 04-05-2022 History of Present illness Narrative Subjective The history is provided by the patient. No speech/language therapist was used. HPI Octaviano Quinn is a 46 year old male who presents today for CC of cough and congestion. This started today. He works in the [employer] and needs to be tested. He has not used any medications or treatment. Other family members have colds, negative for covid BP 124/80 Pulse 81 Temp (!) 35.9 C (96.7 F) Resp 20 Wt 94.8 kg (209 lb) SpO2 98% BMI 28.35 kg/m Social History Tobacco Use Smoking status: Never Smoker Smokeless tobacco: Never Used Substance Use Topics Alcohol use: No Drug use: No PAST MEDICAL HISTORY Diagnosis Date Unspecified epilepsy without mention of intractable epilepsy Unspecified intellectual disabilities I have confirmed and edited as necessary, the [facility] Review of Systems Constitutional: Negative for chills, fever and malaise/fatigue. HENT: Positive for congestion and sore throat. Negative for ear pain and sinus pain. Respiratory: Positive for cough. Negative for sputum production, shortness of breath and wheezing. Cardiovascular: Negative for chest pain. Gastrointestinal: Negative for abdominal pain, diarrhea, nausea and vomiting. Musculoskeletal: Negative for myalgias. Neurological: Negative for headaches. Objective Physical Exam Vitals and nursing note reviewed. HENT: Head: Normocephalic and atraumatic. Right Ear: Tympanic membrane, ear canal and external ear normal. Left Ear: Tympanic membrane, ear canal and external ear normal. Nose: Mucosal edema and rhinorrhea (clear) present. No congestion. Right Sinus: No maxillary sinus tenderness or frontal sinus tenderness. Left Sinus: No maxillary sinus tenderness or frontal sinus tenderness. Mouth/Throat: Mouth: Mucous membranes are moist. Pharynx: Uvula midline. Posterior oropharyngeal erythema (mild) present. No oropharyngeal exudate. Tonsils: No tonsillar abscesses. Cardiovascular: Rate and Rhythm: Normal rate and regular rhythm. Heart sounds: Normal heart sounds. Pulmonary: Effort: Pulmonary effort is normal. Breath sounds: Normal breath sounds. No decreased breath sounds, wheezing, rhonchi or rales. Lymphadenopathy: Head: Right side of head: No submental, submandibular, tonsillar or preauricular adenopathy. Left side of head: No submental, submandibular, tonsillar or preauricular adenopathy. Cervical: No cervical adenopathy. Right cervical: No superficial cervical adenopathy. Left cervical: No superficial cervical adenopathy. ASSESSMENT/PLAN: 1. Rhinorrhea - ICD9: 478.19, ICD10: J34.89 (primary diagnosis) Possible viral, allergies, covid - 2019 CORONAVIRUS 2. Sore throat - ICD9: 462, ICD10: J02.9 Viral, no sore throat now, today at school swallowing hard Home isolation Testing ordered Comfort measures discussed - see patient instructions. When to seek higher level of care Notified in 24-48 hours with results, available on har - 2018 CORONAVIRUS Diagnosis and treatment plan were discussed and questions were answered to the patient's satisfaction. Pt acknowledged understanding of concepts and follow up plan. Specific signs and symptoms that would indicate the need for higher level of care were discussed in detail warranting prompt ER evaluation. Teresa Basilio APRN.RADHIKA documented in this encounter [facility] 02-05-2022 Miscellaneous Notes L/m for pt sister that she has to have on a note signed by pt Patient's sister called in to get images from 02/01/22 burned to disc for meat pickler. Please call patient's sister for meat pickler. Salima Bucoi documented in this encounter [facility] 02-01-2022 History of Present illness Narrative Radiology Service Progress Note PATIENT NAME: Octaviano Quinn DATE OF SERVICE: February 01, 2022 TIME: 10:20 AM PATIENT IDENTITY VERIFICATION COMPLETED USING TWO (2) IDENTIFIERS: Name and Date of confirmed by patient verbally. FALL SCREENING: Has the patient had 2 falls in the last year or 1 fall with injury or currently using an Ambulatory Assistive Device (Walker, Cane, Wheelchair, Crutches, etc.)? No PATIENT GENDER DATA: Male PATIENT RELEVANT IMPLANT DATA REVIEWED: Not Applicable RADIOLOGY DEPARTMENT: General X-ray: Exam(s) Completed: Lower Extremity X-Ray(s): Ankle, Right PERIPHERAL IV DATA: Not applicable SIGNED BY: RT Sanford(R) February 01, 2022 10:20 AM documented in this encounter [facility] 02-01-2022 History of Present illness Narrative Patient presents with: Ankle Injury: R foot and ankle injury x2 days HPI: Right foot pain: Duration: Stepped in a hole and hurt his right ankle 2 days ago. Location: Right ankle and foot Character: Difficult historian, tells his sister it does not hurt Pain relievers: ice Associated: Swelling, bruising, improving limp Pertinent negatives: PAST MEDICAL HISTORY Diagnosis Date Unspecified epilepsy without mention of intractable epilepsy Unspecified intellectual disabilities MEDICATIONS: cetirizine (ZYRTEC) 10 mg tablet Take 1 tablet by mouth once daily. busPIRone (BUSPAR) 10 mg tablet Take 1 tablet by mouth twice daily. FLUoxetine (PROZAC) 10 mg capsule Take 1 capsule by mouth once daily. hydrocortisone (ALA-EFREN) 1 % cream Apply 1 application to affected area twice daily. carBAMazepine (TEGRETOL) 200 mg tablet Take 2 tablets by mouth twice daily. divalproex DR (DEPAKOTE) 500 mg EC tablet Take 1 tablet by mouth twice daily. ketoconazole (NIZORAL) 2 % shampoo Lather into hair, leave 5 minutes, then rinse out. Use on face, ears, chest, and back as body wash. Repeat 3 times per week or as directed. ALLERGIES: ALLERGIES Allergen Reactions Effexor [Venlafaxin* Intolerance aggressive behavior Paxil [Paroxetine H* Intolerance Weight gain Zyprexa [Olanzapine] Intolerance sedation VITALS: BP 122/94 Pulse 86 Temp 36.6 C (97.8 F) Resp 20 Wt 94.9 kg (209 lb 3.2 oz) SpO2 98% BMI 28.37 kg/m PE: Pleasant, in no acute distress. Accompanied by his sister who assists with the history. ANKLE: right . Swelling andecchymosis present over the lateral ankle and foot. No erythema or deformity. Range of motion: decreased, unable to elicit painful vs non-painful reliably. Able to bear weight. normal gait. Palpation: nable to elicit painful vs non-painful reliably. ASSESSMENT/PLAN: 1. Closed nondisplaced fracture of anterior process of right calcaneus, initial encounter - ICD9: 825.0, ICD10: S92.024A (primary diagnosis) 2. Acute right ankle pain - ICD9: 719.47, 338.19, ICD10: M25.571 - XR ANKLE GENERAL 3V AP/LAT/OBL RIGHT- possible anterior process fracture of the calcaneus. Unable to use crutches because of intellectual disability. Placed in walking boot. - CONSULT TO ORTHOPAEDICS or podiatry for recheck within a week. Adithya Camacho MD documented in this encounter [facility] 12-22-2021 Miscellaneous Notes Renee, pt sister notified and voiced understanding. She will keep office updated. .Елена Evans Ma If the behavior started with starting the Buspar it may be from that; go ahead and stop the Buspar and see if he improves Becca Draper MD Pt's sister calls to report that pt was prescribed Buspar. Renee reports pt has been acting out and being very defiant the last few days. Renee is asking if this could be the new medication because pt has not acted like this since staying with her. Please review and advise. Irina Rubio LPN documented in this encounter [facility] 12-22-2021 Miscellaneous Notes Behavioral Health Social Work Progress Note Patient identified for [facility] from: PCP Reason for referral: Resources Behavioral Health Resources: Psychology - talk therapy [facility] encounter type: Telephone Encounter Attempts to Outreach: 2 attempts Final Disposition: Resources given Patient Discharged?: Yes Patient reported that caregiver was able to meet their needs today?: Yes Received pt referral to assess pt well-being and provide referrals to out patient behavioral health support services. Per chart pt is seeking psychiatry resources. Spoke with pt's caregiver, Renee Mas. She reports pt is experiencing some symptoms of anxiety and she really just wanted to make his PCP aware. Pt does have a Support Risk Management Intern through the board. She was strongly advised to speak with them about seeing a specialist who treats pts with special needs. She agreed this was a better idea than seeing a general provider. She was appreciative of call, support and information. MARCIA Cool December 22, 2021 documented in this encounter [facility] 12-17-2021 History of Present illness Narrative Chief Complaint Patient presents with: F/U 1 month HPI Octaviano Quinn is a 46 year old male who presents here today for medication follow up. Here today with his sister, Renee whom he lives with. CAROL/Depression: pt started on Prozac 10 mg once daily last month due to sister, Renee noticing some signs of depression and anxiety, asking questions repeatedly and repeatedly. Doesn't eat around others or in public. Renee today states that she's noticed no difference on the low dosage. Has noticed increased appetite wince being on Prozac. Allergies - Started taking over the counter Zyrtec 10 mg daily due to allergy symptoms. Seems to be doing better with this. Asking if this could be sent to pharmacy, to see if covered. Sister asking how to go about getting a Dx for Autism. Pt's father would never let them do this but since he lives with her she would like to know how to go about this. Mother took pt to [employer] when they were young and it was very discouraging as they told her, that her two son's wouldn't amount to anything in life and she stopped going there and never had this looked at any further. He never had an actual diagnosis. Past medical history, appointments, medications, allergies reviewed. Previous Medical History PAST MEDICAL HISTORY Diagnosis Date Unspecified epilepsy without mention of intractable epilepsy Unspecified intellectual disabilities Previous Surgical History PAST SURGICAL HISTORY Procedure Laterality Date CHOLECYSTECTOMY 2009? Cholecystectomy EGD TRANSORAL BIOPSY SINGLE/MULTIPLE 03/24/15 dysphagia, normal Family History FAMILY HISTORY Problem Relation Age of Onset Cancer Maternal Grandmother Coronary Artery Disease Maternal Grandfather Cancer Paternal Grandfather Melanoma to Lung Patient Allergies ALLERGIES Allergen Reactions Effexor [Venlafaxin* Intolerance aggressive behavior Paxil [Paroxetine H* Intolerance Weight gain Zyprexa [Olanzapine] Intolerance sedation Current Medications Current Outpatient Medications on File Prior to Visit Medication Sig FLUoxetine (PROZAC) 10 mg capsule Take 1 capsule by mouth once daily. hydrocortisone (ALA-EFREN) 1 % cream Apply 1 application to affected area twice daily. carBAMazepine (TEGRETOL) 200 mg tablet Take 2 tablets by mouth twice daily. divalproex DR (DEPAKOTE) 500 mg EC tablet Take 1 tablet by mouth twice daily. ketoconazole (NIZORAL) 2 % shampoo Lather into hair, leave 5 minutes, then rinse out. Use on face, ears, chest, and back as body wash. Repeat 3 times per week or as directed. No current facility-administered medications on file prior to visit. Social History Social History Tobacco Use Smoking status: Never Smoker Smokeless tobacco: Never Used Substance Use Topics Alcohol use: No Drug use: No EXAM: BP 118/80 (BP Site: Left Arm, BP Position: Sitting, BP Cuff Size: Regular Adult) Pulse 80 Resp 16 Wt 92.3 kg (203 lb 6.4 oz) BMI 27.59 kg/m General Appearance: Well appearing, alert, in no acute distress, well-hydrated, well nourished.. Lungs: Lungs clear to auscultation. No wheezing, rhonchi, rales.. Heart: RRR without murmur, gallop, or rubs. No ectopy. Health Maintenance List HEPATITIS C SCREENING due on 08/14/2022 HIV SCREENING due on 08/14/2022 DTAP,TDAP,TD(1 - Tdap) due on 07/25/2024 DEPRESSION SCREENING due on 10/28/2022 LIPID SCREEN due on 07/04/2024 INFLUENZA Completed COVID-19 VACCINE Completed MENINGOCOCCAL CONJUGATE Aged Out Data reviewed None ASSESSMENT/PLAN: 1. CAROL (generalized anxiety disorder) - ICD9: 300.02, ICD10: F41.1 (primary diagnosis) - D/c Prozac, due to increased appetite. - Start Buspar 10 mg bid. Update office in couple weeks via [facility] [place]. - If needed, dosage can be increased to 15 mg. - Behavorial Health referral to aid in medication and diagnosis 2. Intellectual disability - ICD9: 319, ICD10: F79 - Stable - Discussed how to go about Dx for intellectual disability/autism. - Referral to Behavioral Health 3. Seasonal allergies - ICD9: 477.9, ICD10: J30.2 - Rx Zyrtec. Update office via Carma on medication in 2 weeks. I agree with the Chief Complaint, ROS, and Past Histories independently gathered by the clinical presidential support specialist and the remaining scribed note accurately describes my personal service to the patient. Medical Decision Making: Problems: Moderate: 2+ stable chronic illnesses Risk: Moderate: Drug management Medical Decision Making Level: 4 - Moderate Becca Draper MD The documentation for this note was completed by Mary Lou Cortez Ma acting as scribe for Becca Draper MD. December 17, 2021 3:50 PM. Mary Lou Cortez Ma documented in this encounter [facility] 08-20-2005 History of Past i llness Narrative Problem Noted Date Resolved Date Calculus of gallbladder with acute cholecystitis 08/20/2005 09/01/2006 documented as of this encounter (statuses as of 12/17/2021) [facility] History of Past illness Narrative* Problem Noted Date Resolved Date Calculus of gallbladder with acute cholecystitis 08/20/2005 09/01/2006 documented as of this encounter (statuses as of 12/18/2021) [facility] History of Past illness Narrative* Problem Noted Date Resolved Date Calculus of gallbladder with acute cholecystitis 08/20/2005 09/01/2006 documented as of this encounter (statuses as of 12/22/2021) [facility] History of Past illness Narrative* Problem Noted Date Resolved Date Calculus of gallbladder with acute cholecystitis 08/20/2005 09/01/2006 documented as of this encounter (statuses as of 02/01/2022) [facility] History of Past illness Narrative* Problem Noted Date Resolved Date Calculus of gallbladder with acute cholecystitis 08/20/2005 09/01/2006 documented as of this encounter (statuses as of 03/09/2022) [facility] History of Past illness Narrative* Problem Noted Date Resolved Date Calculus of gallbladder with acute cholecystitis 08/20/2005 09/01/2006 documented as of this encounter (statuses as of 04/05/2022) [facility] History of Past illness Narrative* Problem Noted Date Resolved Date Calculus of gallbladder with acute cholecystitis 08/20/2005 09/01/2006 documented as of this encounter (statuses as of 04/06/2022) [facility] History of Past illness Narrative* Problem Noted Date Resolved Date Calculus of gallbladder with acute cholecystitis 08/20/2005 09/01/2006 documented as of this encounter (statuses as of 06/08/2022) [facility] History of Past illness Narrative* Problem Noted Date Resolved Date Calculus of gallbladder with acute cholecystitis 08/20/2005 09/01/2006 documented as of this encounter (statuses as of 07/01/2022) [facility] History of Past illness Narrative* Problem Noted Date Resolved Date Calculus of gallbladder with acute cholecystitis 08/20/2005 09/01/2006 documented as of this encounter (statuses as of 07/03/2022) [facility] History of Past illness Narrative* Problem Noted Date Resolved Date Calculus of gallbladder with acute cholecystitis 08/20/2005 09/01/2006 documented as of this encounter (statuses as of 07/04/2022) [facility] History of Past illness Narrative* Problem Noted Date Resolved Date Calculus of gallbladder with acute cholecystitis 08/20/2005 09/01/2006 documented as of this encounter (statuses as of 07/05/2022) [facility] History of Past illness Narrative* Problem Noted Date Resolved Date Calculus of gallbladder with acute cholecystitis 08/20/2005 09/01/2006 documented as of this encounter (statuses as of 08/11/2022) [facility] History of Past illness Narrative* Problem Noted Date Resolved Date Calculus of gallbladder with acute cholecystitis 08/20/2005 09/01/2006 documented as of this encounter (statuses as of 08/16/2022) [facility] History of Past illness Narrative* Problem Noted Date Resolved Date Calculus of gallbladder with acute cholecystitis 08/20/2005 09/01/2006 documented as of this encounter (statuses as of 08/20/2022) [facility] History of Past illness Narrative* Problem Noted Date Resolved Date Calculus of gallbladder with acute cholecystitis 08/20/2005 09/01/2006 documented as of this encounter (statuses as of 09/03/2022) [facility] History of Past illness Narrative* Problem Noted Date Resolved Date Calculus of gallbladder with acute cholecystitis 08/20/2005 09/01/2006 documented as of this encounter (statuses as of 09/17/2022) [facility] History of Past illness Narrative* Problem Noted Date Resolved Date Calculus of gallbladder with acute cholecystitis 08/20/2005 09/01/2006 documented as of this encounter (statuses as of 10/01/2022) [address]09-2005 History of Past illness Narrative* Problem Noted Date Resolved Date Calculus of gallbladder with acute cholecystitis 08/20/2005 09/01/2006 documented as of this encounter (statuses as of 12/17/2022) [address]09-2005 History of Past illness Narrative* Problem Noted Date Resolved Date Calculus of gallbladder with acute cholecystitis 08/20/2005 09/01/2006 documented as of this encounter (statuses as of 12/17/2022) [address]-2005 History of Past illness Narrative* Problem Noted Date Diagnosed Date Resolved Date Calculus of gallbladder with acute cholecystitis 08/20/2005 09/01/2006 documented as of this encounter (statuses as of 07/08/2023) [facility] History of Past illness Narrative* Problem Noted Date Diagnosed Date Resolved Date Calculus of gallbladder with acute cholecystitis 08/20/2005 09/01/2006 documented as of this encounter (statuses as of 07/17/2023) [facility] History of Past illness Narrative* Problem Noted Date Diagnosed Date Resolved Date Calculus of gallbladder with acute cholecystitis 08/20/2005 09/01/2006 documented as of this encounter (statuses as of 08/09/2023) [facility] History of Past illness Narrative* Problem Noted Date Diagnosed Date Resolved Date Calculus of gallbladder with acute cholecystitis 08/20/2005 09/01/2006 documented as of this encounter (statuses as of 08/23/2023) [facility] History of Past illness Narrative* Problem Noted Date Diagnosed Date Resolved Date Calculus of gallbladder with acute cholecystitis 08/20/2005 09/01/2006 documented as of this encounter (statuses as of 10/25/2023) [facility] History of Past illness Narrative* Problem Noted Date Diagnosed Date Resolved Date Calculus of gallbladder with acute cholecystitis 08/20/2005 09/01/2006 documented as of this encounter (statuses as of 10/26/2023) [address]-2005 History of Past illness Narrative* Problem Noted Date Diagnosed Date Resolved Date Calculus of gallbladder with acute cholecystitis 08/20/2005 09/01/2006 documented as of this encounter (statuses as of 10/29/2023) [address]-2005 History of Past illness Narrative* Problem Noted Date Diagnosed Date Resolved Date Calculus of gallbladder with acute cholecystitis 08/20/2005 09/01/2006 documented as of this encounter (statuses as of 11/02/2023) [facility] History of Past illness Narrative* Problem Noted Date Diagnosed Date Resolved Date Calculus of gallbladder with acute cholecystitis 08/20/2005 09/01/2006 documented as of this encounter (statuses as of 11/04/2023) [facility] History of Past illness Narrative* Problem Noted Date Diagnosed Date Resolved Date Calculus of gallbladder with acute cholecystitis 08/20/2005 09/01/2006 documented as of this encounter (statuses as of 12/12/2023) [facility] History of Past illness Narrative* Problem Noted Date Diagnosed Date Resolved Date Calculus of gallbladder with acute cholecystitis 08/20/2005 09/01/2006 documented as of this encounter (statuses as of 12/15/2023) [facility] note* Diagnosis CAROL (generalized anxiety disorder)- Primary Generalized anxiety disorder Intellectual disability Unspecified intellectual disabilities Seasonal allergies Allergic rhinitis, cause unspecified documented in this encounter [facility] note* Diagnosis Closed nondisplaced fracture of anterior process of right calcaneus, initial encounter- Primary Acute right ankle pain documented in this encounter [facility] noteNo assessment information availableWFisher-[facility] Work Phone: Evaluation note* Diagnosis Rhinorrhea- Primary Other diseases of nasal cavity and sinuses Sore throat Acute pharyngitis documented in this encounter [facility] note* Diagnosis Wellness examination- Primary Intellectual disability Unspecified intellectual disabilities Nonintractable epilepsy without status epilepticus, unspecified epilepsy type (HCC) Seasonal allergies Allergic rhinitis, cause unspecified Impacted cerumen of left ear Impacted cerumen Screening for colon cancer Special screening for malignant neoplasms, colon Screening cholesterol level Screening for lipoid disorders documented in this encounter [facility] note* Diagnosis Nonintractable epilepsy without status epilepticus, unspecified epilepsy type (HCC)- Primary documented in this encounter [facility] note* Diagnosis Urinary frequency Urinary urgency Urgency of urination documented in this encounter [facility] note* Diagnosis Urinary frequency- Primary Urinary urgency Urgency of urination documented in this encounter [facility] note* Diagnosis Nonintractable epilepsy without status epilepticus, unspecified epilepsy type (HCC) documented in this encounter [facility] note* Diagnosis URI, acute- Primary Acute upper respiratory infections of unspecified site Rhonchi at both lung bases Subacute cough Cough documented in this encounter [facility] note* Diagnosis Acute cough- Primary documented in this encounter [facility] note* Diagnosis Acute conjunctivitis of left eye, unspecified acute conjunctivitis type- Primary documented in this encounter [facility] note* Diagnosis Chronic cough- Primary Cough Bacterial pneumonia Bacterial pneumonia, unspecified documented in this encounter [facility] note* Diagnosis Acute cough- Primary Hx of viral pneumonia Personal history of pneumonia (recurrent) documented in this encounter [facility] note* Diagnosis Urinary urgency Urgency of urination documented in this encounter [facility] note* Diagnosis Urinary urgency- Primary Urgency of urination documented in this encounter [facility] note* Diagnosis Urinary urgency- Primary Urgency of urination Urinary frequency documented in this encounter [facility] note* Diagnosis Bacterial sinusitis- Primary Unspecified sinusitis (chronic) documented in this encounter [facility] note* Diagnosis Chronic cough Cough documented in this encounter [facility] note* Diagnosis Acute cough documented in this encounter [facility] note* Diagnosis Nonintractable epilepsy without status epilepticus, unspecified epilepsy type (HCC) documented in this encounter [facility] note* Diagnosis Acute right ankle pain documented in this encounter [facility] note* Diagnosis Fatigue, unspecified type- Primary Snoring Other dyspnea and respiratory abnormality Daytime sleepiness Nonintractable epilepsy without status epilepticus, unspecified epilepsy type (HCC) Seasonal allergies Allergic rhinitis, cause unspecified Urinary frequency CAROL (generalized anxiety disorder) Generalized anxiety disorder Intellectual disability Unspecified intellectual disabilities Encounter for immunization Need for other specified prophylactic vaccination against single bacterial disease Screening for depression documented in this encounter [facility] note* Diagnosis Nonintractable epilepsy without status epilepticus, unspecified epilepsy type (HCC) documented in this encounter [facility] note* Diagnosis Vitamin D deficiency- Primary Unspecified vitamin D deficiency Fatigue, unspecified type Snoring Other dyspnea and respiratory abnormality Daytime sleepiness documented in this encounter [facility] note* Diagnosis History of sleep study- Primary Snoring Other dyspnea and respiratory abnormality Daytime sleepiness [facility] [place] [facility]* Diagnosis Wellness examination- Primary Intellectual disability Unspecified intellectual disabilities Urinary frequency Nonintractable epilepsy without status epilepticus, unspecified epilepsy type (HCC) CAROL (generalized anxiety disorder) Generalized anxiety disorder Obsessive-compulsive disorder, unspecified type Seasonal allergies Allergic rhinitis, cause unspecified Vitamin D deficiency Unspecified vitamin D deficiency History of sleep study Snoring Other dyspnea and respiratory abnormality Daytime sleepiness Encounter for immunization Need for other specified prophylactic vaccination against single bacterial disease Screening for colon cancer Special screening for malignant neoplasms, colon [facility] Diagnosis Urinary urgency Urgency of urination documented in this encounter [facility] note* Diagnosis Acute cough- Primary Oropharyngeal dysphagia Dysphagia, oropharyngeal phase Bilateral impacted cerumen Impacted cerumen Acute cough Oropharyngeal dysphagia Dysphagia, oropharyngeal phase documented in this encounter [facility] note* Diagnosis Acute cough Oropharyngeal dysphagia Dysphagia, oropharyngeal phase documented in this encounter [facility] note* Diagnosis Bacterial pneumonia- Primary Bacterial pneumonia, unspecified documented in this encounter [facility] note* Diagnosis Bronchitis- Primary Bronchitis, not specified as acute or chronic Acute cough Acute cough Bronchitis Bronchitis, not specified as acute or chronic documented in this encounter [facility] note* Diagnosis Acute cough Bronchitis Bronchitis, not specified as acute or chronic [facility] [place] [facility]* Diagnosis Other dysphagia- Primary Oral phase dysphagia Dysphagia, oral phase documented in this encounter [facility] note* Diagnosis Acute cough Oropharyngeal dysphagia Dysphagia, oropharyngeal phase documented [facility] [place] [facility]* Diagnosis Oropharyngeal dysphagia- Primary Dysphagia, oropharyngeal phase documented in this encounter [facility] note* Diagnosis Bacterial pneumonia Bacterial pneumonia, unspecified documented in this encounter [facility] note* Diagnosis Dysphagia, unspecified type- Primary Other cough Chronic diarrhea Diarrhea Family history of colon cancer Family history of malignant neoplasm of gastrointestinal tract [facility] [place] [facility]* Diagnosis Urinary frequency- Primary Urinary urgency Urgency of urination Screening for genitourinary condition Screening for other and unspecified genitourinary condition documented in this encounter [facility] for referral (narrative)* Diagnostic Procedure Only (Urgent) - Closed Specialty Diagnoses / Procedures Referred By Barbara t Referred To Contact XR IMAGING Diagnoses Acute right ankle pain Procedures XR ANKLE GENERAL 3V AP/LAT/OBL RIGHT RADEX ANKLE COMPLETE MINIMUM 3 VIEWS Adithya Camacho MD [address] [place] [address] [place] [address] Referral ID Status Reason Start Date Expiration Date V isits Requested Visits Authorized [id number] Closed Auto-Generate d Referral 02/01/2022 09/11/2022 1 1 [facility] for referral (narrative)* Diagnostic Procedure Only (Routine) - New Request Specialty Diagnoses / Procedures Referred By Contac t Referred To Contact [facility] Diagnoses Snoring Daytime sleepiness Procedures HOME SLEEP APNEA TEST (HSAT) SLEEP STD AIRFLOW HRT RATE&O2 SAT EFFORT Rosana Newby, PROCESS DESCRIPTION WRITER.TEXTILE 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 [address] [place] [address] [facility] [place] [address] [place] [address] Referral ID Status Reason Start Date Expiration Date Visits Requested Visits Authorized [id number] New Request Auto-Generat ed Referral 07/04/2025 1 1 [facility] for visit Narrative* Diagnostic Procedure Only (Urgent) - Closed Specialty Diagnoses / Procedures Referred By Contac t Referred To Contact XR IMAGING Diagnoses Acute right ankle pain Procedures XR ANKLE GENERAL 3V AP/LAT/OBL RIGHT RADEX ANKLE COMPLETE MINIMUM 3 VIEWS Adithya Camacho MD [address] [place] [address] [place] [address] Referral ID Status Reason Start Date Expiration Date V isits Requested Visits Authorized [id number] Closed Auto-Generate d Referral 02/01/2022 09/11/2022 1 1 [facility] for visit Narrative* Diagnostic Procedure Only (Routine) - Closed Specialty Diagnoses / Procedures Referred By Contac t Referred To Contact XR IMAGING Diagnoses Acute cough Oropharyngeal dysphagia Procedures XR MODIFIED BARIUM SWALLOW W SPEECH THERAPY RADIOLOGIC EXAM SWALLOW FUNCTION CONTRAST STUDY Jenise Holt, PROCESS DESCRIPTION WRITER.TEXTILE 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 [address] [place] [address] Phone: tel: fax: [place] [address] Referral ID Status Reason Start Date Expiration Date V isits Requested Visits Authorized [id number] Closed Auto-Generate d Referral 01/28/2025 02/27/2026 1 1 [facility] Reason for Referral Specialty Diagnoses / Procedures Referred By Contac t Referred To Contact Orthopedics Diagnoses Acute right ankle pain Closed nondisplaced fracture of anterior process of right calcaneus, initial encounter Procedures CONSULT TO ORTHOPAEDICS OFFICE/OUTPATIENT [facility] 60-74 MINUTES Adithya Camacho MD [facility] [place] [id number] Referral ID Status Reason Start Date Expiration Date Visits Requested Visits Authorized [id number] Pending Review PCP Requested Referral 02/01/2022 02/01/2023 1 1 Specialty Diagnoses / Procedures Referred By Contac t Referred To Contact XR IMAGING Diagnoses Acute right ankle pain Procedures XR ANKLE GENERAL 3V AP/LAT/OBL RIGHT RADEX ANKLE COMPLETE MINIMUM 3 VIEWS Adithya Camacho MD [address] [place] [address] Xr Imaging Referral ID Status Reason Start Date Expiration Date V isits Requested Visits Authorized [id number] Closed Auto-Generate d Referral 02/01/2022 09/11/2022 1 1 Specialty Diagnoses / Procedures Referred By Contac t Referred To Contact General Surgery Diagnoses Screening for colon cancer Procedures CONSULT TO GENERAL SURGERY OFFICE/OUT[facility]IENT [facility] MDM 60 MINUTES Rosana Rodney, PROCESS DESCRIPTION WRITER.TEXTILE 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 [address] [place] [address] Referral ID Status Reason Start Date Expiration Date Visits Requested Visits Authorized [id number] Authorized PCP Requested Referral 08/24/2025 1 1 Specialty Diagnoses / Procedures Referred By Contac t Referred To Contact Diagnoses History of sleep study Snoring Daytime sleepiness Procedures CONSULT TO SLEEP MEDICINE - ADULT OFFICE/OUTPATIENT [facility] MDM 60 MINUTES Rosana Rodney, GIANCALRO.TEXTILE 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 [address] [place] [address] Referral ID Status Reason Start Date Expiration Date Visits Requested Visits Authorized [id number] Authorized PCP Requested Referral 08/24/2025 1 1 Chief Complaint and Reason for Visit Chief Complaint Sprain of other liga ment of right ankle, initial e Family History No Family History Records Found Relationship Condition Age at Onset Recorded Date/T lakes[place] Unknown Family History?- Unknown March 22, 2015 3:04pm Family History?- Unknown March 22, 2015 3:04pm Family History?Hypertension, - Unknown March 22, 2015 3:04pm Advance Directives No Advanced Directives Records Found Advance Directive Response Recorded Date/ Time Advance Directives No March 22 12:43pm Living Will No March 22, 2015 12:43pm Power of Metals Sales Representative No March 22 5 12:43pm Health Concerns Infection Onset Date Last Indicated Resolved Time COVID-19 Rule-Out 04/05/2022 04/05/2022 Infection Onset Date Last Indicated Resolved Time COVID-19 Rule-Out 04/05/2022 04/05/2022 04/06/2022 9:47 AM EDT Summary Purpose Additional Source Comments Source Comments (unrecognize d section and content) In the event this informatio n is protected by the Federal Confidentiality of Alcohol and Drug Abuse Patient Records regulations: The Federal rules restrict any use of the information to criminally investigate or prosecute any alcohol or drug abuse patient.[facility] the event this information is protected by the Federal Confidentiality of Alcohol and Drug Abuse Patient Records regulations: The Federal rules restrict any use of the information to criminally investigate or prosecute any alcohol or drug abuse patient.[facility] the event this information is protected by the Federal Confidentiality of Alcohol and Drug Abuse Patient Records regulations: The Federal rules restrict any use of the information to criminally investigate or prosecute any alcohol or drug abuse patient.[facility] the event this information is protected by the Federal Confidentiality of Alcohol and Drug Abuse Patient Records regulations: The Federal rules restrict any use of the information to criminally investigate or prosecute any alcohol or drug abuse patient.[facility] the event this information is protected by the Federal Confidentiality of Alcohol and Drug Abuse Patient Records regulations: The Federal rules restrict any use of the information to criminally investigate or prosecute any alcohol or drug abuse patient.[facility] the event this information is protected by the Federal Confidentiality of Alcohol and Drug Abuse Patient Records regulations: The Federal rules restrict any use of the information to criminally investigate or prosecute any alcohol or drug abuse patient.[facility] the event this information is protected by the Federal Confidentiality of Alcohol and Drug Abuse Patient Records regulations: The Federal rules restrict any use of the information to criminally investigate or prosecute any alcohol or drug abuse patient.[facility] the event this information is protected by the Federal Confidentiality of Alcohol and Drug Abuse Patient Records regulations: The Federal rules restrict any use of the information to criminally investigate or prosecute any alcohol or drug abuse patient.[facility] the event this information is protected by the Federal Confidentiality of Alcohol and Drug Abuse Patient Records regulations: The Federal rules restrict any use of the information to criminally investigate or prosecute any alcohol or drug abuse patient.[facility] the event this information is protected by the Federal Confidentiality of Alcohol and Drug Abuse Patient Records regulations: The Federal rules restrict any use of the information to criminally investigate or prosecute any alcohol or drug abuse patient.[facility] the event this information is protected by the Federal Confidentiality of Alcohol and Drug Abuse Patient Records regulations: The Federal rules restrict any use of the information to criminally investigate or prosecute any alcohol or drug abuse patient.[facility] the event this information is protected by the Federal Confidentiality of Alcohol and Drug Abuse Patient Records regulations: The Federal rules restrict any use of the information to criminally investigate or prosecute any alcohol or drug abuse patient.[facility] the event this information is protected by the Federal Confidentiality of Alcohol and Drug Abuse Patient Records regulations: The Federal rules restrict any use of the information to criminally investigate or prosecute any alcohol or drug abuse patient.[facility] the event this information is protected by the Federal Confidentiality of Alcohol and Drug Abuse Patient Records regulations: The Federal rules restrict any use of the information to criminally investigate or prosecute any alcohol or drug abuse patient.[facility] the event this information is protected by the Federal Confidentiality of Alcohol and Drug Abuse Patient Records regulations: The Federal rules restrict any use of the information to criminally investigate or prosecute any alcohol or drug abuse patient.[facility] the event this information is protected by the Federal Confidentiality of Alcohol and Drug Abuse Patient Records regulations: The Federal rules restrict any use of the information to criminally investigate or prosecute any alcohol or drug abuse patient.[facility] the event this information is protected by the Federal Confidentiality of Alcohol and Drug Abuse Patient Records regulations: The Federal rules restrict any use of the information to criminally investigate or prosecute any alcohol or drug abuse patient.[facility] the event this information is protected by the Federal Confidentiality of Alcohol and Drug Abuse Patient Records regulations: The Federal rules restrict any use of the information to criminally investigate or prosecute any alcohol or drug abuse patient.[facility] the event this information is protected by the Federal Confidentiality of Alcohol and Drug Abuse Patient Records regulations: The Federal rules restrict any use of the information to criminally investigate or prosecute any alcohol or drug abuse patient.[facility] the event this information is protected by the Federal Confidentiality of Alcohol and Drug Abuse Patient Records regulations: The Federal rules restrict any use of the information to criminally investigate or prosecute any alcohol or drug abuse patient.[facility] the event this information is protected by the Federal Confidentiality of Alcohol and Drug Abuse Patient Records regulations: The Federal rules restrict any use of the information to criminally investigate or prosecute any alcohol or drug abuse patient.[facility] the event this information is protected by the Federal Confidentiality of Alcohol and Drug Abuse Patient Records regulations: The Federal rules restrict any use of the information to criminally investigate or prosecute any alcohol or drug abuse patient.[facility] the event this information is protected by the Federal Confidentiality of Alcohol and Drug Abuse Patient Records regulations: The Federal rules restrict any use of the information to criminally investigate or prosecute any alcohol or drug abuse patient.[facility] the event this information is protected by the Federal Confidentiality of Alcohol and Drug Abuse Patient Records regulations: The Federal rules restrict any use of the information to criminally investigate or prosecute any alcohol or drug abuse patient.[facility] the event this information is protected by the Federal Confidentiality of Alcohol and Drug Abuse Patient Records regulations: The Federal rules restrict any use of the information to criminally investigate or prosecute any alcohol or drug abuse patient.[facility] the event this information is protected by the Federal Confidentiality of Alcohol and Drug Abuse Patient Records regulations: The Federal rules restrict any use of the information to criminally investigate or prosecute any alcohol or drug abuse patient.[facility] the event this information is protected by the Federal Confidentiality of Alcohol and Drug Abuse Patient Records regulations: The Federal rules restrict any use of the information to criminally investigate or prosecute any alcohol or drug abuse patient.[facility] the event this information is protected by the Federal Confidentiality of Alcohol and Drug Abuse Patient Records regulations: The Federal rules restrict any use of the information to criminally investigate or prosecute any alcohol or drug abuse patient.[facility] the event this information is protected by the Federal Confidentiality of Alcohol and Drug Abuse Patient Records regulations: The Federal rules restrict any use of the information to criminally investigate or prosecute any alcohol or drug abuse patient.[facility] the event this information is protected by the Federal Confidentiality of Alcohol and Drug Abuse Patient Records regulations: The Federal rules restrict any use of the information to criminally investigate or prosecute any alcohol or drug abuse patient.[facility] the event this information is protected by the Federal Confidentiality of Alcohol and Drug Abuse Patient Records regulations: The Federal rules restrict any use of the information to criminally investigate or prosecute any alcohol or drug abuse patient.[facility] the event this information is protected by the Federal Confidentiality of Alcohol and Drug Abuse Patient Records regulations: The Federal rules restrict any use of the information to criminally investigate or prosecute any alcohol or drug abuse patient.[facility] the event this information is protected by the Federal Confidentiality of Alcohol and Drug Abuse Patient Records regulations: The Federal rules restrict any use of the information to criminally investigate or prosecute any alcohol or drug abuse patient.[facility] the event this information is protected by the Federal Confidentiality of Alcohol and Drug Abuse Patient Records regulations: The Federal rules restrict any use of the information to criminally investigate or prosecute any alcohol or drug abuse patient.[facility] the event this information is protected by the Federal Confidentiality of Alcohol and Drug Abuse Patient Records regulations: The Federal rules restrict any use of the information to criminally investigate or prosecute any alcohol or drug abuse patient.[facility] the event this information is protected by the Federal Confidentiality of Alcohol and Drug Abuse Patient Records regulations: The Federal rules restrict any use of the information to criminally investigate or prosecute any alcohol or drug abuse patient.[facility] the event this information is protected by the Federal Confidentiality of Alcohol and Drug Abuse Patient Records regulations: The Federal rules restrict any use of the information to criminally investigate or prosecute any alcohol or drug abuse patient.[facility] the event this information is protected by the Federal Confidentiality of Alcohol and Drug Abuse Patient Records regulations: The Federal rules restrict any use of the information to criminally investigate or prosecute any alcohol or drug abuse patient.[facility] the event this information is protected by the Federal Confidentiality of Alcohol and Drug Abuse Patient Records regulations: The Federal rules restrict any use of the information to criminally investigate or prosecute any alcohol or drug abuse patient.[facility] the event this information is protected by the Federal Confidentiality of Alcohol and Drug Abuse Patient Records regulations: The Federal rules restrict any use of the information to criminally investigate or prosecute any alcohol or drug abuse patient.[facility] the event this information is protected by the Federal Confidentiality of Alcohol and Drug Abuse Patient Records regulations: The Federal rules restrict any use of the information to criminally investigate or prosecute any alcohol or drug abuse patient.[facility] the event this information is protected by the Federal Confidentiality of Alcohol and Drug Abuse Patient Records regulations: The Federal rules restrict any use of the information to criminally investigate or prosecute any alcohol or drug abuse patient.[facility] the event this information is protected by the Federal Confidentiality of Alcohol and Drug Abuse Patient Records regulations: The Federal rules restrict any use of the information to criminally investigate or prosecute any alcohol or drug abuse patient.[facility] the event this information is protected by the Federal Confidentiality of Alcohol and Drug Abuse Patient Records regulations: The Federal rules restrict any use of the information to criminally investigate or prosecute any alcohol or drug abuse patient.[facility] the event this information is protected by the Federal Confidentiality of Alcohol and Drug Abuse Patient Records regulations: The Federal rules restrict any use of the information to criminally investigate or prosecute any alcohol or drug abuse patient.[facility] the event this information is protected by the Federal Confidentiality of Alcohol and Drug Abuse Patient Records regulations: The Federal rules restrict any use of the information to criminally investigate or prosecute any alcohol or drug abuse patient.[facility] the event this information is protected by the Federal Confidentiality of Alcohol and Drug Abuse Patient Records regulations: The Federal rules restrict any use of the information to criminally investigate or prosecute any alcohol or drug abuse patient.[facility] the event this information is protected by the Federal Confidentiality of Alcohol and Drug Abuse Patient Records regulations: The Federal rules restrict any use of the information to criminally investigate or prosecute any alcohol or drug abuse patient.[facility] the event this information is protected by the Federal Confidentiality of Alcohol and Drug Abuse Patient Records regulations: The Federal rules restrict any use of the information to criminally investigate or prosecute any alcohol or drug abuse patient.[facility] the event this information is protected by the Federal Confidentiality of Alcohol and Drug Abuse Patient Records regulations: The Federal rules restrict any use of the information to criminally investigate or prosecute any alcohol or drug abuse patient.[facility] the event this information is protected by the Federal Confidentiality of Alcohol and Drug Abuse Patient Records regulations: The Federal rules restrict any use of the information to criminally investigate or prosecute any alcohol or drug abuse patient.[facility] the event this information is protected by the Federal Confidentiality of Alcohol and Drug Abuse Patient Records regulations: The Federal rules restrict any use of the information to criminally investigate or prosecute any alcohol or drug abuse patient.[facility] the event this information is protected by the Federal Confidentiality of Alcohol and Drug Abuse Patient Records regulations: The Federal rules restrict any use of the information to criminally investigate or prosecute any alcohol or drug abuse patient.[facility] the event this information is protected by the Federal Confidentiality of Alcohol and Drug Abuse Patient Records regulations: The Federal rules restrict any use of the information to criminally investigate or prosecute any alcohol or drug abuse patient.[facility] the event this information is protected by the Federal Confidentiality of Alcohol and Drug Abuse Patient Records regulations: The Federal rules restrict any use of the information to criminally investigate or prosecute any alcohol or drug abuse patient.[facility] the event this information is protected by the Federal Confidentiality of Alcohol and Drug Abuse Patient Records regulations: The Federal rules restrict any use of the information to criminally investigate or prosecute any alcohol or drug abuse patient.[facility] the event this information is protected by the Federal Confidentiality of Alcohol and Drug Abuse Patient Records regulations: The Federal rules restrict any use of the information to criminally investigate or prosecute any alcohol or drug abuse patient.[facility] the event this information is protected by the Federal Confidentiality of Alcohol and Drug Abuse Patient Records regulations: The Federal rules restrict any use of the information to criminally investigate or prosecute any alcohol or drug abuse patient.[facility] the event this information is protected by the Federal Confidentiality of Alcohol and Drug Abuse Patient Records regulations: The Federal rules restrict any use of the information to criminally investigate or prosecute any alcohol or drug abuse patient.[facility] the event this information is protected by the Federal Confidentiality of Alcohol and Drug Abuse Patient Records regulations: The Federal rules restrict any use of the information to criminally investigate or prosecute any alcohol or drug abuse patient.[facility]In the event this information is protected by the Federal Confidentiality of Alcohol and Drug Abuse Patient Records regulations: The Federal rules restrict any use of the information to criminally investigate or prosecute any alcohol or drug abuse patient.[facility]hillIn the event this information is protected by the Federal Confidentiality of Alcohol and Drug Abuse Patient Records regulations: The Federal rules restrict any use of the information to criminally investigate or prosecute any alcohol or drug abuse patient.[facility]In the event this information is protected by the Federal Confidentiality of Alcohol and Drug Abuse Patient Records regulations: The Federal rules restrict any use of the information to criminally investigate or prosecute any alcohol or drug abuse patient.[facility] Reason for Visit (unrecogniz ed section and content) Reason Comments F/U 1 month Specialty Diagnoses / Procedures Referred By Contac t Referred To Contact Family Practice / FAMILY MEDICINE Diagnoses 1 month follow up anxiety Procedures 4C EST Becca Draper MD [address] [place] [address] Becca Draper MD [address] [place] [address] Referral ID Status Reason Start Date Expiration Date V isits Requested Visits Authorized [id number] Closed Patient Cleared INN/SMCP Payor Auth Obtained 12/07/2021 09/11/2022 1 1 Reason Comments Abstract Reason Comments Patient Outreach (BHSW) Reason Comments Medication Problem Reason Comments Ankle Injury R foot and ankle inj ury x2 days Specialty Diagnoses / Procedures Referred By Contac t Referred To Contact Family Practice / [facility] Diagnoses Right foot injury Procedures OFFICE/OUTPATIENT NEW MODERATE MDM 45-59 MINUTES URGENT CARE Self Adithya Camacho MD [address] [place] [address] Referral ID Status Reason Start Date Expiration Date Visits Re quested Visits Authorized [id number] Closed 02/01/2022 09/11/2022 1 1 Reason Comments Question Reason Comments Sore Throat runny nose x today Reason Comments Results Reason Comments Refill Request Reason Comments Forms Reason Comments Physical Reason Comments Results Labs Reason Comments Results Urine culture Reason Comments Urinary Frequency New Patient Specialty Diagnoses / Procedures Referred By Contac t Referred To Contact Urology Diagnoses Urinary frequency Urinary urgency Procedures CONSULT TO UROLOGY OFFICE/OUTPATIENT NEW HIGH MDM 60-74 MINUTES Maryellen Bedoya APRN.CNP [address] [place] [address] Referral ID Status Reason Start Date Expiration Date V isits Requested Visits Authorized [id number] Closed PCP Requested Referral 09/15/2022 09/15/2023 1 1 Reason Comments Patient Update Reason Onset Date Comments Refill Request 07/07/2023 Reason Comments 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 [address] Reason Comments Cough Cough and drainage x 3 days Reason Comments Follow Up EC follow up for cou gh Reason Onset Date Comments Refill Request 11/02/2023 Reason Comments Eye Discharge Left Eye With redness & it chiness x 1 day Reason Comments Cough Runny nose x 1 week Reason Comments Cough Reason Comments Follow Up Urinary Urgency Reason Comments Head Congestion Fatigue x1 week Reason Onset Date Comments Refill Request 06/06/2024 Reason Comments Acute Visit Fatigue, irritable Reason Onset Date Comments Refill Request 07/06/2024 Reason Comments Results Labs. Reason Comments Results Sleep Study Reason Comments Physical Reason Onset Date Comments Refill Request 09/26/2024 Reason Comments follow up fro cough States cough still b ad and bad diarrhea from atb. Reason Comments Acute Visit Cough, congestion x 1 month; using inhaler, Delsym Reason Comments Speech Instrumental Swallow Eval Speech Discharge Specialty Diagnoses / Procedures Referred By Contac t Referred To Contact XR IMAGING Diagnoses Acute cough Oropharyngeal dysphagia Procedures XR MODIFIED BARIUM SWALLOW W SPEECH THERAPY RADIOLOGIC EXAM SWALLOW FUNCTION CONTRAST STUDY Jenise Holt, GIANCARLO.TEXTILE 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 [address] [place] [address] Phone: tel: fax: [facility] [place] [phone] Referral ID Status Reason Start Date Expiration Date V isits Requested Visits Authorized [id number] Closed Auto-Generate d Referral 01/28/2025 02/27/2026 1 1 Reason Comments Patient Question Reason Comments Dysphagia Barium swallow Reason Comments Follow Up Urinary Frequency Care Teams (unrecognized sec tion and content) Server Software Engineer Relationship Specialty Start Date End Date Becca Draper MD [address] [place] [id number] PCP - General 08/19/09 Server Software Engineer Relationship Specialty [place] [address] [place] [address] PCP - General 08/19/09 Server Software Engineer Relationship Specialty Start Date End Date Becca Draper MD [address] [place] [id number] PCP - General 08/19/09 Server Software Engineer Relationship Specialty Start Date End Date Becca Draper MD [address] [place] [address] [id number] PCP - General 08/19/09 Server Software Engineer Relationship Specialty Start Date End Date Becca Draper MD [address] [facility] [place] [address] PCP - General 08/19/09 Server Software Engineer Relationship Specialty Start Date End Date Becca Draper MD [address] [facility] [place] [address] PCP - General 08/19/09 Server Software Engineer Relationship Specialty Start Date End Date Becca Draper MD [address] [facility] [place] [place] [address] PCP - General 08/19/09 Server Software Engineer Relationship Specialty Start Date End Date Becca Draper MD [address] [facility] [place] [address] PCP - General 08/19/09 Server Software Engineer Relationship Specialty Start Date End Date Becca Draper MD [address] [facility] [place] [place] [address] PCP - General 08/19/09 Server Software Engineer Relationship Specialty Start Date End Date Becca Draper MD [address] [facility] [place] [address] PCP - General 08/19/09 Server Software Engineer Relationship Specialty Start Date End Date Becca Draper MD [address] [facility] [place] [address] PCP - General 08/19/09 Server Software Engineer Relationship Specialty Start Date End Date Becca Draper MD [address] [facility] [place] [place] [address] PCP - General 08/19/09 Server Software Engineer Relationship Specialty Start Date End Date Becca Draper MD [address] [facility] [place] [place] [address] PCP - General 08/19/09 Server Software Engineer Relationship Specialty Start Date End Date Becca Draper MD [address] [facility] [place] [place] [address] PCP - General 08/19/09 Server Software Engineer Relationship Specialty Start Date End Date Becca Draper MD [address] [facility] [place] [address] PCP - General 08/19/09 Server Software Engineer Relationship Specialty Start Date End Date Becca Draper MD [address] [facility] [place] [place] [address] PCP - General 08/19/09 Server Software Engineer Relationship Specialty Start Date End Date Becca Draper MD [address] [facility] [place] [place] [address] PCP - General 08/19/09 Server Software Engineer Relationship Specialty Start Date End Date Becca Draper MD [address] [facility] [place] [place] [address] PCP - General 08/19/09 Server Software Engineer Relationship Specialty Start Date End Date Becca Draper MD [address] [facility] [place] [place] [address] PCP - General 08/19/09 Server Software Engineer Relationship Specialty Start Date End Date Becca Draper MD [address] [facility] [place] [address] PCP - General 08/19/09 Server Software Engineer Relationship Specialty Start Date End Date Becca Draper MD [address] [facility] [place] [address] PCP - General 08/19/09 Server Software Engineer Relationship Specialty Start Date End Date Becca Draper MD [address] [place] [address] PCP - General 08/19/09 Server Software Engineer Relationship Specialty Start Date End Date Becca Draper MD [address] [place] [address] PCP - General 08/19/09 Server Software Engineer Relationship Specialty Start Date End Date Becca Draper MD [address] [place] [address] PCP - General 08/19/09 Server Software Engineer Relationship Specialty Start Date End Date Becca Draper MD [address] [place] [address] PCP - General 08/19/09 Server Software Engineer Relationship Specialty Start Date End Date Becca Draper MD [address] [place] [address] PCP - General 08/19/09 Server Software Engineer Relationship Specialty Start Date End Date Becca Draper MD [address] [place] [address] PCP - General 08/19/09 Server Software Engineer Relationship Specialty Start Date End Date Becca Draper MD [address] [facility] [place] [address] PCP - General 08/19/09 Server Software Engineer Relationship Specialty Start Date End Date Becca Draper MD [address] [facility] [place] [address] PCP - General 08/19/09 Server Software Engineer Relationship Specialty Start Date End Date Becca Draper MD [address] [place] [address] PCP - General 08/19/09 Server Software Engineer Relationship Specialty Start Date End Date Becca Draper MD [address] [place] [address] PCP - General 08/19/09 Server Software Engineer Relationship Specialty Start Date End Date Becca Draper MD [address] [place] [address] PCP - General 08/19/09 Server Software Engineer Relationship Specialty Start Date End Date Becca Draper MD [address] [place] [address] PCP - General 08/19/09 Rosana Rodney, PROCESS DESCRIPTION WRITER.TEXTILE 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 [address] [place] [address] Dot Net Developer Family Medicine 08/19/24 Server Software Engineer Relationship Specialty Start Date End Date Becca Draper MD [address] [place] [address] PCP - General 08/19/09 Rosana Rodney, PROCESS DESCRIPTION WRITER.TEXTILE 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 [address] [place] [address] Dot Net Developer Family Medicine 08/19/24 Mac Galvan APRN.TEXTILE 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 [address] [place] [address] Dot Net Developer Family Medicine 08/28/24 Server Software Engineer Relationship Specialty Start Date End Date Becca Draper MD [address] [place] [address] PCP - General 08/19/09 Rosana Rodney APRN.TEXTILE 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 [address] [place] [address] Dot Net Developer Family Medicine 08/19/24 Mac Galvan APRN.TEXTILE 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 [address] [place] [address] Dot Net Developer Family Medicine 08/28/24 Server Software Engineer Relationship Specialty Start Date End Date Becca Draper MD [address] [place] [address] PCP - General 08/19/09 Rosana Rodney APRN.TEXTILE 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 [address] [place] [address] Dot Net Developer Family Medicine 08/19/24 Mac Galvan APRN.TEXTILE 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 [address] [place] [address] Dot Net Developer Family Medicine 08/28/24 Server Software Engineer Relationship Specialty Start Date End Date Becca Draper MD [address] [place] [address] PCP - General 08/19/09 Mac Galvan APRN.TEXTILE 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 [address] [place] [address] Dot Net Developer Family Medicine 08/28/24 Server Software Engineer Relationship Specialty Start Date End Date Becca Draper MD [address] [place] [address] PCP - General 08/19/09 Mac Galvan APRN.TEXTILE 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 [address] [place] [address] Dot Net Developer [facility] 08/28/24 Server Software Engineer Relationship Specialty Start Date End Date Becca Draper MD [address] [place] [address] PCP - General 08/19/09 Mac Galvan APRN.TEXTILE 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 [address] [place] [address] Dot Net Developer [facility] 08/28/24 Server Software Engineer Relationship Specialty Start Date End Date Becca Draper MD [address] [place] [address] PCP - General 08/19/09 Mac Galvan APRN.TEXTILE 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 [address] [place] [address] Dot Net Developer [facility] 08/28/24 Server Software Engineer Relationship Specialty Start Date End Date Becca Draper MD [address] [place] [address] PCP - General 08/19/09 Mac Galvan PROCESS DESCRIPTION WRITER.TEXTILE 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 [address] [place] [address] Dot Net Developer [facility] 08/28/24 Server Software Engineer Relationship Specialty Start Date End Date Becca Draper MD [address] [place] [address] PCP - General 08/19/09 Mac Galvan PROCESS DESCRIPTION WRITER.TEXTILE 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 [address] [place] [address] [facility] Server Software Engineer Relationship Specialty Start Date End Date Becca Draper MD [address] [place] [address] PCP - General 08/19/09 Mac Galvan PROCESS DESCRIPTION WRITER.TEXTILE 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 [address] [place] [address] [facility] 08/[facility]/24 Server Software Engineer Relationship Specialty Start Date End Date Becca Draper MD [address] [place] [address] PCP - General 08/19/09 Mac Galvan PROCESS DESCRIPTION WRITER.TEXTILE 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 [address] [place] [address] [facility] 08/28/24 Server Software Engineer Relationship Specialty Start Date End Date Becca Draper MD [address] [place] [address] PCP - General 08/19/09 Mac Galvan, PROCESS DESCRIPTION WRITER.TEXTILE 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 [address] [place] [address] [facility] 08/28/24 Server Software Engineer Relationship Specialty Start Date End Date Becca Draper MD [address] [place] [address] PCP - General 08/19/09 Mac Galvan GIANCARLO.TEXTILE 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 [address] [place], [place] [address] Dot Net Developer [facility] 08/28/24 Server Software Engineer Relationship Specialty Start Date End Date Becca Draper MD [address] [place], [place] 578491 PCP - General 08/19/09 Mac aGlvan APRN.TEXTILE 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 [address] [place], [place] [address] Dot Net Developer [facility] 08/28/24 Server Software Engineer Relationship Specialty Start Date End Date Becca Draper MD [address] [place], [place] [id number] PCP - General 08/19/09 Mac Galvan, GIANCARLO.TEXTILE 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 [address] [place], [place] [address] Dot Net Developer [facility] 08/28/24 Goals (unrecognized section and content) Goals may be documented in a n alternate section (unrecognized sect ion and content) No Status Records FoundNo Status Records FoundNo Status Records FoundNo Status Records Found INFORMATION SOURCE (unrecogn ized section and content) DATE CREATED AUTHOR 09/03/2022 [facility] DATE CREATED AUTHOR AUTHOR'S ORGANIZ ATION 02/10/2025 [facility] DATE CREATED AUTHOR AUTHOR'S ORGANIZ ATION 05/02/2025 [facility] DATE CREATED AUTHOR AUTHOR'S ORGANIZ ATION 05/06/2025 [facility] FOR RECORDS PERTAINING TO PATIENTS WHO ARE OR HAVE BEEN ENROLLED IN A CHEMICAL DEPENDENCY/SUBSTANCEABUSE PROGRAM, SOME INFORMATION MAY BE OMITTED. This clinical summary was aggregated from multiple sources. Caution should be exercised in using it in the provision of clinical care. This summary normalizes information from multiple sources, and as a consequence, information in this document may materially change the coding, format and clinical context of patient data. In addition, data may be omitted in some cases. CLINICAL DECISIONS SHOULD BE BASED ON THE PRIMARY CLINICAL RECORDS. [facility] [employer] [facility]. provides no warranty or guarantee of the accuracy or completeness of information in this document.
--- NOTE | 2025-05-13 21:55 | EDS_ITS ---
HPI HPI - GI History of Present Illness Chief Complaint: Nausea/Vomiting/Diarrhea Informant: patient and family (Accompanied by sister who is his caregiver and he lives with her.) Nausea/Vomiting/Emesis GI Symptom: Positive for Nausea and Vomiting (X 1 yesterday.) Onset: Yesterday Severity: Mild Diarrhea/Melena/Hematochezia GI Symptom: Positive for Diarrhea Onset: Today and Yesterday Stool Quality: Positive for Watery Severity: Moderate Associated Symptoms Associated Symptoms: Negative for Dysuria, Frequency, Hematuria or Urgency Narrative Narrative: 49-year-old male history of MRDD and seizures. He lives at home with his sister who is his caregiver. He does go to [employer]. No known exposure. Yesterday started having increased sleep and diarrhea. He had 1 episode of nausea vomiting. Today has had watery diarrhea. No vomiting today. No fever. No abdominal pain. Decreased oral intake. Prior similar symptoms: Yes Recent Illness/Hospitalization: No PFSH PFSH Medical History Medication monitoring encounter OCD (obsessive compulsive disorder) Intellectual disability Cholecystectomy planned Seizures Irritable bowel syndrome Gallstones Allergies Home Medications ?Medication ?Instructions ?Recorded ?Last Taken ?Type carbamazepine 200 mg tablet 400 mg PO BIDCM 03/22/15 0 03/22/15 History cetirizine 10 mg tablet 10 mg PO DAILY 09/29/22 Unkn own History divalproex 500 mg tablet,delayed 500 mg PO BID #30 tab s 11/11/22 Unknown Rx release (Depakote) oxybutynin chloride 5 mg tablet 5 mg PO QHS 11/11/22 U nknown History hydroxyzine HCl 10 mg tablet 5 - 10 mg (0.5 - 1 x 10 m g) PO BID 05/02/25 Unknown Rx PRN anxiety #60 tabs omeprazole 20 mg capsule,delayed 20 mg PO QDAY 5 Unknown History release albuterol sulfate 90 mcg/actuation 2 puff inhalation Q 4H PRN PRN 05/13/25 Unknown History aerosol inhaler wheezing Allergy/AdvReac Type Severity Reaction Status Date / Time venlafaxine HCl (From AdvReac AGITATION Verified 05/13/25 20:23 Effexor) AND SLEEPY Family History Other Anxiety Asthma Depression Diabetes Hypertension Parkinson disease Seizures Social History Smoking Status: Never smoker alcohol intake: never substance use type: does not use ROS ROS ED ROS Narrative Nausea, vomiting diarrhea. Constitutional Constitutional ED: Denies chills or fever(s) ENT ENT ED: Denies ear pain Cardiovascular Cardiovascular: Denies chest pain Respiratory/Chest Respiratory/Chest: Denies cough or dyspnea Gastrointestinal Gastrointestinal: Denies abdominal pain Genitourinary Genitourinary ED: Denies dysuria or hematuria Musculoskeletal Musculoskeletal: Denies arthralgias Integumentary Denies abscess or Abrasions Neurologic Neurologic: Denies headache(s) Psychiatric Psychiatric: Denies anxiety or depression Endocrine Endocrinology: Denies polydipsia Hematologic/Lymphatic Hematologic/Lymphatic: Denies easy bleeding, easy bruising or lymphadenopathy Allergic/Immunologic Allergic/Immunologic ED: Denies mouth swelling, tongue swelling or urticaria EXAM Physical Exam Const Vital Signs: 05/13/25 20:21 05/13/25 22:20 Temperature 98.6 F Temperature Source Temporal Pulse Rate 94 87 Respiratory Rate 16 18 Blood Pressure 98/64 111/77 Blood Pressure Mean 75 88 Pulse Ox 97 97 Oxygen Delivery Method Room Air Room Air Positive well nourished and well developed; Negative for obese, cachectic, contractures or unkempt General Appearance ED: well developed and NAD; Negative for unkempt, cachectic, contractures or pallor Nutritional Appearance: Negative for cachectic or obese HEENT Reports moist mucous membranes normocephalic and atraumatic Eyes PERRL and EOMs intact bilaterally Neck no lymphadenopathy, supple and no JVD Resp normal respiratory effort and clear to auscultation bilaterally Effort and Inspection: Negative for respiratory distress Auscultation: Negative for rales, rhonchi or wheezes Cardio regular rate, regular rhythm, S1 normal heart sound, S2 normal heart sound and no murmurs Rate: Negative for bradycardia or tachycardic Rhythm: Negative for abnormal rhythm GI non-tender, non-distended and no masses Auscultation: normoactive bowel sounds Palpation: soft; Negative for tender, guarding or rebound tenderness present Back/Spine no CVA tenderness General Back: Negative for CVA tenderness Cervical Spine: Negative for cervical spine tenderness Thoracic Spine / Upper Back: Negative for thoracic spinal tenderness Lumbar Spine / Lower Back: Negative for lumbar spinal tenderness Coccyx: Negative for other Extremity full ROM General Extremety ED: Negative for edema or tenderness General Extremity: Negative for edema Neuro CN's II-XII intact bilaterally, moves all extremities, No no sensory deficits noted and No gait normal Sensorium / Orientation: alert Motor Exam: strength 5/5 throughout Psych mental status grossly normal and thought process normal Appearance: Negative for unkempt Skin no wounds General Skin Exam: Negative for jaundice or pallor Lesions: no lesions Rashes: no rashes Trauma: Negative for abrasion Nails: Negative for discolored MDM MDM MDM Narrative Medical decision making narrative: 49-year-old male with a history of MRDD. Sisters present who is his caregiver. Sounds like he has a viral gastroenteritis. His exam is benign he has absolutely no abdominal tenderness. Will be treated with IV fluids. Zofran. P.o. fluid challenge. We will obtain a chemistry panel and a CBC. Repeat exam at 6:11 PM. Patient is doing okay. He was able to hold down p.o. fluids. Repeat abdominal exam is completely benign and nontender. He is rest ing comfortably. We did do a bladder scan due to his elevated creatinine of 2.1 he had urinated while here. And his bladder scan only showed 20 cc there is no sign of urinary retention or obstruction. I discussed with his sister the history of creatinine is newly elevated. It is most likely from dehydration. And he will be admitted for further IV fluids will be given a second liter here. I do not think he needs a CAT scan at this time because he is having no abdominal pain History & Record Review Discussion w/independent historian: Patient and Family Additional record(s) reviewed:: Prior inpatient record, Prior outpatient record, Prior ED visit and Prior labs Lab Data Attestation: I reviewed the patient's lab results. Lab results narrative: CBC shows no elevated white count 15.9 H&H is 16 and 48. Platelets 359. Electrolytes show gap of 16. BUN and creatinine of 30 and 2.15. Glucose 117. Liver enzymes unremarkable. Labs: Laboratory Results - last 24 hr 05/13/25 22:00 WBC 15.9 H RBC 5.47 Hgb 16.6 H Hct 48.6 MCV 88.8 MCH 30.3 MCHC 34.2 RDW Std Deviation 44.2 H RDW Coeff of Unique 13.6 Plt Count 359 MPV 10.0 Immature Gran % (Auto) 0.500 Neut % (Auto) 79.7 H Lymph % (Auto) 13.7 L [place] % (Auto) 5.7 Eos % (Auto) 0.1 Baso % (Auto) 0.3 Absolute Neuts (auto) 12.6 H Absolute Lymphs (auto) 2.18 Nucleated RBC % 0 Sodium 143 Potassium 3.3 Chloride 106 Carbon Dioxide 21.0 Anion Gap 16 H BUN 30 H Creatinine 2.15 H Estim Creat Clear Calc 48.00 L Est GFR (MDRD) Non-Af 37 L BUN/Creatinine Ratio 14.1 Glucose 117 H Calcium 9.1 Total Bilirubin 0.26 AST 33 ALT 57 H Alkaline Phosphatase 73 Total Protein 8.5 H Albumin 4.7 Globulin 3.8 Albumin/Globulin Ratio 1.3 Discharge Plan Triage Chief Complaint: Nausea/Vomiting/Diarrhea ED Provider: Dedrick Navarro Dx/Rx/DC Orders Clinical Impression: Viral gastroenteritis, Acute kidney injury, Acute dehydration Prescriptions: No Action cetirizine 10 mg tablet 10 mg PO DAILY Patient Comments: TAKE 1 TABLET BY MOUTH ONCE DAILY oxybutynin chloride 5 mg tablet 5 mg PO QHS divalproex [Depakote] 500 mg tablet,delayed release (DR/EC) 500 mg PO BID Qty: 30 2RF omeprazole 20 mg capsule,delayed release(DR/EC) 20 mg PO QDAY hydroxyzine HCl 10 mg tablet 5 - 10 mg PO BID PRN (Reason: anxiety) Qty: 60 2RF carbamazepine 200 MG tablet 400 mg PO BIDCM Patient Comments: Sizeures albuterol sulfate 90 mcg/actuation HFA aerosol inhaler 2 puff inhalation Q4H PRN PRN (Reason: wheezing) Primary Care Provider: Mike Draper Referrals: Mike Draper MD [Primary Care Provider] - Print Language: Nicaraguan Disposition Disposition: Acute Care Hospital [facility]
[2025-05-13] MEDS: 0.9% Normal Saline (1000mL) 1,000 ML 999 ML IV ×2 (22:16→23:21)
[2025-05-13 22:19] LABS: Hematocrit 48.6 % (40-54); Hemoglobin 16.6 g/dL (13.0-16.5); Immature Granulocytes Count 0.080 X10^3/uL (0.0-0.0); Mean Corp Hgb Conc 34.2 g/dL (32-36); Mean Corpuscular Volume 88.8 fL (80-94); Mean Platelet Vol. 10.0 fl (6.2-12.0); NRBC Flagged by Analyzer 0 % (0-5); Platelet Count 359 K/mm3 (150-450); RBC Distribution Width CV 13.6 % (11.6-14.6); RBC Distribution Width SD 44.2 fl (35.1-43.9); Red Blood Count 5.47 M/mm3 (4.6-6.2); White Blood Count 15.9 K/mm3 (4.4-11.0)
[2025-05-13 22:20] VITALS: BP 111/77; PULSE 87; RESP 18; O2SAT 97
[2025-05-13 22:38] LABS: AST(SGOT) 33 U/L (<=37); Alanine Aminotransfer ALT/SGPT 57 U/L (<=46); Albumin, Serum 4.7 g/dL (3.5-5.0); Alkaline Phosphatase 73 U/L (40-129); Anion Gap 16 (5-15); BUN 30 mg/dL (4-19); BUN/Creat Ratio 14.1 RATIO (10-20); Calcium,Total 9.1 mg/dL (7.6-11.0); Carbon Dioxide 21.0 mmol/L (21.0-32.0); Chloride 106 mmol/L (98-108); Estimated Creatinine Clearance 48.00 ml/min (50-250); Globulin 3.8 g/dL (2.2-4.2); Glucose 117 mg/dL (70-99); Potassium 3.3 mmol/L (3.3-5.1)
--- NOTE | 2025-05-13 23:16 | PCM.HP.STD ---
HPI - General General Date of Admission: 05/13/25 Date of Service: 05/13/25 Chief Complaint: N/V/D HPI Narrative The patient is a 49 y/o M living at home with his caregiver who is his sister w/ PMHx: IBS, Seizure disorder, OCD, intellectual disability with chronically slurred speech and slowed mentation, GERD, Allergic rhinitis who presents to [facility] ED on 05/13/2025 with history of onset starting the day prior increased fatigue malaise as well as diarrhea which has been watery in nature with persistent nausea and 1 episode of emesis with no associated abdominal pain but decreased oral intake prompting sister to bring patient in for further evaluation given persistent GI losses. Sister denies any recent sick contacts with similar illness pattern. Workup in the ED included T98.6, heart rate 94, BP 98/64, respiratory rate 16, 97% on room air with most recent repeat vitals heart rate 87, BP 111/77, respiratory rate 18, 97% on room air, CBC with WC 15.9, hemoglobin 16.6, platelet 359 with left shift, CMP with anion gap 16, BUN/creatinine 30/2.15, GFR 37, glucose 117, hepatic profile with ALT 57 otherwise not marked appearing. In the ED patient administered 2 L normal saline and Zofran 4 mg IV x 1. [facility] Medical History Allergic rhinitis Mental retardation OCD (obsessive compulsive disorder) Intellectual disability Seizures Irritable bowel syndrome Home Medications ?Medication ?Instructions ?Recorded ?Last Taken ?Type carbamazepine 200 mg tablet 400 mg PO BIDCM 03/22/15 03/22/15 History cetirizine 10 mg tablet 10 mg PO DAILY 09/29/22 Unknown History divalproex 500 mg tablet,delayed 500 mg PO BID #30 tabs 11/11/22 Unknown Rx release (Depakote) oxybutynin chloride 5 mg tablet 5 mg PO QHS 11/11/22 Unknown History hydroxyzine HCl 10 mg tablet 5 - 10 mg (0.5 - 1 x 10 mg) PO BID 05/02/25 Unknown Rx PRN anxiety #60 tabs omeprazole 20 mg capsule,delayed 20 mg PO QDAY 05/02/25 Unknown History release albuterol sulfate 90 mcg/actuation 2 puff inhalation Q4H PRN PRN 05/13/25 Unknown History aerosol inhaler wheezing Allergy/AdvReac Type Severity Reaction Status Date / Time venlafaxine HCl (From AdvReac AGITATION Verified 05/13/25 20:23 Effexor) AND SLEEPY Family History Mother Anxiety Depression Father Diabetes Hypertension Other Parkinson disease Seizures Surgical History S/P cholecystectomy Social History household members: family Smoking Status: Never smoker alcohol intake: never substance use type: does not use ROS ROS Narrative Admission Review of Systems (primarily per sister who was present): CONSTITUTIONAL: No weight loss, fever, chills, + weakness or fatigue. HEENT: Eyes: No visual loss, blurred vision, double vision or yellow sclerae. Ears, Nose, Throat: No hearing loss, sneezing, congestion, runny nose or sore throat. SKIN: No rash or itching, lesions, wounds. CARDIOVASCULAR: No chest pain, chest pressure or chest discomfort, palpitations, edema, orthopnea, syncopal events. RESPIRATORY: No shortness of breath, cough or sputum, wheezing, hemoptysis. GASTROINTESTINAL: + anorexia, nausea, vomiting, diarrhea. No abdominal pain, melena, BRBPR. GENITOURINARY: No dysuria, frequency, urgency or retention. NEUROLOGICAL: + Seizure disorder with intellectual disability, chronically altered speech. No headache, dizziness, syncope, paralysis, ataxia, numbness or tingling in the extremities, focal weakness, change in bowel or bladder control. MUSCULOSKELETAL: No muscle, back pain, joint pain or stiffness. HEMATOLOGIC: No anemia, bleeding or bruising. LYMPHATICS: No enlarged nodes. No history of splenectomy. PSYCHIATRIC: + History of OCD/anxiety, intellectual disability. ENDOCRINOLOGIC: No reports of sweating, cold or heat intolerance. No polyuria or polydipsia. ALLERGIES: + History of allergic rhinitis. Vital Signs Vital Signs Vital Signs: 05/13/25 20:21 05/13/25 22:20 Temperature 98.6 F Temperature Source Temporal Pulse Rate 94 87 Respiratory Rate 16 18 Blood Pressure 98/64 111/77 Blood Pressure Mean 75 88 Pulse Ox 97 97 Oxygen Delivery Method Room Air Room Air Weight Weight: 191 lb 12.835 oz Body Mass Index (BMI) 25.2 Physical Exam Narrative Physical Examination: General: Awake, alert, oriented to self, sister, recent events, does have underlying intellectual disability with chronic altered speech , remains cooperative, seated upright in the ED bed, no acute distress, does frequently ask and repeat the same questions Skin: Normal color, normal turgor, no icterus, no cyanosis. HEENT: AT/NC, EOMI, PERRLA, dry MM, no carotid bruits or JVD noted. Lungs: Mildly diminished, greater bases, proper effort, no rales, ronchi or wheezing. Heart: Regular rate and rhythm; no gallop, rub audible. Abdomen: Soft, NTTP, ND, mildly hyperactive BS, no HSM. Extremities: No cyanosis, clubbing, or edema. Neurological: Patient awake, alert, oriented as noted, cognitive function decreased baseline with underlying intellectual disability, currently appears at baseline; pupils equally reactive to light and accommodation, cranial nerves grossly normal, speech chronically slurred/altered, moving all 4 extremities, no focal deficits, strength moderately globally decreased. Psychiatric: Affect appears mildly fatigued otherwise interactive, no acute evidence of depressive or anxiety feelings but does have underlying OCD, anxiety. Results Lab / Micro Data 05/13/25 22:00 05/13/25 22:00 Labs: Laboratory Results - last 24 hr 05/13/25 22:00: WBC 15.9 H, RBC 5.47, Hgb 16.6 H, Hct 48.6, MCV 88.8, MCH 30.3, MCHC 34.2, RDW Std Deviation 44.2 H, RDW Coeff of Unique 13.6, Plt Count 359, MPV 10.0, Immature Gran % (Auto) 0.500, Neut % (Auto) 79.7 H, Lymph % (Auto) 13.7 L, [place] % (Auto) 5.7, Eos % (Auto) 0.1, Baso % (Auto) 0.3, Absolute Neuts (auto) 12.6 H, Absolute Lymphs (auto) 2.18, Nucleated RBC % 0, Sodium 143, Potassium 3.3, Chloride 106, Carbon Dioxide 21.0, Anion Gap 16 H, BUN 30 H, Creatinine 2.15 H, Estim Creat Clear Calc 48.00 L, Est GFR (MDRD) Non-Af 37 L, BUN/Creatinine Ratio 14.1, Glucose 117 H, Calcium 9.1, Total Bilirubin 0.26, AST 33, ALT 57 H, Alkaline Phosphatase 73, Total Protein 8.5 H, Albumin 4.7, Globulin 3.8, Albumin/Globulin Ratio 1.3 Assessment & Plan Assessment/Plan (1) Acute kidney injury: (2) Viral gastroenteritis: PLAN: Plan The patient is a 49 y/o M living at home with his caregiver who is his sister w/ PMHx: IBS, Seizure disorder, OCD, intellectual disability with chronically slurred speech and slowed mentation, GERD, Allergic rhinitis who presents to [facility] ED on 05/13/2025 with history of onset starting the day prior increased fatigue malaise as well as diarrhea which has been watery in nature with persistent nausea and 1 episode of emesis with no associated abdominal pain but decreased oral intake prompting sister to bring patient in for further evaluation given persistent GI losses. #1. N/V/D, Gastroenteritis, potentially viral: Will admit to medical surgical floor, will continue aggressive hydration, will obtain c diff, stool cx, O+P with repeat AM CBC. Will not start antibiotics at this time given unclear source pending stool studies as may be viral gastroenteritis. Anti-emetics, pain regimen PRN. Allow clears if able to tolerate. Will request urinalysis also to be cautious to make sure this is not the etiology. #2. Acute kidney injury: Secondary to acute presentation with GI losses as noted #1. Admission BUN/Cr 30/2.15, GFR 37, prior baseline creatinine noted to be primarily 0.7-1.1. Will continue to aggressively hydrate, hold nephrotoxic medications and repeat chemistry in AM. If no improvement would plan FeNa assessment. #3. Seizure disorder: Will continue patient home Depakote and carbamazepine home regimen with alterations as needed given acute kidney injury. #4. OCD: Will very cautiously use low-dose hydroxyzine for agitation/anxiety. #5. Intellectual disability with chronically slurred speech, slow mentation: Complicates presentation, as noted will continue patient antiepileptic medication, maintain on fall precautions, case management consulted. #6. GERD: Will maintain on IV PPI until N/V resolved. #7. Allergic rhinitis: Will continue patient home cetirizine regimen. #8. DVT prophylaxis: Heparin. #9. CODE status: Full Code. Patient sister is his legal guardian. Charges/Coding Visit Charges Inpatient E&M: 45697 Init Hosp L3
[2025-05-13 23:36] VITALS: BP 108/70; PULSE 85; RESP 18; TEMP 36.6; O2SAT 98
--- OUTSIDE RECORDS SUMMARY | 2025-05-13 23:40 | XMS RPT_ITS | CCD ---
Author Organization [facility] CliniSyms Care Team Providers Care Freight Broker Name Role Phone Becca Draper MD Primary Care Provider ROSANA RODNEY Referring Unavailable BECCA DRAPER Primary Care Unavailable Becca Draper MD Primary Care Provider Becca Draper MD Primary Care Provider Rashaun CATERING OPERATIONS MANAGER.Rosana GARRIDO Unavailable Cole CATERING OPERATIONS MANAGER.Mac GARRIDO Unavailable BECCA DRAPRE Primary Care Unavailable JENISE HOLT Referring Unavailable [...] Referring Unavailable BECCA DRAPER [facility] Unavailable Reji George Attending Unavailable Becca Draper Primary Care Unavailable Reji George Attending Unavailable Becca Draper Primary Care Unavailable Rosana Rodney Attending Unavailable Rosana Rodney Referring Unavailable Reji George Referring Unavailable Becca Draper Primary Care Unavailable Reji George Attending Unavailable Dedrick Navarro Attending [facility] Un[facility] Becca Primary Care Unavailable Reji George Attending Unavailable Becca Draper Primary Care Unavailable Reji George Attending Unavailable Allergies Allergy Classification Reported Allergen(s) Allergy Type Date of Onset Reaction(s) Facility (20 sources) OLANZapine; Translations: [OLANZAPINE] Drug Allergy 08-11-2007 Intolerance [facility] Work Phone: (20 sources) PARoxetine; Translations: [PAROXETINE HCL] Drug Allergy 08-11-2007 Intolerance [facility] Work Phone: (20 sources) venlafaxine; Translations: [VENLAFAXINE HCL] Drug Allergy 08-11-2007 Intolerance [facility] Work Phone: (1 source) venlafaxine Drug Allergy 05-13-2025 [facility] Repository Medications Current Medications Medication Drug Class(es) Dates Sig (Normalized) Sig (Original) [id number] 200 actuat albuterol 0.09 mg/actuat metered dose inhaler (20 sources) beta2-Adrenergic Agonist Start: 02-06-2025 take 2 puff(s) by inhalation every four hours as needed for cough albuterol HFA (PROVENTIL HFA, VENTOLIN HFA) 90 mcg/actuation inhaler Inhale 2 puffs as instructed every 4 hours as needed for wheezing/shortnes s of breath (cough). 1 each 02/06/2025 Active Start: 10-25-2023 take 2 puff(s) [...] Comment on above: Take 2 tablets by [facility] twice daily. Take 2 tablets by [facility] twice daily Take 2 tablets by [facility] two times a day. cetirizine [...] Comment on above: Take 1 tablet by [facility] once daily. doxycycline hyclate 100 mg oral [...] Comment on above: Take 1 capsule by [facility] two times a day for [...] (20 sources) Cholinergic Muscarinic Antagonist Start: 12-21-19 25 take 1 tablet by mouth every twenty-four [...] by isabela th at bedtime polymyxin b [id number] unt/ml / trimethoprim 1 mg/ml ophthalmic solution [...] on above: Take 1 capsule by mo ut once daily. FLUoxetine 10 mg oral capsule (18 sources) Serotonin Reuptake Inhibitor Start: 10-28-2021 End: 09-14-2022 take 1 capsule by mouth once daily FLUoxetine (PROZAC) 10 mg capsule Take 1 capsule by mouth once daily. 30 capsule 5 10/28/2021 09/14/2022 Discontinued (Course of therapy completed) Comment on above: Take 1 capsule by mo ut once daily. hydrocortisone 10 mg/ml topical cream [...] Test Name Value Interpretation Reference Range Facility CBC W/Diff, Automatedon 09-0 Absolute Lymph 2.18 X10 3/uL Normal 0.83-4.51 [facility] Comment on above: Performed By: #### L 100.0100, L500.4050 #### [facility] Laboratory [address] [place], [address] Absolute Neut 12.6 X10 3/uL High 2.0-7.7 [facility] Comment on above: Performed By: #### L 100.0100, L500.4050 #### [facility] Laboratory [address] [place], [address] Basophils/100 WBC (Bld) 0.3 % Normal 0-1 [facility] Comment on above: Performed By: #### L 100.0100, L500.4050 #### [facility] Laboratory [address] [place], [address] Eosinophils/100 WBC (Bld) 0.1 % Normal 0-5 [facility] Comment on above: Performed By: #### L 100.0100, L500.4050 #### [facility] Laboratory [address] [place], [address] Erythrocyte distribution width (RBC) [Ratio] 13.6 % Normal 11.6-14.6 [facility] Comment on above: Performed By: #### L 100.0100, L500.4050 #### [facility] Laboratory [address] [place], [address] Hematocrit (Bld) [Volume fraction] 48.6 % Normal 40-54 [facility] Comment on above: Performed By: #### L 100.0100, L500.4050 #### [facility] Laboratory [address] [place], [address] Hemoglobin (Bld) [Mass/Vol] 16.6 g/dL High 13.0-16.5 [facility] Comment on above: Performed By: #### L 100.0100, L500.4050 #### [facility] Laboratory [address] [place], [address] IG% 0.500 Normal 0.0-0.9 [facility] Comment on above: Result Comment: IG% - Immature Granulocytes (promyelocytes, myelocytes and metamyelocytes) > 1% indicates that a LEFT SHIFT is Present. Performed By: #### L 100.0100, L500.4050 #### [facility] Laboratory [address] [place], [address] Lymphocytes/100 WBC (Bld) 13.7 % Low 19-41 [facility] Comment on above: Performed By: #### L 100.0100, L500.4050 #### [facility] Laboratory [address] [place], [address] MCH (RBC) [Entitic mass] 30.3 pg Normal 27.0-32.0 [facility] Comment on above: Performed By: #### L 100.0100, L500.4050 #### [facility] Laboratory [address] [place], [address] MCHC (RBC) [Mass/Vol] 34.2 g/dL Normal 32-36 [facility] Comment on above: Performed By: #### L 100.0100, L500.4050 #### [facility] Laboratory [address] [place], [address] MCV (RBC) [Entitic vol] 88.8 fL Normal 80-94 [facility] Comment on above: Performed By: #### L 100.0100, L500.4050 #### [facility] Laboratory [address] [place], [address] Monocytes/100 WBC (Bld) 5.7 % Normal 0-10 [facility] Comment on above: Performed By: #### L 100.0100, L500.4050 #### [facility] Laboratory [address] [place], [address] Neutrophils/100 WBC (Bld) 79.7 % High 47-70 [facility] Comment on above: Performed By: #### L 100.0100, L500.4050 #### [facility] Laboratory [address] [place], [address] Nucleated RBC (Bld) [#/Vol] 0 10*3/uL Normal 0-5 [facility] Comment on above: Performed By: #### L 100.0100, L500.4050 #### [facility] Laboratory [address] [place], [address] Platelet mean volume (Bld) [Entitic vol] 10.0 fL Normal 6.2-12.0 [facility] Comment on above: Performed By: #### L 100.0100, L500.4050 #### [facility] Laboratory [address] [place], [address] Platelets (Bld) [#/Vol] 359 10*3/uL Normal 150-450 [facility] Comment on above: Performed By: #### L 100.0100, L500.4050 #### [facility] Laboratory [address] [place], [address] RBC (Bld) [#/Vol] 5.47 10*6/uL Normal 4.6-6.2 [facility] Comment on above: Performed By: #### L 100.0100, L500.4050 #### [facility] Laboratory [address] [place], [address] RDW SD 44.2 fl High 35.1-43.9 [facility] Comment on above: Performed By: #### L 100.0100, L500.4050 #### [facility] Laboratory [address], [address] WBC (Bld) [#/Vol] 15.9 10*3/uL High 4.4-11.0 [facility] Comment on above: Performed By: #### L 100.0100, L500.4050 #### [facility] Laboratory [address] [place], [address] Comprehensive Metabolic Prof ilon 05-13-2025 Albumin [Mass/Vol] 4.7 g/dL Normal 3.5-5.0 [facility] Comment on above: Performed By: #### L 100.0100, L500.4050 #### [facility] Laboratory [address] [place], [address] Albumin/Globulin [Mass ratio] 1.3 {ratio} Normal 0.9-2.4 [facility] Comment on above: Performed By: #### L 100.0100, L500.4050 #### [facility] Laboratory [address] [place], [address] ALK PHOS 73 U/L Normal 40-129 [facility] Comment on above: Performed By: #### L 100.0100, L500.4050 #### [facility] Laboratory [address] [place], [address] ALT [Catalytic activity/Vol] 57 U/L High <=46 [facility] Comment on above: Performed By: #### L 100.0100, L500.4050 #### [facility] Laboratory [address] [place], [address] AST [Catalytic activity/Vol] 33 U/L Normal <=37 [facility] Comment on above: Performed By: #### L 100.0100, L500.4050 #### [facility] Laboratory [address] [place], [address] Bilirubin [Mass/Vol] 0.26 mg/dL Normal 0.00-1.30 [facility] Comment on above: Performed By: #### L 100.0100, L500.4050 #### [facility] Laboratory [address] [place], [address] BUN/CRE 14.1 RATIO Normal 10-20 [facility] Comment on above: Performed By: #### L 100.0100, L500.4050 #### [facility] Laboratory [address] [place], [address] Calcium [Mass/Vol] 9.1 mg/dL Normal 7.6-11.0 [facility] Comment on above: Performed By: #### L 100.0100, L500.4050 #### [facility] Laboratory [address] [place], [address] Chloride [Moles/Vol] 106 mmol/L Normal 98-108 [facility] Comment on above: Performed By: #### L 100.0100, L500.4050 #### [facility] Laboratory [address] [place], [address] CO2 [Moles/Vol] 21.0 mmol/L Normal 21.0-32.0 [facility] Comment on above: Performed By: #### L 100.0100, L500.4050 #### [facility] Laboratory [address] [place], [address] Creatinine [Mass/Vol] 2.15 mg/dL High 0.70-1.20 [facility] Comment on above: Performed By: #### L 100.0100, L500.4050 #### [facility] Laboratory [address] [place], [address] ECRCL 48.00 ml/min Low 50-250 [facility] Comment on above: Performed By: #### L 100.0100, L500.4050 #### [facility] Laboratory [address] [place], [address] GAP 16 High 5-15 [facility] Comment on above: Performed By: #### L 100.0100, L500.4050 #### [facility] Laboratory [address] [place], [address] GFR/1.73 sq M.predicted among non-blacks MDRD (S/P/Bld) [Vol rate/Area] 37 mL/min/{1.73_m2} Low >60 [facility] Comment on above: Result Comment: mL/m in/1.73m2 CKD-EPI Creatinine Equation (2020) Performed By: #### L 100.0100, L500.4050 #### [facility] Laboratory [address] [place], [address] Globulin (S) [Mass/Vol] 3.8 g/dL Normal 2.2-4.2 [facility] Comment on above: Performed By: #### L 100.0100, L500.4050 #### [facility] Laboratory [address] [place], [address] Glucose [Mass/Vol] 117 mg/dL High 70-99 [facility] Comment on above: Performed By: #### L 100.0100, L500.4050 #### [facility] Laboratory [address] [place], [address] Potassium [Moles/Vol] 3.3 mmol/L Normal 3.3-5.1 [facility] Comment on above: Performed By: #### L 100.0100, L500.4050 #### [facility] Laboratory [address] [place], [address] Sodium [Moles/Vol] 143 mmol/L Normal 133-145 [facility] Comment on above: Performed By: #### L 100.0100, L500.4050 #### [facility] Laboratory [address] [place], [address] T PROT 8.5 g/dL High 5.9-8.4 [facility] Comment on above: Performed By: #### L 100.0100, L500.4050 #### [facility] Laboratory [address] [place], [address] Urea nitrogen [Mass/Vol] 30 mg/dL High 4-19 [facility] Comment on above: Performed By: #### L 100.0100, L500.4050 #### [facility] [place], [address] MR/BMS.BPon 05-02-2025 MR/BMS.BP [facility] [address], [address] [place] [address] OFFICE VISIT Date of Service: 05/02/25 MR#: [id number] Acct: [id number] Name: OCTAVIANO QUINN Rep #: [id number] : 1975 Provider: Dr. Reji Zepeda se, DO Age/Sex: 49/M Location: [facility].BP Status: Signed Intake Vital Signs 01/30/25 10:08 [...] reports to doing good. Did go to [facility] in March. Did have another bout of pneumonia in the Spring. Did have a swallow study and they thought it was acid reflux. Since being on an acid reflux med feels like things are marginally better. Will be having an EGD and colonoscopy. 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 Has been in good moods, [...] compulsive disorder, unspecified (more content not included)... [facility] CNOVon 04-30-2025 CNOV Office Visit (UROLWS ) KRISHNAOCTAVIANO Lovelace ([id number]) 1975 M Date Time Provider Department 04/30/25 2:15 PM FROYLAN ERWIN UROLMARY ANN During your visit today, we recorded the following information about you: Temperature 98.2 degrees Vero Rascon, PASSENGER TRAIN BRAKER 04/30/2025 2:47 PM Signed Verified name and [...] Froylan Villar PA-C 04/30/2025 2:47 PM Signed [facility] PATIENT CLINIC NOTE (M) Some elements copied from his previous note, which have been updated where appropriate, and all reflect current medical decision making from date of this visit. Note was generated by [employer] and edited as appropriate SERVICE DATE: [...] frequency (R35. (more content not included)... Normal [facility] UA DIP, URINE (POC)on 2024 BILIRUBIN UA (POCT) Negative Negative [facility] CLARITY UA (POCT) Clear [facility] COLOR UA (POCT) Dark yellow [facility] d [facility] GLUCOSE UA (POCT) Negative Negative mg/dL [facility] Hemoglobin Ql (U) Negative [facility] Interpretation and review of laboratory results Abnormal [facility] KETONE UA (POCT) Negative Negative mg/dL [facility] LEUKOCYTES UA (POCT) Negative Negative [facility] NITRITE UA (POCT) Negative Negative [facility] PH UA (POCT) 6.5 4.5 - 8.0 [facility] Protein Ql (U) Trace Abnormal Negative mg/dL [facility] SPECIFIC GRAVITY UA (POCT) 1.025 1.005 - 1.030 [facility] UROBILINOGEN UA (POCT) 0.2 Maggi l E.U./dL [facility] Location:[facility], [address], [place], [place], [id number] [place] [address] POINT OF CARE [facility] CNOVon 04-29-2025 CNOV Office Visit (GSTNOR ) OCTAVIANO QUINN ([id number]) 1975 M Date Time Provider Department 04/29/25 [...] for internal providers or letter via the [employer] for external providers. HPI: Octaviano Francisco Quinn is a 49 year old male [...] and observed esophageal dysphagia, recommend consult to green tire inspector for further workup. Consider consult to parole or probation officer if pneumonia and cough persist. Compensatory strategies attempted, patient unable to complete. No further ASSORTER services are indicated. Literature provided to caregiver [...] reviewed a (more content not included)... Normal [facility] XR CHEST 2V FRONTAL/LATon XR CHEST 2V [...] tissues: Unremarkable. IMPRESSION: No acute radiographic abnormality. Log Roper: CRUZ Transcribe Date/Time: Feb 28 2025 3:32P Dictated by : ARIANA TIJERINA MD This examination was interpreted and the report reviewed and electronically signed by: ARIANA TIJERINA MD on Feb 28 2025 3:32PM EST [id number] Normal [facility] XR Chest PA and Lateralon IMPRESSION: No acute radiographic abnormality. Log Roper: CRUZ Transcribe Date/Time: Feb 28 2025 3:32P [...] Unremarkable. IMPRESSION IMPRESSION: No acute radiographic abnormality. Log Roper: PSCB Transcribe Date/Time: Feb 28 2025 3:32P Dictated by : ARIANA TIJERINA MD This examination was interpreted and the report reviewed and electronically signed by: ARIANA TIJERINA MD on Feb 28 2025 3:32PM EST [facility] Radiology Study observation (narrative) [facility] XR Chest PA and LateralOrder ed By: Ccf Provider on 02-28-2025 [facility] CNPNon 02-25-2025 CNPN Telephone (FAMPWS) OCTAVIANO QUINN ([id number]) 1975 M Date Time Provider Department 02/25/25 [facility] During your visit today, we recorded the following information about you: Forrest Chappell RN 02/25/2025 12:39 PM Signed Sister AND guardian, Renee, reports the ST informed her that pt has acid reflux and also 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 Reports pt's appt with GI is not until April 29 in [place]. Asking if provider can order a medication for pt's acid reflux. [facility]. Please advise and phone Renee with reply. Mayra Gerardo APRN.RADHIKA 02/25/2025 8:19 PM Signed (Sent a message to GI that he is scheduled with -- awaiting response). Mayra Gerardo APRN.Mayra Ptael APRN.RADHIKA 02/26/2025 8:51 AM Signed Yes, I went ahead and sent a prescription to omeprazole to the pharmacy. This should be taken on an empty stomach 30-60 minutes prior to eating to be most effective. Please let us know if there are any questions. Thanks, Forrest Albarran, SEBAS 02/26/2025 9:16 AM Signed Left vm for [...] by: Paul Parker LPN - Fully Assessed Reason for Visit: Patient Question [3867] Order(s):omeprazole (PRILOSEC) 20 mg capsuleTake 1 capsule [...] Encounter Status:Closed by SALIMA MONTERROSO on 02/26/25 [facility] CNTHERAPYon 02-08-2025 CNTHERAPY OT/PT/Speech Visit (SPMBFV) OCTAVIANO QUINN ([id number]) 1975 M Date Time Provider Department 02/08/25 9:10 AM VIOLET ARROYO [facility] Date Time Provider Department Center 02/08/2025 9:10 AM [id number], KELLY [facility] Reason for Visit: [...] times per week or as directed. Normal [facility] RF videography Hypopharynx a nd Esophagus [...] min:sec RESULT: ... (See speech pathologist's report.) Log Roper: CRUZ Transcribe Date/Time: Feb 08 2025 11:29A Dictated by : FRANCISCO DAVIS MD This examination was interpreted and the report reviewed and electronically signed by: FRANCISCO DAVIS MD on Feb 08 2025 11:30AM [facility] Provider, [facility] - [...] min:sec RESULT: ... (See speech pathologist's report.) Log Roper: CRUZ Transcribe Date/Time: Feb 08 2025 11:29A Dictated by : FRANCISCO DAVIS MD This examination was interpreted and the report reviewed and electronically signed by: FRANCISCO DAVIS MD on Feb 08 2025 11:30AM EST [facility] Radiology Study observation (narrative) [facility] RF videography Hypopharynx a nd Esophagus Views W liquid and paste contrast PO during swallowingOrdered By: Ccf Provider on 02-08-2025 [facility] XR MOD BARIUM SWALLOW W SPEE Annamarie [...] min:sec RESULT: ... (See speech pathologist's report.) Log Roper: [employer] Transcribe Date/Time: Feb 08 2025 11:29A Dictated by : FRANCISCO DAVIS MD This examination was interpreted and the report reviewed and electronically signed by: FRANCISCO DAVIS MD on Feb 08 2025 11:30AM EST [id number] [facility] CNOVon 02-06-2025 CNOV Office Visit (FAMPWS ) OCTAVIANO QUINN ([id number]) 1975 M Date Time Provider Department 02/06/25 10:00 AM MAYRA GERARDO During your visit today, we recorded the following information about you: Pulse Respiration Blood pressure Weight 92/minute 16/minute 108/76 91.2 kg Mayra Gerardo APRN.ANIMATION DIRECTOR 02/06/2025 10:39 AM Signed - Take doxycycline 1 tablet by mouth twice daily for 10 days; prescription sent to [facility]. - Use Tessalon Perles cough suppressant: start with 1 capsule by mouth; if needed, you may increase to 2 capsules. Prescription sent to [facility]. 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 Mayra Gerardo APRN.ANIMATION DIRECTOR 02/06/2025 5:26 PM Signed This is a [...] EXAM: Gener (more content not included)... Normal [facility] XR CHEST 2V FRONTAL/LATon XR CHEST 2V [...] Unremarkable. IMPRESSION: Suspect left lower lobe infiltrate Log Roper: CRUZ Transcribe Date/Time: Feb 06 2025 10:53A Dictated by : HOLLEY PADILLA MD This examination was interpreted and the report reviewed and electronically signed by: HOLLEY PADILLA MD on Feb 06 2025 10:54AM EST [id number] Normal [facility] XR Chest PA and Lateralon IMPRESSION: Suspect left lower lobe infiltrate Log Roper: PSCB Transcribe Date/Time: Feb 06 2025 10:53A [...] RADIOLOGY Provider, [facility] - 02/06/2025 * * *Final Report* [...] IMPRESSION IMPRESSION: Suspect left lower lobe infiltrate Log Roper: CRUZ Transcribe Date/Time: Feb 06 2025 10:53A Dictated by : HOLLEY APDILLA MD This examination was interpreted and the report reviewed and electronically signed by: HOLLEY PADILLA MD on Feb 06 2025 10:54AM EST [facility] Radiology Study observation (narrative) [facility] XR Chest PA and LateralOrder ed By: Ccf Provider on 02-06-2025 [facility] MR/BMS.BPon 01-30-2025 MR/BMS.BP [facility] [address], [address] [place] [address] OFFICE VISIT Date of Service: 01/30/25 MR#: [id number] Acct: [id number] Name: OCTAVIANO QUINN Rep #: [id number] : 1975 Provider: Dr. Reji Zepeda se, DO Age/Sex: 49/M Location: [facility].BP Status: Signed Intake Vital Signs 10/31/24 10:14 [...] tablet tablet PO 11/11/22 01/30/25 Histor y [facility] Medical History (Updated 07/31/24 @ 10:53 by [...] Medications: Discontinued (more content not included)... Normal [facility] CNOVon 01-28-2025 CNOV Office Visit (FAMWS ) KRISHNAOCTAVIANO Lovelace Francisco ([id number]) 1975 M Date Time Provider Department 01/28/25 10:00 AM JENISE HOLT [facility] During your visit today, we recorded the following information about you: Temperature Pulse Respiration Blood pressure 97.5 degrees 69/minute 14/minute 120/82 Weight 89.4 kg Jenise Holt, GIANCARLO.ANIMATION DIRECTOR 01/28/2025 4:52 PM Signed This is a [...] impaction b (more content not included)... Normal [facility] XR CHEST 2V FRONTAL/LATon XR CHEST 2V [...] tissues: Dextrocurvature. IMPRESSION: No acute radiographic abnormality. Log Roper: CRUZ Transcribe Date/Time: Jan 28 2025 2:20P Dictated by : CECILIA DAMIAN MD This examination was interpreted and the report reviewed and electronically signed by: CECILIA DAMIAN MD on Jan 28 2025 2:21PM EST [id number] Normal [facility] XR Chest PA and Lateralon IMPRESSION: No acute radiographic abnormality. Log Roper: CRUZ Transcribe Date/Time: Jan 28 2025 2:20P Dictated by : CECILIA DAMIAN MD This examination was interpreted and the report reviewed and electronically signed by: CECILIA DAMIAN MD on Jan 28 2025 2:21PM EST DIVISION OF RADIOLOGY * * *Final [...] Dextrocurvature. IMPRESSION IMPRESSION: No acute radiographic abnormality. Log Roper: CRUZ Transcribe Date/Time: Jan 28 2025 2:20P Dictated by : CECILIA DAMIAN MD This examination was interpreted and the report reviewed and electronically signed by: CECILIA DAMIAN MD on Jan 28 2025 2:21PM EST [facility] Radiology Study observation (narrative) [facility] XR Chest PA and LateralOrder ed By: Ccf Provider on 01-28-2025 [facility] CNOVon 01-21-2025 CNOV Office Visit (FAMPWS ) OCTAVIANO QUINN ([id number]) 1975 M Date Time Provider Department 01/21/25 9:40 AM [facility] During your visit today, we recorded the [...] Vaccine Completed (more content not included)... Normal [facility] MR/BMS.BPon 10-31-2024 MR/BMS.BP [address], [address] [place], [place] [address] OFFICE VISIT Date of Service: 10/31/24 MR#: [id number] Acct: [id number] Name: OCTAVIANO QUINN Rep #: [id number] : 1975 Provider: Dr. Reji Zepeda se, DO Age/Sex: 49/M Location: [facility].BP Status: Signed Intake Vital Signs 07/31/24 10:07 [...] These side effe (more content not included)... [facility] [place] 10-15-2024 [facility] Telephone (FAMPWS) OCTAVIANO QUINN ([id number]) 1975 M Date Time Provider Department 10/15/24 MAC GALVAN During your visit today, we recorded the following information about you: Mac Galvan APRN.RADHIKA 10/15/2024 1:15 PM Signed Please let the patient know that his vitamin D level is back to normal. On the higher side of normal. I would like for him to discontinue his vitamin D 50,000 units weekly and replace with vitamin D3 2000 units daily. This can be purchased [email or web address]. TOMAS West Barbara, LPN 10/15/2024 1:19 PM Signed Patient sister/guardian [...] Status:Closed by MANE LUCAS on 10/15/24 Normal [facility] 25(OH)D3 [facility] 2024 25-hydroxyvitamin D3 [Mass/Vol] 67.0 ng/mL Normal 31.0-80.0 [facility] Comment on above: Order Comment: Speci men Type: BLOOD SPECIMENOrdering Facility: [facility] Address: [address] [place] [address] Performed By: #### 1 989-3 ####[facility] LABCLIA [id number] [address] [place] CNOVon 08-24-2024 CNOV Office Visit (FAMPWS ) OCTAVIANO QUINN ([id number]) 1975 M Date Time Provider Department 08/24/24 9:40 ROSANA KINCAID During your visit today, we recorded the following information about you: Pulse Respiration Blood pressure Weight 84/minute 16/minute 110/86 91.4 kg Height 1.88 m Rosana Rodney APRN.CNP 08/24/2024 10:48 AM Signed This is a [...] Well appe (more content not included)... Normal [facility] Ammoniaon 08-15-2024 Ammonia (P) [Moles/Vol] 29.0 umol/L Normal [facility] Comment on above: Performed By: #### L [phone] #### [facility] Laboratory [address] [place], [address] MR/BMS.BPon 07-31-2024 MR/BMS.BP [address], [address] [place] [address] OFFICE VISIT Date of Service: 07/31/24 MR#: [id number] Acct: [id number] Name: OCTAVIANO QUINN Rep #: [id number] : 1975 Provider: Dr. Reji Zepeda se, DO Age/Sex: 49/M Location: [facility].BP Status: Signed Intake Vital Signs 04/19/24 10:10 [...] and would not give it back. The sheriff officer told him to put it back or you're going to usp and eventually did give it back. Similarly something happened at [place] with taking a chocolate bar. Has had some similar episodes in the past but not to this extreme. Is now on a vitamin D supplement. Had a home sleep study but was inconclusive and will be having an in- lab study the day after Thanksgi. Outside of aggression, does feel like he [...] - P (more content not included)... Normal [facility] OCTAVIANO QUINN Francisco ([id number]) 1975 M Date Time Provider Department 07/19/24 [facility] During your visit today, we recorded the following information about you: Rosana Rodney APRN.[facility] 07/19/2024 4:24 PM Signed Can you please call the patient's guardian Renee and let her know that I reviewed octaviano's sleep study. The at home sleep study was inconclusive. They are recommending an in lab study for further evaluation. If she thinks the patient can tolerate this testing I can place the order. [facility] has a very nice facility. Please let me know what she prefers. Thank you. Rosana Rodney APRN.Vivian Sanders RN 07/19/2024 4:46 PM Signed Pts sister Renee called and is notified of providers results and instructions. She voices understanding. She would like provider to order sleep study, she said she doesn't know what will happen if she doesn't try. She would like it to be sent to [facility] to be done. SEBAS Longoria Ashley, APRN.RADHIKA 07/20/2024 2:33 PM Signed Can you please call patient's Sister Renee back and let her know that I have placed the order for in lab sleep study. Orders will be faxed over to [facility]. They should be in touch with her to schedule. Rosana Rodney APRN.Mane Hull LPN 07/23/2024 11:44 AM Signed TC to pt. LM to call office, [...] Diagnoses:Snoring [R06.83] Daytime sleepiness [R40.0] Order(s):POLYSOMNOGRAM (PSG) [7769839] Order #: [id number] FUTURE Prescriptions as of 07/24/2024 - cholecalciferol, [...] [F41.1] 07/27/2005 Intellectual disability [F79] 07/27/2005 EMILY Anderson ACUTE GB DIS [574.0] 08/20/2005 09/01/2006 Epilepsy (HCC) [G40.909] 09/01/2006 Abnormal weight loss [R63.4] 04/03/2015 Encounter Status:Closed by ЕЛЕНА EVANS on 07/24/24 Normal [facility] POLYSOMNOGRAM (PSG)/HOME SLE EP APNEA TEST (HSAT)on 07-11-2024 POLYSOMNOGRAM (PSG)/HOME SLEEP APNEA TEST (HSAT) [facility] at [address], [address], [place] [address] ; Home Sleep Apnea Test (HSAT) Study Report Name: OCTAVIANO QUINN Date of Study: 07/11/2024 [facility]#: [id number] Age: 48 (: 1975) ESS: Neck Circ. [...] unattended Type III, minimum of 4 parameters (06386) Procedure: This study was performed using a Type III ambulatory PSG device and was unattended. The patient was instructed on proper use of the device by a registered imaging technologist. The monitored parameters included heart rate, [...] Daytime sleepiness, as indicated by the elevated Creole sleepiness scale (19/24), is not otherwise explained by the findings [...] Signed By: Hema Hess (07/18/2024 1:59:41 PM) Mindi [facility] [place] 07-06-2024 [facility] Telephone (FAMPWS) OCTAVIANO QUINN ([id number]) 1975 M Date Time Provider Department 07/06/24 ROSANA RODNEY During your visit today, we recorded the following information about you: Rosana Rodney APRN.CNP 07/06/2024 12:15 PM Signed Can you please [...] start medication, requesting Rx to go to [facility]. Agreeable to sleep study. TEETEE Noguera Jesse, [...] VITAMIN D 25 HYDROXY [SQVITD] Order #: [id number] FUTURE Prescriptions as of 07/06/2024 - cholecalciferol, [...] Encounter Status:Closed by MAC GALVAN on 07/06/24 Normal [facility] 25(OH)D3 SerPl-mCncon 2023 25-hydroxyvitamin D3 [Mass/Vol] 19.0 ng/mL Low 31.0-80.0 [facility] Comment on above: Order Comment: Speci men Type: BLOOD SPECIMENOrdering Facility: [facility] Address: [address] [place] [address] Result Comment: Clas sification of 25 [place] Vitamin D status: Deficiency/Insufficiency: < or = 30 ng/ml. Sufficiency/Optimal Levels: 31-80 ng/mL Toxicity: > 100 ng/mL. Test performed by chemiluminescent immunoassay. Performed By: #### 1 989-3 ####[facility] LABCLIA [id number] [place] [address] [place] 25-hydroxyvitamin D3 [Mass/V ol]on 07-04-2024 Interpretation and review of laboratory results Abnormal [facility] The reference range interval was based on an analysis of samples from healthy adults and may not pertain to children from 0-18 years old. [facility] CARBAMAZEPINE/TEGRETOLon carBAMazepine [Mass/Vol] 8.4 ug/mL 4.0 - 12.0 ug/mL [facility] Comment on above: Reference ranges and high/low indicator flags are provided as general guidelines only. The treating physician must determine appropriate target levels/dosing based on the specific clinical situation. CBC W Auto Differential pane l (Bld)on 07-04-2024 Basophils (Bld) [#/Vol] 0.05 10*3/uL NINF [facility] Basophils/100 WBC (Bld) 0.9 % [facility] Differential cell count method Nom (Bld) Auto [facility] Eosinophils (Bld) [#/Vol] 0.15 10*3/uL [facility] Eosinophils/100 WBC (Bld) 2.8 % [facility] Erythrocyte distribution width (RBC) [Ratio] 12.8 % 11.5 - 15.0 % [facility] Hematocrit (Bld) [Volume fraction] 47.8 % 39.0 - 51.0 % [facility] Hemoglobin (Bld) [Mass/Vol] 15.8 g/dL 13.0 - 17.0 g/dL [facility] Immature granulocytes (Bld) [#/Vol] 0.03 10*3/uL [facility] Immature granulocytes/100 WBC (Bld) 0.6 % [facility] Lymphocytes (Bld) [#/Vol] 2.10 10*3/uL [facility] Lymphocytes/100 WBC (Bld) 39.0 % [facility] MCH (RBC) [Entitic mass] 30.4 pg 26.0 - 34.0 pg [facility] MCHC (RBC) [Mass/Vol] 33.1 g/dL 30.5 - 36.0 g/dL [facility] MCV (RBC) [Entitic vol] 92.1 fL 80.0 - 100.0 fL [facility] Monocytes (Bld) [#/Vol] 0.37 10*3/uL [facility] Monocytes/100 WBC (Bld) 6.9 % [facility] Neutrophils (Bld) [#/Vol] 2.68 10*3/uL [facility] Neutrophils/100 WBC (Bld) 49.8 % [facility] Nucleated RBC (Bld) [#/Vol] [facility] Nucleated RBC/100 WBC (Bld) [Ratio] 0.0 % /100 WBC [facility] Platelet mean volume (Bld) [Entitic vol] 10.2 fL 9.0 - 12.7 fL [facility] Platelets (Bld) [#/Vol] 315 10*3/uL [facility] RBC (Bld) [#/Vol] 5.19 10*6/uL 4.20 - 6.0 0 m/uL [facility] WBC (Bld) [#/Vol] 5.38 10*3/uL [facility] Basophils (Bld) [#/Vol] 0.05 10*3/uL Normal <0.11 [facility] Comment on above: Order Comment: Speci men Type: BLOOD SPECIMENOrdering Facility: [facility] Address: [address] [place] [address] Performed By: #### 5 7021-8 ####[facility] LABCLIA [id number] [place] [address] [place] Basophils/100 WBC (Bld) 0.9 % Normal [facility] Comment on above: Order Comment: Speci men Type: BLOOD SPECIMENOrdering Facility: [facility] Address: [address] [place] [address] Performed By: #### 5 7021-8 ####[facility] LABCLIA [id number] [place] [address] [place] Differential cell count method Nom (Bld) Auto Normal [facility] Comment on above: Order Comment: Speci men Type: BLOOD SPECIMENOrdering Facility: [facility] Address: [address] [place] [address] Performed By: #### 5 7021-8 ####[facility] LABCLIA [id number] [place] [address] [place] Eosinophils (Bld) [#/Vol] 0.15 10*3/uL Normal <0.46 [facility] Comment on above: Order Comment: Speci men Type: BLOOD SPECIMENOrdering Facility: [facility] Address: [address] [place] [address] Performed By: #### 5 7021-8 ####[facility] LABCLIA [id number] [place] [address] [place] Eosinophils/100 WBC (Bld) 2.8 % Normal [facility] Comment on above: Order Comment: Speci men Type: BLOOD SPECIMENOrdering Facility: [facility] Address: [address] [place] [address] Performed By: #### 5 7021-8 ####[facility] LABCLIA [id number] [place] [address] [place] Erythrocyte distribution width (RBC) [Ratio] 12.8 % Normal 11.5-15.0 [facility] Comment on above: Order Comment: Speci men Type: BLOOD SPECIMENOrdering Facility: [facility] Address: [address] [place] [address] Performed By: #### 5 7021-8 ####[facility] LABIA [id number] [place] [address] [place] Hematocrit (Bld) [Volume fraction] 47.8 % Normal 39.0-51.0 [facility] Comment on above: Order Comment: Speci men Type: BLOOD SPECIMENOrdering Facility: [facility] Address: [address] [place] [address] Performed By: #### 5 7021-8 ####[facility] LABIA [id number] [place] [address] [place] Hemoglobin (Bld) [Mass/Vol] 15.8 g/dL Normal 13.0-17.0 [facility] Comment on above: Order Comment: Speci men Type: BLOOD SPECIMENOrdering Facility: [facility] Address: [address] [place] [address] Performed By: #### 5 7021-8 ####[facility] LABIA [id number] [place] [address] [place] Immature granulocytes (Bld) [#/Vol] 0.03 10*3/uL Normal <0.10 [facility] Comment on above: Order Comment: Speci men Type: BLOOD SPECIMENOrdering Facility: [facility] Address: [address] [place] [address] Performed By: #### 5 7021-8 ####[facility] LABCLIA [id number] [place] [address] [place] Immature granulocytes/100 WBC (Bld) 0.6 % Normal [facility] Comment on above: Order Comment: Speci men Type: BLOOD SPECIMENOrdering Facility: [facility] Address: [address] [place] [address] Performed By: #### 5 7021-8 ####[facility] LABCLIA [id number] [place] [address] [place] Lymphocytes (Bld) [#/Vol] 2.10 10*3/uL Normal 1.00-4.00 [facility] Comment on above: Order Comment: Speci men Type: BLOOD SPECIMENOrdering Facility: [facility] Address: [address] [place] [address] Performed By: #### 5 7021-8 ####[facility] LABCLIA [id number] [place] [address] [place] Lymphocytes/100 WBC (Bld) 39.0 % Normal [facility] Comment on above: Order Comment: Speci men Type: BLOOD SPECIMENOrdering Facility: [facility] Address: [address] [place] [address] Performed By: #### 5 7021-8 ####[facility] LABCLIA [id number] [place] [address] [place] MCH (RBC) [Entitic mass] 30.4 pg Normal 26.0-34.0 [facility] Comment on above: Order Comment: Speci men Type: BLOOD SPECIMENOrdering Facility: [facility] Address: [address] [place] [address] Performed By: #### 5 7021-8 ####[facility] LABCLIA [id number] [place] [address] [place] MCHC (RBC) [Mass/Vol] 33.1 g/dL Normal 30.5-36.0 [facility] Comment on above: Order Comment: Speci men Type: BLOOD SPECIMENOrdering Facility: [facility] Address: [address] [place] [address] Performed By: #### 5 7021-8 ####[facility] LABCLIA [id number] [place] [address] [place] MCV (RBC) [Entitic vol] 92.1 fL Normal 80.0-100.0 [facility] Comment on above: Order Comment: Speci men Type: BLOOD SPECIMENOrdering Facility: [facility] Address: [address] [place] [address] Performed By: #### 5 7021-8 ####[facility] LABIA [id number] [place] [address] [place] Monocytes (Bld) [#/Vol] 0.37 10*3/uL Normal <0.87 [facility] Comment on above: Order Comment: Speci men Type: BLOOD SPECIMENOrdering Facility: [facility] Address: [address] [place] [address] Performed By: #### 5 7021-8 ####[facility] LABIA [id number] [place] [address] [place] Monocytes/100 WBC (Bld) 6.9 % Normal [facility] Comment on above: Order Comment: Speci men Type: BLOOD SPECIMENOrdering Facility: [facility] Address: [address] [place] [address] Performed By: #### 5 7021-8 ####[facility] LABIA [id number] [place] [address] [place] Neutrophils (Bld) [#/Vol] 2.68 10*3/uL Normal 1.45-7.50 [facility] Comment on above: Order Comment: Speci men Type: BLOOD SPECIMENOrdering Facility: [facility] Address: [address] [place] [address] Performed By: #### 5 7021-8 ####[facility] LABIA [id number] [place] [address] [place] Neutrophils/100 WBC (Bld) 49.8 % Normal [facility] Comment on above: Order Comment: Speci men Type: BLOOD SPECIMENOrdering Facility: [facility] Address: [address] [place] [address] Performed By: #### 5 7021-8 ####[facility] LABIA [id number] [place] [id number] [place] Nucleated RBC (Bld) [#/Vol] 10*3/uL Normal <0.01 [facility] Comment on above: Order Comment: Speci men Type: BLOOD SPECIMENOrdering Facility: [facility] Address: [address] [place] [address] Performed By: #### 5 7021-8 ####[facility] LABIA [id number] [place] [address] [place] Nucleated RBC/100 WBC (Bld) [Ratio] 0.0 /100 WBC Normal [facility] Comment on above: Order Comment: Speci men Type: BLOOD SPECIMENOrdering Facility: [facility] Address: [address] [place] [address] Performed By: #### 5 7021-8 ####[facility] LABIA [id number] [place] [address] [place] Platelet mean volume (Bld) [Entitic vol] 10.2 fL Normal 9.0-12.7 [facility] Comment on above: Order Comment: Speci men Type: BLOOD SPECIMENOrdering Facility: [facility] Address: [address] [place] [address] Performed By: #### 5 7021-8 ####[facility] LABIA [id number] [place] [address] [place] Platelets (Bld) [#/Vol] 315 10*3/uL Normal 150-400 [facility] Comment on above: Order Comment: Speci men Type: BLOOD SPECIMENOrdering Facility: [facility] Address: [address] [place] [address] Performed By: #### 5 7021-8 ####[facility] LABCLIA [id number] [place] [id number] [place] RBC (Bld) [#/Vol] 5.19 10*6/uL Normal 4.20-6.00 [facility] Comment on above: Order Comment: Speci men Type: BLOOD SPECIMENOrdering Facility: [facility] Address: [address] [place] [address] Performed By: #### 5 7021-8 ####[facility] LABCLIA [id number] [place] [id number] [place] WBC (Bld) [#/Vol] 5.38 10*3/uL Normal 3.70-11.00 [facility] Comment on above: Order Comment: Speci men Type: BLOOD SPECIMENOrdering Facility: [facility] Address: [address] [place] [address] Performed By: #### 5 7021-8 ####[facility] LABCLIA [id number] [address] [place] CNOVon 07-04-2024 CNOV Office Visit (GUEROWS ) OCTAVIANO QUINN ([id number]) 1975 M Date Time Provider Department 07/04/24 9:40 AM [facility] your visit today, we recorded the [...] with patient. Has intellectual disabilities, works at [employer]. Here in the office for fatigue and [...] wheezing, rhonchi (more content not included)... Normal [facility] metabolic 2000 panelon 07-04-2024 Albumin [Mass/Vol] 4.6 g/dL 3.9 - 4.9 g/dL [facility] ALP [Catalytic activity/Vol] 69 U/L 38 - 113 U/L [facility] ALT [Catalytic activity/Vol] 23 U/L 10 - 54 U/L [facility] Anion gap [Moles/Vol] 11 mmol/L 8 - 15 mmol/L [facility] AST [Catalytic activity/Vol] 26 U/L 14 - 40 U/L [facility] Bilirubin [Mass/Vol] 0.3 mg/dL 0.2 - 1 .3 mg/dL [facility] Calcium [Mass/Vol] 9.1 mg/dL 8.5 - 10. 2 mg/dL [facility] Chloride [Moles/Vol] 101 mmol/L 98 - 10 7 mmol/L [facility] CO2 [Moles/Vol] 28 mmol/L 22 - 30 mmol/L [facility] [facility] Creatinine [Mass/Vol] 0.74 mg/dL 0.73 - 1.22 mg/dL [facility] GFR/1.73 sq M.predicted among non-blacks MDRD (S/P/Bld) [Vol rate/Area] 113 mL/min/{1.73_m2} - PINF [facility] Comment on above: Estimated Glomerular Filtration Rate [...] 117 mg/dL High 74 - 99 mg/dL [facility] Comment on above: The [place] Diabete s Association (ADA) provides guidance for [...] Standards of Medical Care in Diabetes 2016, [place] [employer]. Diabetes Care. 2016.39(Suppl 1). Interpretation and review of laboratory results Abnormal [facility] Potassium [Moles/Vol] 4.5 mmol/L 3.7 - 5.1 mmol/L [facility] Protein [Mass/Vol] 7.6 g/dL 6.3 - 8.0 g/dL [facility] Sodium [Moles/Vol] 140 mmol/L 136 - 144 mmol/L [facility] Urea nitrogen [Mass/Vol] 5 mg/dL Low 9 - 24 mg/dL [facility] Albumin [Mass/Vol] 4.6 g/dL Normal 3.9-4.9 [facility] Comment on above: Order Comment: Speci men Type: BLOOD SPECIMENOrdering Facility: [facility] Address: [address] [place] [address] Performed By: #### 3 016-3, 13307-5, 2132-05, 3024-03 ####[facility] LABCLIA [id number] [place] [address] [place] ALP [Catalytic activity/Vol] 69 U/L Normal 38-113 [facility] Comment on above: Order Comment: Speci men Type: BLOOD SPECIMENOrdering Facility: [facility] Address: [address] [place] [address] Performed By: #### 3 016-3, 78694-3, 2132-05, 3024-03 ####[facility] LABCLIA [id number] [place] [id number] [place] ALT [Catalytic activity/Vol] 23 U/L Normal 10-54 [facility] Comment on above: Order Comment: Speci men Type: BLOOD SPECIMENOrdering Facility: [facility] Address: [address] [place] [address] Performed By: #### 3 016-3, 91122-0, 2132-05, 7 ####[facility] LABCLIA [id number] [address] [address] [place] Anion gap [Moles/Vol] 11 mmol/L Normal 8-15 [facility] Comment on above: Order Comment: Speci men Type: BLOOD SPECIMENOrdering Facility: [facility] Address: [address] [place] [address] Performed By: #### 3 016-3, 21441-3, 2132-05, 302-7 ####[facility] LABCLIA [id number] [address] [address] [place] AST [Catalytic activity/Vol] 26 U/L Normal 14-40 [facility] Comment on above: Order Comment: Speci men Type: BLOOD SPECIMENOrdering Facility: [facility] Address: [address] [place] [address] Performed By: #### 3 016-3, 39871-3, 2132-05, 3023-7 ####[facility] LABCLIA [id number] [place] [id number] [place] Bilirubin [Mass/Vol] 0.3 mg/dL Normal 0.2-1.3 [facility] Comment on above: Order Comment: Speci men Type: BLOOD SPECIMENOrdering Facility: [facility] Address: [address] [place] [address] Performed By: #### 3 016-3, 07581-4, 2132-05, 3023-7 ####[facility] LABCLIA [id number] [address] [address] [place] Calcium [Mass/Vol] 9.1 mg/dL Normal 8.5-10.2 [facility] Comment on above: Order Comment: Speci men Type: BLOOD SPECIMENOrdering Facility: [facility] Address: [address] [place], [place] [address] Performed By: #### 3 016-3, 20792-9, 9, 3023-7 ####[facility] LABCLIA [id number] [address] [address] [place] Chloride [Moles/Vol] 101 mmol/L Normal 98-107 [facility] Comment on above: Order Comment: Speci men Type: BLOOD SPECIMENOrdering Facility: [facility] Address: [address] [place] [address] Performed By: #### 3 016-3, 80454-2, 9, 3024-7 ####[facility] LABCLIA [id number] [place] [address] [place] CO2 [Moles/Vol] 28 mmol/L Normal 22-30 [facility] Comment on above: Order Comment: Speci men Type: BLOOD SPECIMENOrdering Facility: [facility] Address: [address] [place] [address] Performed By: #### 3 016-3, 98939-4, 9, 3024-7 ####[facility] LABCLIA [id number] [place] [address] [place] Creatinine [Mass/Vol] 0.74 mg/dL Normal 0.73-1.22 [facility] Comment on above: Order Comment: Speci men Type: BLOOD SPECIMENOrdering Facility: [facility] Address: [address] [place] [address] Performed By: #### 3 016-3, 99410-6, 2132-05, 3024-7 ####[facility] LABIA [id number] [place] [id number] [place] Creatinine and Glomerular filtration rate.predicted panel (S/P/Bld) 113 mL/min/1.73m??? Normal >=60 [facility] Comment on above: Order Comment: Speci men Type: BLOOD SPECIMENOrdering Facility: [facility] Address: [address] [place] [address] Result Comment: Marce mated Glomerular Filtration Rate [...] actual GFR. Performed By: #### 3 016-3, 49666-5, 2132-05, 3024-03 ####[facility] LABCLIA [id number] [address] [address] [place] Glucose [Mass/Vol] 117 mg/dL High 74-99 [facility] Comment on above: Order Comment: Speci men Type: BLOOD SPECIMENOrdering Facility: [facility] Address: [address] [place] [address] Result Comment: The [place] Diabetes Association (ADA) provides guidance for cutoff [...] Standards of Medical Care in Diabetes 2016, [place] Diabetes Association. Diabetes Care. 2016.39(Suppl 1). Performed By: #### 3 016-3, 20421-9, 2132-05, 3024-03 ####[facility] LABCLIA [id number] [address] [address] [place] Potassium [Moles/Vol] 4.5 mmol/L Normal 3.7-5.1 [facility] Comment on above: Order Comment: Max bailey Type: BLOOD SPECIMENOrdering Facility: [facility] Address: [address] [place] [address] Performed By: #### 3 016-3, 77729-8, 2132-05, 3024-03 ####[facility] LABCLIA [id number] [place] [address] [place] Protein [Mass/Vol] 7.6 g/dL Normal 6.3-8.0 [facility] Comment on above: Order Comment: Speci men Type: BLOOD SPECIMENOrdering Facility: [facility] Address: [address] [place] [address] Performed By: #### 3 016-3, 53407-3, 2132-05, 3023-7 ####[facility] LABCLIA [id number] [place] [address] [place] Sodium [Moles/Vol] 140 mmol/L Normal 136-144 [facility] Comment on above: Order Comment: Speci men Type: BLOOD SPECIMENOrdering Facility: [facility] Address: [address] [place] [address] Performed By: #### 3 016-3, 21147-3, 2132-05, 3023-7 ####[facility] LABIA [id number] [place] [address] [place] Urea nitrogen [Mass/Vol] 5 mg/dL Low 9-24 [facility] Comment on above: Order Comment: Speci men Type: BLOOD SPECIMENOrdering Facility: [facility] Address: [address] [place] [address] Performed By: #### 3 016-3, 34832-7, 2132-05, 3023-7 ####[facility] LABIA [id number] [place] [id number] [place] Free T4 [Mass/Vol]on 024 Interpretation and review of laboratory results Abnormal [facility] No Panel Informationon 07-04 Interpretation and review of laboratory results Normal [facility] Interpretation and review of laboratory results Normal [facility] T4 FREE/FREE THYROXINEon Free T4 [Mass/Vol] 0.8 ng/dL Low 0.9 - 1.7 ng/dL [facility] T4 Free SerPl-mCncon 024 Free T4 [Mass/Vol] 0.8 ng/dL Low 0.9-1.7 [facility] Comment on above: Order Comment: Speci men Type: BLOOD SPECIMENOrdering Facility: [facility] Address: [address] [place] [address] Performed By: #### 3 016-3, 31377-5, 2131-9, 3023-7 ####[facility] LABCLIA [id number] [place] [address] [place] THYROID STIMULATING HORMONEo n 07-04-2024 TSH Qn 0.755 m[IU]/L [facility] TSH SerPl-aCncon 07-04-2024 TSH Qn 0.755 m[IU]/L Normal 0.270-4.200 [facility] Comment on above: Order Comment: Speci men Type: BLOOD SPECIMENOrdering Facility: [facility] Address: [address] [place] [address] Performed By: #### 3 016-3, 29388-8, 9, 7 ####[facility] LABIA [id number] [place] [address] [place] VALPROIC ACID / DEPAKENEon 1 Valproate [Mass/Vol] 67.2 ug/mL 50.0 - 100.0 ug/mL [facility] Comment on above: Reference ranges and high/low indicator flags are provided as general guidelines only. The treating physician must determine appropriate target levels/dosing based on the specific clinical situation. VITAMIN B12on 07-04-2024 Cobalamin (Vitamin B12) [Mass/Vol] 410 pg/mL 232 - 1245 pg/mL [facility] VITAMIN D 25 HYDROXYon 07-04 25-hydroxyvitamin D3 [Mass/Vol] 19.0 ng/mL Low 31.0 - 80.0 ng/mL [facility] Comment on above: Classification of 25 [place] Vitamin D status: Deficiency/Insufficiency: < or = 30 ng/ml. Sufficiency/Optimal Levels: 31-80 ng/mL Toxicity: > 100 ng/mL. Test performed by chemiluminescent immunoassay. Valproate SerPl-mCncon 07-04 Valproate [Mass/Vol] 67.2 ug/mL Normal 50.0-100.0 [facility] Comment on above: Order Comment: Speci men Type: BLOOD SPECIMENOrdering Facility: [facility] Address: [address] [place] [address] Result Comment: Refe rence ranges and high/low indicator flags are provided as general guidelines only. The treating physician must determine appropriate target levels/dosing based on the specific clinical situation. Performed By: #### 4 086-5 ####[facility] LABCLIA [id number] [place] [address] [place] Vit B12 SerPl-mCncon 024 Cobalamin (Vitamin B12) [Mass/Vol] 410 pg/mL Normal 232-1245 [facility] Comment on above: Order Comment: Speci men Type: BLOOD SPECIMENOrdering Facility: [facility] Address: [address] [place] [address] Performed By: #### 3 016-3, 98189-3, 2132-9, 3024-7 ####[facility] LABCLIA [id number] [place] [address] [place] carBAMazepine SerPl-mCncon 1 carBAMazepine [Mass/Vol] 8.4 ug/mL Normal 4.0-12.0 [facility] Comment on above: Order Comment: Speci men Type: BLOOD SPECIMENOrdering Facility: [facility] Address: [address] [place] [address] Result Comment: Refe rence ranges and high/low indicator flags are provided as general guidelines only. The treating physician must determine appropriate target levels/dosing based on the specific clinical situation. Performed By: #### 3 432-2 ####[facility] LABCLIA [id number] [place] [address] [place] UA DIP, URINE (POC)on 2023 BILIRUBIN UA (POCT) Negative Negative [facility] CLARITY UA (POCT) Slightly Cloudy Cl [facility] COLOR UA (POCT) Light yellow [facility] GLUCOSE UA (POCT) Negative Negative mg/dL [facility] Hemoglobin Ql (U) Negative Negative [facility] Interpretation and review of laboratory results Abnormal [facility] KETONE UA (POCT) Negative Negative mg/dL [facility] LEUKOCYTES UA (POCT) Negative Negative [facility] NITRITE UA (POCT) Negative Negative [facility] PH UA (POCT) 8.5 Abnormal 4.5 - 8.0 [facility] Protein Ql (U) Negative Negative mg/dL [facility] SPECIFIC GRAVITY UA (POCT) 1.020 1.005 - 1.030 [facility] UROBILINOGEN UA (POCT) 0.2 Maggi l E.U./dL [facility] Location:[facility], [address], [place], [place], [id number] [place] [address] POINT OF CARE [facility] XR Chest PA and Lateralon IMPRESSION: Lung volumes mildly diminished. Mild bibasilar opacities, atelectasis and/or pneumonia in the appropriate clinical setting. Log Roper: PSCB Transcribe Date/Time: Dec 12 2023 11:01A Dictated by : CECILIA DAMIAN MD This examination was interpreted and the report reviewed and electronically signed by: CECILIA DAMIAN MD on Dec 12 2023 11:02AM [facility] DIVISION OF RADIOLOGY * * *Final Report* [...] soft tissues: Unremarkable. DIVISION OF RADIOLOGY [facility] * * *Final Report* * [...] and/or pneumonia in the appropriate clinical setting. Log Roper: CRUZ Transcribe Date/Time: Dec 12 2023 11:01A Dictated by : CECILIA DAMIAN MD This examination was interpreted and the report reviewed and electronically signed by: CECILIA DAMIAN MD on Dec 12 2023 11:02AM EST [facility] Radiology Study observation (narrative) [facility] XR Chest PA and LateralOrder ed By: Ccf Provider on 12-12-2023 [facility] XR Chest 2 Viewson [facility] XR Chest PA and Lateralon IMPRESSION: No acute findings radiographically Log Roper: CRUZ Transcribe Date/Time: Oct 25 2023 7:45P Dictated by : DON FUNG MD This examination was interpreted and the report reviewed and electronically signed by: DON FUNG MD on Oct 25 2023 7:47PM EST DIVISION OF RADIOLOGY * * *Final [...] tissues: Unremarkable. DIVISION OF RADIOLOGY Provider, Eliazar Cartykerri [facility] - 10/25/2023 * * *Final Report* * [...] Unremarkable. IMPRESSION IMPRESSION: No acute findings radiographically Log Roper[facility] Transcribe Date/Time: Oct 25 2023 7:45P Dictated by : DON FUNG MD This examination was interpreted and the report reviewed and electronically signed by: DON FUNG MD on Oct 25 2023 7:47PM EST [facility] Radiology Study observation (narrative) [facility] XR Chest PA and LateralOrder ed By: Ccf Provider on 10-25-2023 [facility] XR Chest PA and Lateralon IMPRESSION: Possible left lower lobe pneumonia Log Roper: PSCB Transcribe Date/Time: Sep 26 2023 7:33P Dictated [...] RADIOLOGY Provider, [facility] - 09/26/2023 * * *Final Report* [...] IMPRESSION IMPRESSION: Possible left lower lobe pneumonia Log Roper: PSCMiri Transcribe Date/Time: Sep 26 2023 7:33P Dictated by : EZRA DAWKINS MD This examination was interpreted and the report reviewed and electronically signed by: EZRA DAWKINS MD on Sep 26 2023 7:34PM EST [facility] Radiology Study observation (narrative) [facility] XR Chest PA and LateralOrder ed By: Ccf Provider on 09-26-2023 [facility] UA DIP, URINE (POC)on 2022 BILIRUBIN UA (POCT) Negative Negative [facility] CLARITY UA (POCT) Clear [facility] COLOR UA (POCT) Yellow [facility] GLUCOSE UA (POCT) Negative Negative mg/dL [facility] HEMOGLOBIN/BLOOD UA (POCT) Negative Negative [facility] KETONE UA (POCT) Negative Negative mg/dL [facility] LEUKOCYTES UA (POCT) Negative Negative [facility] NITRITE UA (POCT) Negative Negative [facility] PH UA (POCT) 6.0 4.5 - 8.0 [facility] Protein Ql (U) Negative Negative mg/dL [facility] SPECIFIC GRAVITY UA (POCT) 1.020 1.005 - 1.030 [facility] UROBILINOGEN UA (POCT) 0.2 E.U./dL Maggi l E.U./dL [facility] carBAMazepine SerPl-mCncon 1 10-29-2021 carBAMazepine [Mass/Vol] 7.7 ug/mL Normal 4.0-12.0 [facility] Comment on above: Order Comment: Speci men Type: BLOOD SPECIMEN [facility] Address: [address] [place], [place] [id number] Result Comment: Refe rence ranges and high/low indicator flags are provided as general guidelines only. The treating physician must determine appropriate target levels/dosing based on the specific clinical situation. Performed By: #### 3 432-2 #### [facility] CLIA [id number] [address] [place] [address] [place] CARBAM/TEGRETOL Js 08-16-20 carBAMazepine free [Mass/Vol] 2.5 ug/mL High 0.8 - 2.4 ug/mL [facility] CBC W Auto Differential pane l (Bld)on 08-16-2022 Basophils (Bld) [#/Vol] 0.05 10*3/uL <0.11 k/uL [facility] Basophils/100 WBC (Bld) 0.9 % [facility] Differential cell count method Nom (Bld) Auto [facility] Eosinophils (Bld) [#/Vol] 0.12 10*3/uL <0.46 k/uL [facility] Eosinophils/100 WBC (Bld) 2.3 % [facility] Erythrocyte distribution width (RBC) [Ratio] 12.8 % 11.5 - 15.0 % [facility] Hematocrit (Bld) [Volume fraction] 46.7 % 39.0 - 51.0 % [facility] Hemoglobin (Bld) [Mass/Vol] 15.5 g/dL 13.0 - 17.0 g/dL [facility] Immature granulocytes (Bld) [#/Vol] <0.10 k/uL [facility] Immature granulocytes/100 WBC (Bld) 0.4 % [facility] Lymphocytes (Bld) [#/Vol] 2.14 10*3/uL 1.00 - 4.00 k/uL [facility] Lymphocytes/100 WBC (Bld) 40.4 % [facility] MCH (RBC) [Entitic mass] 30.1 pg 26.0 - 34.0 pg [facility] MCHC (RBC) [Mass/Vol] 33.2 g/dL 30.5 - 36.0 g/dL [facility] MCV (RBC) [Entitic vol] 90.7 fL 80.0 - 100.0 fL [facility] Monocytes (Bld) [#/Vol] 0.35 10*3/uL <0.87 k/uL [facility] Monocytes/100 WBC (Bld) 6.6 % [facility] Neutrophils (Bld) [#/Vol] 2.62 10*3/uL 1.45 - 7.50 k/uL [facility] Neutrophils/100 WBC (Bld) 49.4 % [facility] Nucleated RBC (Bld) [#/Vol] <0.01 k/uL [facility] Nucleated RBC/100 WBC (Bld) [Ratio] 0.0 /100 WBC [facility] Platelet mean volume (Bld) [Entitic vol] 10.8 fL 9.0 - 12.7 fL [facility] Platelets (Bld) [#/Vol] 257 10*3/uL 150 - 400 k/uL [facility] RBC (Bld) [#/Vol] 5.15 10*6/uL 4.20 - 6.0 0 m/uL [facility] WBC (Bld) [#/Vol] 5.30 10*3/uL 3.70 - 11. 00 k/uL [facility] VALPROIC A/DEPAKENEon 2021 Valproate [Mass/Vol] 74.3 ug/mL 50.0 - 100.0 ug/mL [facility] XR ANKLE GENERAL 3V AP/LAT/O BL RIGHTon 02-01-2022 [facility] XR Ankle - right AP and Late ral and obliqueon 02-01-2022 IMPRESSION: Possible anterior calcaneal process fracture Log Roper: CRUZ Transcribe Date/Time: Feb 01 2022 10:33A Dictated [...] Achilles enthesophyte. [id number] E_DIVISION OF RADIOLOGY Provider, [facility] - 02/01/2022 * * *Final Report* * [...] IMPRESSION IMPRESSION: Possible anterior calcaneal process fracture Log Roper: [facility] Transcribe Date/Time: Feb 01 2022 10:33A Dictated by : EZRA DAWKINS MD This examination was interpreted and the report reviewed and electronically signed by: EZRA DAWKINS MD on Feb 01 2022 10:34AM EST [facility] Radiology Study observation (narrative) [facility] XR Ankle - right AP and Late ral and obliqueOrdered By: Ccf Provider on 02-01-2022 [facility] Vital Signs Date Time Vital Sign Value Performing Clinician Elle berkowitz 04-30-2025 14:16-0400 Body temperature 98.2 [degF] Froylan Erwin PA-C Work Phone: [facility] 04-29-2025 10:21-0400 Body height 188 cm Salima Pardo PA-C Work Phone: [facility] 04-29-2025 10:21-0400 Body mass index (BMI) [Ratio] 24.78 kg/m2 Salima Pardo PA-C Work Phone: [facility] 04-29-2025 10:21-0400 Body weight 87.54 kg Salima Pardo PA-C Work Phone: [facility] 04-29-2025 10:21-0400 Diastolic blood pressure 70 mm[Hg] Salima Pardo PA-C Work Phone: [facility] 04-29-2025 10:21-0400 Heart rate 70 /min Salima Pardo PA-C Work Phone: [facility] 04-29-2025 10:21-0400 SaO2% (BldA) [Mass fraction] 97 % Salima Pardo PA-C Work Phone: [facility] 04-29-2025 10:21-0400 Systolic blood pressure 122 mm[Hg] Salima Pardo PA-C Work Phone: [facility] 02-06-2025 10:04-0400 Body mass index (BMI) [Ratio] 25.81 kg/m2 Mayra Gerardo CATERING OPERATIONS MANAGER.ANIMATION DIRECTOR Work Phone: [facility] 02-06-2025 10:04-0400 Body weight 91.17 kg Mayra Gerardo CATERING OPERATIONS MANAGER.ANIMATION DIRECTOR Work Phone: [facility] 02-06-2025 10:04-0400 Diastolic blood pressure 76 mm[Hg] Mayra Gerardo CATERING OPERATIONS MANAGER.ANIMATION DIRECTOR Work Phone: [facility] 02-06-2025 10:04-0400 Heart rate 92 /min Mayra Gerardo CATERING OPERATIONS MANAGER.ANIMATION DIRECTOR Work Phone: [facility] 02-06-2025 10:04-0400 Respiratory rate 16 /min Mayra Gerardo CATERING OPERATIONS MANAGER.ANIMATION DIRECTOR Work Phone: [facility] 02-06-2025 10:04-0400 SaO2% (BldA) [Mass fraction] 99 % Mayra Gerardo CATERING OPERATIONS MANAGER.ANIMATION DIRECTOR Work Phone: [facility] 02-06-2025 10:04-0400 Systolic blood pressure 108 mm[Hg] Mayra Gerardo CATERING OPERATIONS MANAGER.ANIMATION DIRECTOR Work Phone: [facility] 01-28-2025 10:12-0400 Body mass index (BMI) [Ratio] 25.32 kg/m2 Jenise Samantha CATERING OPERATIONS MANAGER.ANIMATION DIRECTOR Work Phone: [facility] 01-28-2025 10:12-0400 Body temperature 97.5 [degF] Jenise Samantha CATERING OPERATIONS MANAGER.ANIMATION DIRECTOR Work Phone: [facility] 01-28-2025 10:12-0400 Body weight 89.45 kg Jenise Samantha CATERING OPERATIONS MANAGER.ANIMATION DIRECTOR Work Phone: [facility] 01-28-2025 10:12-0400 Diastolic blood pressure 82 mm[Hg] Jenise Samantha CATERING OPERATIONS MANAGER.ANIMATION DIRECTOR Work Phone: [facility] 01-28-2025 10:12-0400 Heart rate 69 /min Jenise Samantha CATERING OPERATIONS MANAGER.ANIMATION DIRECTOR Work Phone: [facility] 01-28-2025 10:12-0400 Respiratory rate 14 /min Jenise Samantha CATERING OPERATIONS MANAGER.ANIMATION DIRECTOR Work Phone: [facility] 01-28-2025 10:12-0400 SaO2% (BldA) [Mass fraction] 97 % Jenise Samantha CATERING OPERATIONS MANAGER.ANIMATION DIRECTOR Work Phone: [facility] [facility] 01-28-2025 10:12-0400 Systolic blood pressure 120 mm[Hg] Jenise Samantha CATERING OPERATIONS MANAGER.ANIMATION DIRECTOR Work Phone: [facility] 08-24-2024 09:33-0500 Body height 188 cm Rosana Rodney CATERING OPERATIONS MANAGER.ANIMATION DIRECTOR Work Phone: [facility] 08-24-2024 09:33-0500 Body mass index (BMI) [Ratio] 25.87 kg/m2 Rosana Tannhof CATERING OPERATIONS MANAGER.ANIMATION DIRECTOR Work Phone: [facility] 08-24-2024 09:33-0500 Body weight 91.4 kg Rosana Tannhof CATERING OPERATIONS MANAGER.ANIMATION DIRECTOR Work Phone: [facility] 08-24-2024 09:33-0500 Diastolic blood pressure 86 mm[Hg] Rosana Tannhof CATERING OPERATIONS MANAGER.ANIMATION DIRECTOR Work Phone: [facility] 08-24-2024 09:33-0500 Heart rate 84 /min Rosana Tannhof CATERING OPERATIONS MANAGER.ANIMATION DIRECTOR Work Phone: [facility] 08-24-2024 09:33-0500 Respiratory rate 16 /min Rosana Tannhof CATERING OPERATIONS MANAGER.ANIMATION DIRECTOR Work Phone: [facility] 08-24-2024 09:33-0500 SaO2% (BldA) [Mass fraction] 98 % Rosana Tannhof CATERING OPERATIONS MANAGER.ANIMATION DIRECTOR Work Phone: [facility] 08-24-2024 09:33-0500 Systolic blood pressure 110 mm[Hg] Rosana Tannhof CATERING OPERATIONS MANAGER.ANIMATION DIRECTOR Work Phone: [facility] 07-04-2024 09:30-0400 Body mass index (BMI) [Ratio] 28.35 kg/m2 Rosana Tannhof CATERING OPERATIONS MANAGER.ANIMATION DIRECTOR Work Phone: [facility] 07-04-2024 09:30-0400 Body weight 94.8 kg Rosana Tannhof CATERING OPERATIONS MANAGER.ANIMATION DIRECTOR Work Phone: [facility] 07-04-2024 09:30-0400 Diastolic blood pressure 88 mm[Hg] Rosana Tannhof CATERING OPERATIONS MANAGER.ANIMATION DIRECTOR Work Phone: [facility] 07-04-2024 09:30-0400 Heart rate 92 /min Rosana Tannhof CATERING OPERATIONS MANAGER.ANIMATION DIRECTOR Work Phone: [facility] 07-04-2024 09:30-0400 Respiratory rate 16 /min Rosana Tannhof CATERING OPERATIONS MANAGER.ANIMATION DIRECTOR Work Phone: [facility] 07-04-2024 09:30-0400 SaO2% (BldA) [Mass fraction] 99 % Rosana Marciorudy CATERING OPERATIONS MANAGER.ANIMATION DIRECTOR Work Phone: [facility] 07-04-2024 09:30-0400 Systolic blood pressure 120 mm[Hg] Rosana Rodney CATERING OPERATIONS MANAGER.ANIMATION DIRECTOR Work Phone: [facility] 04-08-2024 12:23-0400 Body mass index (BMI) [Ratio] 27.6 kg/m2 Krislyn Aberegg PA Work Phone: [facility] 04-08-2024 12:23-0400 Body temperature 97.3 [degF] Krislyn Aberegg PA Work Phone: [facility] 04-08-2024 12:23-0400 Body weight 92.3 kg Krislyn Aberegg PA Work Phone: [facility] 04-08-2024 12:23-0400 Diastolic blood pressure 82 mm[Hg] Krislyn Aberegg PA Work Phone: [facility] 04-08-2024 12:23-0400 Heart rate 86 /min Krislyn Aberegg PA Work Phone: [facility] 04-08-2024 12:23-0400 Respiratory rate 18 /min Krislyn Aberegg PA Work Phone: [facility] 04-08-2024 12:23-0400 SaO2% (BldA) [Mass fraction] 100 % Krislyn Aberegg PA Work Phone: [facility] 04-08-2024 12:23-0400 Systolic blood pressure 128 mm[Hg] Krislyn Aberegg PA Work Phone: [facility] 02-14-2024 09:44-0400 Body height 182.9 cm Froylan Erwin PA-C Work Phone: [facility] 02-14-2024 09:44-0400 Body mass index (BMI) [Ratio] 27.53 kg/m2 Froylan Erwin PA-C Work Phone: [facility] 02-14-2024 09:44-0400 Body weight 92.08 kg Froylan Erwin PA-C Work Phone: [facility] 02-14-2024 09:44-0400 Heart rate 88 /min Froylan Erwin PA-C Work Phone: [facility] 02-14-2024 09:44-0400 SaO2% (BldA) [Mass fraction] 100 % Froylan Erwin PA-C Work Phone: [facility] 12-15-2023 10:17-0400 Body height 182.9 cm Becca Draper MD Work Phone: [facility] 12-15-2023 10:17-0400 Body temperature 97 [degF] Becca Draper MD Work Phone: [facility] 12-15-2023 10:17-0400 Body weight 91.63 kg Becca Draper MD Work Phone: [facility] 12-15-2023 10:17-0400 Diastolic blood pressure 80 mm[Hg] Becca Draper MD Work Phone: [facility] 12-15-2023 10:17-0400 Heart rate 89 /min Becca Draper MD Work Phone: [facility] 12-15-2023 10:17-0400 SaO2% (BldA) [Mass fraction] 98 % Becca Draper MD Work Phone: [facility] 12-15-2023 10:17-0400 Systolic blood pressure 118 mm[Hg] Becca Draper MD Work Phone: [facility] 12-12-2023 09:54-0400 Body temperature 97.2 [degF] Avtar Moomaw CATERING OPERATIONS MANAGER.ANIMATION DIRECTOR Work Phone: [facility] 12-12-2023 09:54-0400 Body weight 89.7 kg Avtar Moomaw CATERING OPERATIONS MANAGER.ANIMATION DIRECTOR Work Phone: [facility] 12-12-2023 09:54-0400 Diastolic blood pressure 74 mm[Hg] Avtar Moomaw CATERING OPERATIONS MANAGER.ANIMATION DIRECTOR Work Phone: [facility] 12-12-2023 09:54-0400 Heart rate 94 /min Avtar Moomaw CATERING OPERATIONS MANAGER.ANIMATION DIRECTOR Work Phone: [facility] 12-12-2023 09:54-0400 Respiratory rate 21 /min Avtar Moomaw CATERING OPERATIONS MANAGER.ANIMATION DIRECTOR Work Phone: [facility] 12-12-2023 09:54-0400 SaO2% (BldA) [Mass fraction] 98 % Avtar Moomaw CATERING OPERATIONS MANAGER.ANIMATION DIRECTOR Work Phone: [facility] 12-12-2023 09:54-0400 Systolic blood pressure 114 mm[Hg] Avtar Moomaw CATERING OPERATIONS MANAGER.ANIMATION DIRECTOR Work Phone: [facility] 11-04-2023 09:19-0500 Body temperature 96.91 [degF] Krislyn Aberegg PA Work Phone: [facility] 11-04-2023 09:19-0500 Body weight 90.72 kg Krislyn Aberegg PA Work Phone: [facility] 11-04-2023 09:19-0500 Diastolic blood pressure 86 mm[Hg] Krislyn Aberegg PA Work Phone: [facility] 11-04-2023 09:19-0500 Heart rate 96 /min Krislyn Aberegg PA Work Phone: [facility] 11-04-2023 09:19-0500 Respiratory rate 16 /min Krislyn Aberegg PA Work Phone: [facility] 11-04-2023 09:19-0500 SaO2% (BldA) [Mass fraction] 97 % Krislyn Aberegg PA Work Phone: [facility] 11-04-2023 09:19-0500 Systolic blood pressure 128 mm[Hg] Krislyn Aberegg PA Work Phone: [facility] 10-29-2023 09:22-0500 Body weight 92.08 kg Becca Draper MD Work Phone: [facility] 10-29-2023 09:22-0500 Diastolic blood pressure 80 mm[Hg] Becca Draper MD Work Phone: [facility] 10-29-2023 09:22-0500 Heart rate 87 /min Becca Draper MD Work Phone: [facility] 10-29-2023 09:22-0500 Respiratory rate 16 /min Becca Draper MD Work Phone: [facility] 10-29-2023 09:22-0500 SaO2% (BldA) [Mass fraction] 97 % Becca Draper MD Work Phone: [facility] 10-29-2023 09:22-0500 Systolic blood pressure 122 mm[Hg] Becca Draper MD Work Phone: [facility] 10-25-2023 19:07-0500 Body temperature 97 [degF] Galileo Ojnny CATERING OPERATIONS MANAGER.ANIMATION DIRECTOR Work Phone: [facility] 10-25-2023 19:07-0500 Body weight 92.9 kg Galileo Jonny CATERING OPERATIONS MANAGER.ANIMATION DIRECTOR Work Phone: [facility] 10-25-2023 19:07-0500 Diastolic blood pressure 82 mm[Hg] Galileo Jonny CATERING OPERATIONS MANAGER.ANIMATION DIRECTOR Work Phone: [facility] 10-25-2023 19:07-0500 Heart rate 81 /min Galileo Jonny CATERING OPERATIONS MANAGER.ANIMATION DIRECTOR Work Phone: [facility] 10-25-2023 19:07-0500 Respiratory rate 16 /min Galileo Jonny CATERING OPERATIONS MANAGER.ANIMATION DIRECTOR Work Phone: [facility] 10-25-2023 19:07-0500 SaO2% (BldA) [Mass fraction] 100 % Galileo Jonny CATERING OPERATIONS MANAGER.ANIMATION DIRECTOR Work Phone: [facility] 10-25-2023 19:07-0500 Systolic blood pressure 130 mm[Hg] Galileo Jonny CATERING OPERATIONS MANAGER.ANIMATION DIRECTOR Work Phone: [facility] 10-01-2022 14:20-0500 Body weight 92.53 kg Froylan Erwin PA-C Work Phone: [facility] 10-01-2022 14:20-0500 Diastolic blood pressure 86 mm[Hg] Froylan Erwin PA-C Work Phone: [facility] 10-01-2022 14:20-0500 Heart rate 87 /min Froylan Erwin PA-C Work Phone: [facility] 10-01-2022 14:20-0500 SaO2% (BldA) [Mass fraction] 100 % Froylan Erwin PA-C Work Phone: [facility] 10-01-2022 14:20-0500 Systolic blood pressure 158 mm[Hg] Froylan Erwin PA-C Work Phone: [facility] 08-16-2022 10:04-0500 Body height 178 cm Rosana Cruzhorudy CATERING OPERATIONS MANAGER.ANIMATION DIRECTOR Work Phone: [facility] 08-16-2022 10:04-0500 Body weight 91.63 kg Rosana Cruzhorudy CATERING OPERATIONS MANAGER.ANIMATION DIRECTOR Work Phone: [facility] 08-16-2022 10:04-0500 Diastolic blood pressure 82 mm[Hg] Rosana Cruzhof CATERING OPERATIONS MANAGER.ANIMATION DIRECTOR Work Phone: [facility] 08-16-2022 10:04-0500 Heart rate 77 /min Rosana Cruzhof CATERING OPERATIONS MANAGER.ANIMATION DIRECTOR Work Phone: [facility] 08-16-2022 10:04-0500 Respiratory rate 16 /min Rosanayue Cruzhof CATERING OPERATIONS MANAGER.ANIMATION DIRECTOR Work Phone: [facility] 08-16-2022 10:04-0500 SaO2% (BldA) [Mass fraction] 99 % Rosanayue Cruzhof CATERING OPERATIONS MANAGER.ANIMATION DIRECTOR Work Phone: [facility] 08-16-2022 10:04-0500 Systolic blood pressure 120 mm[Hg] Rosana Tannhof CATERING OPERATIONS MANAGER.ANIMATION DIRECTOR Work Phone: [facility] 04-05-2022 19:05-0400 Body temperature 96.69 [degF] Teresa Praful CATERING OPERATIONS MANAGER.ANIMATION DIRECTOR Work Phone: [facility] 04-05-2022 19:05-0400 Body weight 94.8 kg Teresa Praful CATERING OPERATIONS MANAGER.ANIMATION DIRECTOR Work Phone: [facility] 04-05-2022 19:05-0400 Diastolic blood pressure 80 mm[Hg] Teresa Praful CATERING OPERATIONS MANAGER.ANIMATION DIRECTOR Work Phone: [facility] 04-05-2022 19:05-0400 Heart rate 81 /min Teresa Praful CATERING OPERATIONS MANAGER.ANIMATION DIRECTOR Work Phone: [facility] 04-05-2022 19:05-0400 Respiratory rate 20 /min Teresa Praful CATERING OPERATIONS MANAGER.ANIMATION DIRECTOR Work Phone: [facility] 04-05-2022 19:05-0400 SaO2% (BldA) [Mass fraction] 98 % Teresa Praful CATERING OPERATIONS MANAGER.ANIMATION DIRECTOR Work Phone: [facility] 04-05-2022 19:05-0400 Systolic blood pressure 124 mm[Hg] Teresa Praful CATERING OPERATIONS MANAGER.ANIMATION DIRECTOR Work Phone: [facility] 02-01-2022 09:40-0400 Body temperature 97.81 [degF] Adithya Camacho MD Work Phone: [facility] 02-01-2022 09:40-0400 Body weight 94.89 kg Adithya Camacho MD Work Phone: [facility] 02-01-2022 09:40-0400 Diastolic blood pressure 94 mm[Hg] Adithya Camacho MD Work Phone: [facility] 02-01-2022 09:40-0400 Heart rate 86 /min Adithya Camacho MD Work Phone: [facility] 02-01-2022 09:40-0400 Respiratory rate 20 /min Adithya Camacho MD Work Phone: [facility] 02-01-2022 09:40-0400 SaO2% (BldA) [Mass fraction] 98 % Adithya Camacho MD Work Phone: [facility] 02-01-2022 09:40-0400 Systolic blood pressure 122 mm[Hg] Adithya Camacho MD Work Phone: [facility] 12-17-2021 15:31-0400 Body weight 92.26 kg Becca Draper MD Work Phone: [facility] 12-17-2021 15:31-0400 Diastolic blood pressure 80 mm[Hg] Becca Draper MD Work Phone: [facility] 12-17-2021 15:31-0400 Heart rate 80 /min Becca Draper MD Work Phone: [facility] 12-17-2021 15:31-0400 Respiratory rate 16 /min Becca Draper MD Work Phone: [facility] 12-17-2021 15:31-0400 Systolic blood pressure 118 mm[Hg] Becca Draper MD Work Phone: [facility] Encounters Encounter Date Encounter Type Care Provider Facility Start: 05-13-2025 Emergency department patient visit Dedrick Newport Facility:[facility] [place] Start: 05-02-2025 End: 05-02-2025 ambulatory Becca Draper Facility:[facility] Start: 04-30-2025 End: 04-30-2025 Patient encounter procedure Froylan Erwin PA-C Work Phone: Urology Comment on above: Urinary frequency (P rimary Dx); Urinary urgency; Screening for genitourinary condition Start: 04-30-2025 End: 04-30-2025 ambulatory FROYLAN ERWIN Facility:[facility] Start: 04-29-2025 End: 04-29-2025 Patient encounter procedure Salima Pardo PA-C Work Phone: [facility] [place] Comment on above: Dysphagia, unspecifi ed type (Primary Dx); Other cough; Chronic diarrhea; Family history of colon cancer Start: 04-29-2025 End: 04-29-2025 ambulatory SALIMA PARDO Facility:[facility] Start: 02-28-2025 End: 04-30-2025 Follow-up encounter Grant Clayton MD Work Phone: [facility] [place] Start: 02-28-2025 ambulatory [facility] Facility :[facility] Start: 02-28-2025 End: 02-28-2025 Subsequent hospital visit by physician [facility] [place] Work Phone: Radiology Comment on above: Bacterial pneumonia [J15.9] Start: 02-25-2025 End: 02-26-2025 Telephone encounter Becca Draper MD Work Phone: [facility] [place] Comment on above: Patient Question Start: 02-08-2025 End: 02-08-2025 ambulatory Violet Arroyo CCC-ASSORTER Work Phone: [facility] Start: 02-08-2025 End: 02-08-2025 Patient encounter procedure Violet Arroyo CCC-ASSORTER Work Phone: [facility] Comment on above: Other dysphagia (Aaliyah mariaa Dx); Oral phase dysphagia Start: 02-08-2025 End: 02-08-2025 Subsequent hospital visit by physician Gi/Gu 2 [facility] Work Phone: Radiology Comment on above: Acute cough [R05.1] Start: 02-06-2025 End: 02-06-2025 Follow-up encounter Mayra Gerardo APRN.ANIMATION DIRECTOR Work Phone: [facility] [place] Start: 02-06-2025 End: 02-06-2025 Subsequent hospital visit by physician [facility] [place] Work Phone: Radiology Comment on above: Acute cough [R05.1] Start: 02-06-2025 End: 02-06-2025 Office outpatient visit 25 minutes Mayra Gerardo APRN.ANIMATION DIRECTOR Work Phone: [facility] [place] Comment on above: Bronchitis (Primary Dx); Acute cough Start: 02-06-2025 End: 02-06-2025 ambulatory [facility] Facility:[facility] Start: 01-30-2025 End: 01-30-2025 ambulatory [facility] Facility:[facility] Start: 01-28-2025 End: 02-11-2025 Follow-up encounter Jenise Holt APRN.ANIMATION DIRECTOR Work Phone: [facility] [place] Start: 01-28-2025 End: 01-28-2025 Subsequent hospital visit by physician X[facility] [place] Work Phone: Radiology Comment on above: Acute cough [R05.1] Start: 01-28-2025 End: 01-28-2025 ambulatory JENISE HOLT Facility:[facility] Start: 01-28-2025 End: 01-28-2025 Office outpatient visit 25 minutes Jenise Holt APRN.ANIMATION DIRECTOR Work Phone: [facility] [place] Comment on above: Acute cough (Primary Dx); Oropharyngeal dysphagia; Bilateral impacted cerumen Start: 01-21-2025 End: 01-21-2025 ambulatory ARABELLA SLAUGHTER Facility:[facility] Start: 12-20-2024 End: 12-20-2024 Refill Froylan Erwin PA-C Work Phone: Urology Comment on above: Refill Request Start: 10-31-2024 End: 10-31-2024 ambulatory Becca [facility] Facility:[facility] Start: 10-15-2024 End: 10-15-2024 Telephone encounter Mac Galvan APRN.ANIMATION DIRECTOR Work Phone: [facility] [place] Comment on above: Results Start: 10-13-2024 End: 10-13-2024 ambulatory MAC GALVAN Facility:[facility] Start: 09-26-2024 End: 09-27-2024 Refill Becca Draper MD Work Phone: [facility] [place] Comment on above: Refill Request Start: 08-24-2024 End: 08-24-2024 Patient encounter procedure Rosana Rodney APRN.ANIMATION DIRECTOR Work Phone: [facility] [place] Comment on above: Wellness examination (Primary Dx); Intellectual disability; Urinary frequency; Nonintractable epilepsy without status epilepticus, unspecified epilepsy type (HCC); CAROL (generalized anxiety disorder); Obsessive-compulsive disorder, unspecified type; Seasonal allergies; Vitamin D deficiency; History of sleep study; Snoring; Daytime sleepiness; Encounter for immunization; Screening for colon cancer Start: 08-24-2024 End: 08-24-2024 Patient encounter status Rosana Rodney APRN.CNP Work Phone: [facility] Work Phone: Start: 08-24-2024 End: 08-24-2024 ambulatory [facility] Facility:[facility] Start: 08-24-2024 Encounter for [facility] adult medical examination without abnormal findings [facility] Start: 08-15-2024 End: 08-15-2024 ambulatory Reji Lola George Facility:[facility] [place] Start: 08-10-2024 End: 08-10-2024 ambulatory [facility] Facility:[facility] Start: 07-31-2024 End: 07-31-2024 ambulatory [facility] Facility:[facility] Start: 07-19-2024 End: 07-24-2024 Telephone encounter Rosana Rodney APRN.ANIMATION DIRECTOR Work Phone: [facility] [place] Comment on above: Results (Sleep Study ) Start: 07-10-2024 End: 07-11-2024 ambulatory [facility] Facility:[facility] Start: 07-06-2024 End: 07-06-2024 Refill Becca Draper MD Work Phone: [facility] [place] Comment on above: Refill Request Results (Labs.) Start: 07-05-2024 End: 07-13-2024 [facility] Work Phone: Neurology Start: 07-04-2024 End: 07-04-2024 Patient encounter procedure Rosana Rodney APRN.CNP Work Phone: [facility] [place] Comment on above: Fatigue, unspecified type (Primary Dx); Snoring; Daytime sleepiness; Nonintractable epilepsy without status epilepticus, unspecified epilepsy type (HCC); Seasonal allergies; Urinary frequency; CAROL (generalized anxiety disorder); Intellectual disability; Encounter for immunization; Screening for depression Start: 07-04-2024 End: 07-04-2024 ambulatory ROSANA [place] Facility:[facility] Start: 06-06-2024 End: 06-07-2024 Refill Becca Draper MD Work Phone: [facility] [place] Comment on above: Refill Request Start: 04-08-2024 End: 04-08-2024 Patient encounter procedure Mamie CAMEJO Work Phone: [facility] Comment on above: Bacterial sinusitis (Primary Dx) Start: 02-14-2024 End: 02-14-2024 Orders Only Froylanlibby Erwin PA-C Work Phone: Urology Comment on above: Urinary urgency (Aaliyah mariaa Dx) Urinary urgency (Aaliyah mariaa Dx); Urinary frequency Start: 01-19-2024 Refill Froylan Erwin PA-C Work Phone: Urology Comment on above: Refill Request Start: 12-15-2023 End: 12-15-2023 Patient encounter procedure Becca Draper MD Work Phone: [facility] [place] Comment on above: Acute cough (Primary Dx); Hx of viral pneumonia Start: 12-12-2023 End: 12-12-2023 Subsequent hospital visit by physician [facility] [place] Work Phone: Radiology Comment on above: Chronic cough [R05.3 ] Start: 12-12-2023 End: 12-12-2023 Patient encounter procedure Avtar Brooks APRN.CNP Work Phone: [facility] Comment on above: Chronic cough (Prima ry Dx); Bacterial pneumonia Start: 11-04-2023 End: 11-04-2023 Patient encounter procedure Mamie CAMEJO Work Phone: [facility] Comment on above: Acute conjunctivitis of left eye, unspecified acute conjunctivitis type (Primary Dx) Start: 11-02-2023 Refill Becca powell MD Work Phone: [facility] [place] Comment on above: Refill Request Start: 10-29-2023 End: 10-29-2023 Patient encounter procedure Becca Draper MD Work Phone: [facility] [place] Comment on above: Acute cough (Primary Dx) Start: 10-26-2023 Telephone encounter Mamie CAMEJO Work Phone: [facility] Comment on above: Results Start: 10-25-2023 End: 10-25-2023 Subsequent hospital visit by physician [facility] [place] Work Phone: Radiology Comment on above: Rhonchi at both lung bases [R09.89] Start: 10-25-2023 End: 10-25-2023 Patient encounter procedure Galileo Fuller APRN.CNP Work Phone: [facility] Comment on above: URI, acute (Primary Dx); Rhonchi at both lung bases; Subacute cough Start: 09-26-2023 End: 09-26-2023 Subsequent hospital visit by physician [facility] [place] Work Phone: Radiology Comment on above: Acute cough [R05.1] Start: 08-22-2023 Telephone encounter Becca avila MD Work Phone: [facility] Comment on above: Results Start: 08-02-2023 Telephone encounter Becca avila MD Work Phone: [facility] [place] Comment on above: Forms (Guardianship paperwork for [facility]) Start: 07-16-2023 End: 07-16-2023 ambulatory [facility] [place] [facility] Comment on above: Arrived Start: 07-07-2023 Refill Becca powell MD Work Phone: [facility] [place] Comment on above: Refill Request Start: 12-16-2022 Refill Becca powell MD Work Phone: [facility] Comment on above: Refill Request Patient Update Start: 10-01-2022 End: 10-01-2022 Patient encounter procedure Froylan Erwin PA-C Work Phone: Urology Comment on above: Urinary frequency; Urinary urgency Start: 09-15-2022 Telephone encounter Maryellen seo APRN.ANIMATION DIRECTOR Work Phone: [facility] [place] Comment on above: Results (Urine cultu re/) Start: 09-02-2022 Telephone encounter Rosanayue maldonado CATERING OPERATIONS MANAGER.RADHIKA Work Phone: [facility] Comment on above: Results Start: 08-28-2022 End: 08-29-2022 [facility] Start: 08-19-2022 Telephone encounter Rosana Broussard joel CATERING OPERATIONS MANAGER.ANIMATION DIRECTOR Work Phone: [facility] Comment on above: Results (Labs ) Start: 08-16-2022 End: 08-16-2022 Patient encounter procedure Rosana Rodney APRN.RADHIKA Work Phone: [facility] Comment on above: Wellness examination (Primary Dx); Intellectual disability; Nonintractable epilepsy without status epilepticus, unspecified epilepsy type (HCC); Seasonal allergies; Impacted cerumen of left ear; Screening for colon cancer; Screening cholesterol level Start: 08-16-2022 End: 08-16-2022 Patient encounter status Rosana Rodney APRN.ANIMATION DIRECTOR Work Phone: [facility] Start: 08-10-2022 Refill Mac HUIZAR RN.ANIMATION DIRECTOR Work Phone: [facility] Comment on above: Refill Request Start: 07-04-2022 Nurse Triage Vivian Florez RN NURSE STOCK WORKER AND DELIVERER Comment on above: Refill Request Start: 07-02-2022 Refill Mac HUIZAR RN.ANIMATION DIRECTOR Work Phone: [facility] Comment on above: Refill Request Start: 06-28-2022 Telephone encounter Becca avila MD Work Phone: [facility] Comment on above: Forms Start: 06-07-2022 Refill Rosana Rodney APRN.ANIMATION DIRECTOR Work Phone: [facility] Comment on above: Refill Request Start: 04-06-2022 Telephone encounter Julieth lovelace PA-C Work Phone: [facility] Comment on above: Results Start: 04-05-2022 End: 04-05-2022 Patient encounter procedure Teresa Basilio CATERING OPERATIONS MANAGER.ANIMATION DIRECTOR Work Phone: [facility] Comment on above: Rhinorrhea (Primary Dx); Sore throat Start: 02-22-2022 End: 02-22-2022 Patient encounter procedure [facility], [facility] Start: 02-05-2022 Telephone encounter Adithya Sam MD Work Phone: [facility] Comment on above: Question Start: 02-01-2022 End: 02-01-2022 Patient encounter procedure Adithya Camacho MD Work Phone: [facility] Comment on above: Closed nondisplaced fracture of anterior process of right calcaneus, initial encounter (Primary Dx); Acute right ankle pain Start: 02-01-2022 End: 02-01-2022 Subsequent hospital visit by physician [facility] Work Phone: Radiology Comment on above: Acute right ankle pa in [M25.571] Start: 12-22-2021 Telephone encounter Yaidra Meyers luigi NURSERYPERSON Work Phone: Psychology Comment on above: Patient Outreach ([facility]) Medication Problem Start: 12-18-2021 Telephone encounter Yadira Meyers luigi NURSERYPERSON Work Phone: Psychology Comment on above: Abstract Start: 12-17-2021 End: 12-17-2021 Patient encounter procedure Becca Draper MD Work Phone: [facility] Comment on above: CAROL (generalized anx iety disorder) (Primary Dx); Intellectual disability; Seasonal allergies Procedures Date Procedure Procedure Detail Performing Clinician Start: 04-30-2025 Urnls dip stick/tabl et rgnt auto w/o microscopy Froylan Erwin PA-C Work Phone: Start: 02-28-2025 Radiologic exam ches t 2 views Mayra Gerardo APRN.ANIMATION DIRECTOR Work Phone: Start: 02-08-2025 Radiologic exam swal low function contrast study Jenise Holt CATERING OPERATIONS MANAGER.ANIMATION DIRECTOR Work Phone: Start: 02-06-2025 Radiologic exam ches t 2 views Mayra Gerardo CATERING OPERATIONS MANAGER.ANIMATION DIRECTOR Work Phone: Start: 01-28-2025 Radiologic exam ches t 2 views Jenise Holt CATERING OPERATIONS MANAGER.ANIMATION DIRECTOR Work Phone: Start: 07-04-2024 Adult depression scr eening assessment Rosana Rashaun CATERING OPERATIONS MANAGER.ANIMATION DIRECTOR Work Phone: Start: 02-14-2024 Urnls dip stick/tabl et rgnt auto w/o microscopy Froylan CAMEJO-C Work Phone: Start: 12-12-2023 Radiologic exam ches t 2 views Avtar Brooks CATERING OPERATIONS MANAGER.ANIMATION DIRECTOR Work Phone: Start: 10-25-2023 Radiologic exam ches t 2 views Galileo Jonny CATERING OPERATIONS MANAGER.ANIMATION DIRECTOR Work Phone: Start: 09-26-2023 Radiologic exam ches t 2 views Mamie CAMEJO Work Phone: Start: 08-16-2023 Lipid 1996 panel [...] DTaP,Tdap,Td Vaccine (3 - Td or Tdap) [facility] Start: 08-16-2028 Lipid panel Lipid Screening [facility] Start: 08-16-2027 Lipid 1996 panel - Serum or Plasma Lipid Screening [facility] Start: 08-16-2027 LIPID SCREEN LIPID SCREEN [facility] Start: 07-04-2027 Diabetes Screening Diabetes Screening [facility] Start: 08-16-2026 Diabetes Screening Diabetes Screening [facility] Start: 04-29-2026 End: 04-29-2026 Patient encounter procedure 04/29/2026 2:15 PM EDT Office Visit Urology [address] [place] [address] Froylan Erwin PA-C [address] [place] [address] 3 yr Urology Comment on above: 3 yr Start: 09-14-2025 DIABETES SCREEN DIABETES SCREEN [facility] Start: 09-14-2025 Diabetes Screening Diabetes Screening [facility] Start: 08-27-2025 COLOGUARD (FIT-DNA) COLOGUARD (FIT-DNA) [facility] Start: 08-27-2025 COLORECTAL CANCER SCREENING COLORECTAL CANCER SCREENING [facility] Start: 08-27-2025 Screening for malignant neoplasm of colon [facility] Start: 08-24-2025 Covid-19 Vaccine () Covid-19 Vaccine () [facility] Comment on above: Postponed from 05/13/2024 (Declined at t his time) Start: 08-16-2025 DIABETES SCREEN DIABETES SCREEN [facility] Start: 07-04-2025 Depression Screening Depression Screening [facility] Start: 07-04-2025 Hepatitis C screening Hepatitis C Screening [facility] Comment on above: Postponed from 1995 (Declined at t his time) Start: 07-04-2025 HIV screening HIV Screening [facility] Comment on above: Postponed from 1995 (Declined at t his time) Start: 06-26-2025 End: 06-26-2025 Patient encounter procedure 06/26/2025 10:00 AM EDT Appointment Ambulatory Surgery [address] [place] [id number] Chapo Brady MD [address], [place] [phone] Dx: Dysphagia, unspecified type [R13.10]; Other cough [R05.8] Ambulatory Surgery Comment on above: Dx: Dysphagia, unspecified type [R13.10] ; Other cough [R05.8] Start: 05-13-2025 Influenza vaccination Influenza Vaccine (#1) [facility] Start: 04-30-2025 End: 04-30-2025 Patient encounter procedure 04/30/2025 2:15 PM EDT Office Visit Urology [address] [place], [place] [id number] Froylan Erwin PA-C [address] [place], [place] [phone] YEARLY: Urinary urgency Urology Comment on above: YEARLY: Urinary urgency Start: 04-29-2025 End: 04-29-2025 Patient encounter procedure 04/29/2025 10:30 AM EDT Office Visit [facility] [address] [place] [address] Salima Pardo PA-C [address], [place] [phone] New patient [facility] Comment on above: New patient Start: 03-12-2025 End: 03-12-2025 Patient encounter procedure 03/12/2025 11:30 AM EDT Office Visit Urology [address] [place] [address] Froylan Erwin PA-C [address] [place], [place] [id number] 1 year f/u Urology Comment on above: 1 year f/u Start: 02-20-2025 End: 03-08-2026 XR Chest PA and Lateral XR CHEST 2V FRONTAL/LAT Radiology Routine Bacterial pneumonia Expected: 02/20/2025, Expires: 03/08/2026 [facility] Work Phone: Comment on above: Expected: 02/20/2025, Expires: Start: 02-19-2025 End: 02-19-2025 Patient encounter procedure 02/19/2025 9:30 AM EDT Office Visit Urology [address] [place], [place] [address] Froylan Erwin PA-C [address] [place] [address] 1 year f/u Urology Comment on above: 1 year f/u Start: 02-08-2025 End: 02-08-2025 ambulatory 02/08/2025 9:10 AM EDT OT/PT/Speech Visit [facility] [address] [place] [address] [facility] [address] [place] [address] Acute cough [R05.1]; Oropharyngeal dysphagia [R13.12] [facility] Comment on above: Acute cough [R05.1]; Oropharyngeal dysph agia [R13.12] Start: 02-08-2025 End: 02-08-2025 Patient encounter procedure 02/08/2025 9:10 AM EDT Appointment Radiology [address] [place] [address] Acute cough [R05.1]; Oropharyngeal dysphagia [R13.12] Radiology Comment on above: Acute cough [R05.1]; Oropharyngeal dysph agia [R13.12] Start: 10-06-2024 End: 01-05-2025 25-hydroxyvitamin D3 [Mass/volume] in Serum or Plasma VITAMIN D 25 HYDROXY Lab Routine Vitamin D deficiency Expected: 10/06/2024, Expires: 01/05/2025 [facility] Work Phone: Comment on above: Expected: 10/06/2024, Expires: Start: 09-12-2024 Medicare Advantage Annual Wellness Visit Medicare Advantage Annual Wellness Visit [facility] Start: 08-16-2024 Covid-19 Vaccine () Covid-19 Vaccine () [facility] Comment on above: Postponed from 05/13/2023 (Declined at t his time) Start: 08-16-2024 End: 08-16-2024 Patient encounter procedure 08/16/2024 9:20 AM EST Office Visit [facility] [address] [place] [phone] Becca Draper MD [address] [place] [phone] annual exam [facility] Comment on above: annual exam Start: 08-14-2024 DIABETES SCREEN DIABETES SCREEN [facility] Start: 07-25-2024 Urine microalbumin profile [facility] Comment on above: Postponed from 07/26/2014 (Postponed To Appropriate Date) Start: 07-11-2024 End: 07-11-2024 Patient encounter procedure 07/11/2024 10:00 AM EDT Office Visit Neurology [address] [place], [place] [phone] [facility] Comment on above: [facility]sat Start: 07-04-2024 LIPID SCREEN LIPID SCREEN [facility] Start: 05-13-2024 Covid-19 Vaccine ( season) Covid-19 Vaccine () [facility] Start: 05-13-2024 Covid-19 Vaccine () Covid-19 Vaccine () [facility] Start: 05-13-2024 Influenza vaccination Influenza Vaccine (#1) [facility] Start: 01-31-2024 End: 01-31-2024 Patient encounter procedure 01/31/2024 4:30 PM EDT Office Visit Urology [address] [place], [place] [phone] Froylan Erwin PA-C [address] [place] [address] 1 yr follow up Urology Comment on above: 1 yr follow up Start: 09-12-2023 Behavioral Health Screening Behavioral Health Screening [facility] Start: 09-12-2023 Depression Assessment Depression Assessment [facility] Start: 08-16-2023 HEPATITIS B (1 of 3 - 3-dose series) HEPATITIS B (1 of 3 - 3-dose series) [facility] Comment on above: Postponed from 1977 (Declined at t his time) Start: 08-16-2023 Hepatitis B Vaccine (1 of 3 - 3-dose series) Hepatitis B Vaccine (1 of 3 - 3-dose series) [facility] Comment on above: Postponed from 1977 (Declined at t his time) Start: 08-16-2023 HEPATITIS C SCREENING HEPATITIS C SCREENING [facility] Comment on above: Postponed from 1995 (Declined at t his time) Start: 08-16-2023 HIV SCREENING HIV SCREENING [facility] Comment on above: Postponed from 1995 (Declined at t his time) Start: 05-13-2023 Covid-19 Vaccine ( season) Covid-19 Vaccine ( season) [facility] Start: 05-13-2023 Influenza vaccination Influenza Vaccine (#1) [facility] Start: 10-28-2022 Adult depression screening assessment DEPRESSION SCREENING [facility] Start: 09-12-2022 DEPRESSION ASSESSMENT DEPRESSION ASSESSMENT [facility] Start: 09-02-2022 End: 11-02-2022 carBAMazepine [Mass/volume] in Serum or Plasma CARBAMAZEPI/TEGRETOL Lab Routine Nonintractable epilepsy without status epilepticus, unspecified epilepsy type (HCC) Expected: 09/02/2022, Expires: 11/02/2022 [facility] Work Phone: Comment on above: Expected: 09/02/2022, Expires: Start: 08-16-2022 End: 10-16-2022 Comprehensive metabolic 2000 panel - Serum or Plasma [facility] Work Phone: Comment on above: Expected: 08/16/2022, Expires: 3 Start: 08-16-2022 End: 10-16-2022 LIPID PANEL, NONFASTING [facility] Work Phone: Comment on above: Expected: 08/16/2022, Expires: 3 Start: 08-14-2022 HEPATITIS C SCREENING HEPATITIS C SCREENING [facility] Comment on above: Postponed from 1995 (Declined at t his time) Start: 08-14-2022 HIV SCREENING HIV SCREENING [facility] Comment on above: Postponed from 1995 (Declined at t his time) Start: 2022 COLOGUARD (FIT-DNA) COLOGUARD (FIT-DNA) [facility] Start: 2022 Colonoscopy COLONOSCOPY [facility] Start: 2022 COLORECTAL CANCER SCREENING COLORECTAL CANCER SCREENING [facility] Start: [address] COLONOGRAPHY [facility] Start: 2022 FECAL OCCULT BLOOD FECAL OCCULT BLOOD [facility] Start: 2022 Screening for malignant neoplasm of colon [facility] Start: 2022 SIGMOIDOSCOPY SIGMOIDOSCOPY [facility] Start: 05-13-2022 Influenza vaccination INFLUENZA (#1) [facility] Start: 04-05-2022 End: 04-19-2022 SARS-CoV-2 (COVID-19) RNA [Presence] in Respiratory specimen by VIDHYA with probe detection 2019 CORONAVIRUS Microbiology Routine Rhinorrhea Sore throat Expected: 04/05/2022, Expires: 04/19/2022 [facility] Work Phone: Comment on above: Expected: 04/05/2022, Expires: 2 Start: 12-12-2021 COVID-19 VACCINE (4 - Booster for Moderna series) COVID-19 VACCINE (4 - Booster for Moderna series) [facility] Start: 09-12-2021 DEPRESSION ASSESSMENT DEPRESSION ASSESSMENT [facility] Start: 1996 Hepatitis B Vaccine (1 of 3 - 19+ 3-dose series) Hepatitis B Vaccine (1 of 3 - 19+ 3-dose series) [facility] Start: 1995 Depression Screening Depression Screening [facility] Start: 1995 Hepatitis C screening Hepatitis C Screening [facility] Start: 1995 HIV screening HIV Screening [facility] Start: 1977 HEPATITIS B (1 of 3 - 3-dose series) HEPATITIS B (1 of 3 - 3-dose series) [facility] Start: 1977 Hepatitis B Vaccine (1 of 3 - 3-dose series) Hepatitis B Vaccine (1 of 3 - 3-dose series) [facility] COLOGUARD COLOGUARD Lab Ro utine Screening for colon cancer Ordered: 08/16/2022 [facility] Work Phone: Comment on above: Ordered: 08/16/2022 COVID & INFLUENZA A/ B & RSV NAAT, ROUTINE COVID & INFLUENZA A/B & RSV NAAT, ROUTINE Microbiology Routine URI, acute Ordered: 10/25/2023 [facility] Work Phone: Comment on above: Ordered: 10/25/2023 End: 04-29-2026 EGD DIAGNOSTIC EGD DIAGNOSTIC Endoscopy Routine Dysphagia, unspecified type Other cough 1 Occurrences starting 04/29/2025 until 04/29/2026 [facility] Work Phone: Comment on above: 1 Occurrences starting 04/29/2025 until 04/29/2026 End: 04-29-2026 Flexible sigmoidoscopy study COLONOSCOPY DIAGNOSTIC Endoscopy Routine Chronic diarrhea Family history of colon cancer 1 Occurrences starting 04/29/2025 until 04/29/2026 [facility] Comment on above: 1 Occurrences starting 04/29/2025 until 04/29/2026 End: 07-04-2025 HOME SLEEP APNEA TEST (HSAT) HOME SLEEP APNEA TEST (HSAT) Procedures Routine Snoring Daytime sleepiness 1 Occurrences starting 07/04/2024 until 07/04/2025 [facility] Work Phone: Comment on above: 1 Occurrences starting 07/04/2024 until 07/04/2025 Sophia post-voiding residual urine&/bladder cap US MSR POST-VOID RESID URINE Procedures Routine Urinary frequency Urinary urgency Ordered: 10/01/2022 [facility] Work Phone: Comment on above: Ordered: 10/01/2022 End: 07-20-2025 Polysomnogram POLYSOMNOGRAM (PSG) Procedures Routine History of sleep study Snoring Daytime sleepiness 1 Occurrences starting 07/20/2024 until 07/20/2025 [facility] Work Phone: Comment on above: 1 Occurrences starting 07/20/2024 until 07/20/2025 POST VOID RESIDUAL POST VOID RES IDUAL Procedures Routine Urinary frequency Screening for genitourinary condition Ordered: 04/30/2025 [facility] Work Phone: Comment on above: Ordered: 04/30/2025 Removal impacted cerumen irrigation/lvg unilat AMBULATORY EAR LAVAGE/IRRIGATION Procedures Routine Bilateral impacted cerumen Ordered: 01/28/2025 [facility] Work Phone: Comment on above: Ordered: 01/28/2025 End: 02-27-2026 RF videography Hypopharynx and Esophagus Views W liquid and paste contrast PO during swallowing XR MODIFIED BARIUM SWALLOW W SPEECH THERAPY Radiology Routine Acute cough Oropharyngeal dysphagia 1 Occurrences starting 01/28/2025 until 02/27/2026 [facility] Comment on above: 1 Occurrences starting 01/28/2025 until 02/27/2026 UA DIP, URINE (POC) UA DIP, URIN E (POC) Lab Routine Urinary urgency Ordered: 02/14/2024 [facility] Work Phone: Comment on above: Ordered: 02/14/2024 [facility] Immunizations Immunization Date Immunization Notes Care Provider [facility] 08-24-2024 tetanus toxoid, reduced diphtheria toxoid, and acellular pertussis vaccine, adsorbed Rosana Tannhof CATERING OPERATIONS MANAGER.ANIMATION DIRECTOR Work Phone: [facility] 07-04-2024 influenza, seasonal, injectable Rosana Tannhof CATERING OPERATIONS MANAGER.ANIMATION DIRECTOR Work Phone: [facility] 07-04-2024 influenza virus vaccine, unspecified formulation Salima Pardo PA-C Work Phone: [facility] 07-16-2023 influenza, injectabl e, quadrivalent, contains preservative Immunization [place] Work Phone: [facility] 07-16-2023 influenza virus vaccine, unspecified formulation Immunization [place] Work Phone: [facility] 07-09-2022 influenza, injectabl e, quadrivalent, contains preservative Mac Galvan CATERING OPERATIONS MANAGER.ANIMATION DIRECTOR Work Phone: [facility] Work Phone: 07-09-2022 influenza virus vaccine, unspecified formulation Becca Draper MD Work Phone: [facility] 08-14-2021 influenza, injectabl e, quadrivalent, contains preservative Becca Draper MD Work Phone: [facility] 07-05-2020 influenza, injectabl e, quadrivalent, contains preservative Becca Draper MD Work Phone: [facility] 07-04-2019 influenza, injectabl e, quadrivalent, contains preservative Becca Draper MD Work Phone: [facility] 07-15-2018 influenza, injectabl e, quadrivalent, contains preservative Becca Draper MD Work Phone: [facility] 07-11-2017 influenza, injectabl e, quadrivalent, contains preservative Becca Draper MD Work Phone: [facility] 05-31-2016 influenza, injectabl e, quadrivalent, contains preservative Becca Draper MD Work Phone: [facility] 07-17-2015 influenza, injectabl e, quadrivalent, contains preservative Becca Draper MD Work Phone: [facility] Work Phone: 08-05-2014 Influenza virus vaccine [facility] Work Phone: 07-25-2014 tetanus and diphther ia toxoids, adsorbed, preservative free, for adult use (5 Lf of tetanus toxoid and 2 Lf of diphtheria toxoid) Becca Draper MD Work Phone: [facility] Work Phone: 07-25-2014 tetanus toxoid, reduced diphtheria toxoid, and acellular pertussis vaccine, adsorbed Becca Draper MD Work Phone: [facility] 07-10-2014 influenza, seasonal, injectable Becca Draper MD Work Phone: [facility] 08-15-2013 influenza virus vaccine, unspecified formulation Becca Draper MD Work Phone: [facility] Work Phone: 06-03-2012 influenza virus vaccine, unspecified formulation Becca Draper MD Work Phone: [facility] Work Phone: 07-03-2011 influenza virus vaccine, unspecified formulation Becca Draper MD Work Phone: [facility] Work Phone: 07-16-2010 influenza virus vaccine, unspecified formulation Becca Draper MD Work Phone: [facility] Work Phone: 08-19-2009 influenza virus vaccine, unspecified formulation Becca Draper MD Work Phone: [facility] 08-11-2007 influenza virus vaccine, unspecified formulation Becca Draper MD Work Phone: [facility] Work Phone: 09-01-2006 influenza virus vaccine, unspecified formulation Becca Draper MD Work Phone: [facility] Work Phone: 07-27-2005 influenza virus vaccine, whole virus Becca Draper MD Work Phone: [facility] Work Phone: 07-13-2004 tetanus and diphther ia toxoids, adsorbed, preservative free, for adult use (2 Lf of tetanus toxoid and 2 Lf of diphtheria toxoid) Becca Draper MD Work Phone: [facility] Work Phone: Payers Date Payer Category Payer Self-pay [id number] 2023 Medicare (Managed Care) [id number] 2018 Medicare UHC MEDICARE UHC DUAL COMPLETE HMO SNP [id number] 2018-Present [phone] [address] [place] [address] Medicare [id number] 2018 Medicare [id number] 2018 Unknown [id number] 2016 Medicaid MEDICAID [facility] MEDICAID [id number] 2016-Present [phone] [address] [place] [address] Medicaid [id number] 2016 Medicaid [id number] 2014 Medicaid [id number] Medicare UHC MCRDUAL COMP HMO [id number] Unknown [id number] 62 Unknown [id number] 62 Unknown [id number] 62 Unknown [id number] 62 Unknown [id number] 62 Unknown [id number] 62 Unknown [id number] 62 Social History Date Type Detail Facility Start: 05-31-2016 Tobacco smoking stat [facility] Never smoked tobacco [facility] Start: 12-17-2021 End: 02-06-2025 Alcohol intake Current non-drinker of alcohol (finding) [facility] [facility] Start[facility] 1975 Sex Assigned At Not on file [facility] Start: 12-07-2021 End: 08-16-2022 Exposure to SARS-CoV-2 (event) Not sure [facility] Start: 03-22-2015 Tobacco smoking stat [facility] Unknown if ever smoked [facility] Work Phone: Start: 03-22-2015 None [facility] Work Phone: Start: 03-22-2015 With Family [facility] Work Phone: Start: 03-22-2015 Non-smoker [facility] Work Phone: Start: 1975 Sex Assigned At Male [facility] Work Phone: Start: 05-31-2016 Tobacco use and exposure Smokeless tobacco non-user [facility] Start: 01-04-2023 End: 07-16-2023 History of Social function [facility] Work Phone: Start: 01-04-2023 End: 07-16-2023 Tobacco use panel [facility] Work Phone: Start: 08-13-2012 Adult Depression Screening Assessment 0 [facility] Work Phone: Start: 04-29-2025 End: 04-30-2025 Alcoholic beverage intake Lifetime non-drinker (finding) [facility] How often to you hav e a drink containing alcohol? Never [facility] Functional Status Date Assessment Result Facility 04-02-2015 Are you deaf, or do you have serious difficulty hearing No 04/02/2015 9:15 AM Salima SainzRn)(Hist), RN No [facility] 04-02-2015 Are you blind, or do you have serious difficulty seeing, even when wearing glasses No 04/02/2015 9:15 AM Salima SainzRn)(Hist), RN No [facility] 04-02-2015 Do you have serious difficulty walking or climbing stairs No 04/02/2015 9:15 AM Salima SainzRn)(Hist), RN No [facility] 04-02-2015 Do you have difficul ty dressing or bathing Yes 04/02/2015 9:15 AM Salima SainzRn)(Hist), RN Yes [facility] 04-02-2015 Because of a physica l, mental, or emotional condition, do you have difficulty doing errands alone such as visiting a physician's office or shopping Yes 04/02/2015 9:15 AM Salima Sainz)(Hist), RN Yes [facility] Mental Status Date Assessment Result Facility 04-02-2015 Because of a physica l, mental, or emotional condition, do you have serious difficulty concentrating, remembering, or making decisions Yes 04/02/2015 9:15 AM Salima Sainz)([facility]), RN Yes [facility] Clinical Notes 08-20-2005 to 04-30-2025 Patient InstructionsFroylan Erwin PA-C - 04/30/2025 2:40 PM Vero Pelletier LPN - 04/30/2025 2:09 PM Salima Bernard PA-C - 04/29/2025 10:20 AM EDTPatient InstructionsPatient [...] in one year. documented in this encounter [facility] 04-30-2025 Note HNO ID: [id number] Author: FROYLAN ERWIN PA-C Service: ? Author Type: Physician Cotton Picking Machine Operator Type: Progress Notes Filed: 04/30/2025 14:47 Note Text: [facility] PATIENT CLINIC NOTE (M) Some elements copied from his previous note, which have been updated where appropriate, and all reflect current medical decision making from date of this visit. Note was generated by [employer] and edited as appropriate SERVICE DATE: [...] prescribed; your refills (more content not included)... [facility] 04-30-2025 History of Present illness Narrative Images from the original note were not included. [facility] PATIENT CLINIC NOTE (M) Some elements copied from his previous note, which have been updated where appropriate, and all reflect current medical decision making from date of this visit. Note was generated by [employer] and edited as appropriate SERVICE DATE: [...] refills cover you through December year. - Your urinalysis showed a trace [...] Appointment with Froylan. documented in this encounter [facility] 04-30-2025 Note HNO ID: [id number] Author: VERO RASCON LPN Service: ? Author [...] the procedure well. Plan: Appointment with Froylan. [facility] 04-29-2025 Note HNO ID: [id number] Author: SALIMA PARDO PA-C Service: ? Author Type: Physician Cotton Picking Machine Operator Type: Progress Notes Filed: 04/29/2025 10:41 Note Text: CHIEF COMPLAINT: Patient presents with: Dysphagia: Barium swallow 06/11/25 This consult was requested by No ref. provider found for an opinion regarding dysphagia. My final recommendations will be communicated to the requesting health care provider by way of the shared medical record for internal providers or letter via the [employer] for external providers. HPI: Octaviano [...] and observed esophageal dysphagia, recommend consult to green tire inspector for further workup. Consider consult to parole or probation officer if pneumonia and cough persist. Compensatory strategies attempted, patient unable to complete. No further ASSORTER services are indicated. Literature provided to caregiver [...] is normal we (more content not included)... [facility] 04-29-2025 History of Present illness Narrative CHIEF COMPLAINT: Patient presents with: Dysphagia: Barium swallow 06/11/25 This consult was requested by No ref. provider found for an opinion regarding dysphagia. My final recommendations will be communicated to the requesting health care provider by way of the shared medical record for internal providers or letter via the [employer] for external providers. HPI: Octaviano [...] and observed esophageal dysphagia, recommend consult to green tire inspector for further workup. Consider consult to parole or probation officer if pneumonia and cough persist. Compensatory strategies attempted, patient unable to complete. No further ASSORTER services are indicated. Literature provided to caregiver [...] which included preparing to see the patient, [id number] patient care, completing clinical documentation, obtaining and/or [...] Drug use: No documented in this encounter [facility] 02-28-2025 History of Present illness Narrative Radiology [...] PATIENT PRESENTS WITH AN IMPLANTABLE OR ATTACHED PIGMENT PUMPER: No RADIOLOGY DEPARTMENT: General X-ray: Exam(s) Completed: Chest X-Ray PERIPHERAL IV DATA: Not applicable SIGNED BY: RT Sanford(Dioni) February 28, 2025 9:32 AM documented in this encounter [facility] 02-28-2025 Note HNO ID: [id number] Author: AMALIA ZAMUDIO RT(R) Service: Radiology Author [...] PATIENT PRESENTS WITH AN IMPLANTABLE OR ATTACHED PIGMENT PUMPER: No RADIOLOGY DEPARTMENT: General X-ray: Exam(s) Completed: Chest X-Ray PERIPHERAL IV DATA: Not applicable SIGNED BY: Amalia Zamudio, RT(R) February 28, 2025 9:32 AM [facility] 02-26-2025 Telephone encounter Note Patient's sister notified of providers message. Voices understanding. Salima Monterroso RN [facility] 02-26-2025 Miscellaneous Notes Patient's sister notified of [...] with -- awaiting response). 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 Reports pt's appt with GI is not until April 29 in [place]. Asking if provider can order a medication for pt's acid reflux. [facility]. Please advise and phone Renee with reply. documented in this encounter [facility] 02-26-2025 Telephone encounter Note Left vm for Renee to return call to nurse for provider's message. [facility] 02-26-2025 Telephone encounter Note Yes, I went ahead and sent a prescription to omeprazole to the pharmacy. This should be taken on an empty stomach 30-60 minutes prior to eating to be most effective. Please let us know if there are any questions. Mayra Zelaya [facility] 02-25-2025 Telephone encounter Note (Sent a message to GI that he is scheduled with -- awaiting response). 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 Reports pt's appt with GI is not until April 29 in [place]. Asking if provider can order a medication for pt's acid reflux. [facility]. Please advise and phone Renee with reply. [facility] 02-08-2025 Note HNO ID: [id number] Author: VIOLET ARROYO, CHELSI-ASSORTER Service: ? Author Type: Speech Language Pathologist Type: Progress Notes Filed: 02/08/2025 16:11 Note Text: Summary: MBSS Start of Care Date: 02/08/25 Onset Date: 02/03/25 Patient Identified by Name and Date of : Yes [facility] MODIFIED BARIUM [...] and observed esophageal dysphagia, recommend consult to green tire inspector for further workup. Consider consult to parole or probation officer if pneumonia and cough persist. Compensatory strategies attempted, patient unable to complete. No further ASSORTER services are indicated. Literature provided to caregiver [...] oral intake, Small Bite/Sip, Rigid Oral Hygiene ASSORTER Recommendations: Diet, Swallowing Precautions Recommended Consults: GI [...] During Assessment: Upright In Chair Feeding Method: ASSORTER Fed Patient, Patient Self-Fed Instrumental Swallow Assessment Type: Modified Barium Swallow Study Modified Barium Swallow Views: Lateral position, Anterior-posterior position Barium Consistencies Provided: Thin Liquids IDDSI Level 0, Mildly Thick Liquids IDDSI Level 2 (Mccool Thick), Pureed Solids IDDSI Level 4, Solid, [...] inversion Laryngeal Vestibular (more content not included)... [facility] 02-08-2025 History of Present illness Narrative Summary: [facility] Images from the original note were not included. Start of Care Date: 02/08/25 Onset Date: 02/03/25 Patient Identified by Name and Date of : Yes [facility] MODIFIED BARIUM [...] and observed esophageal dysphagia, recommend consult to green tire inspector for further workup. Consider consult to parole or probation officer if pneumonia and cough persist. Compensatory strategies attempted, patient unable to complete. No further ASSORTER services are indicated. Literature provided to caregiver [...] oral intake, Small Bite/Sip, Rigid Oral Hygiene ASSORTER Recommendations: Diet, Swallowing Precautions Recommended Consults: GI [...] During Assessment: Upright In Chair Feeding Method: ASSORTER Fed Patient, Patient Self-Fed Instrumental Swallow Assessment Type: Modified Barium Swallow Study Modified Barium Swallow Views: Lateral position, Anterior-posterior position Barium Consistencies Provided: Thin Liquids IDDSI Level 0, Mildly Thick Liquids IDDSI Level 2 (Mccool Thick), Pureed Solids IDDSI Level 4, Solid, [...] 0, Mildly Thick Liquids IDDSI Level 2 (Mccool Thick), Pureed IDDSI Level 4, Regular Consistency [...] States/Identifies TREATMENT: Performed Modified Barium Swallowing Study (95916). Evaluation: Modified Barium Swallow Evaluation (68537) Swallow / Dysphagia (28598): Skilled Intervention: Provided education related to a [...] provided this date. Billing: Modified Barium Swallow (30318) and Dysphagia Treatment (03517) Total time: 44 minutes Session Start Time : 927 Session Stop Time : 1011 Violet Arroyo CCC-ASSORTER documented in this encounter [facility] 02-08-2025 History of Present illness Narrative Radiology [...] PATIENT PRESENTS WITH AN IMPLANTABLE OR ATTACHED PIGMENT PUMPER: No RADIOLOGY DEPARTMENT: General X-ray: Exam(s) Completed: GI/ Procedure(s): Modified barium swallow with barium contrast PERIPHERAL IV DATA: Not applicable SIGNED BY: TATYANA Hallman) February 08, 2025 9:43 AM documented in this encounter [facility] 02-08-2025 Note HNO ID: [id number] Author: RUBEN HEDRICK RT(R) Service: ? Author [...] PATIENT PRESENTS WITH AN IMPLANTABLE OR ATTACHED PIGMENT PUMPER: No RADIOLOGY DEPARTMENT: General X-ray: Exam(s) Completed: GI/ Procedure(s): Modified barium swallow with barium contrast PERIPHERAL IV DATA: Not applicable SIGNED BY: TATYANA Hallman) February 08, 2025 9:43 AM [facility] 02-06-2025 Note HNO ID: [id number] Author: MAYRA GERARDO APRN.ANIMATION DIRECTOR Service: ? Author Type: Nurse Practitioner Type: [...] 10 days; advis (more content not included)... [facility] 02-06-2025 History of Present illness Narrative This [...] as needed for worsening/no improvement. Mayra Gerardo APRN.ANIMATION DIRECTOR Recording using [employer] software for draft documentation of the visit was discussed with the patient/authorized communications representative; all questions welcomed and answered. Patient/authorized communications representative agreed to proceed documented in this encounter [facility] 02-06-2025 Telephone encounter Note Pt sister, Renee, notified of results/provider instructions. She verbalized understanding. Paul Parker LPN [facility] 02-06-2025 Miscellaneous Notes Pt sister, Renee, notified of results/provider instructions. She verbalized understanding. [...] Mayra Gerardo APRN.CNP documented in this encounter [facility] 02-06-2025 Telephone encounter Note Can we please [...] please proceed to the ER. Mayra Gerardo APRN.ANIMATION DIRECTOR [facility] 02-06-2025 History of Present illness Narrative Radiology [...] PATIENT PRESENTS WITH AN IMPLANTABLE OR ATTACHED PIGMENT PUMPER: No RADIOLOGY DEPARTMENT: General X-ray: Exam(s) Completed: Chest X-Ray PERIPHERAL IV DATA: Not applicable SIGNED BY: TATYANA Christina) February 06, 2025 10:45 AM documented in this encounter [facility] 02-06-2025 Note HNO ID: [id number] Author: AMALIA ZAMUDIO RT (R) Service: Radiology Author Type: Technologist Type: Progress [...] PATIENT PRESENTS WITH AN IMPLANTABLE OR ATTACHED PIGMENT PUMPER: No RADIOLOGY DEPARTMENT: General X-ray: Exam(s) Completed: Chest X-Ray PERIPHERAL IV DATA: Not applicable SIGNED BY: RT Sanford(Dioni) February 06, 2025 10:45 AM [facility] 02-06-2025 Instructions Mayra Gerardo APRN.ANIMATION DIRECTOR - 02/06/2025 10:39 AM EDT - Take doxycycline 1 tablet by mouth twice daily for 10 days; prescription sent to [facility]. - Use Tessalon Perles cough suppressant: start with 1 capsule by mouth; if needed, you may increase to 2 capsules. Prescription sent to [facility]. 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 documented in this encounter [facility] 01-28-2025 History of Present illness Narrative Radiology [...] PATIENT PRESENTS WITH AN IMPLANTABLE OR ATTACHED PIGMENT PUMPER: No RADIOLOGY DEPARTMENT: General X-ray: Exam(s) Completed: Chest X-Ray PERIPHERAL IV DATA: Not applicable SIGNED BY: Mara Kramer January 28, 2025 11:21 AM documented in this encounter [facility] 01-28-2025 Note HNO ID: [id number] Author: ALBERTINA MORENO Tech Service: ? Author [...] PATIENT PRESENTS WITH AN IMPLANTABLE OR ATTACHED PIGMENT PUMPER: No RADIOLOGY DEPARTMENT: General X-ray: Exam(s) Completed: Chest X-Ray PERIPHERAL IV DATA: Not applicable SIGNED BY: Mara Kramer January 28, 2025 11:21 AM [facility] 01-28-2025 Note HNO ID: [id number] Author: LUCIA GALAVIZ LPN Service: ? Author Type: LICENSED NURSE Type: Progress Notes Filed: 01/28/2025 16:52 Note Text: Ambulatory Ear Lavage Pre-treatment: Warm water Treatment: Both ears Equipment and Irrigation solution and Volume used: Single use syringe with single use irrigation tip Water Return flow appearance: Brown Patient tolerated procedure: yes Tympanic membrane assessment: Tympanic membrane assessed by LIP pre and post procedure [facility] 01-28-2025 History of Present illness Narrative Ambulatory [...] as needed for worsening/no improvement. Jenise Holt APRN.ANIMATION DIRECTOR Recording using [employer] software for draft documentation of the visit was discussed with the patient/authorized communications representative; all questions welcomed and answered. Patient/authorized communications representative agreed to proceed documented in this encounter [facility] 01-28-2025 Instructions Jenise Holt APRN.ANIMATION DIRECTOR - 01/28/2025 10:32 AM EDT Begin the [...] therapy or gastroenterology documented in this encounter [facility] 01-28-2025 Note HNO ID: [id number] Author: JENISE HOLT APRN.RADHIKA Service: ? Author Type: Nurse Practitioner [...] patient voices understanding. (more content not included)... [facility] 01-21-2025 Note HNO ID: [id number] Author: ARABELLA SLAUGHTER PA-C Service: ? Author Type: Physician Cotton Picking Machine Operator Type: Progress Notes Filed: 01/21/2025 [...] 07/04/2025 HIV Screening due on 07/04/2025 Covid-19 Vaccine(2023- season) due on 08/24/2025 Depression Screening due [...] and the conta (more content not included)... [facility] 12-20-2024 Telephone encounter Note MILY 02/14/2024 with Froylan Erwin PA-C NOV 02/19/2025 with Froylan Erwin PA-C Patient requesting refills as follows: Requested Prescriptions Pending Prescriptions Disp Refills oxybutynin XL (DITROPAN XL) 5 mg 24 hr tablet [Pharmacy Med Name: Oxybutynin Chloride ER 5MG TB24] 28 tablet 11 Sig: TAKE 1 TABLET BY MOUTH AT BEDTIME Please review and advise. Carol Martinez RN [facility] 12-20-2024 Miscellaneous Notes MILY 02/14/2024 with Froylan Erwin PA-C NOV 02/19/2025 with Froylan Erwin PA-C Patient requesting refills as follows: Requested Prescriptions Pending Prescriptions Disp Refills oxybutynin XL (DITROPAN XL) 5 mg 24 hr tablet [Pharmacy Med Name: Oxybutynin Chloride ER 5MG TB24] 28 tablet 11 Sig: TAKE 1 TABLET BY MOUTH AT BEDTIME Please review and advise. Carol Martinez RN documented in this encounter [facility] 10-15-2024 Telephone encounter Note Patient sister/guardian notified of results, verbalizes understanding of instructions. Mane Lucas LPN [facility] 10-15-2024 Miscellaneous Notes Patient sister/guardian notified of results, verbalizes understanding of instructions. Mane Lucas LPN Please let the patient know that his vitamin D level is back to normal. On the higher side of normal. I would like for him to discontinue his vitamin D 50,000 units weekly and replace with vitamin D3 2000 units daily. This can be purchased [id number]. Mac Galvan APRN.RADHIKA documented in this encounter [facility] 10-15-2024 Telephone encounter Note Please let the patient know that his vitamin D level is back to normal. On the higher side of normal. I would like for him to discontinue his vitamin D 50,000 units weekly and replace with vitamin D3 2000 units daily. This can be purchased [id number]. Mac Galvan APRN.CNP [facility] 09-27-2024 Telephone encounter Note The following approved medication requests have been transmitted electronically. Requested Prescriptions Pending Prescriptions Disp Refills cetirizine (ZYRTEC) 10 mg tablet 30 tablet 11 Sig: Take 1 tablet by mouth once daily. Mac Galvan APRN.CNP [facility] 09-27-2024 Miscellaneous Notes The following approved medication [...] 2024 2:52 PM documented in this encounter [facility] 09-26-2024 Telephone encounter Note The patient has [...] Hinojosa RN September 26, 2024 2:52 PM [facility] 08-24-2024 Instructions Rosana Rodney APRN.CNP - 08/24/2024 9:44 AM EST Continue to take all medication as prescribed Consult placed for sleep medicine Consult placed for general surgery to discuss Coloscopy Keep scheduled appointments with psychiatry Dtap booster given Follow up in 1 year or sooner as needed. Health Promotion: - Eat healthy -- go to [email or web address] to get started - Have a yearly [...] - Wear sunscreen documented in this encounter [facility] 08-24-2024 History of Present illness Narrative This [...] APRN.RADHIKA This note was partially generated using [employer] voice recognition system. Note was reviewed for accuracy. There may be minor misspellings or grammar miscues with [employer] voice recognition. documented in this encounter [facility] 08-24-2024 Note HNO ID: [id number] Author: ROSANA RODNEY APRN.RADHIKA Service: ? Author [...] and reactive to (more content not included)... [facility] 07-24-2024 Telephone encounter Note Renee notified. Елена Evans MA [facility] 07-24-2024 Miscellaneous Notes Renee notified. Елена Evans MA TC to pt. LM to call office, ask for triage nurse to get results. Mane Lucas LPN Can you please call patient's Sister Renee back and let her know that I have placed the order for in lab sleep study. Orders will be faxed over to [facility]. They should be in touch with her to schedule. Rosana Rodney APRN.RADHIKA Pts sister Renee called and is notified of providers results and instructions. She voices understanding. She would like provider to order sleep study, she said she doesn't know what will happen if she doesn't try. She would like it to be sent to [facility] to be done. Vivian Hogan, SEBAS Can you please call the patient's guardian Renee and let her know that I reviewed octaviano's sleep study. The at home sleep study was inconclusive. They are recommending an in lab study for further evaluation. If she thinks the patient can tolerate this testing I can place the order. [facility] has a very nice facility. Please let me know what she prefers. Thank you. Rosana Rodney APRN.CNP documented in this encounter [facility] 07-23-2024 Telephone encounter Note TC to pt. LM to call office, ask for triage nurse to get results. Mane Lucas LPN [facility] 07-20-2024 Telephone encounter Note Can you please call patient's Sister Renee back and let her know that I have placed the order for in lab sleep study. Orders will be faxed over to [facility]. They should be in touch with her to schedule. Rosana Rodney APRN.RADHIKA [facility] 07-19-2024 Telephone encounter Note Pts sister Renee called and is notified of providers results and instructions. She voices understanding. She would like provider to order sleep study, she said she doesn't know what will happen if she doesn't try. She would like it to be sent to [facility] to be done. Vivian Hogan, RN [facility] 07-19-2024 Telephone encounter Note Can you please call the patient's guardian Renee and let her know that I reviewed octaviano's sleep study. The at home sleep study was inconclusive. They are recommending an in lab study for further evaluation. If she thinks the patient can tolerate this testing I can place the order. [facility] has a very nice facility. Please let me know what she prefers. Thank you. Rosana Rodney APRN.ANIMATION DIRECTOR [facility] 07-13-2024 Note HNO ID: [id number] Author: ?, ?, ? Service: ? Author Type: ? Type: Progress Notes Filed: 07/13/2024 10:06 Note Text: Sleep Study Check-In Documentation Date: July 13, 2024 Name: Octaviano Quinn Comments: HST was returned in working order with all sleep questionnaires Janee Weldon [facility] 07-13-2024 History of Present illness Narrative Sleep Study Check-In Documentation Date: July 13, 2024 Name: Octaviano Quinn Comments: HST was returned in working order with all sleep questionnaires Janee Weldon Nomad # [id number] , date shipped out 07-10-24 Fed Ex only Tracking mailout: [id number] Tracking return: [id number] July 09, 2024 Standing PSG Orders signed in the last 90 days None Future PSG Orders signed in the last 90 days Ordered Auth. provider HOME SLEEP APNEA TEST (HSAT) [[id number]] 07/04/24 Rosana Rodney APRN.ANIMATION DIRECTOR Assoc. diagnoses: Snoring [R06.83], Daytime sleepiness [R40.0] [...] Apnea Test (HSAT) from Rosana Mahan APRN.kurtis GARRIDO. [facility] Staff. Visit prep complete. Comments :No The sleep study is scheduled for 07-11-24. Insurance: Payor: [place] / Plan[place] / Product Type: Medicaid / Payer/Plan Subscr Sex Relation Sub. Ins. ID Effective Group Num 1. [place] -* OCTAVIANO QUINN 1975 Male Self [id number] [birth year] [address] Stacey Naqvi documented in this encounter [facility] 07-10-2024 Note HNO ID: [id number] Author: ?, ?, ? Service: ? Author Type: ? Type: Progress Notes Filed: 07/13/2024 10:06 Note Text: Nomad # [id number] , date shipped out 07-10-24 Fed Ex only Tracking mailout: [id number] Tracking return: [id number] [facility] 07-09-2024 Note HNO ID: [id number] Author: FARRAH DAIGLE III, PhD Service: ? Author Type: Physician Type: Progress Notes Filed: 07/13/2024 10:06 Note Text: July 09, 2024 Standing PSG Orders signed in the last 90 days None Future PSG Orders signed in the last 90 days Ordered Auth. provider HOME SLEEP APNEA TEST (HSAT) [[id number]] 07/04/24 Rosana Rodney APRN.ANIMATION DIRECTOR Assoc. diagnoses: Snoring [R06.83], Daytime sleepiness [R40.0] [...] Farrah Daigle III, PhD 2:16 PM, 07/09/2024 [facility] 07-06-2024 Telephone encounter Note The following approved medication requests have been transmitted electronically. Requested Prescriptions Pending Prescriptions Disp Refills divalproex DR (DEPAKOTE) 500 mg EC tablet 60 tablet 11 Sig: Take 1 tablet by mouth two times a day. Mac Galvan APRN.CNP [facility] 07-06-2024 Miscellaneous Notes The following approved medication [...] Maria Chino RN documented in this encounter [facility] 07-06-2024 Telephone encounter Note The patient has [...] two times a day. Maria Chino RN [facility] 07-06-2024 Telephone encounter Note Removed Mac Galvan APRN.CNP [facility] 07-06-2024 Miscellaneous Notes Removed Mac Galvan APRN.CNP [place] Sleep Study was already ordered by Rosana, can you remove yours please. Can close encounter once removed. Mary Lou Cortez MA Vitamin D sent. Sleep study ordered. Mac Galvan APRN.CNP Call to Sister, Renee. Notified her of results and recommendations below from Provider. Agreeable to start medication, requesting Rx to go to [facility]. Agreeable to sleep study. Mary Lou Cortez [...] and lab order are pended. Rosana Rodney APRN.ANIMATION DIRECTOR documented in this encounter [facility] 07-06-2024 Telephone encounter Note [place] hull Sleep Study was already ordered by Rosana, can you remove yours please. Can close encounter once removed. Mary Lou Cortez MA [facility] 07-06-2024 Telephone encounter Note Vitamin D sent. Sleep study ordered. Mac Galvan APRN.CNP [facility] 07-06-2024 Telephone encounter Note Call to Sister, Renee. Notified her of results and recommendations below from Provider. Agreeable to start medication, requesting Rx to go to [facility]. Agreeable to sleep study. Mary Lou Cortez MA [facility] 07-06-2024 Telephone encounter Note Can you please [...] lab order are pended. Rosana Rodney APRN.RADHIKA [facility] 07-05-2024 Note HNO ID: [id number] Author: ?, ?, ? Service: ? Author Type: ? Type: Progress Notes Filed: 07/13/2024 10:06 Note Text: July 05, 2024 An order has been received for Home Sleep Apnea Test (HSAT) from Rosana Mahan APRN.CNP , a Miri. [facility] Staff. Visit prep complete. Comments :No The sleep study is scheduled for 10-30-24. Insurance: Pay[place] / Plan[place] / Product Type: Medicaid / Payer/Plan Subscr Sex Relation Sub. Ins. ID Effective Group Num 1. [place] -* OCTAVIANO QUINN 1975 Male Self [id number] [birth year] [address] Stacey Naqvi [facility] 07-04-2024 Instructions Rosana Rodney APRN.RADHIKA - 07/04/2024 9:46 AM EDT Get labs completed today Complete at home sleep study Keep scheduled appointments with Psychiatrist. Continue supportive care at home. Follow up as scheduled or sooner pending test results. documented in this encounter [facility] 07-04-2024 History of Present illness Narrative This is a 48 year old male who presents today with: Patient presents with: Acute Visit: Fatigue, irritable HISTORY OF PRESENT ILLNESS: Octaviano Quinn is a 48 year old male. Patient presents with: Acute Visit: Fatigue, irritable Sister here in the office with patient. Has intellectual disabilities, works at [employer]. Here in the office for fatigue and [...] APRN.RADHIKA This note was partially generated using [employer]ki[employer] voice recognition system. Note was reviewed for accuracy. There may be minor misspellings or grammar miscues with [employer] voice recognition. documented in this encounter [facility] 07-04-2024 Note HNO ID: [id number] Author: ROSANA RODNEY APRN.CNP Service: ? Author [...] with patient. Has intellectual disabilities, works at [employer]. Here in the office for fatigue and [...] pulses, Pulses palpabl (more content not included)... [facility] 06-06-2024 Telephone encounter Note Prescription Refill Information [...] Campbell LPN June 06, 2024 3:43 PM [facility] 06-06-2024 Miscellaneous Notes Prescription Refill Information The [...] 2024 3:43 PM documented in this encounter [facility] 04-08-2024 History of Present illness Narrative This note was created using [employer] Mediater. Subjective Octaviano Quinn is a 48 year [...] evaluation. BASHIR Alvares documented in this encounter [facility] 02-14-2024 Instructions Froylan Erwin PA-C - 02/14/2024 10:02 AM EDT > 1 year Appt w/ B. SARA Erwin, ELLEN VARGAS for annual follow-up and refills. > Ditropan 5 mg refill for 1 year and sent to [facility] documented in this encounter [facility] 02-14-2024 History of Present illness Narrative Images from the original note were not included. [facility] NEW PATIENT CLINIC NOTE [...] Alatorre MT, PA-C documented in this encounter [facility] 01-24-2024 Telephone encounter Note Images from the [...] your medications. Please contact our schedulers at [phone] to make an appointment so refills can be issued. Cecil Stone LPN [facility] 01-24-2024 Miscellaneous Notes Images from the original note were not included. Mark Chaudhary LPN to Octaviano Salterradu 12/22/23 11:43 AM Brooklynn Tomlinew, Your pharmacy has requested a refill of your oxybutynin. We are unable to process this request because your last appointment with Froylan Erwin was on 01/04/2023. You need to be seen by Froylan at least once per year for him to manage your medications. Please contact our schedulers at [phone] to make an appointment so refills can be issued. Cecil Stone LPN [facility] 01/04/23 Patient phones requesting refills as follows: Requested Prescriptions Pending Prescriptions Disp Refills oxybutynin XL (DITROPAN XL) 5 mg 24 hr tablet [Pharmacy Med Name: Oxybutynin Chloride ER 5MG TB24] 28 tablet 0 Sig: take 1 tablet by mouth at bedtime Please review and advise. Hema May RN documented in this encounter [facility] 01-20-2024 Telephone encounter Note [facility] 01/04/23 Patient phones requesting refills as follows: Requested Prescriptions Pending Prescriptions Disp Refills oxybutynin XL (DITROPAN XL) 5 mg 24 hr tablet [Pharmacy Med Name: Oxybutynin Chloride ER 5MG TB24] 28 tablet 0 Sig: take 1 tablet by mouth at bedtime Please review and advise. Hema May RN [facility] 12-15-2023 History of Present illness Narrative Chief [...] Behavioral Health Screening Never done Covid-19 Vaccine( season) due on 08/16/2024 DTaP,Tdap,Td [...] Past Histories independently gathered by the clinical sales support consultant and the remaining scribed note accurately describes [...] Lou Cortez MA documented in this encounter [facility] 12-12-2023 History of Present illness Narrative Radiology [...] PATIENT PRESENTS WITH AN IMPLANTABLE OR ATTACHED PIGMENT PUMPER: No RADIOLOGY DEPARTMENT: General X-ray: Exam(s) Completed: Chest X-Ray PERIPHERAL IV DATA: Not applicable SIGNED BY: RT Colten(R) December 12, 2023 10:48 AM documented in this encounter [facility] 12-12-2023 History of Present illness Narrative This note was created using NoteWriter. Subjective Octaviano Quinn is a 48 year [...] Avtar Brooks APRN.RADHIKA documented in this encounter [facility] 11-04-2023 History of Present illness Narrative This note was created using NoteWriter. Subjective Octaviano Quinn is a 48 year [...] evaluation. BASHIR Alvares documented in this encounter [facility] 11-02-2023 Miscellaneous Notes The following approved medication requests have been transmitted electronically. Requested Prescriptions Pending Prescriptions Disp Refills cetirizine (ZYRTEC) 10 mg tablet 30 tablet 11 Sig: Take 1 tablet by mouth once daily. Mac Galvan APRN.RADHIKA Patient has been identified by name and [...] Jayla Pimentel LPN. documented in this encounter [facility] 10-29-2023 History of Present illness Narrative Chief [...] Becca Draper MD documented in this encounter [facility] 10-26-2023 Miscellaneous Notes Pt's sister Renee Mas notified of results. Jayla Pimentel LPN Negative for COVID flu RSV documented in this encounter [facility] 10-25-2023 Miscellaneous Notes Addended by: GALILEO FULLER on: 10/25/2023 08:01 PM Modules accepted: Orders documented in this encounter [facility] 10-25-2023 History of Present illness Narrative Radiology [...] PATIENT PRESENTS WITH AN IMPLANTABLE OR ATTACHED PIGMENT PUMPER: No RADIOLOGY DEPARTMENT: General X-ray: Exam(s) Completed: Chest X-Ray PERIPHERAL IV DATA: Not applicable SIGNED BY: RT Colten(R) October 25, 2023 7:20 PM documented in this encounter [facility] 10-25-2023 History of Present illness Narrative Subjective [...] 786.2, ICD10: R05.2 Try inhaler Galileo Fuller APRN.ANIMATION DIRECTOR documented in this encounter [facility] 09-26-2023 History of Present illness Narrative Radiology [...] 2023 7:25 PM documented in this encounter [facility] 08-23-2023 Miscellaneous Notes Pt guardian Renee notified. Елена Evans Ma Please notify patient's guardian that his lab results all look good; stay on the same medications Becca Draper MD documented in this encounter [facility] 08-09-2023 Miscellaneous Notes Copy made for records. Original mailed in provided envelope to [employer]. Елена Evans Ma Form done Becca Draper MD Type of letter/form/fax request - Guardianship forms Form received from pt family on 1 floor and placed on MD desk () for completion. [facility], family provided addressed envelope to mail forms back in. MAKE COPY OF RECORDS. Route to TEETEE when form completed for processing documented in this encounter [facility] 07-07-2023 Miscellaneous Notes OK to refill as [...] Vivian Hogan RN. documented in this encounter [facility] 12-16-2022 Miscellaneous Notes Please review and sign [...] that they are changing Octaviano's pharmacy to [facility] and his medications will now come in bubble packs. Octaviano will need a new prescription for the oxybutynin 5 mg 1 tablet at bedtime sent to [facility]. If they fill the current prescription, [facility] will fill it as 1 tablet three times a day and they will have too much medication. Ángela Saucedo RN documented in this encounter [facility] 12-16-2022 Miscellaneous Notes The following approved medication requests have been transmitted electronically. Requested Prescriptions Pending Prescriptions Disp Refills cetirizine (ZYRTEC) 10 mg tablet 30 tablet 11 Sig: Take 1 tablet by mouth once daily. Rosana Rodney APRN.RADHIKA Patient has been identified by name and date of : Yes Requested Prescriptions Pending Prescriptions Disp Refills cetirizine (ZYRTEC) 10 mg tablet 30 tablet 11 Sig: Take 1 tablet by mouth once daily. MILY-08/16/22 Labs-08/16/22 NOV-08/16/23 med filled 07/05/22 RX INSTRUCTIONS: Patient aware RX will be sent to pharmacy. No need to notify patient. Akanksha Kuo [employer] documented in this encounter [facility] 10-01-2022 History of Present illness Narrative Images from the original note were not included. [facility] NEW PATIENT CLINIC NOTE [...] SE's > 3 mo. Appt w/ SARA Espinoza MT, PA-C for new Rx Follow-up I [...] ML. Berta Russell; documented in this encounter [facility] 10-01-2022 Instructions Froylan Erwin PA-C - 10/01/2022 3:04 PM EST > 3 mo. Appt SARA Morris MT, PA-C for new Rx Follow-up documented in this encounter [facility] 09-15-2022 Miscellaneous Notes Left message on sister phone Adilia Lopes Ma Please let patient know urine culture does not show any bacterial growth. Maryellen Bedoya APRN.CNP documented in this encounter [facility] 09-02-2022 Miscellaneous Notes Patient sister notified of results, verbalizes understanding of instructions. She will tell Pt. Mane Lucas LPN Can you please call the patient/family and let them know that repeat Tegretol level was within normal limits. I sent a [employer] message, his Cologuard was negative. Repeat testing in 3 years. Please let me know if they have any questions. Thank you. Rosana Rodney APRN.CNP documented in this encounter [facility] 08-20-2022 Miscellaneous Notes Family called and results [...] Rosana Rodney APRN.RADHIKA documented in this encounter [facility] 08-16-2022 Instructions Rosana Rodney APRN.CNP - 08/16/2022 10:24 AM EST Get labs completed. Continue to take all medication as prescribed. May see psychiatry to discuss anxiety as planned. Continue to eat a well balanced diet and get some form of exercise. Cologuard stool testing will be mailed to home. Follow up in 1 year or sooner as needed. Health Promotion: - Eat healthy -- go to [employer] to get started - Have a yearly [...] - Wear sunscreen documented in this encounter [facility] 08-16-2022 History of Present illness Narrative This [...] discussed and patient voices understanding. Rosana Rodney APRN.ANIMATION DIRECTOR This note was partially generated using [employer] voice recognition system. Note was reviewed for accuracy. There may be minor misspellings or grammar miscues with [employer] voice recognition. documented in this encounter [facility] 08-11-2022 Miscellaneous Notes The following approved medication requests have been transmitted electronically. Requested Prescriptions Pending Prescriptions Disp Refills divalproex DR (DEPAKOTE) 500 mg EC tablet [Pharmacy Med Name: Divalproex Sodium 500 MG Oral Tablet Delayed Release] 60 tablet 0 Sig: Take 1 tablet by mouth twice daily Mac Galvan APRN.RADHIKA Patient phones requesting refills as follows: Requested [...] calling requesting this. documented in this encounter [facility] 07-05-2022 Miscellaneous Notes Message left notifying pt [...] tablet by mouth twice daily. Mac Galvan APRN.RADHIKA Sister calls back and states that patient is completely out of medication. Please review and advise, Salima Monterroso RN Sister calling back stating patient leaves for [facility] and requesting same day refill. Sister calls [...] Mane Lucas LPN documented in this encounter [facility] 07-04-2022 Miscellaneous Notes Allergies reviewed: Yes ALLERGIES [...] by mouth twice daily. E scripted to [facility] pharmacy Patient/Family notified: Yes Shelley Pittman LPN Sibling calling with request for medication/refill: Patient/caregiver requesting refill of Carbamazepine be called to [facility] pharmacy at [phone]., Do you have enough medication to last [...] bid. Sister Renee can be reached at [phone] once refill is complete. documented in this encounter [facility] 07-02-2022 Miscellaneous Notes Patient phones requesting refills as follows: Requested Prescriptions Pending Prescriptions Disp Refills divalproex DR (DEPAKOTE) 500 mg EC tablet [Pharmacy Med Name: Divalproex Sodium 500 MG Oral Tablet Delayed Release] 60 tablet 0 Sig: Take 1 tablet by mouth twice daily MILY-12/17/21 Labs-08/14/21 NOV-none med filled 06/08/22 Please review and advise. Mane Lucas LPN documented in this encounter [facility] 07-01-2022 Miscellaneous Notes Forms at [facility] rec to excelsior picker. Pt mother Sarah notified. Copy made for records. Елена Evans Ma Form done Becca Draper MD Office received paperwork for Probate [facility], Statement of Expert evaluation. Routed to PCP to review and complete. Once complete, make copy and notify either pt's Sister Renee or Mother, Sarah. Mary Lou Cortez Ma documented in this encounter [facility] 06-08-2022 Miscellaneous Notes The following approved medication requests have been transmitted electronically. Requested Prescriptions Pending Prescriptions Disp Refills divalproex DR (DEPAKOTE) 500 mg EC tablet [Pharmacy Med Name: Divalproex Sodium 500 MG Oral Tablet Delayed Release] 60 tablet 0 Sig: Take 1 tablet by mouth twice daily Mac Galvan APRN.ANIMATION DIRECTOR Last Office Visit: 12/17/2021 Future Office Visit: None Last Medication Refill: divalproex DR 06/10/2021 60 tab 11 refill Date of Last Labs: 08/14/2021 documented in this encounter [facility] 04-06-2022 Miscellaneous Notes Patient given results and verbalized understanding of instructions given. Starr Granados Let patient know their covid19 test was negative. documented in this encounter [facility] 04-05-2022 Instructions Teresa Basilio APRN.RADHIKA - 04/05/2022 7:20 PM EDT covid test ordered You will be notified in 24 -48 hours, [facility] until covid results are [...] inability to swallow. documented in this encounter [facility] 04-05-2022 History of Present illness Narrative Subjective The history is provided by the patient. No quality systems technician was used. HPI Octaviano Quinn is a 46 year old male who presents today for CC of cough and congestion. This started today. He works in the [employer] and needs to be tested. He has [...] have confirmed and edited as necessary, the [facility] Review of Systems Constitutional: Negative for [...] in 24-48 hours with results, available on 2018 [employer]IRUS Diagnosis and treatment plan were discussed and questions were answered to the patient's satisfaction. Pt acknowledged understanding of concepts and follow up plan. Specific signs and symptoms that would indicate the need for higher level of care were discussed in detail warranting prompt ER evaluation. Teresa Basilio APRN.RADHIKA documented in this encounter [facility] 02-05-2022 Miscellaneous Notes L/m for pt sister that she has to have on a note signed by pt Patient's sister called in to get images from 02/01/22 burned to disc for excelsior picker. Please call patient's sister for excelsior picker. Salima Bucio documented in this encounter [facility] 02-01-2022 History of Present illness Narrative Radiology [...] 2022 10:20 AM documented in this encounter [facility] 02-01-2022 History of Present illness Narrative Patient [...] or podiatry for recheck within a week. Adihtya Camacho MD documented in this encounter [facility] 12-22-2021 Miscellaneous Notes Renee, pt sister notified [...] Irina Rubio LPN documented in this encounter [facility] 12-22-2021 Miscellaneous Notes Behavioral Health Social Work Progress Note Patient identified for [facility] from: PCP Reason for referral: Resources Behavioral Health Resources: Psychology - talk therapy [facility] encounter type: Telephone Encounter Attempts to Outreach: [...] PCP aware. Pt does have a Support Residential Gas Heat Technician through the board. She was strongly advised to speak with them about seeing a specialist who treats pts with special needs. She agreed this was a better idea than seeing a general provider. She was appreciative of call, support and information. MARCIA Cool December 22, 2021 documented in this encounter [facility] 12-17-2021 History of Present illness Narrative Chief [...] go about this. Mother took pt to Maya's Mom's when they were young and it was [...] bid. Update office in couple weeks [facility]. - If needed, dosage can be increased to 15 mg. - Behavorial Health referral to aid in medication and diagnosis 2. Intellectual disability - ICD9: 319, ICD10: F79 - Stable - Discussed how to go about Dx for intellectual disability/autism. - Referral to Behavioral Health 3. Seasonal allergies - ICD9: 477.9, ICD10: J30.2 - Rx Zyrtec. Update office via mychart on medication in 2 weeks. I agree with the Chief Complaint, ROS, and Past Histories independently gathered by the clinical sales support consultant and the remaining scribed note accurately describes my personal service to the patient. Medical Decision Making: Problems: Moderate: 2+ stable chronic illnesses Risk: Moderate: Drug management Medical Decision Making Level: 4 - Moderate Becca Draper MD The documentation for this note was completed by Mary Lou Cortez Ma acting as scribe for Becca Draper MD. December 17, 2021 3:50 PM. Mary Lou oCrtez Ma documented in this encounter [facility] [facility] History of Past i llness Narrative Problem Noted Date Resolved Date Calculus of gallbladder with acute cholecystitis 08/20/2005 09/01/2006 documented as of this encounter (statuses as of 12/17/2021) [facility]12-09[facility]2005 History of Past illness Narrative* Problem Noted Date Resolved Date Calculus of gallbladder with acute cholecystitis 08/20/2005 09/01/2006 documented as of this encounter (statuses as of 12/18/2021) [facility]2005 History of Past illness Narrative* Problem Noted Date Resolved Date Calculus of gallbladder with acute cholecystitis 08/20/2005 09/01/2006 documented as of this encounter (statuses as of 12/22/2021) [facility] History of Past illness Narrative* Problem Noted Date Resolved Date Calculus of gallbladder with acute cholecystitis 08/20/2005 09/01/2006 documented as of this encounter (statuses as of 02/01/2022) [facility] History of Past illness Narrative* Problem Noted Date Resolved Date Calculus of gallbladder with acute cholecystitis 08/20/2005 09/01/2006 documented as of this encounter (statuses as of 03/09/2022) [facility] History of Past illness Narrative* Problem Noted Date Resolved Date Calculus of gallbladder with acute cholecystitis 08/20/2005 09/01/2006 documented as of this encounter (statuses as of 04/05/2022) [facility] History of Past illness Narrative* Problem Noted Date Resolved Date Calculus of gallbladder with acute cholecystitis 08/20/2005 09/01/2006 documented as of this encounter (statuses as of 04/06/2022) [facility] History of Past illness Narrative* Problem Noted Date Resolved Date Calculus of gallbladder with acute cholecystitis 08/20/2005 09/01/2006 documented as of this encounter (statuses as of 06/08/2022) [facility] History of Past illness Narrative* Problem Noted Date Resolved Date Calculus of gallbladder with acute cholecystitis 08/20/2005 09/01/2006 documented as of this encounter (statuses as of 07/01/2022) [facility] History of Past illness Narrative* Problem Noted Date Resolved Date Calculus of gallbladder with acute cholecystitis 08/20/2005 09/01/2006 documented as of this encounter (statuses as of 07/03/2022) [facility] History of Past illness Narrative* Problem Noted Date Resolved Date Calculus of gallbladder with acute cholecystitis 08/20/2005 09/01/2006 documented as of this encounter (statuses as of 07/04/2022) [facility] History of Past illness Narrative* Problem Noted Date Resolved Date Calculus of gallbladder with acute cholecystitis 08/20/2005 09/01/2006 documented as of this encounter (statuses as of 07/05/2022) [facility] History of Past illness Narrative* Problem Noted Date Resolved Date Calculus of gallbladder with acute cholecystitis 08/20/2005 09/01/2006 documented as of this encounter (statuses as of 08/11/2022) [address]09-2005 History of Past illness Narrative* Problem Noted Date Resolved Date Calculus of gallbladder with acute cholecystitis 08/20/2005 09/01/2006 documented as of this encounter (statuses as of 08/16/2022) [facility] History of Past illness Narrative* Problem Noted Date Resolved Date Calculus of gallbladder with acute cholecystitis 08/20/2005 09/01/2006 documented as of this encounter (statuses as of 08/20/2022) [address]-2005 History of Past illness Narrative* Problem Noted Date Resolved Date Calculus of gallbladder with acute cholecystitis 08/20/2005 09/01/2006 documented as of this encounter (statuses as of 09/03/2022) [facility] History of Past illness Narrative* Problem Noted Date Resolved Date Calculus of gallbladder with acute cholecystitis 08/20/2005 09/01/2006 documented as of this encounter (statuses as of 09/17/2022) [address]09-2005 History of Past illness Narrative* Problem Noted Date Resolved Date Calculus of gallbladder with acute cholecystitis 08/20/2005 09/01/2006 documented as of this encounter (statuses as of 10/01/2022) [facility] History of Past illness Narrative* Problem Noted Date Resolved Date Calculus of gallbladder with acute cholecystitis 08/20/2005 09/01/2006 documented as of this encounter (statuses as of 12/17/2022) [address]-2005 History of Past illness Narrative* Problem Noted Date Resolved Date Calculus of gallbladder with acute cholecystitis 08/20/2005 09/01/2006 documented as of this encounter (statuses as of 12/17/2022) [facility] History of Past illness Narrative* Problem Noted Date Diagnosed Date Resolved Date Calculus of gallbladder with acute cholecystitis 08/20/2005 09/01/2006 documented as of this encounter (statuses as of 07/08/2023) [facility] History of Past illness Narrative* Problem Noted Date Diagnosed Date Resolved Date Calculus of gallbladder with acute cholecystitis 08/20/2005 09/01/2006 documented as of this encounter (statuses as of 07/17/2023) [address]-2005 History of Past illness Narrative* Problem Noted Date Diagnosed Date Resolved Date Calculus of gallbladder with acute cholecystitis 08/20/2005 09/01/2006 documented as of this encounter (statuses as of 08/09/2023) [facility] History of Past illness Narrative* Problem Noted Date Diagnosed Date Resolved Date Calculus of gallbladder with acute cholecystitis 08/20/2005 09/01/2006 documented as of this encounter (statuses as of 08/23/2023) [address]-2005 History of Past illness Narrative* Problem Noted Date Diagnosed Date Resolved Date Calculus of gallbladder with acute cholecystitis 08/20/2005 09/01/2006 documented as of this encounter (statuses as of 10/25/2023) [facility] History of Past illness Narrative* Problem Noted Date Diagnosed Date Resolved Date Calculus of gallbladder with acute cholecystitis 08/20/2005 09/01/2006 documented as of this encounter (statuses as of 10/26/2023) [place] [address]-09-2005 History of Past illness Narrative* Problem Noted Date Diagnosed Date Resolved Date Calculus of gallbladder with acute cholecystitis 08/20/2005 09/01/2006 documented as of this encounter (statuses as of 10/29/2023) [facility] History of Past illness Narrative* Problem Noted Date Diagnosed Date Resolved Date Calculus of gallbladder with acute cholecystitis 08/20/2005 09/01/2006 documented as of this encounter (statuses as of 11/02/2023) [facility] History of Past illness Narrative* Problem Noted Date Diagnosed Date Resolved Date Calculus of gallbladder with acute cholecystitis 08/20/2005 09/01/2006 documented as of this encounter (statuses as of 11/04/2023) [place] [address]09-2005 History of Past illness Narrative* Problem Noted Date Diagnosed Date Resolved Date Calculus of gallbladder with acute cholecystitis 08/20/2005 09/01/2006 documented as of this encounter (statuses as of 12/12/2023) [facility] History of Past illness Narrative* Problem Noted Date Diagnosed Date Resolved Date Calculus of gallbladder with acute cholecystitis 08/20/2005 09/01/2006 documented as of this encounter (statuses as of 12/15/2023) [facility] CAROL (generalized anxiety disorder)- Primary Generalized anxiety disorder Intellectual disability Unspecified intellectual disabilities Seasonal allergies Allergic rhinitis, cause unspecified [facility] Closed nondisplaced fracture of anterior process of right calcaneus, initial encounter- Primary Acute right ankle pain [facility] noteNo assessment information availableW[facility] Work [facility]* Diagnosis Rhinorrhea- Primary Other diseases of nasal cavity and sinuses Sore throat Acute pharyngitis documented in this encounter [facility] note* Diagnosis Wellness examination- Primary Intellectual disability Unspecified intellectual disabilities Nonintractable epilepsy without status epilepticus, unspecified epilepsy type (HCC) Seasonal allergies Allergic rhinitis, cause unspecified Impacted cerumen of left ear Impacted cerumen Screening for colon cancer Special screening for malignant neoplasms, colon Screening cholesterol level Screening for lipoid disorders documented in this encounter [facility] note* Diagnosis Nonintractable epilepsy without status epilepticus, unspecified epilepsy type (HCC)- Primary documented in this encounter [facility] note* Diagnosis Urinary frequency Urinary urgency Urgency of urination documented in this encounter [facility] note* Diagnosis Urinary frequency- Primary Urinary urgency Urgency of urination documented in this encounter [facility] note* Diagnosis Nonintractable epilepsy without status epilepticus, unspecified epilepsy type (HCC) [facility]* Diagnosis URI, acute- Primary Acute upper respiratory infections of unspecified site Rhonchi at both lung bases Subacute cough Cough documented in this encounter [facility] note* Diagnosis Acute cough- Primary [facility]* Diagnosis Acute conjunctivitis of left eye, unspecified acute conjunctivitis type- Primary documented [facility]* Diagnosis Chronic cough- Primary Cough Bacterial pneumonia Bacterial pneumonia, unspecified documented [facility]* Diagnosis Acute cough- Primary Hx of viral pneumonia Personal history of pneumonia (recurrent) documented in this encounter [facility] note* Diagnosis Urinary urgency Urgency of urination [facility]* Diagnosis Urinary urgency- Primary Urgency of urination documented [facility]* Diagnosis Urinary urgency- Primary Urgency of urination Urinary frequency documented [facility]* Diagnosis Bacterial sinusitis- Primary Unspecified sinusitis (chronic) documented in this encounter [facility] note* Diagnosis Chronic cough Cough documented [facility]* Diagnosis Acute cough documented in this encounter [facility] note* Diagnosis Nonintractable epilepsy without status epilepticus, unspecified epilepsy type (HCC) documented [facility]* Diagnosis Acute right ankle pain documented in this encounter [facility] note* Diagnosis Fatigue, unspecified type- Primary [...] Screening for depression documented in this encounter [facility]* Diagnosis Nonintractable epilepsy without status epilepticus, unspecified epilepsy type (HCC) documented [facility] this [facility]* Diagnosis Vitamin D deficiency- Primary Unspecified vitamin D deficiency Fatigue, unspecified type Snoring Other dyspnea and respiratory abnormality Daytime sleepiness documented in this encounter [facility]* Diagnosis History of sleep study- Primary Snoring Other dyspnea and respiratory abnormality Daytime sleepiness documented in this encounter [facility]* Diagnosis Wellness examination- Primary Intellectual disability [...] malignant neoplasms, colon documented [facility]* Diagnosis Urinary urgency Urgency of urination [facility] Diagnosis Acute cough- Primary Oropharyngeal dysphagia Dysphagia, oropharyngeal phase Bilateral impacted cerumen Impacted cerumen Acute cough Oropharyngeal dysphagia Dysphagia, oropharyngeal phase documented [facility] this encounter [facility]* Diagnosis Acute cough Oropharyngeal dysphagia Dysphagia, oropharyngeal phase documented [facility] Diagnosis Bacterial pneumonia- Primary Bacterial pneumonia, unspecified documented [facility]* Diagnosis Bronchitis- Primary Bronchitis, not specified as acute or chronic Acute cough Acute cough Bronchitis Bronchitis, not specified as acute or chronic documented in this encounter [facility]* Diagnosis Acute cough Bronchitis Bronchitis, not specified as acute or chronic documented in this encounter [facility]* Diagnosis Other dysphagia- Primary Oral phase dysphagia Dysphagia, oral phase documented in this encounter [facility]* Diagnosis Acute cough Oropharyngeal dysphagia Dysphagia, oropharyngeal phase documented [facility]* Diagnosis Oropharyngeal dysphagia- Primary Dysphagia, oropharyngeal phase documented [facility] this encounter [facility] Diagnosis Bacterial pneumonia Bacterial pneumonia, unspecified [facility] Diagnosis Dysphagia, unspecified type- Primary Other cough Chronic diarrhea Diarrhea Family history of colon cancer Family history of malignant neoplasm of gastrointestinal tract [facility]* Diagnosis Urinary frequency- Primary Urinary urgency Urgency of urination Screening for genitourinary condition Screening for other and unspecified genitourinary condition documented in this encounter [facility] for referral (narrative)* Diagnostic Procedure Only (Urgent) - Closed Specialty Diagnoses / Procedures Referred By Contac t Referred To Contact XR IMAGING Diagnoses Acute right ankle pain Procedures XR ANKLE GENERAL 3V AP/LAT/OBL RIGHT RADEX ANKLE COMPLETE MINIMUM 3 VIEWS Adithya Camacho MD [address] [place] [address] Xr Imaging [id number] Referral ID Status Reason Start Date Expiration Date V isits Requested Visits Authorized [id number] Closed Auto-Generate d Referral 02/01/2022 09/11/2022 1 1 [facility] for referral (narrative)* Diagnostic Procedure Only (Routine) - New Request Specialty Diagnoses / Procedures Referred By Contac t Referred To Contact [facility] Diagnoses Snoring Daytime sleepiness Procedures HOME SLEEP APNEA TEST (HSAT) SLEEP STD AIRFLOW HRT RATE&O2 SAT EFFORT UNATT Rosana Rodney APRN.CNP [address] [place] [address] [facility] [address] [place] [id number] Referral ID Status Reason Start Date Expiration Date Visits Requested Visits Authorized [id number] New Request Auto-Generat ed Referral 07/04/2025 1 1 [facility] for visit Narrative* Diagnostic Procedure Only (Urgent) - Closed Specialty Diagnoses / Procedures Referred By Contac t Referred To Contact XR IMAGING Diagnoses Acute right ankle pain Procedures XR ANKLE GENERAL 3V AP/LAT/OBL RIGHT RADEX ANKLE COMPLETE MINIMUM 3 VIEWS Adithya Camacho MD [address] [place] [address] [place] [address] Referral ID Status Reason Start Date Expiration Date V isits Requested Visits Authorized [id number] Closed Auto-Generate d Referral 02/01/2022 09/11/2022 1 1 [facility]* Diagnostic Procedure Only (Routine) - Closed Specialty Diagnoses / Procedures Referred By Contac t Referred To Contact XR IMAGING Diagnoses Acute cough Oropharyngeal dysphagia Procedures XR MODIFIED BARIUM SWALLOW W SPEECH THERAPY RADIOLOGIC EXAM SWALLOW FUNCTION CONTRAST STUDY Jenise Holt APRN.[facility] [address] [place] [phone] Phone: tel: fax: XR IMAGING [id number] Referral ID Status Reason Start Date Expiration Date V isits Requested Visits Authorized [id number] Closed Auto-Generate d Referral 01/28/2025 02/27/2026 1 1 [facility] Reason for Referral Specialty Diagnoses / Procedures Referred By Contac t Referred To Contact Orthopedics Diagnoses Acute right ankle pain Closed nondisplaced fracture of anterior process of right calcaneus, initial encounter Procedures CONSULT TO ORTHOPAEDICS OFFICE/OUTPATIENT [facility] 60-74 MINUTES Adithya Camacho MD [address] [place] [id number] Referral ID Status Reason Start Date Expiration Date Visits Requested Visits Authorized [id number] Pending Review PCP Requested Referral 02/01/2022 02/01/2023 1 1 Specialty Diagnoses / Procedures Referred By Contac t Referred To Contact XR IMAGING Diagnoses Acute right ankle pain Procedures XR ANKLE GENERAL 3V AP/LAT/OBL RIGHT RADEX ANKLE COMPLETE MINIMUM 3 VIEWS Adithya Camacho MD [address] [place] [id number] Xr Imaging Referral ID Status Reason Start Date Expiration Date V isits Requested Visits Authorized [id number] Closed Auto-Generate d Referral 02/01/2022 09/11/2022 1 1 Specialty Diagnoses / Procedures Referred By Contac t Referred To Contact General Surgery Diagnoses Screening for colon cancer Procedures CONSULT TO GENERAL SURGERY OFFICE/OUTPATIENT [facility] MDM 60 MINUTES Rosana Rodney APRN.ANIMATION DIRECTOR [address] [place] [address] Referral ID Status Reason Start Date Expiration Date Visits Requested Visits Authorized [id number] Authorized PCP Requested Referral 4 08/24/2025 1 1 Specialty Diagnoses / Procedures Referred By Contac t Referred To Contact Diagnoses History of sleep study Snoring Daytime sleepiness Procedures CONSULT TO SLEEP MEDICINE - ADULT OFFICE/OUTPATIENT [facility] MDM 60 MINUTES Rosana Rodney APRN.ANIMATION DIRECTOR [address] [place] [address] Referral ID Status Reason Start Date Expiration Date Visits Requested Visits Authorized [id number] Authorized PCP Requested Referral 4 08/24/2025 1 1 Chief Complaint and Reason [...] Date/ Time Advance Directives No March 22 15 12:43pm Living Will No March 22, 2015 12:43pm Power of Shot Coat Tender No March 22 5 12:43pm Health Concerns [...] or prosecute any alcohol or drug abuse patient.[facility] Hospital[facility] the event this information is protected by the Federal Confidentiality of Alcohol and Drug Abuse Patient Records regulations: The Federal rules restrict any use of the information to criminally investigate or prosecute any alcohol or drug abuse patient.[facility] HospitalIn the event this information is protected by the Federal Confidentiality of Alcohol and Drug Abuse Patient Records regulations: The Federal rules restrict any use of the information to criminally investigate or prosecute any alcohol or drug abuse patient.[facility] HospitalIn the event this information is protected by the Federal Confidentiality of Alcohol and Drug Abuse Patient Records regulations: The Federal rules restrict any use of the information to criminally investigate or prosecute any alcohol or drug abuse patient.[facility] the event this information is protected by the Federal Confidentiality of Alcohol and Drug Abuse Patient Records regulations: The Federal rules restrict any use of the information to criminally investigate or prosecute any alcohol or drug abuse patient.[facility] the event this information is protected by the Federal Confidentiality of Alcohol and Drug Abuse Patient Records regulations: The Federal rules restrict any use of the information to criminally investigate or prosecute any alcohol or drug abuse patient.[facility] HospitalIn the event this information is protected by the Federal Confidentiality of Alcohol and Drug Abuse Patient Records regulations: The Federal rules restrict any use of the information to criminally investigate or prosecute any alcohol or drug abuse patient.[facility] HospitalIn the event this information is protected by the Federal Confidentiality of Alcohol and Drug Abuse Patient Records regulations: The Federal rules restrict any use of the information to criminally investigate or prosecute any alcohol or drug abuse patient.[facility] HospitalIn the event this information is protected by the Federal Confidentiality of Alcohol and Drug Abuse Patient Records regulations: The Federal rules restrict any use of the information to criminally investigate or prosecute any alcohol or drug abuse patient.[facility] HospitalIn the event this information is protected by the Federal Confidentiality of Alcohol and Drug Abuse Patient Records regulations: The Federal rules restrict any use of the information to criminally investigate or prosecute any alcohol or drug abuse patient.[facility] HospitalIn the event this information is protected by the Federal Confidentiality of Alcohol and Drug Abuse Patient Records regulations: The Federal rules restrict any use of the information to criminally investigate or prosecute any alcohol or drug abuse patient.[facility] HospitalIn the event this information is protected by the Federal Confidentiality of Alcohol and Drug Abuse Patient Records regulations: The Federal rules restrict any use of the information to criminally investigate or prosecute any alcohol or drug abuse patient.[facility] HospitalIn the event this information is protected by the Federal Confidentiality of Alcohol and Drug Abuse Patient Records regulations: The Federal rules restrict any use of the information to criminally investigate or prosecute any alcohol or drug abuse patient.[facility] HospitalIn the event this information is protected by the Federal Confidentiality of Alcohol and Drug Abuse Patient Records regulations: The Federal rules restrict any use of the information to criminally investigate or prosecute any alcohol or drug abuse patient.[facility] HospitalIn the event this information is protected by the Federal Confidentiality of Alcohol and Drug Abuse Patient Records regulations: The Federal rules restrict any use of the information to criminally investigate or prosecute any alcohol or drug abuse patient.[facility] the event this information is protected by the Federal Confidentiality of Alcohol and Drug Abuse Patient Records regulations: The Federal rules restrict any use of the information to criminally investigate or prosecute any alcohol or drug abuse patient.[facility] HospitalIn the event this information is protected by the Federal Confidentiality of Alcohol and Drug Abuse Patient Records regulations: The Federal rules restrict any use of the information to criminally investigate or prosecute any alcohol or drug abuse patient.[facility] HospitalIn the event this information is protected by the Federal Confidentiality of Alcohol and Drug Abuse Patient Records regulations: The Federal rules restrict any use of the information to criminally investigate or prosecute any alcohol or drug abuse patient.[facility] HospitalIn the event this information is protected by the Federal Confidentiality of Alcohol and Drug Abuse Patient Records regulations: The Federal rules restrict any use of the information to criminally investigate or prosecute any alcohol or drug abuse patient.[facility] HospitalIn the event this information is protected by the Federal Confidentiality of Alcohol and Drug Abuse Patient Records regulations: The Federal rules restrict any use of the information to criminally investigate or prosecute any alcohol or drug abuse patient.[facility] HospitalIn the event this information is protected by the Federal Confidentiality of Alcohol and Drug Abuse Patient Records regulations: The Federal rules restrict any use of the information to criminally investigate or prosecute any alcohol or drug abuse patient.[facility] HospitalIn the event this information is protected by the Federal Confidentiality of Alcohol and Drug Abuse Patient Records regulations: The Federal rules restrict any use of the information to criminally investigate or prosecute any alcohol or drug abuse patient.[facility] HospitalIn the event this information is protected by the Federal Confidentiality of Alcohol and Drug Abuse Patient Records regulations: The Federal rules restrict any use of the information to criminally investigate or prosecute any alcohol or drug abuse patient.[facility] HospitalIn the event this information is protected by the Federal Confidentiality of Alcohol and Drug Abuse Patient Records regulations: The Federal rules restrict any use of the information to criminally investigate or prosecute any alcohol or drug abuse patient.[facility] HospitalIn the event this information is protected by the Federal Confidentiality of Alcohol and Drug Abuse Patient Records regulations: The Federal rules restrict any use of the information to criminally investigate or prosecute any alcohol or drug abuse patient.[facility] HospitalIn the event this information is protected by the Federal Confidentiality of Alcohol and Drug Abuse Patient Records regulations: The Federal rules restrict any use of the information to criminally investigate or prosecute any alcohol or drug abuse patient.[facility] HospitalIn the event this information is protected by the Federal Confidentiality of Alcohol and Drug Abuse Patient Records regulations: The Federal rules restrict any use of the information to criminally investigate or prosecute any alcohol or drug abuse patient.[facility] HospitalIn the event this information is protected by the Federal Confidentiality of Alcohol and Drug Abuse Patient Records regulations: The Federal rules restrict any use of the information to criminally investigate or prosecute any alcohol or drug abuse patient.[facility] HospitalIn the event this information is protected by the Federal Confidentiality of Alcohol and Drug Abuse Patient Records regulations: The Federal rules restrict any use of the information to criminally investigate or prosecute any alcohol or drug abuse patient.[facility] HospitalIn the event this information is protected by the Federal Confidentiality of Alcohol and Drug Abuse Patient Records regulations: The Federal rules restrict any use of the information to criminally investigate or prosecute any alcohol or drug abuse patient.[facility] HospitalIn the event this information is protected by the Federal Confidentiality of Alcohol and Drug Abuse Patient Records regulations: The Federal rules restrict any use of the information to criminally investigate or prosecute any alcohol or drug abuse patient.[facility] HospitalIn the event this information is protected by the Federal Confidentiality of Alcohol and Drug Abuse Patient Records regulations: The Federal rules restrict any use of the information to criminally investigate or prosecute any alcohol or drug abuse patient.[facility] HospitalIn the event this information is protected by the Federal Confidentiality of Alcohol and Drug Abuse Patient Records regulations: The Federal rules restrict any use of the information to criminally investigate or prosecute any alcohol or drug abuse patient.[facility] HospitalIn the event this information is protected by the Federal Confidentiality of Alcohol and Drug Abuse Patient Records regulations: The Federal rules restrict any use of the information to criminally investigate or prosecute any alcohol or drug abuse patient.[facility] HospitalIn the event this information is protected by the Federal Confidentiality of Alcohol and Drug Abuse Patient Records regulations: The Federal rules restrict any use of the information to criminally investigate or prosecute any alcohol or drug abuse patient.[facility] HospitalIn the event this information is protected by the Federal Confidentiality of Alcohol and Drug Abuse Patient Records regulations: The Federal rules restrict any use of the information to criminally investigate or prosecute any alcohol or drug abuse patient.[facility] HospitalIn the event this information is protected by the Federal Confidentiality of Alcohol and Drug Abuse Patient Records regulations: The Federal rules restrict any use of the information to criminally investigate or prosecute any alcohol or drug abuse patient.[facility] HospitalIn the event this information is protected by the Federal Confidentiality of Alcohol and Drug Abuse Patient Records regulations: The Federal rules restrict any use of the information to criminally investigate or prosecute any alcohol or drug abuse patient.[facility] HospitalIn the event this information is protected by the Federal Confidentiality of Alcohol and Drug Abuse Patient Records regulations: The Federal rules restrict any use of the information to criminally investigate or prosecute any alcohol or drug abuse patient.[facility] HospitalIn the event this information is protected by the Federal Confidentiality of Alcohol and Drug Abuse Patient Records regulations: The Federal rules restrict any use of the information to criminally investigate or prosecute any alcohol or drug abuse patient.[facility] HospitalIn the event this information is protected by the Federal Confidentiality of Alcohol and Drug Abuse Patient Records regulations: The Federal rules restrict any use of the information to criminally investigate or prosecute any alcohol or drug abuse patient.[facility] HospitalIn the event this information is protected by the Federal Confidentiality of Alcohol and Drug Abuse Patient Records regulations: The Federal rules restrict any use of the information to criminally investigate or prosecute any alcohol or drug abuse patient.[facility] HospitalIn the event this information is protected by the Federal Confidentiality of Alcohol and Drug Abuse Patient Records regulations: The Federal rules restrict any use of the information to criminally investigate or prosecute any alcohol or drug abuse patient.[facility] HospitalIn the event this information is protected by the Federal Confidentiality of Alcohol and Drug Abuse Patient Records regulations: The Federal rules restrict any use of the information to criminally investigate or prosecute any alcohol or drug abuse patient.[facility] HospitalIn the event this information is protected by the Federal Confidentiality of Alcohol and Drug Abuse Patient Records regulations: The Federal rules restrict any use of the information to criminally investigate or prosecute any alcohol or drug abuse patient.[facility] HospitalIn the event this information is protected by the Federal Confidentiality of Alcohol and Drug Abuse Patient Records regulations: The Federal rules restrict any use of the information to criminally investigate or prosecute any alcohol or drug abuse patient.[facility] HospitalIn the event this information is protected by the Federal Confidentiality of Alcohol and Drug Abuse Patient Records regulations: The Federal rules restrict any use of the information to criminally investigate or prosecute any alcohol or drug abuse patient.[facility] HospitalIn the event this information is protected by the Federal Confidentiality of Alcohol and Drug Abuse Patient Records regulations: The Federal rules restrict any use of the information to criminally investigate or prosecute any alcohol or drug abuse patient.[facility] HospitalIn the event this information is protected by the Federal Confidentiality of Alcohol and Drug Abuse Patient Records regulations: The Federal rules restrict any use of the information to criminally investigate or prosecute any alcohol or drug abuse patient.[facility] HospitalIn the event this information is protected by the Federal Confidentiality of Alcohol and Drug Abuse Patient Records regulations: The Federal rules restrict any use of the information to criminally investigate or prosecute any alcohol or drug abuse patient.[facility] HospitalIn the event this information is protected by the Federal Confidentiality of Alcohol and Drug Abuse Patient Records regulations: The Federal rules restrict any use of the information to criminally investigate or prosecute any alcohol or drug abuse patient.[facility] HospitalIn the event this information is protected by the Federal Confidentiality of Alcohol and Drug Abuse Patient Records regulations: The Federal rules restrict any use of the information to criminally investigate or prosecute any alcohol or drug abuse patient.[facility] HospitalIn the event this information is protected by the Federal Confidentiality of Alcohol and Drug Abuse Patient Records regulations: The Federal rules restrict any use of the information to criminally investigate or prosecute any alcohol or drug abuse patient.[facility] HospitalIn the event this information is protected by the Federal Confidentiality of Alcohol and Drug Abuse Patient Records regulations: The Federal rules restrict any use of the information to criminally investigate or prosecute any alcohol or drug abuse patient.[facility] HospitalIn the event this information is protected by the Federal Confidentiality of Alcohol and Drug Abuse Patient Records regulations: The Federal rules restrict any use of the information to criminally investigate or prosecute any alcohol or drug abuse patient.[facility] HospitalIn the event this information is protected by the Federal Confidentiality of Alcohol and Drug Abuse Patient Records regulations: The Federal rules restrict any use of the information to criminally investigate or prosecute any alcohol or drug abuse patient.[facility] HospitalIn the event this information is protected by the Federal Confidentiality of Alcohol and Drug Abuse Patient Records regulations: The Federal rules restrict any use of the information to criminally investigate or prosecute any alcohol or drug abuse patient.[facility] HospitalIn the event this information is protected by the Federal Confidentiality of Alcohol and Drug Abuse Patient Records regulations: The Federal rules restrict any use of the information to criminally investigate or prosecute any alcohol or drug abuse patient.[facility] HospitalIn the event this information is protected by the Federal Confidentiality of Alcohol and Drug Abuse Patient Records regulations: The Federal rules restrict any use of the information to criminally investigate or prosecute any alcohol or drug abuse patient.[facility] HospitalIn the event this information is protected by the Federal Confidentiality of Alcohol and Drug Abuse Patient Records regulations: The Federal rules restrict any use of the information to criminally investigate or prosecute any alcohol or drug abuse patient.[facility] HospitalIn the event this information is protected by the Federal Confidentiality of Alcohol and Drug Abuse Patient Records regulations: The Federal rules restrict any use of the information to criminally investigate or prosecute any alcohol or drug abuse patient.[facility] HospitalIn the event this information is protected by the Federal Confidentiality of Alcohol and Drug Abuse Patient Records regulations: The Federal rules restrict any use of the information to criminally investigate or prosecute any alcohol or drug abuse patient.[facility] HospitalIn the event this information is protected by the Federal Confidentiality of Alcohol and Drug Abuse Patient Records regulations: The Federal rules restrict any use of the information to criminally investigate or prosecute any alcohol or drug abuse patient.[facility] Reason for Visit (unrecogniz ed section and content) Reason Comments F/U 1 month Specialty Diagnoses / Procedures Referred By Contac t Referred To Contact Family Practice / FAMILY MEDICINE Diagnoses 1 month follow up anxiety Procedures 4C EST Becca Draper MD [address] [place] [address] Becca Draper MD [address] [place] [address] Referral ID Status Reason Start Date Expiration Date V isits Requested Visits Authorized [id number] Closed Patient Cleared INN/SMCP Payor Auth Obtained 12/07/2021 09/11/2022 1 1 Reason Comments Abstract Reason Comments Patient Outreach (SW) Reason Comments Medication Problem Reason Comments Ankle Injury R foot and ankle inj ury x2 days Specialty Diagnoses / Procedures Referred By Contac t Referred To Contact Family Practice / [facility] Diagnoses Right foot injury Procedures OFFICE/OUTPATIENT NEW MODERATE MDM 45-59 MINUTES URGENT CARE Self Adithya Camacho MD [address] [place] [address] Referral ID Status Reason Start Date Expiration Date Visits Re quested Visits Authorized [id number] Closed 02/01/2022 09/11/2022 1 1 Reason Comments [...] UROLOGY OFFICE/OUTPATIENT NEW HIGH MDM 60-74 MINUTES [employer], Maryellen CATERING OPERATIONS MANAGER.ANIMATION DIRECTOR [address] [place] [address] Referral ID Status Reason Start Date Expiration Date V isits Requested Visits Authorized [id number] Closed PCP Requested Referral 09/15/2022 09/15/2023 1 1 Reason Comments Patient Update Reason Onset Date Comments Refill Request 07/07/2023 Reason Comments Forms 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 [address] [facility] Reason Comments Cough Cough and [...] Discharge Specialty Diagnoses / Procedures Referred By Barbara licona Referred To Contact X[facility] IMAGING Diagnoses Acute cough Oropharyngeal dysphagia Procedures XR MODIFIED BARIUM SWALLOW W SPEECH THERAPY RADIOLOGIC EXAM SWALLOW FUNCTION CONTRAST STUDY Jenise Holt, CATERING OPERATIONS MANAGER.ANIMATION DIRECTOR [address] [place] [address] Phone: tel: fax: [phone] Referral ID Status Reason Start Date Expiration Date V isits Requested Visits Authorized [id number] Closed Auto-Generate d Referral 01/28/2025 02/27/2026 1 1 Reason Comments Patient Question Reason Comments Dysphagia Barium swallow Reason Comments Follow Up Urinary Frequency Care Teams (unrecognized sec tion and content) Freight Broker Relationship Specialty Start Date End Date Becca Draper MD [address] [place], [place] [id number] PCP - General 08/19/09 Freight Broker Relationship Specialty Start Date End Date Becca Draper MD [address] [place] [address] PCP - General 08/19/09 Freight Broker Relationship Specialty Start Date End Date Becca Draper MD [address] [place] [address] PCP - General 08/19/09 Freight Broker Relationship Specialty Start Date End Date Becca Draper MD [address] [place] [address] PCP - General 08/19/09 Freight Broker Relationship Specialty Start Date End Date Becca Draper MD [address] [place] [address], [place] [address] PCP - General 08/19/09 Freight Broker Relationship Specialty Start Date End Date Becca Draper MD [facility] [place] [address] PCP - General 08/19/09 Freight Broker Relationship Specialty Start Date End Date Becca Draper MD [address] [place] [address] PCP - General 08/19/09 Freight Broker Relationship Specialty Start Date End Date Becca Draper MD [address] [place] [address] PCP - General 08/19/09 Freight Broker Relationship Specialty Start Date End Date Becca Draper MD [address] [place] [address] PCP - General 08/19/09 Freight Broker Relationship Specialty Start Date End Date Becca Draper MD [facility] [place] [address] PCP - General 08/19/09 Freight Broker Relationship Specialty Start Date End Date Becca Draper MD [address] [place] [address] PCP - General 08/19/09 Freight Broker Relationship Specialty Start Date End Date Becca Draper MD [address] [place] [address] PCP - General 08/19/09 Freight Broker Relationship Specialty Start Date End Date Becca Draper MD [address] [place] [address] PCP - General 08/19/09 Freight Broker Relationship Specialty Start Date End Date Becca Draper MD [address] [place] [address] PCP - General 08/19/09 Freight Broker Relationship Specialty Start Date End Date Becca Draper MD [address] [place] [address] PCP - General 08/19/09 Freight Broker Relationship Specialty Start Date End Date Becca Draper MD [address] [place] [address] PCP - General 08/19/09 Freight Broker Relationship Specialty Start Date End Date Becca Draper MD [address] [place] [address] PCP - General 08/19/09 Freight Broker Relationship Specialty Start Date End Date Becca Draper MD [address] [place] [address] PCP - General 08/19/09 Freight Broker Relationship Specialty Start Date End Date Becca Draper MD [address] [place] [address] PCP - General 08/19/09 Freight Broker Relationship Specialty Start Date End Date Becca Draper MD [address] [place] [address] PCP - General 08/19/09 Freight Broker Relationship Specialty Start Date End Date Becca Draper MD [address] [place] [address] PCP - General 08/19/09 Freight Broker Relationship Specialty Start Date End Date Becca Draper MD [address] [place] [address] PCP - General 08/19/09 Freight Broker Relationship Specialty Start Date End Date Becca Draper MD [address] [place] [address] PCP - General 08/19/09 Freight Broker Relationship Specialty Start Date End Date Becca Draper MD [address] [place] [address] PCP - General 08/19/09 Freight Broker Relationship Specialty Start Date End Date Becca Draper MD [address] [place] [address] PCP - General 08/19/09 Freight Broker Relationship Specialty Start Date End Date Becca Draper MD [address] [place] [address] PCP - General 08/19/09 Freight Broker Relationship Specialty Start Date End Date Becca Draper MD [address] [place] [address] PCP - General 08/19/09 Freight Broker Relationship Specialty Start Date End Date Becca Draper MD [address] [place] [address] PCP - General 08/19/09 Freight Broker Relationship Specialty Start Date End Date Becca Draper MD [address] [place] [address] PCP - General 08/19/09 Freight Broker Relationship Specialty Start Date End Date Becca Draper MD [address] [place] [address] PCP - General 08/19/09 Freight Broker Relationship Specialty Start Date End Date Becca Draper MD [address] [place] [address] PCP - General 08/19/09 Freight Broker Relationship Specialty Start Date End Date Becca Draper MD [address] [place] [address] PCP - General 08/19/09 Freight Broker Relationship Specialty Start Date End Date Becca Draper MD [address] [place] [address] PCP - General 08/19/09 Rosana Rodney APRN.ANIMATION DIRECTOR [address] [place] [address] [facility] 08/19/24 Freight Broker Relationship Specialty Start Date End Date Becca Draper MD [address] [place] [address] PCP - General 08/19/09 Rosana Rodney APRN.ANIMATION DIRECTOR [address] [place] [address] [facility] 08/19/24 Mac Galvan APRN.ANIMATION DIRECTOR [address] [place] [address] Belt Builder Helper [facility] 08/28/24 Freight Broker Relationship Specialty Start Date End Date Becca Draper MD [address] [place] [address] PCP - General 08/19/09 Rosana Rodney APRN.ANIMATION DIRECTOR [address] [place] [address] [facility] Builder [facility] 08/19/24 Mac Galvan APRN.ANIMATION DIRECTOR [address] [place] [address] [facility] Freight Broker Relationship Specialty Start Date End Date Becca Draper MD [address] [place] [address] PCP - General 08/19/09 Rosana Rodney APRN.ANIMATION DIRECTOR [address] [place] [address] [facility] 08/19/24 Mac Galvan APRN.ANIMATION DIRECTOR [address] [place] [address] [facility] 08/28/24 Freight Broker Relationship Specialty Start Date End Date Becca Draper MD [address] [place] [address] PCP - General 08/19/09 Mac Galvan APRN.ANIMATION DIRECTOR [address] [place] [address] [facility] 08/[facility] Freight Broker Relationship Specialty Start Date End Date Becca Draper MD [address] [place] [address] PCP - General 08/19/09 Mac Galvan APRN.ANIMATION DIRECTOR [address] [place] [address] [facility] 08/[facility]/24 Freight Broker Relationship Specialty Start Date End Date Becca Draper MD [address] [place] [address] PCP - General 08/19/09 Mac Galvan CATERING OPERATIONS MANAGER.ANIMATION DIRECTOR [address] [place] [address] [facility] 08/28/[facility] Freight Broker Relationship Specialty Start Date End Date Becca Draper MD [address] [place] [address] PCP - General 08/19/09 Mac Galvan CATERING OPERATIONS MANAGER.ANIMATION DIRECTOR [address] [place] [address] [facility] 08/28/[facility] Freight Broker Relationship Specialty Start Date End Date Becca Draper MD [address] [place] [address] PCP - General 08/19/09 Mac Galvan APRN.ANIMATION DIRECTOR [address] [place] [address] Belt Builder Helper [facility] 08/28/24 Freight Broker Relationship Specialty Start Date End Date Becca Draper MD [address] [place] [address] PCP - General 08/19/09 Mac Galvan APRN.ANIMATION DIRECTOR [address] [place] [address] Belt Builder Helper [facility] 08/28/24 Freight Broker Relationship Specialty Start Date End Date Becca Draper MD [address] [place] [address] PCP - General 08/19/09 Mac Galvan APRN.ANIMATION DIRECTOR [address] [place] [address] Belt Builder Helper [facility] 08/28/24 Freight Broker Relationship Specialty Start Date End Date Becca Draper MD [address] [place] [address] PCP - General 08/19/09 Mac Galvan APRN.ANIMATION DIRECTOR [address] [place] [address] Belt Builder Helper [facility] 08/28/24 Freight Broker Relationship Specialty Start Date End Date Becca Draper MD [address] [place] [address] PCP - General 08/19/09 Mac Galvan APRN.ANIMATION DIRECTOR [address] [place] [address] [facility] 08/28/[facility] Freight Broker Relationship Specialty Start Date End Date Becca Draper MD [address] [place] [address] PCP - General 08/19/09 Mac Galvan APRN.ANIMATION DIRECTOR [address] [place] [address] [facility] 08/28/24 Freight Broker Relationship Specialty Start Date End Date Becca Draper MD [address] [place] [address] PCP - General 08/19/09 Mac Galvan APRN.ANIMATION DIRECTOR [address] [place] [address] [facility] Freight Broker Relationship Specialty Start Date End Date Becca Draper MD [address] [place] [address] PCP - General 08/19/09 Mac Galvan APRN.ANIMATION DIRECTOR [address] [place] [address] [facility], Later [facility] 08/28/24 Goals (unrecognized section and content) Goals may be documented in a n alternate section (unrecognized sect ion and content) No Status Records FoundNo Status Records FoundNo Status Records FoundNo Status Records Found INFORMATION SOURCE (unrecogn ized section and content) DATE CREATED AUTHOR 09/03/2022 [facility] DATE CREATED AUTHOR AUTHOR'S ORGANIZ ATION 02/10/2025 [facility] DATE CREATED AUTHOR AUTHOR'S ORGANIZ ATION 05/02/2025 [facility] DATE CREATED AUTHOR AUTHOR'S ORGANIZ ATION 05/13/2025 [facility] FOR RECORDS PERTAINING TO PATIENTS WHO ARE [...] BE BASED ON THE PRIMARY CLINICAL RECORDS. [facility]. provides no warranty or guarantee of the accuracy or completeness of information in this document.
[2025-05-14 00:13] VITALS: BMI 25.2
[2025-05-14 00:22] VITALS: BP 129/83; PULSE 86; RESP 16; TEMP 37.2; O2SAT 100
[2025-05-14] MEDS: MELATONIN 3 MG TABLET PO (01:19)
[2025-05-14] MEDS: Pantoprazole Sodium 40 MG in 0.9% Normal Saline (100mL MB+) 100 ML 330 MG IV ×3 (01:19→20:54)
[2025-05-14] MEDS: 0.9% Normal Saline (1000mL) 1,000 ML 125 ML IV ×2 (02:32→09:35)
[2025-05-14 06:22] LABS: Mucous, Urine 0 SEEN /hpf (<or=2+)
[2025-05-14 06:22] LABS: Hematocrit 44.1 % (40-54); Hemoglobin 14.7 g/dL (13.0-16.5); Immature Granulocytes Count 0.030 X10^3/uL (0.0-0.0); Mean Corp Hgb Conc 33.3 g/dL (32-36); Mean Corpuscular Volume 90.2 fL (80-94); Mean Platelet Vol. 9.9 fl (6.2-12.0); NRBC Flagged by Analyzer 0 % (0-5); Platelet Count 300 K/mm3 (150-450); RBC Distribution Width CV 13.7 % (11.6-14.6); RBC Distribution Width SD 45.5 fl (35.1-43.9); Red Blood Count 4.89 M/mm3 (4.6-6.2); White Blood Count 10.5 K/mm3 (4.4-11.0)
[2025-05-14 06:24] LABS: Color, Urine Yellow (Yellow); Glucose, Dipstick Normal (Normal); Ketone-Dipstick Negative (Negative); Leukocyte Esterase-Dipstick Negative /ul (Negative); Nitrite-Dipstick Negative (Negative); Occult Blood-Urine 10 /ul (Negative); Protein-Dipstick 30 mg/dl (Negative); Specific Gravity, Urine 1.015 (1.002-1.030); Urine Bilirubin Dipstick Negative (Negative)
[2025-05-14 06:45] LABS: Calcium Oxalate Crystals Ur 1+ /hpf (<or=2+); Red Blood Cells-Urine 0-5 SEEN /hpf (0-5); Squamous Epithelial Cells - UA 0-5 SEEN /hpf (0-5)
[2025-05-14 06:46] LABS: AST(SGOT) 24 U/L (<=37); Alanine Aminotransfer ALT/SGPT 44 U/L (<=46); Albumin, Serum 4.0 g/dL (3.5-5.0); Alkaline Phosphatase 59 U/L (40-129); Anion Gap 12 (5-15); BUN 23 mg/dL (4-19); BUN/Creat Ratio 16.6 RATIO (10-20); Calcium,Total 8.1 mg/dL (7.6-11.0); Carbon Dioxide 20.2 mmol/L (21.0-32.0); Chloride 109 mmol/L (98-108); Estimated Creatinine Clearance 73.19 ml/min (50-250); Globulin 3.0 g/dL (2.2-4.2); Glucose 103 mg/dL (70-99); Potassium 3.5 mmol/L (3.3-5.1)
[2025-05-14 07:30] VITALS: BP 132/83; PULSE 77; RESP 16; TEMP 36.7; O2SAT 100
[2025-05-14] MEDS: Heparin Injection (Vial) 5,000 UNIT/ML VIAL 5000 UNIT SC ×2 (07:40→20:55)
--- NOTE | 2025-05-14 10:28 | CASEMGMT ---
SEBAS LEON Assessment: Face to Face with pt for initial transition planning/care coordination assessment. SEBAS LEON introduced self and role at [facility], pt voices understanding and consents to assessment. Pt is A&O x4 and answers all questions appropriately at this time. Care providers, pharmacy, and demographics verified/updated. Strata: 1 Admitting Dx: N/V/D PCP: Bonny Specialists: Urologist, [facility] Preferred Pharmacy:[facility] Insurance: [facility] Dual Complete ESAU Prescription Benefit: yes LNOK: Renee, Sister; Sarah, Mom Living Arrangements: Pt lives with sister in the basement of her home. ADLs: Pt needs some assistance with IADLs. Transportation: Pt drives self and denies concerns with transportation. DME: Denies HHC/SNF: Denies Hx of. Pt states no concerns with going home at time of dc. Pt states no further concerns/needs. CM to follow. Advised pt to ask CM if any further question/concerns/needs arise, voices understanding. DC Plan: Home with family support. Sonia MULLEN CM
--- NOTE | 2025-05-14 14:33 | PN_ITS ---
Subjective Subjective Patient seen and examined with his nurse by his bedside. His parents were by his bedside, and his sister subsequently joined also. He was admitted with a complaint of nausea, vomiting and diarrhea. Diarrhea is improving. He denied any more nausea or vomiting. Review of systems is otherwise negative. Cr is down to 1.41 from 2.15 yesterday Objective Data Objective Data Vital Signs: Vital Signs Temp Pulse Resp BP Pulse Ox O2 Del Method 98.0 F 77 16 132/83 H 100 Room Air 05/14/25 07:30 05/14/25 07:30 05/14/25 07:30 05/14/25 07:30 05/14/25 07:30 05/14/25 10:28 Oxygen Delivery Method Room Air Weight: 191 lb 1.6 oz Body Mass Index (BMI) 25.2 Intake & Output: Intake and Output for Last 24 Hours 05/12/25 05/13/25 05/14/25 23:59 23:59 23:59 Intake Total 1000 / 1000 2136.75 / 2136.75 Balance 1000 / 1000 2136.75 / 2136.75 Lab / Micro Data 05/14/25 06:07 05/14/25 06:07 Labs: Laboratory Results - last 24 hr 05/13/25 22:00: WBC 15.9 H, RBC 5.47, Hgb 16.6 H, Hct 48.6, MCV 88.8, MCH 30.3, MCHC 34.2, RDW Std Deviation 44.2 H, RDW Coeff of Unique 13.6, Plt Count 359, MPV 10.0, Immature Gran % (Auto) 0.500, Neut % (Auto) 79.7 H, Lymph % (Auto) 13.7 L, [place] % (Auto) 5.7, Eos % (Auto) 0.1, Baso % (Auto) 0.3, Absolute Neuts (auto) 12.6 H, Absolute Lymphs (auto) 2.18, Nucleated RBC % 0, Sodium 143, Potassium 3.3, Chloride 106, Carbon Dioxide 21.0, Anion Gap 16 H, BUN 30 H, Creatinine 2.15 H, Estim Creat Clear Calc 48.00 L, Est GFR (MDRD) Non-Af 37 L, BUN/Creatinine Ratio 14.1, Glucose 117 H, Calcium 9.1, Total Bilirubin 0.26, AST 33, ALT 57 H, Alkaline Phosphatase 73, Total Protein 8.5 H, Albumin 4.7, Globulin 3.8, Albumin/Globulin Ratio 1.3 05/14/25 06:07: WBC 10.5, RBC 4.89, Hgb 14.7, Hct 44.1, MCV 90.2, MCH 30.1, MCHC 33.3, RDW Std Deviation 45.5 H, RDW Coeff of Unique 13.7, Plt Count 300, MPV 9.9, Immature Gran % (Auto) 0.300, Neut % (Auto) 63.7, Lymph % (Auto) 27.3, [place] % (Auto) 7.8, Eos % (Auto) 0.4, Baso % (Auto) 0.5, Absolute Neuts (auto) 6.7, Absolute Lymphs (auto) 2.87, Nucleated RBC % 0, Sodium 141, Potassium 3.5, C hloride 109 H, Carbon Dioxide 20.2 L, Anion Gap 12, BUN 23 H, Creatinine 1.41 H, Estim Creat Clear Calc 73.19, Est GFR (MDRD) Non-Af 62, BUN/Creatinine Ratio 16.6, Glucose 103 H, Calcium 8.1, Total Bilirubin 0.23, AST 24, ALT 44, Alkaline Phosphatase 59, Total Protein 7.0, Albumin 4.0, Globulin 3.0, Albumin/Globulin Ratio 1.3 05/14/25 06:14: Urine Color Yellow, Urine Clarity Clear, Urine pH 6.0, Ur Specific [place] 1.015, Urine Protein 30 H, Urine Glucose (UA) Normal, Urine Ketones Negative, Urine Occult Blood 10 H, Urine Nitrite Negative, Urine Bilirubin Negative, Urine Urobilinogen Normal, Ur Leukocyte Esterase Negative, Urine RBC 0-5 SEEN, Urine WBC 0-5 SEEN, Ur Squamous Epith Cells 0-5 SEEN, Ur Renal Epithelial Cell 5-10 SEEN, Calcium Oxalate Crystal 1+, Urine Bacteria 2+, Hyaline Casts 10-25 SEEN, Urine Mucus 0 SEEN Physical Exam Const alert, no apparent distress and well nourished General Appearance: cooperative HEENT normocephalic, head/scalp atraumatic, moist oral mucous membranes and oropharynx normal Eyes EOMs intact bilaterally Neck supple and no JVD Lymph Lymphatic: no lymphedema noted Resp normal respiratory effort, normal air movement and clear to auscultation bilaterally Cardio regular rate, regular rhythm, S1 normal heart sound, S2 normal heart sound and no murmurs GI normal to inspection, nondistended, normoactive bowel sounds, soft to palpation, non-tender and non-distended Extremity normal capillary refill, no clubbing, cyanosis or edema and no calf tenderness General Extremity: no tenderness to palpation of joints or extremities Skin General Skin Exam: no breakdown Neuro CN's II-XII intact bilaterally and no focal motor deficits Motor Exam: strength 5/5 throughout Psych cooperative Psych Narrative: alert, has underlying MRDD Appearance: appropriate Assessment & Plan Assessment/Plan (1) Acute kidney injury: (2) Viral gastroenteritis: PLAN: Plan #Acute gastroenteritis * CDiff negative. Enteric panel also negative * continue gentle hydration with IVF. #JUDIT: resolving. Likely pre-renal, due to dehydration. Improved with IVF hydration. Cr down to 1.41, from 2.15 on admission. COntinue gentle hydration with IVF. #Abnormal urinalysis: Urine showed 2+ bacteria. NO urinary symptoms. Urine culture pending. Will hold off on antibiotics for now, pending urine cultures. #Seizure disorder: on depakote and carbamazepine. #History of OCD: on hydroxyzine low dose fo agitation and anxiety. #MRDD: stable. At baseline. PT/OT On board. #GERD: on PPI. #Allergic rhinitis: on cetirizine. DVT prophylaxis: heparin. Code status: full code. Lives with his sister who is his POA. Charges/Coding Visit Charges Inpatient E&M: 58730 Subs Hosp L2
[2025-05-14 16:31] VITALS: BP 122/74; PULSE 66; RESP 16; TEMP 37.1; O2SAT 100
[2025-05-14 20:53] VITALS: BP 116/70; PULSE 71; RESP 17; TEMP 36.4; O2SAT 97
--- NOTE | 2025-05-14 22:11 | PCM.HOSP.N ---
Hospitalist Note Nursing staff noting documentation of negative stool testing, but results not found or reported from lab. Pt continues to have watery stools, no signs of hematochezia or melena, no fevers. Stool testing orders placed for O&P, enteric and Cdiff. If negative for CDI, okay for anti-diarrheals.
[2025-05-15] MEDS: 0.9% Normal Saline (250mL Bag) 250 ML 15 ML IV (01:23)
[2025-05-15 05:35] VITALS: BP 106/82; PULSE 62; RESP 16; TEMP 36.6; O2SAT 98
[2025-05-15 06:00] VITALS: BMI 26.0
[2025-05-15 08:00] VITALS: BP 126/81; PULSE 65; RESP 20; TEMP 36.6
[2025-05-15 08:19] LABS: Hematocrit 41.7 % (40-54); Hemoglobin 14.2 g/dL (13.0-16.5); Immature Granulocytes Count 0.020 X10^3/uL (0.0-0.0); Mean Corp Hgb Conc 34.1 g/dL (32-36); Mean Corpuscular Volume 88.3 fL (80-94); Mean Platelet Vol. 10.0 fl (6.2-12.0); NRBC Flagged by Analyzer 0 % (0-5); Platelet Count 285 K/mm3 (150-450); RBC Distribution Width CV 13.3 % (11.6-14.6); RBC Distribution Width SD 43.8 fl (35.1-43.9); Red Blood Count 4.72 M/mm3 (4.6-6.2); White Blood Count 7.9 K/mm3 (4.4-11.0)
[2025-05-15 08:36] LABS: Anion Gap 11 (5-15); BUN 11 mg/dL (4-19); BUN/Creat Ratio 13.8 RATIO (10-20); Calcium,Total 8.4 mg/dL (7.6-11.0); Carbon Dioxide 20.9 mmol/L (21.0-32.0); Chloride 111 mmol/L (98-108); Estimated Creatinine Clearance 127.41 ml/min (50-250); Glucose 92 mg/dL (70-99); Potassium 2.9 mmol/L (3.3-5.1)
[2025-05-15 09:11] VITALS: O2SAT 94
[2025-05-15] MEDS: Heparin Injection (Vial) 5,000 UNIT/ML VIAL 5000 UNIT SC ×2 (09:18→21:44)
[2025-05-15] MEDS: 0.9% Normal Saline (1000mL) 1,000 ML 75 ML IV (09:35)
[2025-05-15] MEDS: Pantoprazole Sodium 40 MG in 0.9% Normal Saline (100mL MB+) 100 ML 330 MG IV ×2 (09:35→21:43)
[2025-05-15] MEDS: 0.9% Saline Lock 10 ML Syringe IV (09:38)
[2025-05-15] MEDS: Potassium Chloride 10mEq/100mL 10 MEQ/100 ML IV.SOLN. 100 MEQ IV BOLUS ×4 (10:12→13:52)
--- NOTE | 2025-05-15 12:09 | PN_ITS ---
Subjective Subjective Patient seen and examined with his nurse by his bedside. His mother was by his bedside. His mother said patient had an episode of diarrhea overnight. We are still awaiting a stool sample for enteric pathogens. Review of systems is otherwise negative. Objective Data Objective Data Vital Signs: Vital Signs Temp Pulse Resp BP Pulse Ox O2 Del Method 98 F 65 20 H 126/81 H 94 Room Air 05/15/25 08:00 05/15/25 08:00 05/15/25 08:00 05/15/25 08:00 05/15/25 09:11 05/15/25 09:11 Oxygen Delivery Method Room Air Weight: 196 lb 10.437 oz Body Mass Index (BMI) 26.0 Intake & Output: Intake and Output for Last 24 Hours 05/13/25 05/14/25 05/15/25 23:59 23:59 23:59 Intake Total 1000 / 1000 3336.75 / 3336.75 300 / 300 Balance 1000 / 1000 3336.75 / 3336.75 300 / 300 Lab / Micro Data 05/15/25 07:20 05/15/25 07:20 Labs: Laboratory Results - last 24 hr 05/15/25 07:20: WBC 7.9, RBC 4.72, Hgb 14.2, Hct 41.7, MCV 88.3, MCH 30.1, MCHC 34.1, RDW Std Deviation 43.8, RDW Coeff of [place] 13.3, Plt Count 285, MPV 10.0, Immature Gran % (Auto) 0.300, Neut % (Auto) 58.1, Lymph % (Auto) 32.2, [place] % (Auto) 6.6, Eos % (Auto) 2.0, Baso % (Auto) 0.8, Absolute Neuts (auto) 4.6, Absolute Lymphs (auto) 2.54, Nucleated RBC % 0, Sodium 142, Potassium 2.9 L, C hloride 111 H, Carbon Dioxide 20.9 L, Anion Gap 11, BUN 11, Creatinine 0.81, Estim Creat Clear Calc 127.41, Est GFR (MDRD) Non-Af 109, BUN/Creatinine Ratio 13.8, Glucose 92, Calcium 8.4 Micro: Microbiology 05/14/25 06:14 Urine, Clean Catch Urine Culture - Preliminary Culture exhibits no growth. Physical Exam Const alert, no apparent distress and well nourished General Appearance: cooperative HEENT normocephalic, head/scalp atraumatic, moist oral mucous membranes and oropharynx normal Eyes EOMs intact bilaterally Neck supple and no JVD Lymph Lymphatic: no lymphedema noted Resp normal respiratory effort, normal air movement and clear to auscultation bilaterally Cardio regular rate, regular rhythm, S1 normal heart sound, S2 normal heart sound and no murmurs GI normal to inspection, nondistended, normoactive bowel sounds, soft to palpation, non-tender and non-distended Extremity normal capillary refill, no clubbing, cyanosis or edema and no calf tenderness General Extremity: no tenderness to palpation of joints or extremities Skin General Skin Exam: no breakdown Neuro CN's II-XII intact bilaterally and no focal motor deficits Motor Exam: strength 5/5 throughout Psych cooperative Psych Narrative: alert, has underlying MRDD Appearance: appropriate Assessment & Plan Assessment/Plan (1) Acute kidney injury: (2) Viral gastroenteritis: PLAN: Plan #Acute gastroenteritis * CDiff and entric pathogens are pending. Did have one more episode of diarrhea overnight. * continue gentle hydration with IVF. #JUDIT:resolved. Cr is down to 0.81. #Abnormal urinalysis: Urine showed 2+ bacteria. NO urinary symptoms. Urine cultures negative. #Seizure disorder: on depakote and carbamazepine. #History of OCD: on hydroxyzine low dose fo agitation and anxiety. #MRDD: stable. At baseline. PT/OT On board. #GERD: on PPI. #Allergic rhinitis: on cetirizine. DVT prophylaxis: heparin. Code status: full code. Lives with his sister who is his POA. Charges/Coding Visit Charges Inpatient E&M: 63605 Subs Hosp L2
[2025-05-15 13:56] VITALS: BP 114/78; PULSE 80; RESP 16; TEMP 36.8; O2SAT 100
[2025-05-15 14:10] VITALS: BP 103/58; PULSE 84; RESP 16; TEMP 36.8; O2SAT 100
--- NOTE | 2025-05-15 14:40 | CHAPLAIN ---
Type of Pastoral Visit _x__ Initial Visit ___ Follow-up Visit ___ On-call Visit ___ General Patient Visit ___ Spiritual Assessment ___ Family Conference ___ Bereavement ___ Rapid Response ___ Code Blue ___ Other (describe below) Pastoral Care Referral From _x__ Patient ___ Family ___ Nurse ___ Physician ___ Plastic Parts Designer ___ Art Conservator ___ Other (describe below) Sacrament/Intervention _x__ Active listening ___ Anointing ___ Pentecostalism ___ Bereavement ___ Communion _x__ Zainab exploration ___ ___ Life review _x__ Prayer ___ Reconciliation ___ Sacrament of Sick _x__ Supportive presence ___ Wedding ___ Other (describe below) Pastoral Comments patient and his sister are in the room; pt is lying down in bed but alert; sister gives more of the details since she reveals the patient as autistic and special needs; pt lives with this sister; both identify that pt is active in the [employer] and loves to sing the hymns; pt gives simple one word answers to questions but is pleasant and smiles; sister states that they lost a brother to cancer this year and that this has been hard for the family; sister is offered support and she speaks of the many 'things that I have to do for the family and my responsibilities'; support and prayer given
[2025-05-15 21:39] VITALS: BP 130/84; PULSE 69; RESP 16; TEMP 36.4; O2SAT 97
[2025-05-15] MEDS: MELATONIN 3 MG TABLET PO (21:53)
[2025-05-16 03:49] VITALS: BMI 25.8
[2025-05-16 04:04] VITALS: BP 127/87; PULSE 74; RESP 16; TEMP 37.1; O2SAT 95
[2025-05-16 07:01] LABS: Hematocrit 41.8 % (40-54); Hemoglobin 14.7 g/dL (13.0-16.5); Immature Granulocytes Count 0.020 X10^3/uL (0.0-0.0); Mean Corp Hgb Conc 35.2 g/dL (32-36); Mean Corpuscular Volume 87.3 fL (80-94); Mean Platelet Vol. 9.6 fl (6.2-12.0); NRBC Flagged by Analyzer 0 % (0-5); Platelet Count 288 K/mm3 (150-450); RBC Distribution Width CV 13.2 % (11.6-14.6); RBC Distribution Width SD 42.3 fl (35.1-43.9); Red Blood Count 4.79 M/mm3 (4.6-6.2); White Blood Count 9.0 K/mm3 (4.4-11.0)
[2025-05-16 08:01] LABS: Anion Gap 11 (5-15); BUN 8 mg/dL (4-19); BUN/Creat Ratio 10.3 RATIO (10-20); Calcium,Total 8.5 mg/dL (7.6-11.0); Carbon Dioxide 23.8 mmol/L (21.0-32.0); Chloride 109 mmol/L (98-108); Estimated Creatinine Clearance 139.47 ml/min (50-250); Glucose 116 mg/dL (70-99); Potassium 3.1 mmol/L (3.3-5.1)
[2025-05-16 08:23] VITALS: BP 128/87; PULSE 62; RESP 16; TEMP 36.7; O2SAT 96
[2025-05-16] MEDS: Pantoprazole Sodium 40 MG in 0.9% Normal Saline (100mL MB+) 100 ML 330 MG IV ×2 (08:31→21:41)
[2025-05-16] MEDS: Heparin Injection (Vial) 5,000 UNIT/ML VIAL 5000 UNIT SC ×2 (08:32→21:42)
[2025-05-16] MEDS: Potassium Chloride Oral Tablet 20 MEQ 40 MEQ PO (09:33)
--- NOTE | 2025-05-16 12:45 | PN_ITS ---
Subjective Subjective Patient seen and examined with his nurse by his bedside. His mother was also by his bedside. He had no active complaints. Mother daid he had an episode of diarrhea this morning. Review of systems is otherwise negative. Objective Data Objective Data Vital Signs: Vital Signs Temp Pulse Resp BP Pulse Ox O2 Del Method 98.0 F 62 16 128/87 H 96 Room Air 05/16/25 08:23 05/16/25 08:23 05/16/25 08:23 05/16/25 08:23 05/16/25 08:23 05/16/25 08:23 Oxygen Delivery Method Room Air Weight: 195 lb 15.855 oz Body Mass Index (BMI) 25.8 Intake & Output: Intake and Output for Last 24 Hours 05/14/25 05/15/25 05/16/25 23:59 23:59 23:59 Intake Total 3336.75 / 3336.75 2190 / 2340 300 / 300 Balance 3336.75 / 3336.75 2190 / 2340 300 / 300 Lab / Micro Data 05/16/25 06:44 05/16/25 06:44 Labs: Laboratory Results - last 24 hr 05/16/25 06:44: WBC 9.0, RBC 4.79, Hgb 14.7, Hct 41.8, MCV 87.3, MCH 30.7, MCHC 35.2, RDW Std Deviation 42.3, RDW Coeff of Unique 13.2, Plt Count 288, MPV 9.6, Immature Gran % (Auto) 0.200, Neut % (Auto) 62.5, Lymph % (Auto) 26.3, [place] % (Auto) 8.4, Eos % (Auto) 1.9, Baso % (Auto) 0.7, Absolute Neuts (auto) 5.6, Absolute Lymphs (auto) 2.37, Nucleated RBC % 0, Sodium 143, Potassium 3.1 L, C hloride 109 H, Carbon Dioxide 23.8, Anion Gap 11, BUN 8, Creatinine 0.74, Estim Creat Clear Calc 139.47, Est GFR (MDRD) Non-Af 113, BUN/Creatinine Ratio 10.3, G lucose 116 H, Calcium 8.5 Micro: Microbiology 05/14/25 06:14 Urine, Clean Catch Urine Culture - Final Culture exhibits no growth. 05/15/25 11:00 Stool Enteric Bacteriology - Final 05/15/25 11:00 Stool Clostridioides difficile (PCR) - Final Physical Exam Const alert, no apparent distress and well nourished General Appearance: cooperative HEENT normocephalic, head/scalp atraumatic, moist oral mucous membranes and oropharynx normal Eyes EOMs intact bilaterally Neck supple and no JVD Lymph Lymphatic: no lymphedema noted Resp normal respiratory effort, normal air movement and clear to auscultation bilaterally Cardio regular rate, regular rhythm, S1 normal heart sound, S2 normal heart sound and no murmurs GI normal to inspection, nondistended, normoactive bowel sounds, soft to palpation, non-tender and non-distended Extremity normal capillary refill, no clubbing, cyanosis or edema and no calf tenderness General Extremity: no tenderness to palpation of joints or extremities Skin General Skin Exam: no breakdown Neuro CN's II-XII intact bilaterally and no focal motor deficits Motor Exam: strength 5/5 throughout Psych cooperative Psych Narrative: alert, has underlying MRDD Appearance: appropriate Assessment & Plan Assessment/Plan (1) Acute kidney injury: (2) Viral gastroenteritis: PLAN: Plan #Acute gastroenteritis * CDiff and entric pathogens are negative. * Did have one more episode of bowel movement this morning, but it seems to be improving * #Hypokalemia: K is 3.1. Will replace and trend. #JUDIT:resolved. Cr is down to 0.74. #Abnormal urinalysis: Urine showed 2+ bacteria. NO urinary symptoms. Urine cultures negative. #Seizure disorder: on depakote and carbamazepine. #History of OCD: on hydroxyzine low dose fo agitation and anxiety. #MRDD: stable. At baseline. PT/OT On board. #GERD: on PPI. #Allergic rhinitis: on cetirizine. DVT prophylaxis: heparin. Code status: full code. Lives with his sister who is his POA. Disposition: for likely DC tomorrow. Charges/Coding Visit Charges Inpatient E&M: 25104 Subs Hosp L2
[2025-05-16 14:00] VITALS: BP 144/88; PULSE 68; RESP 16; TEMP 36.3; O2SAT 100
[2025-05-16 20:49] VITALS: BP 128/83; PULSE 75; RESP 16; TEMP 36.8; O2SAT 99
[2025-05-16] MEDS: 0.9% Normal Saline (250mL Bag) 250 ML 15 ML IV (21:41)
[2025-05-16] MEDS: MELATONIN 3 MG TABLET PO (21:41)
[2025-05-16] MEDS: 0.9% Saline Lock 10 ML Syringe IV (21:43)
[2025-05-17 02:07] VITALS: BP 117/81; PULSE 66; RESP 16; TEMP 36.4; O2SAT 98
[2025-05-17 06:00] VITALS: BMI 25.4
[2025-05-17 08:06] LABS: Hematocrit 37.2 % (40-54); Hemoglobin 13.0 g/dL (13.0-16.5); Immature Granulocytes Count 0.010 X10^3/uL (0.0-0.0); Mean Corp Hgb Conc 34.9 g/dL (32-36); Mean Corpuscular Volume 87.5 fL (80-94); Mean Platelet Vol. 10.2 fl (6.2-12.0); NRBC Flagged by Analyzer 0 % (0-5); Platelet Count 241 K/mm3 (150-450); RBC Distribution Width CV 13.2 % (11.6-14.6); RBC Distribution Width SD 42.5 fl (35.1-43.9); Red Blood Count 4.25 M/mm3 (4.6-6.2); White Blood Count 4.7 K/mm3 (4.4-11.0)
[2025-05-17 09:11] VITALS: BP 134/88; PULSE 74; RESP 18; TEMP 36.7; O2SAT 98
[2025-05-17 11:16] LABS: Anion Gap 10 (5-15); BUN 6 mg/dL (4-19); BUN/Creat Ratio 7.5 RATIO (10-20); Calcium,Total 8.8 mg/dL (7.6-11.0); Carbon Dioxide 28.1 mmol/L (21.0-32.0); Chloride 105 mmol/L (98-108); Estimated Creatinine Clearance 132.31 ml/min (50-250); Glucose 179 mg/dL (70-99); Potassium 3.3 mmol/L (3.3-5.1)
--- NOTE | 2025-05-17 12:41 | DS.PCM_ITS ---
Providers Date of Admission: 05/13/25 Date of Discharge: 05/17/25 Primary Care Physician: Dr. Mike Draper MD Reason For Visit: N/V/D Diagnosis Discharge Diagnosis (1) Acute kidney injury: Status: Acute Code(s): N17.9 - Acute kidney failure, unspecified (2) Viral gastroenteritis: Status: Acute Code(s): A08.4 - Viral intestinal infection, unspecified Plan #Acute gastroenteritis * CDiff and entric pathogens are negative. * Did have one more episode of bowel movement this morning, but it seems to be improving * #Hypokalemia: K is 3.1. Will replace and trend. #JUDIT:resolved. Cr is down to 0.74. #Abnormal urinalysis: Urine showed 2+ bacteria. NO urinary symptoms. Urine cultures negative. #Seizure disorder: on depakote and carbamazepine. #History of OCD: on hydroxyzine low dose fo agitation and anxiety. #MRDD: stable. At baseline. PT/OT On board. #GERD: on PPI. #Allergic rhinitis: on cetirizine. DVT prophylaxis: heparin. Code status: full code. Lives with his sister who is his POA. Disposition: for likely DC tomorrow. Medications at Discharge Home Medications carbamazepine 200 mg tablet 400 mg PO BIDCM 03/22/15 cetirizine 10 mg tablet 10 mg PO DAILY 09/29/22 divalproex 500 mg tablet,delayed release (Depakote) 500 mg PO BID #30 tabs 11/11/22 oxybutynin chloride 5 mg tablet 5 mg PO QHS 11/11/22 hydroxyzine HCl 10 mg tablet 5 - 10 mg (0.5 - 1 x 10 mg) PO BID PRN anxiety #60 tabs 05/02/25 omeprazole 20 mg capsule,delayed release 20 mg PO QDAY 05/02/25 albuterol sulfate 90 mcg/actuation aerosol inhaler 2 puff inhalation Q4H PRN PRN wheezing 05/13/25 Hospital Course Operations None Procedures None Summary of Care Provided Minutes Spent on Discharge: 45 Hospital Course: Patient is a 49-year-old male with a past medical history of seizure disorder and MRDD who was admitted to the ED on 05/13/2025 with complaint of nausea and vomiting and diarrhea. Patient lives with his sister who is his primary caregiver. He started having malaise and fatigue the day prior to admission as well as diarrhea. Diarrhea was persistent and watery. He had 1 episode of vomiting. On admission blood pressure was low at 98/64. Respiratory rate was 18. CBC was unremarkable and BMP was remarkable for elevated creatinine of 2.15. He was admitted and managed for acute gastroenteritis likely viral and JUDIT likely due to dehydration from gastroenteritis. He was aggressively hydrated with IV fluids. Hospital course was complicated by hypokalemia and potassium was aggressively replaced. The diarrhea resolved. C. difficile was negative as well as stool for enteric panel also being negative. He felt much better and was able to tolerate a diet. He remained stable and was discharged home on 05/17/2025. He is follow-up with his primary care doctor within 1 to 2 weeks. Patient seen and examined prior to discharge. He had no active complaints and had an uneventful night. Review of systems otherwise negative. Labs and vitals reviewed. Home medication reviewed and reconciled. Physical Exam Const alert, no apparent distress and well nourished General Appearance: cooperative and comfortable HEENT normocephalic, head/scalp atraumatic, hearing grossly normal bilaterally, moist oral mucous membranes and oropharynx normal Mouth: oral and palatal mucosa normal Eyes EOMs intact bilaterally and conjunctivae normal Neck supple and no JVD Lymph Lymphatic: no lymphedema noted Resp normal respiratory effort, normal air movement and clear to auscultation bilaterally Cardio regular rate, regular rhythm, S1 normal heart sound, S2 normal heart sound and no murmurs GI normal to inspection, nondistended, normoactive bowel sounds, soft to palpation, non-tender and non-distended Extremity normal to inspection, full ROM, normal capillary refill, no clubbing, cyanosis or edema and no calf tenderness General Extremity: no tenderness to palpation of joints or extremities Skin no rashes or lesions noted General Skin Exam: no breakdown Neuro CN's II-XII intact bilaterally, moves all extremities and no focal motor deficits Sensorium / Orientation: awake Motor Exam: strength 5/5 throughout Psych cooperative Psych Narrative: alert, has underlying MRDD Appearance: appropriate Weight / BMI Weight Weight: 193 lb 5.526 oz Body Mass Index (BMI) 25.4 ABG / Lab / Microbiology Data 05/17/25 07:46 05/17/25 10:17 Laboratory: Laboratory Results - last 24 hr 05/17/25 07:46: WBC 4.7, RBC 4.25 L, Hgb 13.0, Hct 37.2 L, MCV 87.5, MCH 30.6, MCHC 34.9, RDW Std Deviation 42.5, RDW Coeff of Unique 13.2, Plt Count 241, MPV 10.2, Immature Gran % (Auto) 0.200, Neut % (Auto) 52.2, Lymph % (Auto) 34.1, [place] % (Auto) 8.9, Eos % (Auto) 4.0, Baso % (Auto) 0.6, Absolute Neuts (auto) 2.5, Absolute Lymphs (auto) 1.61, Nucleated RBC % 0, Sodium Cancelled, Potassium Cancelled, Chloride Cancelled, Carbon Dioxide Cancelled, Anion Gap Cancelled, BUN Cancelled, Creatinine Cancelled, Estim Creat Clear Calc Cancelled, Est GFR (MDRD) Non-Af Cancelled, BUN/Creatinine Ratio Cancelled, Glucose Cancelled, Calcium Cancelled 05/17/25 10:17: Sodium 143, Potassium 3.3, Chloride 105, Carbon Dioxide 28.1, Anion Gap 10, BUN 6, Creatinine 0.78, Estim Creat Clear Calc 132.31, Est GFR (MDRD) Non-Af 111, BUN/Creatinine Ratio 7.5 L, Glucose 179 H, Calcium 8.8 Microbiology: Microbiology 05/14/25 06:14 Urine, Clean Catch Urine Culture - Final Culture exhibits no growth. 05/15/25 11:00 Stool Enteric Bacteriology - Final 05/15/25 11:00 Stool Clostridioides difficile (PCR) - Final D/C Instructions Discharge Activity: Return to Normal Activity Weight Bearing Status: Weight bearing as tolerated Call your doctor if you observe: Fever of 101 or Higher and - (incessant diarrhea) DC O2, CPAP, BIPAP Needs Home O2 Discharge instructions: No DC home with Oxygen: No Meaningful Use Info Meaningful Use Meaningful Use Diagnoses (Choose all that apply): None applicable Discharge Plan Admission Admit Date/Time: 05/13/25 23:17 Primary Reason for Your Visit: acute viral gastroenteritis Attending Provider: Chandrika Tran Primary Care Provider: Mike Draper Consulting Providers: Ny Wilburn Instructions Patient Instructions: ED Gastroenteritis, Viral (Adult) Discharge Orders/Prescriptions Prescriptions: Continued cetirizine 10 mg tablet 10 mg PO DAILY Patient Comments: TAKE 1 TABLET BY MOUTH ONCE DAILY oxybutynin chloride 5 mg tablet 5 mg PO QHS divalproex [Depakote] 500 mg tablet,delayed release (DR/EC) 500 mg PO BID Qty: 30 2RF omeprazole 20 mg capsule,delayed release(DR/EC) 20 mg PO QDAY hydroxyzine HCl 10 mg tablet 5 - 10 mg PO BID PRN (Reason: anxiety) Qty: 60 2RF carbamazepine 200 MG tablet 400 mg PO BIDCM Patient Comments: Sizeures albuterol sulfate 90 mcg/actuation HFA aerosol inhaler 2 puff inhalation Q4H PRN PRN (Reason: wheezing) Referrals / Follow Up: Mike Draper MD [Primary Care Provider] - Within 1 Week Disposition Disposition (needs filled in before D/C Order can be placed): Home, Self Care Charges/Coding Visit Charges Inpatient E&M: 86065 Disch Hosp >30min
--- NOTE | 2025-05-17 12:41 | DCINST_ITS ---
Discharge Instructions DC O2, CPAP, BIPAP needs Home O2 Discharge instructions: No Dressing / Incision Discharge Activity: Return to Normal Activity Weight Bearing Status: Weight bearing as tolerated Dressing / Incision Call your doctor if you observe: Fever of 101 or Higher and - (incessant diarrhea) Follow Up Care Test Results: Test results from this visit will be discussed in further detail at your follow- up appointment, if applicable. Discharge Plan Admission Admit Date/Time: 05/13/25 23:17 Primary Reason for Your Visit: acute viral gastroenteritis Attending Provider: Chandrika Tran Primary Care Provider: Mike Draper Consulting Providers: Ny Wilburn Instructions Patient Instructions: ED Gastroenteritis, Viral (Adult) Discharge Orders/Prescriptions Prescriptions: Continued cetirizine 10 mg tablet 10 mg PO DAILY Patient Comments: TAKE 1 TABLET BY MOUTH ONCE DAILY oxybutynin chloride 5 mg tablet 5 mg PO QHS divalproex [Depakote] 500 mg tablet,delayed release (DR/EC) 500 mg PO BID Qty: 30 2RF omeprazole 20 mg capsule,delayed release(DR/EC) 20 mg PO QDAY hydroxyzine HCl 10 mg tablet 5 - 10 mg PO BID PRN (Reason: anxiety) Qty: 60 2RF carbamazepine 200 MG tablet 400 mg PO BIDCM Patient Comments: Sizeures albuterol sulfate 90 mcg/actuation HFA aerosol inhaler 2 puff inhalation Q4H PRN PRN (Reason: wheezing) Referrals / Follow Up: Mike Draper MD [Primary Care Provider] - Within 1 Week Disposition Disposition (needs filled in before D/C Order can be placed): Home, Self Care
== END 2025-05-17 12:50 | disposition home or self-care (01) | DRG 684 ==
LOC: ED 23:28 → MS3 23:37
PROVIDERS: Admitting Provider Family Medicine; Emergency Provider Emergency Medicine; PCP Family Medicine; Visit Provider Student in an Organized Health Care Education/Training Program
DX: N17.9 Acute kidney failure, unspecified (principal); A08.4 Viral intestinal infection, unspecified; G40.909 Epilepsy, unspecified, not intractable, without status epilepticus; K21.9 Gastro-esophageal reflux disease without esophagitis; J30.9 Allergic rhinitis, unspecified; E87.6 Hypokalemia; E86.0 Dehydration; F42.9 Obsessive-compulsive disorder, unspecified; F79 Unspecified intellectual disabilities
CPT/HCPCS: 36415; 80048; 80053; 81001; 85025; 87086; 87177; 87209; 87493; 87506; 92610; 99283; A4216; J2405